=== PATIENT | male | born 1930 ===

== ENCOUNTER 2016-07-26 21:03 | Inpatient (IN) | payer MEDICARE, BC ==
--- NOTE | 2016-07-26 22:30 | ED PDOC ---
Syncope/Near Syncope/Dizzyness Time Seen by Provider: 07/26/16 21:14 Chief Complaint (Nursing): Syncope Chief Complaint (Provider): Syncope History Per: EMS, Family (son ) History/Exam Limitations: no limitations Onset/Duration Of Symptoms: Sudden Onset Current Symptoms Are (Timing): Still Present Activity At Onset Of Symptoms: Sitting (eating dinner ) Associated Symptoms Preceding Syncopal Episode: No Predromal Symptoms (Sudden Onset) Additional Complaint(s): Reinier Amaya is a 86 y/o male, with a past medical history of CAD, HTN, DM, dyslipidemia, and chronic renal insufficiency (but not on dialysis), brought in by EMS to the ER on 07/26/2016 after being witnessed of having syncope prior to arrival. Per patient's son, the patient initially became unresponsive at his dinner table earlier today after completing half of his meal. He stated that he felt full but no chest pain. However, his family stated that he became pale, unresponsive, and his eyes were open but his head slumped. EMS promptly arrived on scene and administered oxygen as well as sublingual nitroglycerin. Upon arrival, patient became alert and oriented x3 with no medical complaints. He denies any nausea, vomiting, diaphoresis, or shortness of breath. Family states he is currently baseline at present. Of note, the family reports the patient has been recently discharged from [facility] where he had a cardiac catheterization. Upon discharge from his visit, he was found to have severe coronary disease. But due to his renal insufficiency, there was no possibility of stenting or angioplasty. Patient will be accordingly treated conservatively with medication. Past Medical History Reviewed: Historical Data, Nursing Documentation, Vital Signs Vital Signs: Last Vital Signs Temp 98.2 F 07/26/16 21:04 Pulse 65 07/26/16 21:04 Resp 16 07/26/16 21:04 BP 141/66 07/26/16 21:04 Pulse Ox 98 07/26/16 21:04 - Medical History PMH: Benign Prostatic Hyperplasia, CAD (dyslipidemia ), Diabetes, HTN Other PMH: chronic renal insufficieny - Surgical History Surgical History: CABG - Family History Family History: States: Unknown Family Hx - Social History Current smoker - smoking cessation education provided: No Ex-Smoker (has not smoked in the last 12 months): No Alcohol: None Drugs: Denies - Home Medications Home Medications: Ambulatory Orders Medication Instructions Recorded Allopurinol [Zyloprim] 300 mg PO DAILY 07/26/16 Aspirin [Aspirin Chewable] 81 mg PO QOTHERDAY 07/26/16 Atorvastatin [Lipitor] 10 mg PO HS 07/26/16 Bimatoprost [Lumigan 2.5 ml] 1 drop BOTHEYES HS 07/26/16 Clopidogrel [Plavix] 75 mg PO DAILY 07/26/16 Ergocalciferol (Vitamin D2) 50,000 unit PO QWK 07/26/16 [Vitamin D2] Finasteride [Proscar] 5 mg PO DAILY 07/26/16 Isosorbide Mononitrate [Isosorbide 60 mg PO DAILY 07/26/16 Mononitrate ER] Lisinopril [Zestril] 2.5 mg PO QOTHERDAY 07/26/16 Nitroglycerin [Nitrostat] 0.4 mg SL Q5MIN PRN 07/26/16 Paricalcitol [Zemplar] 1 mcg PO DAILY 07/26/16 Ranolazine [Ranexa] 1,000 mg PO BID 07/26/16 SITagliptin [Januvia] 50 mg PO DAILY 07/26/16 Sevelamer Carbonate [Renvela] 2,400 mg PO DAILY 07/26/16 Sodium Bicarbonate 650 mg PO DAILY 07/26/16 - Allergies Allergies/Adverse Reactions: Allergies Allergy/AdvReac Type Severity Reaction Status Date / Time No Known Allergies Allergy Verified 07/26/16 21:04 Review of Systems ROS Statement: Except As Marked, All Systems Reviewed And Found Negative Cardiovascular: Negative for: Chest Pain Respiratory: Negative for: Shortness of Breath Gastrointestinal: Negative for: Nausea, Vomiting Physical Exam - Reviewed Nursing Documentation Reviewed: Yes Vital Signs Reviewed: Yes - Physical Exam Appears: Positive for: Non-toxic, No Acute Distress Head Exam: Positive for: ATRAUMATIC, NORMOCEPHALIC Skin: Positive for: Normal Color, Warm, Dry Eye Exam: Positive for: Normal appearance, EOMI, PERRL Neck: Positive for: Normal, Painless ROM, Supple Cardiovascular/Chest: Positive for: Regular Rate, Rhythm. Negative for: Murmur Respiratory: Positive for: Normal Breath Sounds. Negative for: Wheezing, Respiratory Distress Gastrointestinal/Abdominal: Positive for: Normal Exam, Soft. Negative for: Tenderness Male Genital Exam: Positive for: other ((-) right groin hematoma ) Extremity: Positive for: Normal ROM. Negative for: Deformity, Swelling Neurologic/Psych: Positive for: Alert, Oriented (x3). Negative for: Motor/ Sensory Deficits - Laboratory Results Result Diagrams: 07/26/16 22:01 07/26/16 22:01 - ECG O2 Sat by Pulse Oximetry: 98 (RA) Pulse Ox Interpretation: Normal - CT Scan/US CT Head w/o Contrast Other Rad Studies (CT/US): Interpreted By Me, Read By Radiologist, Radiology Report Reviewed Medical Decision Making Medical Decision Makin:14 Initial Impression- 86 y/o male with syncopal event in setting of known coronary insufficiency. Initial Plan- * CT Head w/o contrast * CMP * Troponin * CBC w/ differential * PTT * PT * CXR Portable * Accucheck * Urinalysis * Re-evaluate 22:33 CT Head w/o Contrast Results FINDINGS: Brain: Calcifications along the bilateral cerebellar folia. Mild to moderate brain volume loss. No hemorrhage. No significant white matter disease. No edema. Ventricles: Unremarkable. No ventriculomegaly. Bones/joints: Unremarkable. No acute fracture. Soft tissues: Unremarkable. Vasculature: Calcific atherosclerosis of the bilateral carotid siphon. Sinuses: Unremarkable as visualized. No acute sinusitis. Mastoid air cells: Unremarkable as visualized. No mastoid effusion. IMPRESSION: No acute findings. 23:15 Labs and results reviewed. No abnormalities present with exception of creatinine and elevation in patient's BUN, which is baseline for this patient. 23:15 Upon provider reevaluation patient is feeling better and in a fair condition. Patient was asymptomatic for the duration of his ED visit and will be placed in observation status. Counseling was provided and all questions were answered regarding diagnosis. Patient is in agreement with observation plan. Clinical Impression: Syncope Documented by Lizzie Bower and Marck Colon, acting as a scribe for Jong Gutierrez MD. All medical record entries made by the Scribe were at my direction and personally dictated by me. I have reviewed the chart and agree that the record accurately reflects my personal performance of the history, physical exam, medical decision making, and the department course for this patient. I have also personally directed, reviewed, and agree with the discharge instructions and disposition. Disposition - Clinical Impression Clinical Impression: Syncope - Patient ED Disposition Is Patient to be Admitted: Yes Discussed With : Mikey Barr Doctor Will See Patient In The: Hospital Counseled Patient/Family Regarding: Studies Performed, Diagnosis - Disposition Disposition Time: 23:15 Condition: FAIR - Pt Status Changed To: Hospital Disposition Of: Observation
[2016-07-26 22:39] LABS: BASO # 0.1 K/uL (0.0-0.2); BASO % 0.6 % (0.0-2.0); EOS # 0.9 K/uL (0.0-0.7); EOS % 6.9 % (0.0-4.0); HEMATOCRIT 25.8 % (35.0-51.0); LYMPH # 2.9 K/uL (1.0-4.3); LYMPH % 23.1 % (20.0-40.0); MEAN CELL VOLUME 103.1 fl (80.0-94.0); MEAN CORPUSCULAR HEMOGLOBIN 33.9 pg (27.0-31.0); MEAN CORPUSCULAR HGB CONC 32.9 g/dL (33.0-37.0); MEAN PLATELET VOLUME 8.2 fl (7.2-11.7); MONO # 0.4 K/uL (0.0-0.8); NEUT # 8.4 K/uL (1.8-7.0); NEUT % 66.4 % (50.0-75.0); RED CELL DISTRIBUTION WIDTH 19.4 % (11.5-14.5); WHITE BLOOD COUNT 12.7 K/uL (4.8-10.8)
[2016-07-26 22:45] LABS: ALKALINE PHOSPHATASE 63 U/L (38-126); ALT/SGPT 19 U/L (21-72); AST/SGOT 17 U/L (17-59); BILIRUBIN,TOTAL 0.4 mg/dl (0.2-1.3); BLOOD UREA NITROGEN 58 mg/dl (9-20); CALCIUM 9.8 mg/dL (8.4-10.2); CARBON DIOXIDE 26 mmol/L (22-30); CHLORIDE 102 mmol/L (98-107); GFR AFRICAN-AMERICAN 36; GLUCOSE,RANDOM 112 mg/dL (75-110); SODIUM 140 mmol/l (132-148); TOTAL PROTEIN 6.9 G/DL (6.3-8.2)
--- NOTE | 2016-07-27 01:14 | CP.PCM.HP ---
History of Present Illness - History of Present Illness History of Present Illness: CC: Syncope HPI: 86 y/o male with MHx significant for known CAD with CABG in the past and recent PCI at [place] which showed coronaries not amenable for intervention ( ?) who comes in today with syncope. Per the son who witnessed the event, patient had finished Easter dinner, and was noted to have slouched down with his eyes and mouth open. The family called EMS and a neighbor who worked for the [employer] brought O2; sons also gave patient a SLNG. Patient awoke but was still somewhat altered until he was brought to the ER, where he came back to baseline. Denies CP, SOB. Denies any other symptoms at this time. ROS: 14 systems reviewed, negative other than HPI MHx: CAD, DM2, HLD, HTN, CKD4 (?) SHx: CABG, multiple PCIs/stenting in the past, GB surgery Allergies: NKDA Medications: As per med rec Family Hx: Patient could not provide at this time Social Hx: Lives with family, no tobacco, no EtOH Surrogate: Sons, contact info in chart Present on Admission - Present on Admission Any Indicators Present on Admission: No Past Patient History - Past Social History Alcohol: None Drugs: Denies - CARDIAC Hx Cardiac Disorders: Yes - RENAL Hx Chronic Kidney Disease: Yes - ENDOCRINE/METABOLIC Hx Endocrine Disorders: Yes - PSYCHIATRIC Hx Substance Use: No - SURGICAL HISTORY Hx Coronary Artery Bypass Graft: Yes Meds Allergies/Adverse Reactions: Allergies Allergy/AdvReac Type Severity Reaction Status Date / Time No Known Allergies Allergy Verified 07/26/16 21:04 Physical Exam - Constitutional Appears: No Acute Distress - Head Exam Head Exam: ATRAUMATIC, NORMOCEPHALIC - Eye Exam Eye Exam: EOMI, PERRL Additional comments: Xanthema noted on eyelids - ENT Exam ENT Exam: Mucous Membranes Moist - Neck Exam Neck exam: Positive for: Full Rom - Respiratory Exam Respiratory Exam: Clear to Auscultation Bilateral, NORMAL BREATHING PATTERN - Cardiovascular Exam Cardiovascular Exam: REGULAR RHYTHM, +S1, +S2 - GI/Abdominal Exam GI & Abdominal Exam: Normal Bowel Sounds, Soft - Extremities Exam Extremities exam: Positive for: full ROM, normal inspection - Neurological Exam Neurological exam: Alert, CN II-XII Intact, Oriented x3 - Psychiatric Exam Psychiatric exam: Normal Affect, Normal Mood - Skin Skin Exam: Dry, Warm Results - Vital Signs Recent Vital Signs: Last Vital Signs Temp 98.2 F 07/26/16 21:04 Pulse 65 07/26/16 21:04 Resp 16 07/26/16 21:04 BP 141/66 07/26/16 21:04 Pulse Ox 98 07/27/16 00:19 - Labs Result Diagrams: 07/26/16 22:01 07/26/16 22:01 - EKG Data EKG Interpreted by: Myself EKG shows normal: Sinus rhythm - EKG Data EKG comments: ?L axis deviation - Imaging and Cardiology Chest x-ray Status: Image reviewed by me (no acute findings) CT scan - head Status: Image reviewed by me (No acute findings) Assessment & Plan (1) Syncope Assessment and Plan: 86 y/o with extensive CAD history who comes in with syncope. 1) CAD/HLD/HLD/Syncope -Admit tele -Serial troponins -Continue ASA, Plavix, SLNG, Statin -Continue other cardiac medications -Cardiology consult ([facility]) in AM 2) DM2 -DM2 diet -ACHS accucheck with SSI -If tolerating normal diet from AM, resume PO hypoglycemics 3) CKD -Dose medications renally -Renal diet -Continue renal medications -- phos lowering agents, bicarb, etc. 4) DVT PPx --SQ Heparin Status: Acute (2) CAD (coronary artery disease) Status: Acute (3) DM2 (diabetes mellitus, type 2) Status: Acute (4) CKD (chronic kidney disease) stage 4, GFR 15-29 ml/min Status: Acute (5) DVT prophylaxis Status: Acute
[2016-07-27] MEDS ORDERED: Ergocalciferol 50,000 Intl Units Cap PO SCH (01:15)
[2016-07-27 05:13] LABS: BASO # 0.1 K/uL (0.0-0.2); BASO % 0.6 % (0.0-2.0); EOS # 0.6 K/uL (0.0-0.7); EOS % 5.7 % (0.0-4.0); HEMATOCRIT 25.8 % (35.0-51.0); LYMPH # 3.7 K/uL (1.0-4.3); LYMPH % 32.8 % (20.0-40.0); MEAN CELL VOLUME 103.4 fl (80.0-94.0); MEAN CORPUSCULAR HEMOGLOBIN 34.8 pg (27.0-31.0); MEAN CORPUSCULAR HGB CONC 33.7 g/dL (33.0-37.0); MEAN PLATELET VOLUME 8.5 fl (7.2-11.7); MONO # 0.3 K/uL (0.0-0.8); MONO % 2.3 % (0.0-10.0); NEUT # 6.5 K/uL (1.8-7.0); NEUT % 58.6 % (50.0-75.0); RED CELL DISTRIBUTION WIDTH 19.6 % (11.5-14.5); WHITE BLOOD COUNT 11.2 K/uL (4.8-10.8)
[2016-07-27 05:17] LABS: TROPONIN I 0.012 ng/mL (0.00-0.120)
[2016-07-27 05:19] LABS: CALCIUM 9.5 mg/dL (8.4-10.2); POTASSIUM 4.2 MMOL/L (3.6-5.0)
[2016-07-27] MEDS: Insulin Lispro (humaLOG) 100 Units/ml Inj SC SCH ×4 (08:12→21:46)
[2016-07-27] MEDS ORDERED: Patient's Own Med (Lisinopril [Zestril] 2.5 MG) PO SCH (09:00)
[2016-07-27] MEDS ORDERED: SODIUM BICARBONATE 650 MG PO SCH (09:00)
[2016-07-27] MEDS ORDERED: SEVELAMER CARBONATE 2400 MG PO SCH (09:00)
[2016-07-27] MEDS ORDERED: ISOSORBIDE MONONITRATE 60 MG PO SCH (09:00)
--- NOTE | 2016-07-27 09:24 | CP.PCM.PN ---
Subjective - Date & Time of Evaluation Date of Evaluation: 07/27/16 Time of Evaluation: 09:22 - Subjective Subjective: patient denies headaches Has slight dizziness No SOB CT scan was negative Noted low platelet and Hgb Has no chest pain Objective - Vital Signs/Intake and Output Vital Signs (last 24 hours): Temp Pulse Resp BP Pulse Ox 97.9 F 60 18 109/54 L 98 07/27/16 05:00 07/27/16 05:00 07/27/16 05:00 07/27/16 05:00 07/27/16 05:00 - Medications Medications: Current Medications Allopurinol (Zyloprim) 300 mg PO DAILY [facility] Aspirin (Aspirin Chewable) 81 mg PO QOTHERDAY [facility] Atorvastatin Calcium (Lipitor) 10 mg PO HS [facility] Clopidogrel Bisulfate (Plavix) 75 mg PO DAILY [facility] Ergocalciferol (Drisdol 50,000 Intl Units Cap) 1 cap PO QWK [facility] Finasteride (Proscar) 5 mg PO DAILY [facility] Heparin Sodium (Porcine) (Heparin) 5,000 units SC Q8 [facility] PRN Reason: Protocol Home Med (Paricalcitol [Zemplar]) 1 mcg PO DAILY [facility] Home Med (Ranolazine [Ranexa]) 1,000 mg PO BID [facility] Insulin Human Lispro (Humalog) 0 units SC ACHS [facility] PRN Reason: Protocol Last Admin: 07/27/16 08:12 Dose: Not Given Isosorbide Mononitrate (Imdur) 60 mg PO DAILY [facility] Latanoprost (Xalatan Opht) 1 drop OU HS [facility] Lisinopril (Zestril) 2.5 mg PO QOD [facility] Nitroglycerin (Nitrostat Sl Tab) 0.4 mg SL Q5MIN PRN PRN Reason: Other Sevelamer HCl (Renagel) 2,400 mg PO DAILY [facility] Sodium Bicarbonate (Sodium Bicarbonate Tab) 650 mg PO DAILY [facility] - Labs Labs: 07/27/16 04:00 07/27/16 04:00 - Head Exam Head Exam: NORMAL INSPECTION - Eye Exam Eye Exam: Normal appearance - ENT Exam ENT Exam: Mucous Membranes Moist - Respiratory Exam Respiratory Exam: Clear to Ausculation Bilateral - Cardiovascular Exam Cardiovascular Exam: REGULAR RHYTHM - GI/Abdominal Exam GI & Abdominal Exam: Normal Bowel Sounds - Neurological Exam Neurological Exam: CN II-XII Intact, Oriented x3 Assessment and Plan (1) Syncope Status: Acute (2) CKD (chronic kidney disease) stage 3, GFR 30-59 ml/min Status: Acute (3) Diabetes mellitus Status: Acute (4) CAD (coronary atherosclerotic disease) Status: Acute (5) Acquired thrombocytopenia Status: Acute (6) Anemia Status: Acute - Assessment and Plan (Free Text) Plan: anemia work up Holter MRI of the brain carotid sono,
--- NOTE | 2016-07-27 10:46 | RAD ---
HISTORY: Admission. Portable study 01/2010. COMPARISON: No prior. FINDINGS: LUNGS: No active pulmonary disease. PLEURA: No significant pleural effusion identified, no pneumothorax apparent. CARDIOVASCULAR: No radiographic findings to suggest acute or significant cardiovascular disease. OSSEOUS STRUCTURES: No significant abnormalities. VISUALIZED UPPER ABDOMEN: Normal. OTHER FINDINGS: None. IMPRESSION: No active disease.
--- NOTE | 2016-07-27 11:01 | US ---
PROCEDURE: Carotid vertebral duplex sonography HISTORY: syncope COMPARISON: None. TECHNIQUE: Grayscale, color Doppler and spectral Doppler assessment of the carotid system bilaterally. This includes common carotid, internal carotid arteries Vertebral artery assessment with respect to direction of flow (antegrade or retrograde) FINDINGS: RIGHT carotid system: Assessment of plaque: Heterogeneous plaque formation. Extent of plaque including calcified plaque common carotid, bulb extending into the right internal carotid. Peak systolic ICA velocity: 100.3 cm/sec End-diastolic velocity: 23.4 cm/sec ICA/CCA ratio: 1.1 Vertebral artery flow: Antegrade LEFT carotid system: Assessment of plaque: Heterogeneous plaque formation. Partially calcified plaque common carotid mobile extending into the left internal carotid. Peak systolic ICA velocity: 129.8 cm/sec End-diastolic velocity: 37.2 cm/sec ICA/CCA ratio: 1.1 Vertebral artery flow: Antegrade IMPRESSION: 1. Right ICA degree of stenosis: Less than 50% 2. Left ICA degree of stenosis: 50- 69%. Peak systolic left ICA 80 in the proximal portion the vessel. Incidental finding(s): Incompletely characterized cystic thyroid nodule right lobe. This measures 6 by mm. Elective dedicated thyroid ultrasound advised. Reference Internal Carotid Artery (ICA) Peak Systolic Velocity (PSV) for above: 1. Less than 50% stenosis less than 125 cm/s peak systolic velocity 2. 50-69% stenosis 125-230cm/s peak systolic velocity 3. Greater than 70% but less than near occlusion greater than 230 cm/s peak systolic velocity
--- NOTE | 2016-07-27 11:46 | CP.PCM.PN ---
Subjective - Date & Time of Evaluation Date of Evaluation: 07/27/16 Time of Evaluation: 11:45 - Subjective Subjective: Pt seen , orders written.Full note to follow Objective - Vital Signs/Intake and Output Vital Signs (last 24 hours): Temp Pulse Resp BP Pulse Ox 97.9 F 60 18 109/54 L 98 07/27/16 05:00 07/27/16 05:00 07/27/16 05:00 07/27/16 05:00 07/27/16 05:00 - Medications Medications: Current Medications Allopurinol (Zyloprim) 300 mg PO DAILY [facility] Last Admin: 07/27/16 09:52 Dose: 300 mg Aspirin (Aspirin Chewable) 81 mg PO QOTHERDAY [facility] Last Admin: 07/27/16 09:51 Dose: 81 mg Atorvastatin Calcium (Lipitor) 10 mg PO HS [facility] Clopidogrel Bisulfate (Plavix) 75 mg PO DAILY [facility] Last Admin: 07/27/16 09:51 Dose: 75 mg Ergocalciferol (Drisdol 50,000 Intl Units Cap) 1 cap PO QWK [facility] Finasteride (Proscar) 5 mg PO DAILY [facility] Last Admin: 07/27/16 09:51 Dose: 5 mg Home Med (Paricalcitol [Zemplar]) 1 mcg PO DAILY [facility] Home Med (Ranolazine [Ranexa]) 1,000 mg PO BID [facility] Insulin Human Lispro (Humalog) 0 units SC ACHS [facility] PRN Reason: Protocol Last Admin: 07/27/16 08:12 Dose: Not Given Isosorbide Mononitrate (Imdur) 60 mg PO DAILY [facility] Last Admin: 07/27/16 09:51 Dose: 60 mg Latanoprost (Xalatan Opht) 1 drop OU HS [facility] Lisinopril (Zestril) 2.5 mg PO QOD [facility] Nitroglycerin (Nitrostat Sl Tab) 0.4 mg SL Q5MIN PRN PRN Reason: Other Sevelamer HCl (Renagel) 2,400 mg PO DAILY [facility] Last Admin: 07/27/16 09:51 Dose: 2,400 mg Sodium Bicarbonate (Sodium Bicarbonate Tab) 650 mg PO DAILY [facility] Last Admin: 07/27/16 09:51 Dose: 650 mg - Labs Labs: 07/27/16 04:00 07/27/16 04:00
[2016-07-27 12:45] LABS: IRON 70 ug/dL (49-181)
--- NOTE | 2016-07-27 13:27 | CON ---
DATE: 07/27/2016 NEUROLOGY CONSULTATION CHIEF COMPLAINT: Syncope. HISTORY OF PRESENT ILLNESS: An 86-year-old man with past medical history of coronary artery disease with CABG in the past and recent PCI at [facility], which showed coronaries not a menable for intervention, history of diabetes type 2, hyperlipidemia, chronic renal insufficiency, wh o came to the hospital because his son witnessed an event where the patient was finishing CHROMAom er, he was noted to have slouched down with his eyes and his mouth open. The patient was unresponsiv e at the dinner table, only after completing 1/2 of his meal. He said he felt full, but no chest su n. He became pale, unresponsive. His eyes were open, but head was slumped. He had poor sleep the n ight before. He is on aspirin and Plavix for stroke prevention as well as coronary artery disease. He is on Januvia for his underlying diabetes and Lipitor for his dyslipidemia. Currently, he has chr onic renal insufficiency. He has a low platelet count and his hemoglobin 8.4, which is low. A CT he ad showed no acute intracranial abnormalities. Carotid Doppler showed right ICA stenosis less than 5 0%, and left ICA stenosis of 50% to 69% . Currently, he is following commands without any difficulty , no focal weakness, no pronator drift seen. ALLERGIES: No known drug allergies. PAST MEDICAL HISTORY: History of dyslipidemia, hypertension, coronary artery disease status post CAB G, history of osteoporosis and history of chronic renal insufficiency. REVIEW OF SYSTEMS: A 14-point review of systems is negative except in the HPI. FAMILY HISTORY: Noncontributory. SOCIAL HISTORY: No illicit drug use, smoking, or ETOH abuse. CURRENT MEDICATIONS: Reviewed via nurse's reconciliation. PHYSICAL EXAMINATION: VITAL SIGNS: Temperature is 97.5, pulse rate 60, blood pressure of 109/54, respiratory rate of 18, o xygen saturation 98% on room air. GENERAL: The patient is sitting up in bed in no acute distress. HEENT: Atraumatic, normocephalic. PERRLA. Extraocular muscles intact. NECK: Supple, no JVD, no adenopathy noted. LUNGS: Clear to auscultation. No adventitious sounds. HEART: S1, S2, normal rate and rhythm. No murmurs, rubs, or gallops. ABDOMEN: Soft, nontender, nondistended. Bowel sounds are present. EXTREMITIES: No clubbing, no cyanosis. Peripheral pulses 2+ felt bilaterally. NEUROLOGIC: The patient is alert, oriented to person, place and year, hard of hearing. Recall after 5 minutes is 0/3, poor attention span. Slow thought process. Cranial nerves II through XII are int act. MOTOR EXAM: Moves all extremities equally. No pronator drift seen. SENSORY: Decreased light touch and pinprick up to calves bilaterally. DTRs are 2+ throughout and 1 at the ankles and knees. COORDINATION: [id number] intact. No tremors noted. Gait is deferred for now. LABORATORY DATA: Sodium 141, potassium 4.2, chloride 105, carbon dioxide 23, BUN of 55, creatinine 2 .1. Random glucose of 101. ASSESSMENT AND PLAN: This is an 86-year-old man with history of type 2 diabetes mellitus, history of dyslipidemia, history of coronary artery disease with history of coronary artery bypass graft, with a recent angioplasty showing coronary artery disease, not amenable to stents, history of chronic mary ellen l insufficiency, who was found to have a syncopal event where he was eating Easter dinner and had slu mped on top of his food, became pale and slightly unresponsive and was slightly altered when he came to the hospital. He said he had poor sleep the night before. Currently, denies any confusion episod es. He has baseline mild cognitive impairment which is seen on my examination, some underlying medic al problems. His blood pressure systolic is on the lower side today, he has anemia. At this time, I feel like his syncope is multifactorial, likely secondary to transient cerebral hypoperfusion to the brain from low blood pressure, superimposed underlying chronic renal insufficiency and symptomatic a nemia. At this time, recommend: 1. Aspirin 81 mg and Plavix 75 mg p.o. daily and Lipitor 20 mg p.o. daily for dyslipidemia, stroke p revention and coronary artery disease. 2. Get orthostatic vital signs. 3. Carotid Doppler reviewed. We will continue medical management for his underlying carotid disease . 4. Get physical therapy evaluation. 5. Hydrate the patient and monitor his electrolytes. Correct accordingly and get nephrology consult in regards to his chronic renal insufficiency. He is clinically stable from a neurological standpoi nt. Thank you for this consult. Simeon Moran MD cc: [id number] TT: 07/27/2016 13:27:11 Confirmation # [id number] Dictation # [id number]
[2016-07-27] MEDS: Patient's Own Med (Paricalcitol [Zemplar] 1 MCG) PO SCH (13:59)
--- NOTE | 2016-07-27 15:26 | CP.PCM.CON ---
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 Pt denies cp or sob and is comfortable at rest. Cardiac enzymes are normal and EKG reveals no acute changes. Bp is stable. Past Patient History - Past Social History Alcohol: None Drugs: Denies - CARDIAC Hx Cardiac Disorders: Yes - PULMONARY Other/Comment: previous smoker - NEUROLOGICAL Hx Neurological Disorder: No - HEENT Hx HEENT Problems: Yes Other/Comment: hard of hearing - RENAL Hx Chronic Kidney Disease: Yes - ENDOCRINE/METABOLIC Hx Endocrine Disorders: Yes - HEMATOLOGICAL/ONCOLOGICAL Hx Blood Disorders: No Hx AIDS: No Hx Human Immunodeficiency Virus (HIV): No - INTEGUMENTARY Hx Dermatological Problems: No - MUSCULOSKELETAL/RHEUMATOLOGICAL Hx Musculoskeletal Disorders: No Hx Falls: No - GASTROINTESTINAL Hx Gastrointestinal Disorders: No - GENITOURINARY/GYNECOLOGICAL Hx Genitourinary Disorders: Yes Hx Prostate Problems: Yes - PSYCHIATRIC Hx Substance Use: No - SURGICAL HISTORY Hx Coronary Artery Bypass Graft: Yes - ANESTHESIA Hx Anesthesia: Yes Hx Anesthesia Reactions: No Hx Malignant Hyperthermia: No Has any member of the family had a problem w/ anesthesia?: No Meds Allergies/Adverse Reactions: Allergies Allergy/AdvReac Type Severity Reaction Status Date / Time No Known Allergies Allergy Verified 07/26/16 21:04 - Medications Medications: Current Medications Allopurinol (Zyloprim) 300 mg PO DAILY [facility] Last Admin: 07/27/16 09:52 Dose: 300 mg Aspirin (Aspirin Chewable) 81 mg PO QOTHERDAY [facility] Last Admin: 07/27/16 09:51 Dose: 81 mg Atorvastatin Calcium (Lipitor) 10 mg PO HS [facility] Clopidogrel Bisulfate (Plavix) 75 mg PO DAILY [facility] Last Admin: 07/27/16 09:51 Dose: 75 mg Ergocalciferol (Drisdol 50,000 Intl Units Cap) 1 cap PO QWK [facility] Finasteride (Proscar) 5 mg PO DAILY [facility] Last Admin: 07/27/16 09:51 Dose: 5 mg Home Med (Paricalcitol [Zemplar]) 1 mcg PO DAILY [facility] Last Admin: 07/27/16 13:59 Dose: 1 mcg Home Med (Ranolazine [Ranexa]) 1,000 mg PO BID [facility] Last Admin: 07/27/16 13:59 Dose: 1,000 mg Insulin Human Lispro (Humalog) 0 units SC ACHS [facility] PRN Reason: Protocol Last Admin: 07/27/16 13:59 Dose: Not Given Isosorbide Mononitrate (Imdur) 60 mg PO DAILY [facility] Last Admin: 07/27/16 09:51 Dose: 60 mg Latanoprost (Xalatan Opht) 1 drop OU HS [facility] Lisinopril (Zestril) 2.5 mg PO QOD [facility] Nitroglycerin (Nitrostat Sl Tab) 0.4 mg SL Q5MIN PRN PRN Reason: Other Sevelamer HCl (Renagel) 2,400 mg PO DAILY [facility] Last Admin: 07/27/16 09:51 Dose: 2,400 mg Sodium Bicarbonate (Sodium Bicarbonate Tab) 650 mg PO DAILY [facility] Last Admin: 07/27/16 09:51 Dose: 650 mg Physical Exam - Head Exam Head Exam: NORMAL INSPECTION - Respiratory Exam Respiratory Exam: NORMAL BREATHING PATTERN - Cardiovascular Exam Cardiovascular Exam: REGULAR RHYTHM - GI/Abdominal Exam GI & Abdominal Exam: Normal Bowel Sounds - Extremities Exam Extremities exam: Positive for: normal inspection Results - Vital Signs Recent Vital Signs: Last Vital Signs Temp 98.3 F 07/27/16 09:00 Pulse 70 07/27/16 09:00 Resp 18 07/27/16 09:00 BP 123/72 07/27/16 09:00 Pulse Ox 98 07/27/16 09:00 - Labs Result Diagrams: 07/27/16 04:00 07/27/16 04:00 Labs: Laboratory Results - last 24 hr 07/27/16 07/27/16 07/27/16 12:23 12:34 13:55 Retic Count 0.8 POC Glucose (mg/dL) 141 H Iron 70 TIBC 234 L % Saturation 30 Troponin I < 0.0120 Assessment & Plan - Assessment and Plan (Free Text) Assessment: Concur with Neurologist Syncopal event probably multifactorial currently hemodynamically stable. Pt is stable from cardiac standpoint once he is ambulatory. Would Discontinue NANCY-I as he is taking qod
--- NOTE | 2016-07-27 16:02 | CARD ---
APPROVED REPORT EKG Measurement Heart [id number] ND [id number] <Conclusion> Normal sinus rhythm Left axis deviation Pulmonary disease pattern Nonspecific T wave abnormality Abnormal ECG
[2016-07-27 19:33] LABS: FOLATE 13.4 ng/mL
[2016-07-27] MEDS: Latanoprost 0.005% Opht SOUTION OU SCH (21:46)
[2016-07-27] MEDS ORDERED: Patient's Own Med (Bimatoprost [Lumigan] 1 DROP) BOTHEYES SCH (22:00)
[2016-07-28] MEDS: Insulin Lispro (humaLOG) 100 Units/ml Inj SC SCH ×4 (07:27→22:32)
[2016-07-28] MEDS ORDERED: Epoetin Alfa 40000 UNIT/ml Inj SC ONE (09:20)
[2016-07-28] MEDS: Patient's Own Med (Paricalcitol [Zemplar] 1 MCG) PO SCH (09:26)
--- NOTE | 2016-07-28 09:26 | CP.PCM.PN ---
<Marquita Cheng - Last Filed: 07/28/16 12:04> Subjective - Date & Time of Evaluation Date of Evaluation: 07/28/16 Time of Evaluation: 09:26 - Subjective Subjective: 86M seen and examined at bedside with attending. Patient denies SOB, chest pain, and denies any dizziness at this time. Objective - Vital Signs/Intake and Output Vital Signs (last 24 hours): Temp Pulse Resp BP Pulse Ox 36.5 C 62 18 122/68 95 07/28/16 07:56 07/28/16 07:56 07/28/16 07:56 07/28/16 07:56 07/28/16 07:56 - Medications Medications: Current Medications Allopurinol (Zyloprim) 300 mg PO DAILY [facility] Last Admin: 07/27/16 09:52 Dose: 300 mg Aspirin (Aspirin Chewable) 81 mg PO QOTHERDAY [facility] Last Admin: 07/27/16 09:51 Dose: 81 mg Atorvastatin Calcium (Lipitor) 10 mg PO HS [facility] Last Admin: 07/27/16 21:46 Dose: 10 mg Clopidogrel Bisulfate (Plavix) 75 mg PO DAILY [facility] Last Admin: 07/27/16 09:51 Dose: 75 mg Epoetin Joel (Procrit) 40,000 unit SC ONCE ONE Stop: 07/28/16 09:21 Ergocalciferol (Drisdol 50,000 Intl Units Cap) 1 cap PO QWK [facility] Finasteride (Proscar) 5 mg PO DAILY [facility] Last Admin: 07/27/16 09:51 Dose: 5 mg Home Med (Paricalcitol [Zemplar]) 1 mcg PO DAILY [facility] Last Admin: 07/27/16 13:59 Dose: 1 mcg Home Med (Ranolazine [Ranexa]) 1,000 mg PO BID [facility] Last Admin: 07/27/16 16:53 Dose: 1,000 mg Insulin Human Lispro (Humalog) 0 units SC ACHS [facility] PRN Reason: Protocol Last Admin: 07/28/16 07:27 Dose: Not Given Isosorbide Mononitrate (Imdur) 60 mg PO DAILY [facility] Last Admin: 07/27/16 09:51 Dose: 60 mg Latanoprost (Xalatan Opht) 1 drop OU HS [facility] Last Admin: 07/27/16 21:46 Dose: 1 drop Nitroglycerin (Nitrostat Sl Tab) 0.4 mg SL Q5MIN PRN PRN Reason: Other Sevelamer HCl (Renagel) 2,400 mg PO DAILY [facility] Last Admin: 07/27/16 09:51 Dose: 2,400 mg Sodium Bicarbonate (Sodium Bicarbonate Tab) 650 mg PO DAILY [facility] Last Admin: 07/27/16 09:51 Dose: 650 mg Assessment and Plan (1) Syncope Assessment & Plan: Syncopal event both neurology and cardiology evaluated patient and appears to be multifactorial (hypoperfusion/anemia/CRF). - Neurology Consult (Dr Moran) appreciated: multifactorial event (hypoperfusion /anemia, CRF) - Cardiology Consult (Dr Joshua) appreciated: Trops negative, EKG no acute changes , d/c ACEI, cardiac stable at present - Carotid duplex: LEFT ICA 50-69% and RIGHT ICA <50%; incidental thyroid nodule noted - Physical Therapy evaluation Status: Acute (2) DVT prophylaxis Assessment & Plan: Lovenox and Heparin contraindicated at this time due to Thrombocytopenia SCDs b/l, continuous Status: Acute (3) Thyroid incidentaloma Assessment & Plan: Noted on carotid duplex, clinically without symptoms. - TSH - Thyroid Ultrasound as indicated Status: Acute (4) CAD (coronary artery disease) Assessment & Plan: Patient with significant cardiac hx to include CABG. Troponins negative, EKG no acute changes. - Cardiology Consult (Dr Joshua) appreciated: Trops negative, EKG no acute changes , d/c ACEI, cardiac stable at present - c/w home medications Status: Chronic (5) CKD (chronic kidney disease) stage 3, GFR 30-59 ml/min Assessment & Plan: Followed by Dr Sosa as an outpatient and this admission no acute changes. - f/u outpatient with Dr Sosa Status: Chronic (6) Diabetes mellitus Assessment & Plan: Well-controlled. - c/w home medications Status: Chronic (7) Hypertension Assessment & Plan: Chronic, controlled, however after evaluation by cardiology ACEI discontinued. - c/w current home medications Status: Chronic (8) Hematologic abnormality Assessment & Plan: Patient has both anemia and thrombocytopenia likely chronic, iron studies and B12 are wnl. - Heme/Onc (Dr Trav Urban) consult appreciated: Procrit x1 - Will continue to monitor Status: Chronic <Arthur Mccain - Last Filed: 07/29/16 08:46> Objective - Vital Signs/Intake and Output Vital Signs (last 24 hours): Temp Pulse Resp BP Pulse Ox 98.0 F 69 20 105/66 97 07/29/16 08:23 07/29/16 08:23 07/29/16 08:23 07/29/16 08:23 07/29/16 08:23 - Medications Medications: Current Medications Allopurinol (Zyloprim) 300 mg PO DAILY [facility] Last Admin: 07/28/16 09:27 Dose: 300 mg Aspirin (Aspirin Chewable) 81 mg PO QOTHERDAY [facility] Last Admin: 07/27/16 09:51 Dose: 81 mg Atorvastatin Calcium (Lipitor) 10 mg PO HS [facility] Last Admin: 07/28/16 21:15 Dose: 10 mg Clopidogrel Bisulfate (Plavix) 75 mg PO DAILY [facility] Last Admin: 07/28/16 09:26 Dose: 75 mg Dextrose (Glutose 15) 0 gm PO ONCE PRN; Protocol PRN Reason: Hypoglycemia Protocol Dextrose (Dextrose 50% Inj) 0 ml IV STAT PRN; Protocol PRN Reason: Hyglycemia Protocol Ergocalciferol (Drisdol 50,000 Intl Units Cap) 1 cap PO QWK [facility] Finasteride (Proscar) 5 mg PO DAILY [facility] Last Admin: 07/28/16 09:26 Dose: 5 mg Glucagon (Glucagen Diagnostic Kit) 0 mg IM STAT PRN; Protocol PRN Reason: Hypoglycemia Protocol Home Med (Paricalcitol [Zemplar]) 1 mcg PO DAILY [facility] Last Admin: 07/28/16 09:26 Dose: 1 mcg Home Med (Ranolazine [Ranexa]) 1,000 mg PO BID [facility] Last Admin: 07/28/16 09:26 Dose: 1,000 mg Insulin Human Lispro (Humalog) 0 units SC ACHS [facility] PRN Reason: Protocol Last Admin: 07/29/16 07:04 Dose: Not Given Isosorbide Mononitrate (Imdur) 60 mg PO DAILY [facility] Last Admin: 07/28/16 09:25 Dose: 60 mg Latanoprost (Xalatan Opht) 1 drop OU HS [facility] Last Admin: 07/28/16 21:15 Dose: 1 drop Nitroglycerin (Nitrostat Sl Tab) 0.4 mg SL Q5MIN PRN PRN Reason: Other Sevelamer HCl (Renagel) 2,400 mg PO DAILY [facility] Last Admin: 07/28/16 09:27 Dose: 2,400 mg Sodium Bicarbonate (Sodium Bicarbonate Tab) 650 mg PO DAILY [facility] Last Admin: 07/28/16 09:27 Dose: 650 mg - Labs Labs: 07/28/16 10:48 07/29/16 04:45 Assessment and Plan (1) Syncope Status: Acute (2) CKD (chronic kidney disease) stage 3, GFR 30-59 ml/min Status: Chronic (3) Diabetes mellitus Status: Chronic (4) CAD (coronary atherosclerotic disease) Status: Acute (5) Acquired thrombocytopenia Status: Acute (6) Anemia Status: Acute - Assessment and Plan (Free Text) Plan: I personally evaluated patient. Discussed with IN STORE DEMONSTRATOR and with Dr Prosper remy plans of care. Arthur Mccain M.D.
[2016-07-28 11:00] LABS: HEMATOCRIT 27.5 % (35.0-51.0); MEAN CORPUSCULAR HEMOGLOBIN 35.1 pg (27.0-31.0); MEAN CORPUSCULAR HGB CONC 33.8 g/dL (33.0-37.0); RED CELL DISTRIBUTION WIDTH 19.4 % (11.5-14.5); WHITE BLOOD COUNT 9.1 K/uL (4.8-10.8)
[2016-07-28 11:11] LABS: CALCIUM 9.6 mg/dL (8.4-10.2); POTASSIUM 4.1 MMOL/L (3.6-5.0)
[2016-07-28 11:40] LABS: THYROID STIMULATING HORMONE 3.89 mIU/ML (0.46-4.68)
[2016-07-28] MEDS ORDERED: Glucagon Recombinant 1 mg Inj IM PRN (11:42)
[2016-07-28] MEDS ORDERED: Dextrose 50% SYRINGE Inj (50 ml) IV PRN (11:42)
--- NOTE | 2016-07-28 11:54 | CP.PCM.PN ---
Subjective - Date & Time of Evaluation Date of Evaluation: 07/28/16 Time of Evaluation: 11:53 - Subjective Subjective: Pt is fdeeling better. His b12 and iron studies are normal. Will start on procrit today. Objective - Vital Signs/Intake and Output Vital Signs (last 24 hours): Temp Pulse Resp BP Pulse Ox 97.7 F 62 18 122/68 95 07/28/16 07:56 07/28/16 07:56 07/28/16 07:56 07/28/16 07:56 07/28/16 07:56 - Medications Medications: Current Medications Allopurinol (Zyloprim) 300 mg PO DAILY [facility] Last Admin: 07/28/16 09:27 Dose: 300 mg Aspirin (Aspirin Chewable) 81 mg PO QOTHERDAY [facility] Last Admin: 07/27/16 09:51 Dose: 81 mg Atorvastatin Calcium (Lipitor) 10 mg PO HS [facility] Last Admin: 07/27/16 21:46 Dose: 10 mg Clopidogrel Bisulfate (Plavix) 75 mg PO DAILY [facility] Last Admin: 07/28/16 09:26 Dose: 75 mg Dextrose (Glutose 15) 0 gm PO ONCE PRN; Protocol PRN Reason: Hypoglycemia Protocol Dextrose (Dextrose 50% Inj) 0 ml IV STAT PRN; Protocol PRN Reason: Hyglycemia Protocol Epoetin Joel (Procrit) 40,000 unit SC ONCE ONE Stop: 07/28/16 09:21 Ergocalciferol (Drisdol 50,000 Intl Units Cap) 1 cap PO QWK [facility] Finasteride (Proscar) 5 mg PO DAILY [facility] Last Admin: 07/28/16 09:26 Dose: 5 mg Glucagon (Glucagen Diagnostic Kit) 0 mg IM STAT PRN; Protocol PRN Reason: Hypoglycemia Protocol Home Med (Paricalcitol [Zemplar]) 1 mcg PO DAILY [facility] Last Admin: 07/28/16 09:26 Dose: 1 mcg Home Med (Ranolazine [Ranexa]) 1,000 mg PO BID [facility] Last Admin: 07/28/16 09:26 Dose: 1,000 mg Insulin Human Lispro (Humalog) 0 units SC ACHS [facility] PRN Reason: Protocol Last Admin: 07/28/16 07:27 Dose: Not Given Isosorbide Mononitrate (Imdur) 60 mg PO DAILY [facility] Last Admin: 07/28/16 09:25 Dose: 60 mg Latanoprost (Xalatan Opht) 1 drop OU HS [facility] Last Admin: 07/27/16 21:46 Dose: 1 drop Nitroglycerin (Nitrostat Sl Tab) 0.4 mg SL Q5MIN PRN PRN Reason: Other Sevelamer HCl (Renagel) 2,400 mg PO DAILY [facility] Last Admin: 07/28/16 09:27 Dose: 2,400 mg Sodium Bicarbonate (Sodium Bicarbonate Tab) 650 mg PO DAILY [facility] Last Admin: 07/28/16 09:27 Dose: 650 mg - Labs Labs: 07/28/16 10:48 07/28/16 10:48
[2016-07-28 20:12] LABS: URINE BILIRUBIN NEGATIVE (NEGATIVE); URINE BLOOD NEGATIVE (NEGATIVE); URINE COLOR YELLOW (YELLOW); URINE GLUCOSE (UA) NEG (Normal); URINE KETONE NEGATIVE (NEGATIVE); URINE LEUKOCYTE ESTERASE NEG Leu/uL (Negative); URINE PROTEIN NEGATIVE (NEGATIVE); URINE UROBILINOGEN 0.2-1.0 mg/dL (0.2-1.0)
[2016-07-28] MEDS: Latanoprost 0.005% Opht SOUTION OU SCH (21:15)
[2016-07-29 06:59] LABS: CALCIUM 9.6 mg/dL (8.4-10.2); POTASSIUM 4.5 MMOL/L (3.6-5.0)
[2016-07-29] MEDS: Insulin Lispro (humaLOG) 100 Units/ml Inj SC SCH ×2 (07:04→12:15)
[2016-07-29 08:24] VITALS: RESP 20
--- NOTE | 2016-07-29 08:48 | CP.PCM.DIS ---
Provider - Provider Date of Admission: 07/27/16 11:50 Attending physician: Arthur Mccain MD Time Spent in preparation of Discharge (in minutes): 30 Diagnosis - Discharge Diagnosis (1) Syncope Status: Acute (2) CKD (chronic kidney disease) stage 3, GFR 30-59 ml/min Status: Chronic (3) Diabetes mellitus Status: Chronic (4) CAD (coronary atherosclerotic disease) Status: Acute (5) Acquired thrombocytopenia Status: Acute (6) Anemia Status: Acute Hospital Course - Lab Results Lab Results: Most Recent Lab Values WBC 9.1 K/uL (4.8-10.8) 07/28/16 10:48 RBC 2.65 Mil/uL (4.40-5.90) L 07/28/16 10:48 Hgb 9.3 g/dL (12.0-18.0) L 07/28/16 10:48 Hct 27.5 % (35.0-51.0) L 07/28/16 10:48 MCV 104.0 fl (80.0-94.0) H 07/28/16 10:48 MCH 35.1 pg (27.0-31.0) H 07/28/16 10:48 MCHC 33.8 g/dL (33.0-37.0) 07/28/16 10:48 RDW 19.4 % (11.5-14.5) H 07/28/16 10:48 Plt Count 63 K/uL (130-400) L 07/28/16 10:48 MPV 8.5 fl (7.2-11.7) 07/27/16 04:00 Neut % (Auto) 58.6 % (50.0-75.0) 07/27/16 04:00 Lymph % (Auto) 32.8 % (20.0-40.0) 07/27/16 04:00 Schuyler % (Auto) 2.3 % (0.0-10.0) 07/27/16 04:00 Eos % (Auto) 5.7 % (0.0-4.0) H 07/27/16 04:00 Baso % (Auto) 0.6 % (0.0-2.0) 07/27/16 04:00 Neut # 6.5 K/uL (1.8-7.0) 07/27/16 04:00 Lymph # 3.7 K/uL (1.0-4.3) 07/27/16 04:00 Schuyler # 0.3 K/uL (0.0-0.8) 07/27/16 04:00 Eos # 0.6 K/uL (0.0-0.7) 07/27/16 04:00 Baso # 0.1 K/uL (0.0-0.2) 07/27/16 04:00 Retic Count 0.8 % (0.5-1.5) 07/27/16 12:34 Sodium 138 mmol/l (132-148) 07/29/16 04:45 Potassium 4.5 MMOL/L (3.6-5.0) 07/29/16 04:45 Chloride 102 mmol/L (98-107) 07/29/16 04:45 Carbon Dioxide 25 mmol/L (22-30) 07/29/16 04:45 Anion Gap 16 (10-20) 07/29/16 04:45 BUN 40 mg/dl (9-20) H 07/29/16 04:45 Creatinine 1.8 mg/dL (0.8-1.5) H 07/29/16 04:45 Est GFR ( Amer) 43 07/29/16 04:45 Est GFR (Non-Af Amer) 36 07/29/16 04:45 POC Glucose (mg/dL) 103 mg/dL (65-110) 07/29/16 05:52 Random Glucose 88 mg/dL (75-110) 07/29/16 04:45 Calcium 9.6 mg/dL (8.4-10.2) 07/29/16 04:45 Iron 70 ug/dL (49-181) 07/27/16 12:23 TIBC 234 ug/dL (250-450) L 07/27/16 12:23 % Saturation 30 % (20-55) 07/27/16 12:23 Ferritin 197.0 ng/mL 07/27/16 12:23 Total Bilirubin 0.4 mg/dl (0.2-1.3) 07/26/16 22:01 AST 17 U/L (17-59) 07/26/16 22:01 ALT 19 U/L (21-72) L 07/26/16 22:01 Alkaline Phosphatase 63 U/L (38-126) 07/26/16 22:01 Troponin I < 0.0120 ng/mL (0.00-0.120) 07/27/16 12:23 Total Protein 6.9 G/DL (6.3-8.2) 07/26/16 22:01 Albumin 3.4 g/dL (3.5-5.0) L 07/26/16 22:01 Globulin 3.5 gm/dL (2.2-3.9) 07/26/16 22:01 Albumin/Globulin Ratio 1.0 (1.0-2.1) 07/26/16 22:01 Vitamin B12 > 1000 pg/mL (239-931) H 07/27/16 12:23 Folate 13.4 ng/mL 07/27/16 12:23 TSH 3rd Generation 3.89 mIU/ML (0.46-4.68) 07/28/16 10:48 Urine Color Yellow (YELLOW) 07/28/16 18:00 Urine Clarity Clear (Clear) 07/28/16 18:00 Urine pH 5.0 (5.0-8.0) 07/28/16 18:00 Ur Specific [place] 1.010 (1.003-1.030) 07/28/16 18:00 Urine Protein Negative mg/dL (NEGATIVE) 07/28/16 18:00 Urine Glucose (UA) Neg mg/dL (Normal) 07/28/16 18:00 Urine Ketones Negative mg/dL (NEGATIVE) 07/28/16 18:00 Urine Blood Negative (NEGATIVE) 07/28/16 18:00 Urine Nitrate Negative (NEGATIVE) 07/28/16 18:00 Urine Bilirubin Negative (NEGATIVE) 07/28/16 18:00 Urine Urobilinogen 0.2-1.0 mg/dL (0.2-1.0) 07/28/16 18:00 Ur Leukocyte Esterase Neg Arya/uL (Negative) 07/28/16 18:00 - Hospital Course Hospital Course: This is an 86 y/o male admitted for syncope while taking his meal. He was evaluated at ER and initial labs were all normal. He has a hx of CABG CAD HTN . Further work ups including CT brain and cardiac enzymes were all normal. Carotid doppler however shoed 59 to 80 % stenosis on the Left ICA Discussed with DR Paige patient and both opted for no further intervention patient was sent home in stable xondition and will follow up in office in 1 week. Abdulaziz -I will be discontinued due to low BP. Discharge Exam - Head Exam Head Exam: NORMAL INSPECTION - Eye Exam Eye Exam: Normal appearance - Respiratory Exam Respiratory Exam: NORMAL BREATHING PATTERN - GI/Abdominal Exam GI & Abdominal Exam: Normal Bowel Sounds - Neurological Exam Neurological exam: CN II-XII Intact, Oriented x3 Discharge Plan - Follow Up Plan Condition: GOOD Disposition: HOME/ ROUTINE Additional Instructions: discharge to home follow up in my office in 1 week.
--- NOTE | 2016-07-29 08:56 | CT ---
PROCEDURE: CT HEAD WITHOUT CONTRAST. HISTORY: headache COMPARISON: None available. TECHNIQUE: Axial computed tomography images were obtained through the head/brain without intravenous contrast. Radiation dose: Total exam DLP = 821.45 mGy-cm. This CT exam was performed using one or more of the following dose reduction techniques: Automated exposure control, adjustment of the mA and/or kV according to patient size, and/or use of iterative reconstruction technique. FINDINGS: HEMORRHAGE: No intracranial hemorrhage. BRAIN: No mass effect or edema. Age related senescent change VENTRICLES: Unremarkable. No hydrocephalus. CALVARIUM: Unremarkable. PARANASAL SINUSES: Unremarkable as visualized. No significant inflammatory changes. MASTOID AIR CELLS: Unremarkable as visualized. No inflammatory changes. OTHER FINDINGS: None. IMPRESSION: No acute intracranial abnormalities. No significant findings to account for the clinical presentation. Concordant results (preliminary interpretation) provided by [facility]. Procedure Completed: 23:03. Preliminary ([facility]) Report: Dictated and Authenticated: 23:26. Final Interpretation: 08:55. July 29, 2016.
[2016-07-29] MEDS: Patient's Own Med (Paricalcitol [Zemplar] 1 MCG) PO SCH (09:23)
[2016-07-29 13:07] VITALS: BP 100/61; PULSE 72; TEMP 97.9; O2SAT 96
[2016-08-04] MEDS ORDERED: Epoetin Alfa 40000 UNIT/ml Inj SC ONE (07:45)
== END 2016-07-29 14:30 | disposition home health service (06) | DRG 312 ==
LOC: H.ER 21:03 → H.ERHOLD 23:06 → H.TEL 07-27 01:13 → OBSVTOIN 07-27 11:50 → H.TEL 07-27 16:39
PROVIDERS: ADMIT Family Medicine; ATTEND Family Medicine
DX: R55 Syncope and collapse (principal); E11.22 Type 2 diabetes mellitus with diabetic chronic kidney disease; D69.59 Other secondary thrombocytopenia; N18.3 Chronic kidney disease, stage 3 (moderate); I12.9 Hypertensive chronic kidney disease with stage 1 through stage 4 chronic kidney disease, or unspecified chronic kidney disease; D64.89 Other specified anemias; I25.89 Other forms of chronic ischemic heart disease; I25.10 Atherosclerotic heart disease of native coronary artery without angina pectoris; Z95.1 Presence of aortocoronary bypass graft; E78.5 Hyperlipidemia, unspecified; E04.1 Nontoxic single thyroid nodule; M81.0 Age-related osteoporosis without current pathological fracture; N40.0 Benign prostatic hyperplasia without lower urinary tract symptoms; G31.84 Mild cognitive impairment of uncertain or unknown etiology; Z98.61 Coronary angioplasty status; H91.90 Unspecified hearing loss, unspecified ear; Z87.891 Personal history of nicotine dependence; Z79.82 Long term (current) use of aspirin; Z79.02 Long term (current) use of antithrombotics/antiplatelets

== ENCOUNTER 2016-09-29 16:16 | Inpatient (IN) | payer MEDICARE, BC ==
[2016-09-29 16:16] VITALS: BMI 30.4
--- NOTE | 2016-09-29 16:55 | ED PDOC ---
HPI: Chest Pain Time Seen by Provider: 09/29/16 16:26 Chief Complaint (Nursing): Chest Pain Chief Complaint (Provider): Chest Discomfort History Per: Patient History/Exam Limitations: no limitations Onset/Duration Of Symptoms: Hrs (5) Current Symptoms Are (Timing): Intermittent Episodes Severity: Moderate Quality: Other (shocking, electrical) Modifying Factors: None Exacerbating Factors: None Additional History Per: Patient Additional Complaint(s): 86 y/o male with PMHx CABG, CAD, HTN, DM, CKD not on hemodialysis, who is here complaining of short bursts of right sided anterior chest discomfort described as electrical shocks for the last 5 hours. The discomfort is not associated with shortness of breath, cough, leg pain, leg swelling, dizziness, or other complaint. He reports that he was concerned due to his previous cardiac history and wanted to be evaluated. 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 Past Medical History Vital Signs: Last Vital Signs Temp 97.6 F 09/29/16 16:55 Pulse 69 09/29/16 16:55 Resp 20 09/29/16 16:55 BP 156/72 H 09/29/16 16:55 Pulse Ox 98 09/29/16 16:55 - Medical History PMH: Anemia, Asthma, Benign Prostatic Hyperplasia, CAD (dyslipidemia ), Diabetes , Gall Bladder Disease, HTN (HTN medications d/c), Hypercholesterolemia, Chronic Kidney Disease Denies: HIV Other PMH: Thrombocytopenia, CKD, - Surgical History Surgical History: CABG (37 years ago), Cholecystectomy, Coronary Stent (1994) - Family History Family History: States: Unknown Family Hx - Social History Current smoker - smoking cessation education provided: No Alcohol: None - Home Medications Home Medications: Ambulatory Orders Medication Instructions Recorded Atorvastatin [Lipitor] 10 mg PO HS 07/26/16 Bimatoprost [Lumigan 2.5 ml] 1 drop BOTHEYES HS 07/26/16 Clopidogrel [Plavix] 75 mg PO DAILY 07/26/16 Ergocalciferol (Vitamin D2) 50,000 unit PO SUN 07/26/16 [Vitamin D2] Finasteride [Proscar] 5 mg PO DAILY 07/26/16 Isosorbide Mononitrate [Isosorbide 60 mg PO QPM 07/26/16 Mononitrate ER] Nitroglycerin [Nitrostat] 0.4 mg SL Q5MIN PRN 07/26/16 Paricalcitol [Zemplar] 1 mcg PO Q48H 07/26/16 Ranolazine [Ranexa] 1,000 mg PO BID 07/26/16 SITagliptin [Januvia] 50 mg PO DAILY 07/26/16 Sevelamer Carbonate [Renvela] 800 mg PO TID 07/26/16 Febuxostat [Uloric] 40 mg PO DAILY 08/11/16 Megestrol Acetate [Megace Es] 625 mg PO DAILY 08/11/16 Lisinopril [Zestril] 2.5 mg PO Q48H 09/29/16 Sodium Bicarbonate Tab [Sodium 650 mg PO BID 09/29/16 Bicarbonate Tab] - Allergies Allergies/Adverse Reactions: Allergies Allergy/AdvReac Type Severity Reaction Status Date / Time No Known Allergies Allergy Verified 08/11/16 11:40 Review of Systems ROS Statement: Except As Marked, All Systems Reviewed And Found Negative Cardiovascular: Positive for: Chest Pain Physical Exam - Reviewed Nursing Documentation Reviewed: Yes Vital Signs Reviewed: Yes - Physical Exam Appears: Positive for: Well, Non-toxic, No Acute Distress Head Exam: Positive for: ATRAUMATIC, NORMAL INSPECTION, NORMOCEPHALIC Skin: Positive for: Normal Color, Warm, DRY Eye Exam: Positive for: EOMI, PERRL ENT: Positive for: Normal ENT Inspection. Negative for: Pharyngeal Erythema, Tonsillar Exudate Neck: Positive for: Normal, Painless ROM Cardiovascular/Chest: Positive for: Regular Rate, Rhythm. Negative for: Gallop , Murmur, Friction Rub Respiratory: Positive for: Normal Breath Sounds. Negative for: Rhonchi, Stridor , Wheezing, Respiratory Distress Gastrointestinal/Abdominal: Positive for: Bowel Sounds, Soft, Tenderness (epig and ruq ttp, mild). Negative for: Mass, Distended, Guarding, Rebound Back: Positive for: Normal Inspection. Negative for: Vertebral Tenderness Extremity: Positive for: Normal ROM. Negative for: Deformity Lymphatic: Negative for: Adenopathy Neurologic/Psych: Positive for: Alert, Oriented. Negative for: Motor/Sensory Deficits - Laboratory Results Result Diagrams: 09/29/16 16:07 09/29/16 16:40 - ECG ECG: Positive for: Interpreted By Me ECG Rhythm: Positive for: Normal ST Segment, Sinus Rhythm, Nonspecific Changes Medical Decision Making Medical Decision Making: Initial Impression: Right sided anterior chest and abdominal discomfort Clinically pt's symptoms not c/w cardiac pathology DDx: Muscle spasm v. early neuropathy v. early Shingles v. gastritis v. pancreatitis Plan: - EKG - Labs - UA - CXR 1830 Lipase elevated on labs. Addn'l LDH and amylase ordered as well as US Pt will need hospitalization for pancreatitis pending ER workup. Accession No. : [id number] Patient Name / ID : CHRISTOPHER GARCIA / [id number] Exam Date : 09/29/2016 17:35:04 ( Approved ) Study Comment : Sex / Age : M / 86Y Creator : Geraldine Cohen MD Dictator : Geraldine Cohen MD Television Picture Tube Rebuilder : Media Services Specialist : Geraldine Cohen MD Approver2 : Report Date : 09/29/2016 18:09:17 My Comment : HISTORY: pancreatitis COMPARISON: None available TECHNIQUE: Sonographic evaluation of the right upper quadrant of the abdomen. FINDINGS: LIVER: Measures 14.8 cm in length and appears otherwise grossly unremarkable. No focal hepatic mass identified. The main portal vein appears patent with normal directional flow. No intrahepatic bile duct dilatation. GALLBLADDER: Cholecystectomy. COMMON BILE DUCT: Measures 5 mm. PANCREAS: Not well-visualized. Limited visualized portions appear prominent. RIGHT KIDNEY: Measures 9.4 x 3.8 x 3.6 cm in length. Cortical atrophy. No obstructing calculus or hydronephrosis identified. Multiple small probable renal cysts measuring up to 1.9 x 1.3 x 1.8 cm. AORTA: Limited visualization appears grossly unremarkable. IVC: Limited visualization appears grossly unremarkable. OTHER FINDINGS: None . IMPRESSION: The pancreas is not adequately visualized by ultrasound. Limited visualized portions of the pancreas appear prominent. Provided history indicates pancreatitis. Correlate with amylase and lipase. Right renal cysts. Right renal cortical atrophy. Correlate clinically for medical renal disease. Cholecystectomy. DW pt findings and plan of care. [place]'s initial criteria demonstrates low risk for poor prognosis, but still incomplete. Will need hospitalization for complete workup. DEAN Mccain PMD. DEAN Marte GI. Scribe Attestation: Documented by Irais Soto acting as a scribe for Shea Ambrose MD. MD Quinteros Attestation: All medical record entries made by the Scribe were at my direction and personally dictated by me. I have reviewed the chart and agree that the record accurately reflects my personal performance of the history, physical exam, medical decision making, and the department course for this patient. I have also personally directed, reviewed, and agree with the discharge instructions and disposition. Disposition - Clinical Impression Clinical Impression: Pancreatitis Counseled Patient/Family Regarding: Studies Performed, Diagnosis - Disposition Disposition Time: 18:30 Condition: FAIR - Pt Status Changed To: Hospital Disposition Of: Inpatient - Admit Certification Admit to Inpatient:: After my assessment, the patient will require hospitalization for at least two midnights. This is because of the severity of symptoms shown, intensity of services needed, and/or the medical risk in this patient being treated as an outpatient. - POA Present On Arrival: None
[2016-09-29 17:01] LABS: BASO # 0.1 K/uL (0.0-0.2); BASO % 1.4 % (0.0-2.0); EOS % 0.8 % (0.0-4.0); HEMATOCRIT 33.7 % (35.0-51.0); LYMPH # 2.6 K/uL (1.0-4.3); LYMPH % 46.6 % (20.0-40.0); MEAN CELL VOLUME 114.7 fl (80.0-94.0); MEAN CORPUSCULAR HEMOGLOBIN 38.1 pg (27.0-31.0); MEAN CORPUSCULAR HGB CONC 33.3 g/dL (33.0-37.0); MONO # 0.4 K/uL (0.0-0.8); MONO % 6.6 % (0.0-10.0); NEUT # 2.5 K/uL (1.8-7.0); NEUT % 44.6 % (50.0-75.0); NRBC % 0.1 % (0.0-0.0); RED CELL DISTRIBUTION WIDTH 20.6 % (11.5-14.5); WHITE BLOOD COUNT 5.5 K/uL (4.8-10.8)
[2016-09-29 17:13] LABS: BILIRUBIN,TOTAL 0.5 mg/dl (0.2-1.3); CALCIUM 9.9 mg/dL (8.4-10.2); PHOSPHOROUS 4.2 mg/dl (2.5-4.5); TOTAL PROTEIN 7.9 G/DL (6.3-8.2)
[2016-09-29 17:17] LABS: PARTIAL THROMBOPLASTIN TIME 29.4 Seconds (25.6-37.1)
[2016-09-29 17:19] LABS: POTASSIUM 5.1 MMOL/L (3.6-5.0)
[2016-09-29 17:25] LABS: TROPONIN I 0.033 ng/mL (0.00-0.120)
[2016-09-29] MEDS ORDERED: Alum-Mag Hydrox-Simethicone Susp (30 mL) PO STA (17:34)
--- NOTE | 2016-09-29 18:10 | US ---
HISTORY: pancreatitis COMPARISON: None available TECHNIQUE: Sonographic evaluation of the right upper quadrant of the abdomen. FINDINGS: LIVER: Measures 14.8 cm in length and appears otherwise grossly unremarkable. No focal hepatic mass identified. The main portal vein appears patent with normal directional flow. No intrahepatic bile duct dilatation. GALLBLADDER: Cholecystectomy. COMMON BILE DUCT: Measures 5 mm. PANCREAS: Not well-visualized. Limited visualized portions appear prominent. RIGHT KIDNEY: Measures 9.4 x 3.8 x 3.6 cm in length. Cortical atrophy. No obstructing calculus or hydronephrosis identified. Multiple small probable renal cysts measuring up to 1.9 x 1.3 x 1.8 cm. AORTA: Limited visualization appears grossly unremarkable. IVC: Limited visualization appears grossly unremarkable. OTHER FINDINGS: None . IMPRESSION: The pancreas is not adequately visualized by ultrasound. Limited visualized portions of the pancreas appear prominent. Provided history indicates pancreatitis. Correlate with amylase and lipase. Right renal cysts. Right renal cortical atrophy. Correlate clinically for medical renal disease. Cholecystectomy.
[2016-09-29 18:36] LABS: AMYLASE 329 U/L (30-110)
[2016-09-29] MEDS: Dextrose 5%/0.45% NS 1,000 ML IV SCH (22:34)
[2016-09-30 07:22] LABS: HEMATOCRIT 31.9 % (35.0-51.0); MEAN CORPUSCULAR HEMOGLOBIN 38.2 pg (27.0-31.0); MEAN CORPUSCULAR HGB CONC 33.3 g/dL (33.0-37.0); RED CELL DISTRIBUTION WIDTH 20.3 % (11.5-14.5); WHITE BLOOD COUNT 4.5 K/uL (4.8-10.8)
[2016-09-30 07:32] LABS: CALCIUM 9.5 mg/dL (8.4-10.2); POTASSIUM 4.6 MMOL/L (3.6-5.0)
[2016-09-30 08:00] LABS: RBC URINE < 1 /hpf (0-3); URINE BILIRUBIN NEGATIVE (NEGATIVE); URINE BLOOD NEGATIVE (NEGATIVE); URINE COLOR YELLOW (YELLOW); URINE GLUCOSE (UA) NEG (Normal); URINE KETONE NEGATIVE (NEGATIVE); URINE LEUKOCYTE ESTERASE NEG Leu/uL (Negative); URINE PROTEIN 100 mg/dL (NEGATIVE); URINE UROBILINOGEN 0.2-1.0 mg/dL (0.2-1.0); WBC URINE < 1 /hpf (0-5)
[2016-09-30] MEDS: Dextrose 5%/0.45% NS 1,000 ML IV SCH ×2 (09:17→20:00)
--- NOTE | 2016-09-30 09:21 | RAD ---
HISTORY: cp COMPARISON: 07/16/2016 TECHNIQUE: Chest PA and lateral FINDINGS: LUNGS: No active pulmonary disease. PLEURA: No significant pleural effusion identified. No pneumothorax apparent. CARDIOVASCULAR: Mild cardiomegaly. Atherosclerotic vascular calcifications. Midline sternotomy OSSEOUS STRUCTURES: Acromioclavicular joint arthrosis thoraco lumbar spondylosis VISUALIZED UPPER ABDOMEN: Normal. OTHER FINDINGS: None. IMPRESSION: No active disease.
--- NOTE | 2016-09-30 15:40 | CARD ---
APPROVED REPORT EKG Measurement Heart [id number] <Conclusion> Sinus rhythm with premature atrial complexes Left axis deviation possible old inferior infarct Abnormal ECG
--- NOTE | 2016-10-01 11:19 | CP.PCM.DIS ---
<ProsperMarquita - Last Filed: 10/01/16 13:03> Provider - Provider Date of Admission: 09/29/16 18:22 Attending physician: Arthur Mccain MD Primary care physician: Arthur Mccain MD Time Spent in preparation of Discharge (in minutes): 45 Diagnosis - Discharge Diagnosis (1) Acute pancreatitis Status: Acute Hospital Course - Lab Results Lab Results: Most Recent Lab Values WBC 4.5 K/uL (4.8-10.8) L 09/30/16 06:00 RBC 2.78 Mil/uL (4.40-5.90) L 09/30/16 06:00 Hgb 10.6 g/dL (12.0-18.0) L 09/30/16 06:00 Hct 31.9 % (35.0-51.0) L 09/30/16 06:00 MCV 115.0 fl (80.0-94.0) H 09/30/16 06:00 MCH 38.2 pg (27.0-31.0) H 09/30/16 06:00 MCHC 33.3 g/dL (33.0-37.0) 09/30/16 06:00 RDW 20.3 % (11.5-14.5) H 09/30/16 06:00 Plt Count 38 K/uL (130-400) L 09/30/16 06:00 MPV 9.0 fl (7.2-11.7) 09/29/16 16:07 Neut % (Auto) 44.6 % (50.0-75.0) L 09/29/16 16:07 Lymph % (Auto) 46.6 % (20.0-40.0) H 09/29/16 16:07 Dawes % (Auto) 6.6 % (0.0-10.0) 09/29/16 16:07 Eos % (Auto) 0.8 % (0.0-4.0) 09/29/16 16:07 Baso % (Auto) 1.4 % (0.0-2.0) 09/29/16 16:07 Neut # 2.5 K/uL (1.8-7.0) 09/29/16 16:07 Lymph # 2.6 K/uL (1.0-4.3) 09/29/16 16:07 Dawes # 0.4 K/uL (0.0-0.8) 09/29/16 16:07 Eos # 0.0 K/uL (0.0-0.7) 09/29/16 16:07 Baso # 0.1 K/uL (0.0-0.2) 09/29/16 16:07 PT 15.8 Seconds (9.8-13.1) H 09/29/16 16:07 INR 1.4 (0.9-1.2) H 09/29/16 16:07 APTT 29.4 Seconds (25.6-37.1) 09/29/16 16:07 Sodium 135 mmol/l (132-148) 09/30/16 06:00 Potassium 4.6 MMOL/L (3.6-5.0) 09/30/16 06:00 Chloride 104 mmol/L (98-107) 09/30/16 06:00 Carbon Dioxide 21 mmol/L (22-30) L 09/30/16 06:00 Anion Gap 15 (10-20) 09/30/16 06:00 BUN 39 mg/dl (9-20) H 09/30/16 06:00 Creatinine 1.7 mg/dL (0.8-1.5) H 09/30/16 06:00 Est GFR ( Amer) 46 09/30/16 06:00 Est GFR (Non-Af Amer) 38 09/30/16 06:00 POC Glucose (mg/dL) 130 mg/dL (65-110) H 10/01/16 04:18 Random Glucose 135 mg/dL (75-110) H 09/30/16 06:00 Calcium 9.5 mg/dL (8.4-10.2) 09/30/16 06:00 Phosphorus 4.2 mg/dl (2.5-4.5) 09/29/16 16:40 Magnesium 2.0 MG/DL (1.6-2.3) 09/29/16 16:40 Total Bilirubin 0.5 mg/dl (0.2-1.3) 09/29/16 16:40 AST 19 U/L (17-59) 09/29/16 16:40 ALT 20 U/L (21-72) L 09/29/16 16:40 Alkaline Phosphatase 46 U/L (38-126) 09/29/16 16:40 Lactate Dehydrogenase 618 U/L (313-618) 09/29/16 18:29 Total Creatine Kinase 24 U/L (55-170) L 09/29/16 16:40 Troponin I 0.0320 ng/mL (0.00-0.120) 09/30/16 08:50 NT-Pro-B Natriuret Pep 4760 pg/ml (0-900) H 09/29/16 16:40 Total Protein 7.9 G/DL (6.3-8.2) 09/29/16 16:40 Albumin 4.0 g/dL (3.5-5.0) 09/29/16 16:40 Globulin 3.9 gm/dL (2.2-3.9) 09/29/16 16:40 Albumin/Globulin Ratio 1.0 (1.0-2.1) 09/29/16 16:40 Amylase 143 U/L (30-110) H D 09/30/16 06:00 Lipase 102 U/L (23-300) 09/30/16 06:00 Urine Color Yellow (YELLOW) 09/30/16 07:45 Urine Clarity Clear (Clear) 09/30/16 07:45 Urine pH 7.0 (5.0-8.0) 09/30/16 07:45 Ur Specific Trimble 1.011 (1.003-1.030) 09/30/16 07:45 Urine Protein 100 mg/dL (NEGATIVE) 09/30/16 07:45 Urine Glucose (UA) Neg mg/dL (Normal) 09/30/16 07:45 Urine Ketones Negative mg/dL (NEGATIVE) 09/30/16 07:45 Urine Blood Negative (NEGATIVE) 09/30/16 07:45 Urine Nitrate Negative (NEGATIVE) 09/30/16 07:45 Urine Bilirubin Negative (NEGATIVE) 09/30/16 07:45 Urine Urobilinogen 0.2-1.0 mg/dL (0.2-1.0) 09/30/16 07:45 Ur Leukocyte Esterase Neg Arya/uL (Negative) 09/30/16 07:45 Urine RBC (Auto) < 1 /hpf (0-3) 09/30/16 07:45 Urine Microscopic WBC < 1 /hpf (0-5) 09/30/16 07:45 Ur Squamous Epith Cells < 1 /hpf (0-5) 09/30/16 07:45 Blood Type A POSITIVE 09/29/16 16:50 Blood Type Confirm A POSITIVE 09/29/16 17:48 Antibody Screen Negative 09/29/16 16:50 BBK History Checked No verified bt 09/29/16 16:50 - Hospital Course Hospital Course: Patient seen and examined at the bedside with attending. 86M admitted for acute pancreatitis and rule out ACS. Consultants Dr Joshua and Dr Marte were asked to evaluate. Currently he is asymptomatic, Troponins are stable at 0.0330, tolerating diet. As long as consultants are in agreement he is stable for discharge and should resume his home medications. Discharge Exam - Head Exam Head Exam: ATRAUMATIC, NORMAL INSPECTION, NORMOCEPHALIC - Eye Exam Eye Exam: EOMI, PERRL - ENT Exam ENT Exam: Mucous Membranes Moist, Normal Exam - Neck Exam Neck exam: Normal Inspection - Respiratory Exam Respiratory Exam: Clear to PA & Lateral, NORMAL BREATHING PATTERN. absent: Rales, Wheezes - Cardiovascular Exam Cardiovascular Exam: REGULAR RHYTHM. absent: JVD - GI/Abdominal Exam GI & Abdominal Exam: Normal Bowel Sounds, Soft. absent: Tenderness - Extremities Exam Extremities exam: normal capillary refill, pedal pulses present - Neurological Exam Neurological exam: Alert, Oriented x3 - Psychiatric Exam Psychiatric exam: Normal Affect, Normal Mood - Skin Skin Exam: Intact, Normal Color Discharge Plan - Follow Up Plan Condition: FAIR Disposition: HOME/ ROUTINE Patient education suggested?: Yes Instructions: Pancreatitis (DC), Diet for Ulcers and Gastritis (GEN) Additional Instructions: I was present during evaluation and discussed with Dr Cheng re plans of care Arthur Mccain M.D. Referrals: Arthur Mccain MD [Primary Care Provider] - <Arthur Mccain - Last Filed: 10/07/16 10:34> Provider - Provider Date of Admission: 09/29/16 18:22 Attending physician: Arthur Mccain MD Primary care physician: Arthur Mccain MD Diagnosis - Discharge Diagnosis (1) Acute pancreatitis Status: Acute (2) Acquired thrombocytopenia Status: Acute (3) CAD (coronary atherosclerotic disease) Status: Acute (4) CKD (chronic kidney disease) stage 4, GFR 15-29 ml/min Status: Acute (5) CAD (coronary artery disease) Status: Chronic (6) Diabetes mellitus Status: Chronic (7) Hypertension Status: Chronic Hospital Course - Lab Results Lab Results: Most Recent Lab Values WBC 4.5 K/uL (4.8-10.8) L 09/30/16 06:00 RBC 2.78 Mil/uL (4.40-5.90) L 09/30/16 06:00 Hgb 10.6 g/dL (12.0-18.0) L 09/30/16 06:00 Hct 31.9 % (35.0-51.0) L 09/30/16 06:00 MCV 115.0 fl (80.0-94.0) H 09/30/16 06:00 MCH 38.2 pg (27.0-31.0) H 09/30/16 06:00 MCHC 33.3 g/dL (33.0-37.0) 09/30/16 06:00 RDW 20.3 % (11.5-14.5) H 09/30/16 06:00 Plt Count 38 K/uL (130-400) L 09/30/16 06:00 MPV 9.0 fl (7.2-11.7) 09/29/16 16:07 Neut % (Auto) 44.6 % (50.0-75.0) L 09/29/16 16:07 Lymph % (Auto) 46.6 % (20.0-40.0) H 09/29/16 16:07 Dawes % (Auto) 6.6 % (0.0-10.0) 09/29/16 16:07 Eos % (Auto) 0.8 % (0.0-4.0) 09/29/16 16:07 Baso % (Auto) 1.4 % (0.0-2.0) 09/29/16 16:07 Neut # 2.5 K/uL (1.8-7.0) 09/29/16 16:07 Lymph # 2.6 K/uL (1.0-4.3) 09/29/16 16:07 Dawes # 0.4 K/uL (0.0-0.8) 09/29/16 16:07 Eos # 0.0 K/uL (0.0-0.7) 09/29/16 16:07 Baso # 0.1 K/uL (0.0-0.2) 09/29/16 16:07 PT 15.8 Seconds (9.8-13.1) H 09/29/16 16:07 INR 1.4 (0.9-1.2) H 09/29/16 16:07 APTT 29.4 Seconds (25.6-37.1) 09/29/16 16:07 Sodium 132 mmol/l (132-148) 10/02/16 07:10 Potassium 4.4 MMOL/L (3.6-5.0) 10/02/16 07:10 Chloride 107 mmol/L (98-107) 10/02/16 07:10 Carbon Dioxide 16 mmol/L (22-30) L 10/02/16 07:10 Anion Gap 13 (10-20) 10/02/16 07:10 BUN 37 mg/dl (9-20) H 10/02/16 07:10 Creatinine 1.8 mg/dL (0.8-1.5) H 10/02/16 07:10 Est GFR ( Amer) 43 10/02/16 07:10 Est GFR (Non-Af Amer) 36 10/02/16 07:10 POC Glucose (mg/dL) 369 mg/dL (65-110) H 10/02/16 10:35 Random Glucose 92 mg/dL (75-110) 10/02/16 07:10 Calcium 8.6 mg/dL (8.4-10.2) 10/02/16 07:10 Phosphorus 4.2 mg/dl (2.5-4.5) 09/29/16 16:40 Magnesium 2.0 MG/DL (1.6-2.3) 09/29/16 16:40 Total Bilirubin 0.5 mg/dl (0.2-1.3) 09/29/16 16:40 AST 19 U/L (17-59) 09/29/16 16:40 ALT 20 U/L (21-72) L 09/29/16 16:40 Alkaline Phosphatase 46 U/L (38-126) 09/29/16 16:40 Lactate Dehydrogenase 618 U/L (313-618) 09/29/16 18:29 Total Creatine Kinase 24 U/L (55-170) L 09/29/16 16:40 Troponin I 0.0320 ng/mL (0.00-0.120) 09/30/16 08:50 NT-Pro-B Natriuret Pep 4760 pg/ml (0-900) H 09/29/16 16:40 Total Protein 7.9 G/DL (6.3-8.2) 09/29/16 16:40 Albumin 4.0 g/dL (3.5-5.0) 09/29/16 16:40 Globulin 3.9 gm/dL (2.2-3.9) 09/29/16 16:40 Albumin/Globulin Ratio 1.0 (1.0-2.1) 09/29/16 16:40 Triglycerides 69 mg/DL (0-149) 10/02/16 07:10 Cholesterol 102 mg/dL (0-199) 10/02/16 07:10 LDL Cholesterol Direct 47 mg/dL (0-129) 10/02/16 07:10 HDL Cholesterol 33 MG/DL (30-70) 10/02/16 07:10 Amylase 143 U/L (30-110) H D 09/30/16 06:00 Lipase 102 U/L (23-300) 09/30/16 06:00 Urine Color Yellow (YELLOW) 09/30/16 07:45 Urine Clarity Clear (Clear) 09/30/16 07:45 Urine pH 7.0 (5.0-8.0) 09/30/16 07:45 Ur Specific Trimble 1.011 (1.003-1.030) 09/30/16 07:45 Urine Protein 100 mg/dL (NEGATIVE) 09/30/16 07:45 Urine Glucose (UA) Neg mg/dL (Normal) 09/30/16 07:45 Urine Ketones Negative mg/dL (NEGATIVE) 09/30/16 07:45 Urine Blood Negative (NEGATIVE) 09/30/16 07:45 Urine Nitrate Negative (NEGATIVE) 09/30/16 07:45 Urine Bilirubin Negative (NEGATIVE) 09/30/16 07:45 Urine Urobilinogen 0.2-1.0 mg/dL (0.2-1.0) 09/30/16 07:45 Ur Leukocyte Esterase Neg Arya/uL (Negative) 09/30/16 07:45 Urine RBC (Auto) < 1 /hpf (0-3) 09/30/16 07:45 Urine Microscopic WBC < 1 /hpf (0-5) 09/30/16 07:45 Ur Squamous Epith Cells < 1 /hpf (0-5) 09/30/16 07:45 Direct Plt-Bound IgG Ab Negative (NEGATIVE) 10/02/16 09:50 Indir Plt-Bound IgM Ab Negative (NEGATIVE) 10/02/16 09:50 Blood Type A POSITIVE 09/29/16 16:50 Blood Type Confirm A POSITIVE 09/29/16 17:48 Antibody Screen Negative 09/29/16 16:50 BBK History Checked No verified bt 09/29/16 16:50
--- NOTE | 2016-10-01 17:17 | CP.PCM.PN ---
Subjective - Date & Time of Evaluation Date of Evaluation: 10/01/16 Time of Evaluation: 10:40 - Subjective Subjective: doing well Objective - Vital Signs/Intake and Output Vital Signs (last 24 hours): Temp Pulse Resp BP Pulse Ox 97.9 F 72 18 105/62 96 10/01/16 15:43 10/01/16 15:43 10/01/16 15:43 10/01/16 15:43 10/01/16 15:43 - Medications Medications: Current Medications Atorvastatin Calcium (Lipitor) 10 mg PO HS [facility] Clopidogrel Bisulfate (Plavix) 75 mg PO DAILY [facility] Last Admin: 10/01/16 13:06 Dose: 75 mg Ergocalciferol (Drisdol 50,000 Intl Units Cap) 1 cap PO SUN [facility] Finasteride (Proscar) 5 mg PO DAILY [facility] Isosorbide Mononitrate (Imdur) 60 mg PO QPM [facility] Last Admin: 10/01/16 17:03 Dose: Not Given Pantoprazole Sodium (Protonix Inj) 40 mg IVP DAILY [facility] Last Admin: 10/01/16 09:03 Dose: 40 mg Sitagliptin Phosphate (Januvia) 50 mg PO DAILY [facility] Sodium Bicarbonate (Sodium Bicarbonate Tab) 650 mg PO BID [facility] Last Admin: 10/01/16 16:57 Dose: 650 mg - Labs Labs: 09/30/16 06:00 09/30/16 06:00 PT 15.8 Seconds (9.8-13.1) H 09/29/16 16:07 INR 1.4 (0.9-1.2) H 09/29/16 16:07 APTT 29.4 Seconds (25.6-37.1) 09/29/16 16:07 - GI/Abdominal Exam GI & Abdominal Exam: Soft, Normal Bowel Sounds Assessment and Plan - Assessment and Plan (Free Text) Assessment: 86 yo male with pancreatitis advance diet dc planning
--- NOTE | 2016-10-01 19:04 | CON ---
DATE: 09/30/2016 REFERRING PHYSICIAN: Dr. Mccain REASON FOR CONSULTATION: Abdominal pain. HISTORY OF PRESENT ILLNESS: This is an 86-year-old male with history of CABG, CAD, hypertension, natasha betes, CKD, not on dialysis, basically came in because of discomfort and pain, which he has had pancr eatitis for and is being treated. No nausea, no vomiting, no heartburn, no reflux. No problems eati ng or swallowing. Has had this pain before in the past, but otherwise at this point is improved. Ly ing in bed, comfortable, in no apparent distress. PAST MEDICAL HISTORY: As above. PAST SURGICAL HISTORY: As above. MEDICATIONS: Have been reviewed and it is a long list. REVIEW OF SYSTEMS: All other systems have been reviewed and negative apart from the HPI. PHYSICAL EXAMINATION: VITAL SIGNS: Here in the hospital are grossly unremarkable. GENERAL: This is a pleasant, elderly-appearing male lying in bed, comfortable, in no apparent distre ss. HEAD: Normocephalic, atraumatic. EYES: Pupils equally reactive to light bilaterally. No conjunctival pallor or icterus. NECK: Supple, normal range of motion, no lymphadenopathy appreciated. LUNGS: Coarse breath sounds bilaterally. HEART: S1, S2, regular rhythm, no murmurs appreciated. ABDOMEN: Soft, nontender. Bowel sounds present. No rebound or guarding. RECTAL: Deferred. EXTREMITIES: Pulses present bilaterally. SKIN: Warm, dry, and intact. NEUROLOGIC: Alert and oriented x 3. LABORATORY DATA: Labs reviewed. WBC is 4.5, hemoglobin is 10.6. Lipase was initially 1516, now it is 102. LFTs are essentially unremarkable. Ultrasound shows no gallbladder present and no dilated C BD. ASSESSMENT AND PLAN: This is an 86-year-old man with pancreatitis. Triglycerides are pending. From a gastrointestinal standpoint, advance diet as tolerated. Will follow up. Can be discharged once t olerating diet. Aggressive IV hydration. Thank you for the consult. Diego Marte MD, PhD cc:Arthur Mccain MD [id number] TT: 10/01/2016 19:03:17 Confirmation # [id number] Dictation # [id number]
[2016-10-02 07:52] VITALS: BP 95/54; PULSE 67; RESP 18; TEMP 97.7; O2SAT 98
[2016-10-02 07:52] LABS: CALCIUM 8.6 mg/dL (8.4-10.2); POTASSIUM 4.4 MMOL/L (3.6-5.0)
--- NOTE | 2016-10-02 10:30 | PQF RENAL ---
This form is a permanent part of the medical record 10/02/16 Dr. Mccain, Please clarify the stage of the chronic kidney disease. BUN 46-> 37, Creatinine 1.7- 1.8, GFR 36-38. Clarification of your documentation is requested to better reflect the severity of illness and intensity of treatment of your patient. Indicators present [] Oliguria/anuria [] Edema/weight gain [] Hyponatremia [] Confusion/mental status changes [] Increased Blood Urea Nitrogen/Creatinine [] Increased Potassium/Decreased potassium [] Anemia (male <13.5, female <12.0) [] Proteinuria [] Metabolic Acidosis OR Alkalosis [] Hypotension/shock [] Decreased GFR [] Other: [] Location in the medical record that reflects the above clinical findings: PHYSICIAN'S RESPONSE Based on your medical judgment of the clinical indicators outlined above, are you treating this patient for a known or suspected: [] Acute Renal Failure [] Acute Kidney Injury [] Azotemia/prerenal azotemia [] Chronic kidney disease Stage I [] Stage II [] Stage III [] Stage IV [] ESRD [] [] Other condition/diagnosis:[] [] If Unable to Determine, please check the box, sign and date. Present On Admission (POA) Indicator: [] Present at the time of admission [] Not present at the time of admission [] Clinically Undetermined In responding to this query, please exercise your independent professional judgment. The fact that a question is asked does not imply that any particular answer is desired or expected. Thank you for your clarification on this documentation. If you have any questions please call:[phone] Medical Records * Thank you, Lesia Bay RN CDMP Chronic Kidney Disease Stages *[employer]* Stage I GFR >90 Stage II GFR 60-89 Stage III GFR 30-59 Stage IV GFR 15-29 Stage V~~~~~~~~~~ GFR <15~~~~~~~~~~~~~ MTDD
--- NOTE | 2016-10-02 10:32 | PQF GENQUE ---
This form is a permanent part of the medical record 10/02/16 Dr. Mccain, Would you please clarify if there is an associated diagnosis or not to go along with the CBC findings: WBC 4.5 H&H 10.6/31.9 and platelets 38,000. Clarification of your documentation is requested to better reflect the severity of illness and intensity of treatment of your patient. PHYSICIAN'S RESPONSE Based on your medical judgment of the clinical indicators outlined above please clarify the following: [] Practitioner response [] If unable to determine, please check the box, sign and date. Present On Admission (POA) Indicator: [] Present at the time of admission [] Not present at the time of admission [] Clinically Undetermined In responding to this query, please exercise your independent professional judgment. The fact that a question is asked does not imply that any particular answer is desired or expected. Thank you for your clarification on this documentation. If you have any questions please call:extension [phone] * Thank you, Lesia Bay RN CDMP MTDD
--- NOTE | 2016-10-02 11:02 | CP.PCM.PN ---
Addendum entered and electronically signed by Marquita Cheng 10/03/16 19:46: CKD-Stage 3 stable, Acquired thrombocytopenia- stable and being followed by Dr Trav Urban. Original Note: <Marquita Cheng - Last Filed: 10/02/16 13:29> Subjective - Date & Time of Evaluation Date of Evaluation: 10/02/16 Time of Evaluation: 08:00 - Subjective Subjective: Patient seen and examined at bedside with attending. 86M no acute complaints this morning. He is tolerating his food well without N/ V and denies any pain at this time. Objective - Vital Signs/Intake and Output Vital Signs (last 24 hours): Temp Pulse Resp BP Pulse Ox 36.5 C 67 18 95/54 L 98 10/02/16 07:52 10/02/16 07:52 10/02/16 07:52 10/02/16 07:52 10/02/16 07:52 - Medications Medications: Current Medications Atorvastatin Calcium (Lipitor) 10 mg PO HS [facility] Last Admin: 10/01/16 22:00 Dose: 10 mg Clopidogrel Bisulfate (Plavix) 75 mg PO DAILY [facility] Last Admin: 10/02/16 09:05 Dose: 75 mg Ergocalciferol (Drisdol 50,000 Intl Units Cap) 1 cap PO SUN [facility] Finasteride (Proscar) 5 mg PO DAILY [facility] Last Admin: 10/02/16 09:05 Dose: 5 mg Isosorbide Mononitrate (Imdur) 60 mg PO QPM [facility] Last Admin: 10/01/16 17:03 Dose: Not Given Pantoprazole Sodium (Protonix Inj) 40 mg IVP DAILY [facility] Last Admin: 10/02/16 09:05 Dose: 40 mg Sitagliptin Phosphate (Januvia) 50 mg PO DAILY [facility] Last Admin: 10/02/16 09:04 Dose: 50 mg Sodium Bicarbonate (Sodium Bicarbonate Tab) 650 mg PO BID [facility] Last Admin: 10/02/16 09:05 Dose: 650 mg - Labs Labs: 09/30/16 06:00 10/02/16 07:10 PT 15.8 Seconds (9.8-13.1) H 09/29/16 16:07 INR 1.4 (0.9-1.2) H 09/29/16 16:07 APTT 29.4 Seconds (25.6-37.1) 09/29/16 16:07 - Constitutional Appears: Well, Non-toxic, No Acute Distress - Head Exam Head Exam: ATRAUMATIC, NORMAL INSPECTION - Eye Exam Eye Exam: EOMI, PERRL - ENT Exam ENT Exam: Mucous Membranes Moist, Normal Exam - Respiratory Exam Respiratory Exam: Clear to Ausculation Bilateral, NORMAL BREATHING PATTERN. absent: Rales, Wheezes - Cardiovascular Exam Cardiovascular Exam: REGULAR RHYTHM. absent: JVD - GI/Abdominal Exam GI & Abdominal Exam: Soft, Normal Bowel Sounds. absent: Tenderness - Extremities Exam Extremities Exam: Normal Capillary Refill. absent: Pedal Edema - Neurological Exam Neurological Exam: Alert, Awake, Oriented x3 - Psychiatric Exam Psychiatric exam: Normal Affect, Normal Mood - Skin Skin Exam: Normal Color, Warm Assessment and Plan (1) Acute pancreatitis Status: Acute - Assessment and Plan (Free Text) Assessment: 86M admitted for acute pancreatitis which resolved quickly. Patient safe for discharge at this time. - d/c to home and resume all home medications <Arthur Mccain - Last Filed: 10/07/16 10:35> Objective - Vital Signs/Intake and Output Vital Signs (last 24 hours): Temp Pulse Resp BP Pulse Ox 97.7 F 67 18 95/54 L 98 10/02/16 07:52 10/02/16 07:52 10/02/16 07:52 10/02/16 07:52 10/02/16 07:52 - Labs Labs: 09/30/16 06:00 10/02/16 07:10 PT 15.8 Seconds (9.8-13.1) H 09/29/16 16:07 INR 1.4 (0.9-1.2) H 09/29/16 16:07 APTT 29.4 Seconds (25.6-37.1) 09/29/16 16:07 Assessment and Plan (1) Acute pancreatitis Status: Acute (2) Acquired thrombocytopenia Status: Acute (3) CAD (coronary atherosclerotic disease) Status: Acute (4) CKD (chronic kidney disease) stage 4, GFR 15-29 ml/min Status: Acute (5) CAD (coronary artery disease) Status: Chronic (6) Diabetes mellitus Status: Chronic (7) Hypertension Status: Chronic - Assessment and Plan (Free Text) Plan: I was present during evaluation and discussed with Dr Brazille re plans of care and mgt patient was sent home in stable condition and advised follow up in my office in 1 week. Arthur Mccain M.d.
[2016-10-04] MEDS ORDERED: Ergocalciferol 50,000 Intl Units Cap PO SCH (09:00)
[2016-10-06 03:51] LABS: PLATELET AB INDIRECT (IGM) NEGATIVE (NEGATIVE)
--- NOTE | 2016-10-07 10:29 | CP.PCM.HP ---
History of Present Illness - History of Present Illness History of Present Illness: This is an 86 y/o male with hx of HTN LV dysfunction CAd post cabg CKD 3 to 4 mild depression admitted for episodic right sided chest wall pain. There was no SOB, There was also mild RUQ pain but no vomiting. Labs at the ER showed elevated lipase and amylase hence admittted for pancreatitis. Present on Admission - Present on Admission Any Indicators Present on Admission: No History of DVT/PE: No History of Uncontrolled Diabetes: No Urinary Catheter: No Decubitus Ulcer Present: No Review of Systems - Respiratory Respiratory: Dyspnea - Gastrointestinal Gastrointestinal: Abdominal Pain - Musculoskeletal Musculoskeletal: Abnormal Gait, Arthralgias Past Patient History - Past Medical History & Family History Past Medical History?: Yes - Past Social History Smoking Status: Never Smoked - CARDIAC Hx Hypercholesterolemia: Yes Hx Hypertension: Yes (HTN medications d/c) - PULMONARY Hx Asthma: Yes - NEUROLOGICAL Hx Neurological Disorder: No Hx Dizziness: No - HEENT Hx HEENT Problems: Yes Hx Cataracts: Yes Hx Glaucoma: Yes Other/Comment: hard of hearing - RENAL Hx Chronic Kidney Disease: Yes - ENDOCRINE/METABOLIC Hx Diabetes Mellitus Type 2: Yes (pt states he maybe borderline but monitors blood sugar at home q 2 days) - HEMATOLOGICAL/ONCOLOGICAL Hx AIDS: No Hx Anemia: Yes Hx Blood Transfusions: Yes (gets weekly Venofer infusion) Hx Blood Transfusion Reaction: No Hx Human Immunodeficiency Virus (HIV): No - INTEGUMENTARY Hx Dermatological Problems: No - MUSCULOSKELETAL/RHEUMATOLOGICAL Hx Falls: Yes - GASTROINTESTINAL Hx Gall Bladder Disease: Yes - GENITOURINARY/GYNECOLOGICAL Hx Genitourinary Disorders: Yes Hx Prostate Problems: Yes - PSYCHIATRIC Hx Psychophysiologic Disorder: No Hx Substance Use: No - SURGICAL HISTORY Hx Cholecystectomy: Yes 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) Hx Coronary Stent: Yes (1994) - ANESTHESIA Hx Anesthesia: Yes Hx Anesthesia Reactions: No Hx Malignant Hyperthermia: No Meds Allergies/Adverse Reactions: Allergies Allergy/AdvReac Type Severity Reaction Status Date / Time No Known Allergies Allergy Verified 08/11/16 11:40 Physical Exam - Head Exam Head Exam: NORMAL INSPECTION - Eye Exam Eye Exam: Normal appearance - ENT Exam ENT Exam: Mucous Membranes Moist - Respiratory Exam Respiratory Exam: Decreased Breath Sounds - Cardiovascular Exam Cardiovascular Exam: REGULAR RHYTHM - GI/Abdominal Exam GI & Abdominal Exam: Normal Bowel Sounds, Tenderness - Neurological Exam Neurological exam: CN II-XII Intact, Oriented x3 - Psychiatric Exam Psychiatric exam: Normal Mood Results - Vital Signs Recent Vital Signs: Last Vital Signs Temp 97.7 F 10/02/16 07:52 Pulse 67 10/02/16 07:52 Resp 18 10/02/16 07:52 BP 95/54 L 10/02/16 07:52 Pulse Ox 98 10/02/16 07:52 - Labs Result Diagrams: 09/30/16 06:00 10/02/16 07:10 Assessment & Plan (1) Acute pancreatitis Status: Acute (2) Acquired thrombocytopenia Status: Acute (3) CAD (coronary atherosclerotic disease) Status: Acute (4) CKD (chronic kidney disease) stage 4, GFR 15-29 ml/min Status: Acute (5) CAD (coronary artery disease) Status: Chronic (6) Diabetes mellitus Status: Chronic (7) Hypertension Status: Chronic - Assessment and Plan (Free Text) Plan: NPO IV fluids GI eval serial lipase check cbc lytes cont all other meds
== END 2016-10-02 11:55 | disposition home or self-care (01) | DRG 439 ==
LOC: H.ER 16:16 → H.ERHOLD 18:22 → H.TEL 22:01
PROVIDERS: ADMIT Family Medicine; ATTEND Family Medicine
DX: K85.90 Acute pancreatitis without necrosis or infection, unspecified (principal); N18.4 Chronic kidney disease, stage 4 (severe); E11.22 Type 2 diabetes mellitus with diabetic chronic kidney disease; D69.6 Thrombocytopenia, unspecified; D64.9 Anemia, unspecified; N28.1 Cyst of kidney, acquired; Z95.1 Presence of aortocoronary bypass graft; I12.9 Hypertensive chronic kidney disease with stage 1 through stage 4 chronic kidney disease, or unspecified chronic kidney disease; I25.10 Atherosclerotic heart disease of native coronary artery without angina pectoris; E78.00 Pure hypercholesterolemia, unspecified; E78.5 Hyperlipidemia, unspecified; J45.909 Unspecified asthma, uncomplicated; N40.0 Benign prostatic hyperplasia without lower urinary tract symptoms; K82.9 Disease of gallbladder, unspecified; Z79.02 Long term (current) use of antithrombotics/antiplatelets; Z95.5 Presence of coronary angioplasty implant and graft; Z79.84 Long term (current) use of oral hypoglycemic drugs; F32.9 Major depressive disorder, single episode, unspecified

== ENCOUNTER 2016-10-14 09:18 | Observation (INO) | payer MEDICARE, BC ==
[2016-10-14 09:18] VITALS: BMI 30.4
--- NOTE | 2016-10-14 10:09 | ED PDOC ---
HPI: General Adult Time Seen by Provider: 10/14/16 09:36 Chief Complaint (Nursing): Dizziness/Lightheaded Chief Complaint (Provider): Dizziness History Per: Patient History/Exam Limitations: no limitations Have you had recent travel within the past 21 days to any of the following countries: [place], [place], [place] or [place]?: No Additional Complaint(s): Ulisses Amaya, an 86 year old male, who reyez sa history of vertigo presents to the ED with complaints of dizziness. The patient reports that the pain is exacerbated when he sits up and when he turns his head. He states that because he has a history of vertigo this is nothing new to him. Denies chest pain, shortness of breath, headache, visual changes. Past Medical History Reviewed: Historical Data, Nursing Documentation, Vital Signs Vital Signs: Last Vital Signs Temp 98.3 F 10/14/16 09:21 Pulse 62 10/14/16 09:21 Resp 20 10/14/16 09:21 BP 119/62 10/14/16 09:21 Pulse Ox 96 10/14/16 15:04 - Medical History PMH: Anemia, Asthma, Benign Prostatic Hyperplasia, CAD (dyslipidemia ), Diabetes , Gall Bladder Disease, HTN (HTN medications d/c), Hypercholesterolemia, Chronic Kidney Disease Denies: HIV - Surgical History Surgical History: CABG (37 years ago), Cholecystectomy, Coronary Stent (1994) - Family History Family History: States: Unknown Family Hx - Home Medications Home Medications: Ambulatory Orders Medication Instructions Recorded Atorvastatin [Lipitor] 10 mg PO HS 07/26/16 Bimatoprost [Lumigan] 1 drop BOTHEYES HS 07/26/16 Clopidogrel [Plavix] 75 mg PO DAILY 07/26/16 Ergocalciferol (Vitamin D2) 50,000 unit PO SUN 07/26/16 [Vitamin D2] Finasteride [Proscar] 5 mg PO DAILY 07/26/16 Isosorbide Mononitrate [Isosorbide 60 mg PO QPM 07/26/16 Mononitrate ER] Nitroglycerin [Nitrostat] 0.4 mg SL Q5MIN PRN 07/26/16 Paricalcitol [Zemplar] 1 mcg PO Q48H 07/26/16 Ranolazine [Ranexa] 1,000 mg PO BID 07/26/16 SITagliptin [Januvia] 50 mg PO DAILY 07/26/16 Sevelamer Carbonate [Renvela] 800 mg PO TID 07/26/16 Febuxostat [Uloric] 40 mg PO DAILY 08/11/16 Megestrol Acetate [Megace Es] 625 mg PO DAILY 08/11/16 Lisinopril [Zestril] 2.5 mg PO Q48H 09/29/16 Sodium Bicarbonate Tab 650 mg PO BID 09/29/16 Meclizine [Meclizine*] 25 mg PO Q6 PRN #20 tab 10/14/16 - Allergies Allergies/Adverse Reactions: Allergies Allergy/AdvReac Type Severity Reaction Status Date / Time No Known Allergies Allergy Verified 10/14/16 09:26 Review of Systems ROS Statement: Except As Marked, All Systems Reviewed And Found Negative Eyes: Negative for: Vision Change Cardiovascular: Negative for: Chest Pain Respiratory: Negative for: Shortness of Breath Neurological: Positive for: Dizziness. Negative for: Headache Physical Exam - Reviewed Nursing Documentation Reviewed: Yes Vital Signs Reviewed: Yes - Physical Exam Appears: Positive for: Non-toxic, No Acute Distress Head Exam: Positive for: ATRAUMATIC, NORMAL INSPECTION, NORMOCEPHALIC Skin: Positive for: Normal Color, Warm, Dry Eye Exam: Positive for: Normal appearance, EOMI, PERRL Neck: Positive for: Normal, Painless ROM, Supple Cardiovascular/Chest: Positive for: Regular Rate, Rhythm, Chest Non Tender. Negative for: Tachycardia Respiratory: Positive for: Normal Breath Sounds. Negative for: Wheezing, Respiratory Distress Gastrointestinal/Abdominal: Positive for: Normal Exam, Bowel Sounds, Soft. Negative for: Tenderness, Guarding, Rebound Back: Positive for: Normal Inspection Extremity: Positive for: Normal ROM. Negative for: Tenderness, Pedal Edema, Deformity, Swelling Neurologic/Psych: Positive for: Alert, Oriented, Gait. Negative for: Motor/ Sensory Deficits - Laboratory Results Result Diagrams: 10/14/16 10:14 10/14/16 10:14 - ECG O2 Sat by Pulse Oximetry: 96 (RA) Pulse Ox Interpretation: Normal - Physician Consult Information Time Consulting Physican Contacted: 15:05 Physician Contacted: Gayle Urban Outcome Of Conversation: Recommends transfusion of 1U PRBC and 2U platelet, will have bone marrow biopsy on Wednesday, Dr. Perez covering until then. Medical Decision Making Medical Decision Makin Initial Plan: 86 year old male presenting with vertigo Initial Plan: * CT Head w/o contrast * EKG * Comp Metabolic Panel * Udip * CBC * PTT * Prothrombin time * CXR * Antivert 25mg PO * Esnfscw-Ofofe-HCA * Urinalysis * Reevaluation 1040 EKG performed: * Normal sinus rhythm at 61 * No ST changes [address] 1. No acute intracranial abnormality 2.Mild chronic microangiopathic changes and mild age related parenchymal volume loss. 3.Apparent abnormal soft tissue in the region of the left skullbase. Also noted is a small mastoid effusion. A dedicated MRI of the internal auditory canals without and with IV contrast would be helpful for further evaluation given patients history of vertigo 1349 MRI IAC w/o contrast Impression: 1.Limited MRI of IAC and cerobellopontine angles due to lack of gandolinium enhancement. no bulky mass or other abnormality identified. 2. Mild chronic microangiopathic changes and mild age related global parenchymal volume loss. Scribe Attestation Documented by Trang Villafana acting as a scribe for Charito Canseco MD. Provider Attestation All medical record entries made by the Scribe were at my direction and personally dictated by me. I have reviewed the chart and agree that the record accurately reflects my personal performance of the history, physical exam, medical decision making, and the department course for this patient. I have also personally directed, reviewed, and agree with the discharge instructions and disposition. ED OBSERVATION Date of observation admission: 10/14/16 Time of observation admission: 12:00 - Observation admission statement Patient is being placed in observation because:: Pending MRI. Disposition - Clinical Impression Clinical Impression: Vertigo, Pancytopenia - Patient ED Disposition Is Patient to be Admitted: Yes - Disposition Disposition Time: 15:07 Condition: STABLE - Pt Status Changed To: Hospital Disposition Of: Inpatient - Admit Certification Admit to Inpatient:: After my assessment, the patient will require hospitalization for at least two midnights. This is because of the severity of symptoms shown, intensity of services needed, and/or the medical risk in this patient being treated as an outpatient. - POA Present On Arrival: None
[2016-10-14 10:19] LABS: BASO % 1.4 % (0.0-2.0); HEMOGLOBIN 8.7 g/dL (12.0-18.0); LYMPH # 1.9 K/uL (1.0-4.3); LYMPH % 56.6 % (20.0-40.0); MEAN CELL VOLUME 114.5 fl (80.0-94.0); MEAN CORPUSCULAR HEMOGLOBIN 37.1 pg (27.0-31.0); MEAN CORPUSCULAR HGB CONC 32.4 g/dL (33.0-37.0); MONO # 0.2 K/uL (0.0-0.8); MONO % 4.8 % (0.0-10.0); NEUT # 1.2 K/uL (1.8-7.0); NEUT % 36.2 % (50.0-75.0); NRBC % 0.1 % (0.0-0.0); RBC 2.33 Mil/uL (4.40-5.90); WHITE BLOOD COUNT 3.3 K/uL (4.8-10.8)
[2016-10-14 10:35] LABS: ALB/GLOB RATIO 0.9 (1.0-2.1); ALBUMIN 3.3 g/dL (3.5-5.0); CALCIUM 9.4 mg/dL (8.4-10.2)
[2016-10-14 10:42] LABS: INR 1.5 (0.9-1.2); PARTIAL THROMBOPLASTIN TIME 28.2 Seconds (25.6-37.1); PROTHROMBIN TIME 17.4 Seconds (9.8-13.1)
--- NOTE | 2016-10-14 10:55 | RAD ---
HISTORY: Vertigo COMPARISON: 09/29/2016. FINDINGS: LUNGS: There is mild pulmonary venous congestion. PLEURA: No significant pleural effusion identified, no pneumothorax apparent. CARDIOVASCULAR: The heart is normal in size. Atherosclerotic aortic arch calcifications are present. Status post median sternotomy OSSEOUS STRUCTURES: No significant abnormalities. VISUALIZED UPPER ABDOMEN: Normal. OTHER FINDINGS: None. IMPRESSION: Mild pulmonary venous congestion.
--- NOTE | 2016-10-14 11:34 | CT ---
PROCEDURE: CT HEAD WITHOUT CONTRAST. HISTORY: Vertigo COMPARISON: None available. TECHNIQUE: Axial computed tomography images were obtained through the head/brain without intravenous contrast. Radiation dose: Total exam DLP = 838.75 mGy-cm. This CT exam was performed using one or more of the following dose reduction techniques: Automated exposure control, adjustment of the mA and/or kV according to patient size, and/or use of iterative reconstruction technique. FINDINGS: HEMORRHAGE: No intracranial hemorrhage. BRAIN: Epps-white matter differentiation is preserved. There are mild chronic microangiopathic changes. There is no mass, mass effect or abnormal extra-axial fluid collection. There is no territorial infarction.There are coarse atherosclerotic calcifications in the cavernous carotid arteries. VENTRICLES: There is mild age-related global parenchymal volume loss and proportionate enlargement of the ventricles and cortical sulci CALVARIUM: There is apparent abnormal soft-tissue medial to the left petrous cavernous carotid segment and lateral to the clivus in the region of the left skullbase. PARANASAL SINUSES: Predominantly clear. MASTOID AIR CELLS: There is a small left mastoid effusion. The right mastoid air cells are clear. OTHER FINDINGS: None. IMPRESSION: No acute intracranial abnormality. Mild chronic microangiopathic changes and mild age-related global parenchymal volume loss. Apparent abnormal soft tissue in the region of the left skullbase. Also noted is a small left mastoid effusion. A dedicated MRI of the internal auditory canals without and with intravenous contrast would be helpful for further evaluation given patient's history of vertigo.
--- NOTE | 2016-10-14 13:51 | MRI ---
PROCEDURE: MRI OF THE BRAIN AND INTERNAL AUDITORY CANALS WITHOUT CONTRAST. HISTORY: Vertigo, abnormal CT head COMPARISON: None. TECHNIQUE: Multiplanar, multisequence MR images of the brain and posterior fossa were obtained without gadolinium contrast. High-resolution posterior fossa and images through the cerebellopontine angle and internal auditory canals included: Axial 3-D fiesta, axial T1 and coronal T1 weighted sequences. FINDINGS: IAC/CP ANGLE: INTERNAL AUDITORY CANAL: There is no evidence of mass in the internal auditory canal. CEREBELLOPONTINE ANGLE: There is no evidence of mass in the skull base. INNER EAR STRUCTURES: Unremarkable. Normally formed cochlea and semicircular canals. No signal abnormality in the membranous labyrinth of the cochlea, vestibule or the semicircular canals. BRAINSTEM: Unremarkable. MASTOIDS: Clear BRAIN: HEMORRHAGE:: None DWI: No evidence of an acute or early subacute infarction. BRAIN (LIMITED): There are mild chronic microangiopathic changes. There is no mass, mass effect or abnormal extra-axial fluid collection. There is mild age-related global parenchymal volume loss and proportionate enlargement of the ventricles and cortical sulci. PARANASAL SINUSES: Clear OTHER FINDINGS: None . IMPRESSION: 1. Limited MRI of the IAC and cerebellopontine angles due to lack of gadolinium enhancement. No bulky mass or other abnormality identified. 2. Mild chronic microangiopathic changes and mild age-related global parenchymal volume loss.
--- NOTE | 2016-10-14 16:12 | CARD ---
APPROVED REPORT EKG Measurement Heart [id number] <Conclusion> Sinus rhythm with premature atrial complexes Otherwise normal ECG
[2016-10-14] MEDS ORDERED: Patient's Own Med (Paricalcitol [Zemplar] 1 MCG) PO SCH (21:00)
[2016-10-14] MEDS ORDERED: Patient's Own Med (Bimatoprost [Lumigan] 1 DROP) BOTHEYES SCH (22:00)
[2016-10-15 06:38] LABS: ALB/GLOB RATIO 0.9 (1.0-2.1); ALBUMIN 3.4 g/dL (3.5-5.0); CALCIUM 9.8 mg/dL (8.4-10.2)
[2016-10-15 06:54] LABS: BASO % 1.5 % (0.0-2.0); EOS % 1.6 % (0.0-4.0); HEMOGLOBIN 10.4 g/dL (12.0-18.0); LYMPH # 1.7 K/uL (1.0-4.3); MEAN CELL VOLUME 107.2 fl (80.0-94.0); MEAN CORPUSCULAR HEMOGLOBIN 36.6 pg (27.0-31.0); MEAN CORPUSCULAR HGB CONC 34.1 g/dL (33.0-37.0); MEAN PLATELET VOLUME 7.6 fl (7.2-11.7); MONO # 0.1 K/uL (0.0-0.8); NEUT % 33.9 % (50.0-75.0); NRBC % 0.3 % (0.0-0.0); RBC 2.85 Mil/uL (4.40-5.90); RED CELL DISTRIBUTION WIDTH 22.6 % (11.5-14.5); WHITE BLOOD COUNT 2.9 K/uL (4.8-10.8)
[2016-10-15 07:48] VITALS: RESP 20
[2016-10-15] MEDS ORDERED: MEGESTROL ACETATE 625 MG PO SCH (09:00)
[2016-10-15 10:45] LABS: IRON 108 ug/dL (49-181)
[2016-10-15 11:01] LABS: % IRON SATURATION 50 % (20-55); TOTAL IRON BINDING CAPACITY 215 ug/dL (250-450)
[2016-10-15 11:45] LABS: B-TYPE NATRIURETIC PEPTIDE 3000 pg/ml (0-900)
--- NOTE | 2016-10-15 11:51 | CP.PCM.PN ---
Subjective - Date & Time of Evaluation Date of Evaluation: 10/15/16 Time of Evaluation: 10:00 - Subjective Subjective: pt seen and examined at bedside this morning with attending and materials and corrosion engineer. No acute events overnight. pt lying in bed comfortably, NAD. Pt is s/p 2 units PRBCs and 1 unit platelets. Reports feeling better but is still weak. No other complaints. Denies fever/chills, headaches, changes in vision, CP/SOB/BARRON/ palpitations, N/V/D/C, epistaxis, new brusies, LE rash, hematuria, melena, hematochezia, urinary symptoms, numbness/tingling. Objective - Vital Signs/Intake and Output Vital Signs (last 24 hours): Temp Pulse Resp BP Pulse Ox 98.1 F 58 L 20 129/83 96 10/15/16 09:00 10/15/16 09:00 10/15/16 09:00 10/15/16 09:00 10/15/16 09:00 - Medications Medications: Current Medications Atorvastatin Calcium (Lipitor) 10 mg PO [facility] Last Admin: 10/14/16 22:00 Dose: 10 mg Clopidogrel Bisulfate (Plavix) 75 mg PO DAILY [facility] Docusate Sodium (Colace) 100 mg PO BID [facility] Last Admin: 10/15/16 09:12 Dose: 100 mg Ergocalciferol (Drisdol 50,000 Intl Units Cap) 1 cap PO SUN [facility] Finasteride (Proscar) 5 mg PO DAILY [facility] Last Admin: 10/15/16 09:11 Dose: 5 mg Home Med (Bimatoprost [Lumigan]) 1 drop BOTHEYES [facility] Home Med (Febuxostat [Uloric]) 40 mg PO DAILY [facility] Home Med (Megestrol Acetate [Megace Es]) 625 mg PO DAILY [facility] Home Med (Paricalcitol [Zemplar]) 1 mcg PO Q48H [facility] Isosorbide Mononitrate (Imdur) 60 mg PO QPM [facility] Lisinopril (Zestril) 2.5 mg PO Q48H [facility] Last Admin: 10/14/16 23:34 Dose: 2.5 mg Meclizine HCl (Antivert) 12.5 mg PO TID PRN PRN Reason: Dizziness Nitroglycerin (Nitrostat Sl Tab) 0.4 mg SL Q5MIN PRN PRN Reason: Other Sevelamer HCl (Renagel) 800 mg PO TID [facility] Last Admin: 10/15/16 09:09 Dose: 800 mg Sitagliptin Phosphate (Januvia) 50 mg PO DAILY [facility] Last Admin: 10/15/16 09:09 Dose: 50 mg Sodium Bicarbonate (Sodium Bicarbonate Tab) 650 mg PO BID [facility] Last Admin: 10/15/16 09:11 Dose: 650 mg - Labs Labs: 10/15/16 05:15 10/15/16 05:15 PT 17.4 Seconds (9.8-13.1) H 10/14/16 10:14 INR 1.5 (0.9-1.2) H 10/14/16 10:14 APTT 28.2 Seconds (25.6-37.1) 10/14/16 10:14 - Constitutional Appears: Non-toxic, No Acute Distress - Head Exam Head Exam: ATRAUMATIC, NORMOCEPHALIC - Eye Exam Eye Exam: EOMI Pupil Exam: PERRL - ENT Exam ENT Exam: Mucous Membranes Moist - Neck Exam Neck Exam: Full ROM. absent: Tenderness - Respiratory Exam Respiratory Exam: Rales, NORMAL BREATHING PATTERN. absent: Accessory Muscle Use , Rhonchi, Wheezes, Respiratory Distress Additional comments: bibasilar rales - Cardiovascular Exam Cardiovascular Exam: REGULAR RHYTHM, RRR, +S1, +S2. absent: Tachycardia, JVD, Rubs, Murmur - GI/Abdominal Exam GI & Abdominal Exam: Soft, Normal Bowel Sounds. absent: Firm, Guarding, Rigid, Tenderness - Extremities Exam Extremities Exam: Normal Inspection. absent: Calf Tenderness, Joint Swelling, Pedal Edema Additional comments: no petechie/bruising - Neurological Exam Neurological Exam: Alert, Awake, CN II-XII Intact, Oriented x3 - Skin Skin Exam: Dry, Intact, Pallor, Warm. absent: Cyanosis, Petechiae, Rash Assessment and Plan (1) Weakness generalized Assessment & Plan: CBC: 2.9>10.4/30.5<60 s/p transfusion, Retic count: 0.8 CMP: BUN: 45 Cr: 1.8, b12: 996 Ferritin: 807 Iron: 108 TIBC: 215, %Sat: 50 PBNP: 3000 PT/INR/APTT: 17.4/1.5/28.2 EKG: sinus rhythm with premature atrial beats, other ortiz normal EKG Head CT: no acute intracranial abnormality, possible left mastoid effusion, recommend MRI for further evaluation MRI:no mass or abnormality, chronic microangiopathic changes >2gm sodium diet Meclizine for vertigo symptoms Cardiology consult appreciated hem/onc consult appreciated Status: Acute (2) Myelofibrosis Assessment & Plan: hx of chronic pancytopenia s/p 2 units PRBCs and 1 unit platelets hem/onc consult with Dr. Perez appreciated. Status: Acute (3) Diabetes mellitus Assessment & Plan: c/w home meds Status: Chronic (4) Hypertension Assessment & Plan: c/w home meds Status: Chronic
[2016-10-15 16:26] VITALS: BP 149/78; PULSE 76; TEMP 99.5; O2SAT 96
[2016-10-15 16:57] LABS: CALCIUM 9.6 mg/dL (8.4-10.2)
[2016-10-15 17:35] LABS: FOLATE > 20.0 ng/mL
--- NOTE | 2016-10-16 13:43 | CARD ---
APPROVED REPORT EXAM: Two-dimensional and M-mode echocardiogram with Doppler and color Doppler. Other Information Quality : GoodRhythm : NSR INDICATION Dyspnea Surgery/Intervention CABD DIMENSIONS IVSd0.94 (0.7-1.1cm)LVDd5.00 (3.9-5.9cm) LVOT Diameter2.00 (1.8-2.4cm)PWd0.96 (0.7-1.1cm) IVSs1.07 (0.8-1.2cm)LVDs3.92 (2.5-4.0cm) FS (%) 21.6 %PWs1.15 (0.8-1.2cm) M-Mode DIMENSIONS Left Atrium (MM)3.44 (2.5-4.0cm)IVSd0.94 (0.7-1.1cm) Aortic Root3.18 (2.2-3.7cm)LVDd5.26 (4.0-5.6cm) Aortic Cusp Exc.1.76 (1.5-2.0cm)PWd0.94 (0.7-1.1cm) IVSs1.47 cmFS (%) 44 % LVDs2.94 (2.0-3.8cm)PWs1.29 cm Mitral Valve MV E Iwtbsgcr26.7cm/sMV DECEL [id number] A Wauwfack36.2cm/s MV [id number]/A ratio0.7MVA (PHT)2.95cm2 TDI Lateral E' Peak V9.37cm/sMedial E' Peak V4.56cm/sE/Lateral E'5.1 E/Medial E'10.5 LEFT VENTRICLE The left ventricle is normal size. There is normal left ventricular wall thickness. The left ventricular function is normal. The left ventricular ejection fraction is within the normal range. The Ejection Fraction is 45-50%. There is normal LV segmental wall motion. The left ventricular diastolic function is normal. No left ventricle thrombus noted on this study. There is no mass noted in the left ventricle. RIGHT VENTRICLE The right ventricle is normal size. There is normal right ventricular wall thickness. The right ventricular systolic function is normal. ATRIA The left atrium size is normal. The right atrium size is normal. The interatrial septum is intact with no evidence for an atrial septal defect. AORTIC VALVE The aortic valve is normal in structure and function. No aortic regurgitation is present. There is no aortic valvular stenosis. There is no aortic valvular vegetation. MITRAL VALVE The mitral valve is normal in structure and function. There is no evidence of mitral valve prolapse. There is no mitral valve stenosis. There is no mitral valve regurgitation noted. TRICUSPID VALVE The tricuspid valve is normal in structure and function. There is no tricuspid valve regurgitation noted. There is no tricuspid valve prolapse or vegetation. There is no tricuspid valve stenosis. PULMONIC VALVE The pulmonary valve is normal in structure and function. There is no pulmonic valvular regurgitation. There is no pulmonic valvular stenosis. GREAT VESSELS The aortic root is normal in size. The IVC is normal in size and collapses >50% with inspiration. PERICARDIAL EFFUSION The pericardium appears normal. There is no pleural effusion. <Conclusion> The left ventricle is normal size. The left ventricular function is normal. The left ventricular ejection fraction is within the normal range. The Ejection Fraction is 45-50%.
[2016-10-18] MEDS ORDERED: Ergocalciferol 50,000 Intl Units Cap PO SCH (09:00)
== END 2016-10-15 20:20 ==
LOC: H.ER 09:18 → H.EROBSV 12:00 → UNDODISOB 14:38 → OBSVTOIN 14:59 → INTOOBSV 14:59 → H.ERHOLD 16:20 → H.MEDSURG1 18:00
PROVIDERS: ADMIT Family Medicine; ATTEND Family Medicine
DX: R53.1 Weakness (principal); D61.818 Other pancytopenia; D75.81 Myelofibrosis; I25.10 Atherosclerotic heart disease of native coronary artery without angina pectoris; Z95.1 Presence of aortocoronary bypass graft; Z95.5 Presence of coronary angioplasty implant and graft; E11.22 Type 2 diabetes mellitus with diabetic chronic kidney disease; N18.9 Chronic kidney disease, unspecified; I12.9 Hypertensive chronic kidney disease with stage 1 through stage 4 chronic kidney disease, or unspecified chronic kidney disease; E78.00 Pure hypercholesterolemia, unspecified; N40.0 Benign prostatic hyperplasia without lower urinary tract symptoms; J45.909 Unspecified asthma, uncomplicated
CPT/HCPCS: 36415; 36430; 70450; 70551; 71010; 80053; 82607; 82728; 82746; 82948; 83540; 83550; 83880; 84443; 85025; 85044; 85610; 85730; 86850; 86900; 86920; 93005; 93306; 96374; 97162; 97166; 99285; G0328; G0378; G8979; G8981; G8987; G8988; J1940; P9035; P9051

== ENCOUNTER 2016-10-15 15:45 | Inpatient (IN) | payer OTHER, BC ==
[2016-10-14 09:18] VITALS: BMI 30.4
--- NOTE | 2016-10-16 03:27 | CP.PCM.CON ---
History of Present Illness - History of Present Illness History of Present Illness: Covering Dr. 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 The patient reports to feeling dizzy which was worsened with movement. His daughter notes he has been more tired and not himself. He received PRBC and plt transfusion and notes to feeling better immediately prost transfusion. He is due for a bone marrow biopsy on Wednesday to further evaluate his pancytopenia. Past medical history: CAD, HTN, DM, HL, pancytopenia Past surgical history: CABG Family history: Denies hematologic and oncologic problems Social history: Denies tobacco, alcohol, and illicit drug use. Allergies: NKA Review of systems: All remaining review of systems including HEENT, cardiovascular, respiratory, gastrointestinal, genitoruinary, musculoskeletal, dermatologic, neurologic, and psychiatric are negative unless mentioned in the HPI. Past Patient History - Past Medical History & Family History Past Medical History?: Yes - Past Social History Smoking Status: Never Smoked - CARDIAC Hx Cardiac Disorders: Yes Hx Hypercholesterolemia: Yes Hx Hypertension: Yes - PULMONARY Hx Respiratory Disorders: Yes Hx Asthma: Yes - NEUROLOGICAL Hx Neurological Disorder: No Hx Dizziness: No - HEENT Hx HEENT Problems: Yes Hx Cataracts: Yes Hx Glaucoma: Yes Other/Comment: hard of hearing - RENAL Hx Chronic Kidney Disease: Yes - ENDOCRINE/METABOLIC Hx Hypothyroidism: Yes - HEMATOLOGICAL/ONCOLOGICAL Hx Blood Disorders: Yes Hx Anemia: Yes Hx Human Immunodeficiency Virus (HIV): No - INTEGUMENTARY Hx Dermatological Problems: No - MUSCULOSKELETAL/RHEUMATOLOGICAL Hx Musculoskeletal Disorders: No Hx Falls: No - GASTROINTESTINAL Hx Gastrointestinal Disorders: Yes Hx Gall Bladder Disease: Yes - GENITOURINARY/GYNECOLOGICAL Hx Genitourinary Disorders: Yes Hx Prostate Problems: Yes - PSYCHIATRIC Hx Psychophysiologic Disorder: No Hx Substance Use: No - SURGICAL HISTORY Hx Surgeries: Yes Hx Cholecystectomy: Yes 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) Hx Coronary Stent: Yes (1994) - ANESTHESIA Hx Anesthesia: Yes Hx Anesthesia Reactions: No Hx Malignant Hyperthermia: No Meds Allergies/Adverse Reactions: Allergies Allergy/AdvReac Type Severity Reaction Status Date / Time No Known Allergies Allergy Verified 10/14/16 09:26 - Medications Medications: Current Medications Atorvastatin Calcium (Lipitor) 10 mg PO HS [facility] Clopidogrel Bisulfate (Plavix) 75 mg PO DAILY [facility] Docusate Sodium (Colace) 100 mg PO BID [facility] Ergocalciferol (Drisdol 50,000 Intl Units Cap) 1 cap PO SUN [facility] Finasteride (Proscar) 5 mg PO DAILY [facility] Isosorbide Mononitrate (Imdur) 60 mg PO QPM [facility] Meclizine HCl (Antivert) 12.5 mg PO TID PRN PRN Reason: Dizziness Nitroglycerin (Nitrostat Sl Tab) 0.4 mg SL Q5MIN PRN PRN Reason: Other Sevelamer HCl (Renagel) 800 mg PO TID [facility] Sitagliptin Phosphate (Januvia) 50 mg PO DAILY [facility] Sodium Bicarbonate (Sodium Bicarbonate Tab) 650 mg PO BID [facility] Physical Exam - Head Exam Head Exam: ATRAUMATIC - Eye Exam Eye Exam: Normal appearance - ENT Exam ENT Exam: Mucous Membranes Dry - Respiratory Exam Respiratory Exam: NORMAL BREATHING PATTERN - Cardiovascular Exam Cardiovascular Exam: +S1, +S2 - GI/Abdominal Exam GI & Abdominal Exam: Normal Bowel Sounds - Extremities Exam Extremities exam: Positive for: pedal edema - Neurological Exam Neurological exam: Oriented x3 - Psychiatric Exam Psychiatric exam: Normal Affect, Normal Mood - Skin Skin Exam: Warm Results - Labs Result Diagrams: 10/16/16 11:15 10/16/16 11:15 Assessment & Plan (1) Pancytopenia Assessment and Plan: s/p PRBC and plt transfusion with resolution of symptoms element of anemia of CKD; will give a dose of Procrit for bone marrow biopsy on Wednesday with Thank you for this interesting consult. Status: Chronic
[2016-10-16 07:58] VITALS: RESP 20
[2016-10-16] MEDS ORDERED: Epoetin Alfa 40000 UNIT/ml Inj SC ONE (10:00)
--- NOTE | 2016-10-16 10:41 | CP.PCM.HP ---
<MattgregoryNadir malone - Last Filed: 10/16/16 14:55> History of Present Illness - History of Present Illness History of Present Illness: 86 y/o male with a PMHx remarkable for CAD s/p CABG, HTN, NIDDM, HL, vertigo, and pancytopenia who has been admitted with symptomatic anemia. The patient reports having felt dizzy for the past few days. Reports the dizziness was exacebated with movement and allevaited with rest. He also reports increased fatigue and weakness. In the ED he was found to have panycytopenia. Pt was admitted to med/surg. He received 2 units of PRBCs and 1 unit of platelets, which improved his symptoms but reported still feeling weak. PMD: Dr. Mccain PMHx: HTN, HLD, NIDDM, chronic panycytopenia, CAD s/p CABG, vertigo, BPH MEDs: Antivert, Lipitor, Plavix, Finasteride, Nitroglycerin, Sevelamer, Sitagliptin ALL: NKDA SocialHx:denies ETOH, tobacco, illicit drug use Present on Admission - Present on Admission Any Indicators Present on Admission: No Past Patient History - Past Medical History & Family History Past Medical History?: Yes - Past Social History Smoking Status: Never Smoked Alcohol: None Drugs: Denies Home Situation {Lives}: With Family - CARDIAC Hx Cardiac Disorders: Yes Hx Hypercholesterolemia: Yes Hx Hypertension: Yes - PULMONARY Hx Respiratory Disorders: Yes Hx Asthma: Yes - NEUROLOGICAL Hx Neurological Disorder: No Hx Dizziness: No - HEENT Hx HEENT Problems: Yes Hx Cataracts: Yes Hx Glaucoma: Yes Other/Comment: hard of hearing - RENAL Hx Chronic Kidney Disease: Yes - ENDOCRINE/METABOLIC Hx Hypothyroidism: Yes - HEMATOLOGICAL/ONCOLOGICAL Hx Blood Disorders: Yes Hx Anemia: Yes Hx Human Immunodeficiency Virus (HIV): No - INTEGUMENTARY Hx Dermatological Problems: No - MUSCULOSKELETAL/RHEUMATOLOGICAL Hx Musculoskeletal Disorders: No Hx Falls: No - GASTROINTESTINAL Hx Gastrointestinal Disorders: Yes Hx Gall Bladder Disease: Yes - GENITOURINARY/GYNECOLOGICAL Hx Genitourinary Disorders: Yes Hx Prostate Problems: Yes - PSYCHIATRIC Hx Psychophysiologic Disorder: No Hx Substance Use: No - SURGICAL HISTORY Hx Surgeries: Yes Hx Cholecystectomy: Yes 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) Hx Coronary Stent: Yes (1994) - ANESTHESIA Hx Anesthesia: Yes Hx Anesthesia Reactions: No Hx Malignant Hyperthermia: No Meds Allergies/Adverse Reactions: Allergies Allergy/AdvReac Type Severity Reaction Status Date / Time No Known Allergies Allergy Verified 10/22/16 08:46 Physical Exam - Constitutional Appears: Non-toxic, No Acute Distress - Head Exam Head Exam: ATRAUMATIC, NORMOCEPHALIC - Eye Exam Eye Exam: EOMI. absent: Conjunctival injection Pupil Exam: PERRL - ENT Exam ENT Exam: Mucous Membranes Moist - Respiratory Exam Respiratory Exam: Rales, NORMAL BREATHING PATTERN. absent: Accessory Muscle Use , Rhonchi, Wheezes, Respiratory Distress - Cardiovascular Exam Cardiovascular Exam: REGULAR RHYTHM, RRR, +S1, +S2. absent: Gallop, JVD, Rubs, Systolic Murmur - GI/Abdominal Exam GI & Abdominal Exam: Normal Bowel Sounds, Soft. absent: Distended, Firm, Guarding, Organomegaly, Tenderness - Extremities Exam Extremities exam: Positive for: normal inspection - Neurological Exam Neurological exam: Alert, CN II-XII Intact, Oriented x3 - Skin Skin Exam: Dry, Intact, Pallor, Warm Results - Vital Signs Recent Vital Signs: Last Vital Signs Temp 97.9 F 10/16/16 07:58 Pulse 70 10/16/16 07:58 Resp 20 10/16/16 07:58 BP 108/56 L 10/16/16 07:58 Pulse Ox 98 10/16/16 07:58 - Labs Result Diagrams: 10/16/16 11:15 10/16/16 11:15 Assessment & Plan - Assessment and Plan (Free Text) Assessment: (1) Weakness generalized Assessment & Plan: CBC: 2.9>10.4/30.5<60 s/p transfusion, Retic count: 0.8 CMP: BUN: 45 Cr: 1.8, b12: 996 Ferritin: 807 Iron: 108 TIBC: 215, %Sat: 50 PBNP: 3000 PT/INR/APTT: 17.4/1.5/28.2 EKG: sinus rhythm with premature atrial beats, other ortiz normal EKG Head CT: no acute intracranial abnormality, possible left mastoid effusion, recommend MRI for further evaluation MRI:no mass or abnormality, chronic microangiopathic changes >2gm sodium diet Meclizine for vertigo symptoms Cardiology consult appreciated hem/onc consult appreciated (2) Myelofibrosis Assessment & Plan: hx of chronic pancytopenia s/p 2 units PRBCs and 1 unit platelets hem/onc consult with Dr. Ana navarrete. (3) Diabetes mellitus Assessment & Plan: c/w home meds (4) Hypertension Assessment & Plan: c/w home meds <Arthur Mccain Fabiana - Last Filed: 10/26/16 10:01> Results - Vital Signs Recent Vital Signs: Last Vital Signs Temp 98.1 F 10/26/16 08:16 Pulse 64 10/26/16 08:16 Resp 20 10/26/16 08:16 BP 105/46 L 10/26/16 08:16 Pulse Ox 95 10/26/16 08:16 - Labs Result Diagrams: 10/26/16 09:11 10/16/16 11:15 Labs: Laboratory Results - last 24 hr 10/26/16 09:11 WBC 3.3 L RBC 3.22 L Hgb 11.0 L D Hct 33.2 L MCV 103.1 H D MCH 34.1 H MCHC 33.1 RDW 23.4 H Plt Count 50 L D MPV 8.1 Neut % (Auto) 22.2 L Lymph % (Auto) 66.7 H [place] % (Auto) 4.3 Eos % (Auto) 3.8 Baso % (Auto) 3.0 H Neut # 0.7 L Lymph # 2.2 [place] # 0.1 Eos # 0.1 Baso # 0.1 Assessment & Plan - Assessment and Plan (Free Text) Plan: I was present during evaluation and discussed with Dr Jarrell re plans of care and mgt.
[2016-10-16 11:51] LABS: BASO % 1.4 % (0.0-2.0); EOS # 0.1 K/uL (0.0-0.7); EOS % 2.3 % (0.0-4.0); HEMOGLOBIN 10.5 g/dL (12.0-18.0); LYMPH # 1.6 K/uL (1.0-4.3); LYMPH % 54.4 % (20.0-40.0); MEAN CELL VOLUME 108.5 fl (80.0-94.0); MEAN CORPUSCULAR HEMOGLOBIN 37.2 pg (27.0-31.0); MEAN CORPUSCULAR HGB CONC 34.3 g/dL (33.0-37.0); MONO # 0.1 K/uL (0.0-0.8); MONO % 3.7 % (0.0-10.0); NEUT # 1.1 K/uL (1.8-7.0); NEUT % 38.2 % (50.0-75.0); NRBC % 0.1 % (0.0-0.0); RBC 2.82 Mil/uL (4.40-5.90); RED CELL DISTRIBUTION WIDTH 21.9 % (11.5-14.5); WHITE BLOOD COUNT 2.9 K/uL (4.8-10.8)
[2016-10-16 11:54] LABS: ALBUMIN 3.5 g/dL (3.5-5.0); CALCIUM 9.6 mg/dL (8.4-10.2)
--- NOTE | 2016-10-16 12:39 | CP.PCM.CON ---
History of Present Illness - History of Present Illness History of Present Illness: 86 yo old male with CAD s/p CABG , s/p cath with occluded SVGs s/p PTCA of svg graft admitted with anemia , pancytopenia, dizziness. Etiology of pancytopenia is undetermined. Plavix has been continued due to recent PTCA and possibility of restenosis. ASA had been stopped previously. Ranexa has also been held. Pt denies chest pain or shortness of breath at rest. Past Patient History - Past Medical History & Family History Past Medical History?: Yes - Past Social History Smoking Status: Never Smoked - CARDIAC Hx Cardiac Disorders: Yes Hx Hypercholesterolemia: Yes Hx Hypertension: Yes - PULMONARY Hx Respiratory Disorders: Yes Hx Asthma: Yes - NEUROLOGICAL Hx Neurological Disorder: No Hx Dizziness: No - HEENT Hx HEENT Problems: Yes Hx Cataracts: Yes Hx Glaucoma: Yes Other/Comment: hard of hearing - RENAL Hx Chronic Kidney Disease: Yes - ENDOCRINE/METABOLIC Hx Hypothyroidism: Yes - HEMATOLOGICAL/ONCOLOGICAL Hx Blood Disorders: Yes Hx Anemia: Yes Hx Human Immunodeficiency Virus (HIV): No - INTEGUMENTARY Hx Dermatological Problems: No - MUSCULOSKELETAL/RHEUMATOLOGICAL Hx Musculoskeletal Disorders: No Hx Falls: No - GASTROINTESTINAL Hx Gastrointestinal Disorders: Yes Hx Gall Bladder Disease: Yes - GENITOURINARY/GYNECOLOGICAL Hx Genitourinary Disorders: Yes Hx Prostate Problems: Yes - PSYCHIATRIC Hx Psychophysiologic Disorder: No Hx Substance Use: No - SURGICAL HISTORY Hx Surgeries: Yes Hx Cholecystectomy: Yes 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) Hx Coronary Stent: Yes (1994) - ANESTHESIA Hx Anesthesia: Yes Hx Anesthesia Reactions: No Hx Malignant Hyperthermia: No Meds Allergies/Adverse Reactions: Allergies Allergy/AdvReac Type Severity Reaction Status Date / Time No Known Allergies Allergy Verified 10/14/16 09:26 - Medications Medications: Current Medications Atorvastatin Calcium (Lipitor) 10 mg PO [facility] Clopidogrel Bisulfate (Plavix) 75 mg PO DAILY [facility] Last Admin: 10/16/16 09:11 Dose: 75 mg Docusate Sodium (Colace) 100 mg PO BID [facility] Last Admin: 10/16/16 09:10 Dose: 100 mg Ergocalciferol (Drisdol 50,000 Intl Units Cap) 1 cap PO [facility] Finasteride (Proscar) 5 mg PO DAILY [facility] Last Admin: 10/16/16 09:11 Dose: 5 mg Isosorbide Mononitrate (Imdur) 60 mg PO QPM [facility] Meclizine HCl (Antivert) 12.5 mg PO TID PRN PRN Reason: Dizziness Nitroglycerin (Nitrostat Sl Tab) 0.4 mg SL Q5MIN PRN PRN Reason: Other Sevelamer HCl (Renagel) 800 mg PO TID [facility] Last Admin: 10/16/16 12:22 Dose: 800 mg Sitagliptin Phosphate (Januvia) 50 mg PO DAILY [facility] Last Admin: 10/16/16 09:10 Dose: 50 mg Sodium Bicarbonate (Sodium Bicarbonate Tab) 650 mg PO BID [facility] Last Admin: 10/16/16 09:10 Dose: 650 mg Physical Exam - Constitutional Appears: No Acute Distress - Neck Exam Neck exam: Positive for: Normal Inspection (dry crackles @ bases) - Respiratory Exam Additional comments: Dry crackles @ base - Cardiovascular Exam Cardiovascular Exam: REGULAR RHYTHM - Extremities Exam Extremities exam: Positive for: normal inspection Results - Vital Signs Recent Vital Signs: Last Vital Signs Temp 97.9 F 10/16/16 07:58 Pulse 70 10/16/16 07:58 Resp 20 10/16/16 07:58 BP 108/56 L 10/16/16 07:58 Pulse Ox 95 10/16/16 10:25 - Labs Result Diagrams: 10/16/16 11:15 10/16/16 11:15 Labs: Laboratory Results - last 24 hr 10/16/16 10/16/16 11:15 11:15 WBC 2.9 L RBC 2.82 L Hgb 10.5 L Hct 30.6 L MCV 108.5 H MCH 37.2 H MCHC 34.3 RDW 21.9 H Plt Count 54 L MPV 8.0 Neut % (Auto) 38.2 L Lymph % (Auto) 54.4 H [place] % (Auto) 3.7 Eos % (Auto) 2.3 Baso % (Auto) 1.4 Neut # 1.1 L Lymph # 1.6 [place] # 0.1 Eos # 0.1 Baso # 0.0 Sodium 136 Potassium 4.0 Chloride 103 Carbon Dioxide 23 Anion Gap 14 BUN 41 H Creatinine 1.9 H Est GFR ( Amer) 41 Est GFR (Non-Af Amer) 34 Random Glucose 206 H Calcium 9.6 Total Bilirubin 0.4 AST 13 L D ALT 23 Alkaline Phosphatase 42 Total Protein 7.1 Albumin 3.5 Globulin 3.6 Albumin/Globulin Ratio 1.0 Assessment & Plan - Assessment and Plan (Free Text) Assessment: Await bone marrow for etiology of pancytopenia ? myelofibrosis, medication ? Plavix continued for now, can rarely cause pancytopenia await hematolgy input re : continuation Ranexa also held which can rarely cause pancytopenia and dizzyness? Pt feels better with transfusion Echo performed final report pending LVEF 50% Will follow , pt hemodynamically stable
[2016-10-16] MEDS: Latanoprost 0.005% Opht SOUTION OU SCH (22:15)
[2016-10-17] MEDS: Pantoprazole 40 mg EC Tab PO SCH (16:45)
[2016-10-17] MEDS: Tmp-Smz 800 mg-160 mg DS Tab PO SCH ×2 (16:46→21:42)
[2016-10-17 19:17] LABS: URINE BACTERIA RARE (<OCC); URINE BILIRUBIN NEGATIVE (NEGATIVE); URINE BLOOD NEGATIVE (NEGATIVE); URINE CLARITY CLEAR (Clear); URINE COLOR YELLOW (YELLOW); URINE GLUCOSE (UA) NEG (Normal); URINE LEUKOCYTE ESTERASE NEG Leu/uL (Negative); URINE NITRATE NEGATIVE (NEGATIVE); URINE PROTEIN 100 mg/dL (NEGATIVE); URINE UROBILINOGEN 0.2-1.0 mg/dL (0.2-1.0)
[2016-10-17] MEDS: Latanoprost 0.005% Opht SOUTION OU SCH (21:42)
[2016-10-18] MEDS: Ergocalciferol 50,000 Intl Units Cap PO SCH (09:03)
[2016-10-18] MEDS: Tmp-Smz 800 mg-160 mg DS Tab PO SCH ×2 (09:03→21:46)
[2016-10-18] MEDS: Pantoprazole 40 mg EC Tab PO SCH (09:03)
--- NOTE | 2016-10-18 11:01 | CP.PCM.PN ---
Subjective - Date & Time of Evaluation Date of Evaluation: 10/17/16 Time of Evaluation: 10:00 - Subjective Subjective: Patient is stable Has no chest pain Noted to have some chills earlier. Started on po antibiotics and Tyenol. Objective - Vital Signs/Intake and Output Vital Signs (last 24 hours): Temp Pulse Resp BP Pulse Ox 98.1 F 70 20 107/56 L 98 10/18/16 08:10 10/18/16 08:10 10/18/16 08:10 10/18/16 08:10 10/18/16 08:10 - Medications Medications: Current Medications Acetaminophen (Tylenol 325mg Tab) 650 mg PO Q4 PRN PRN Reason: Fever >100.4 F Last Admin: 10/17/16 14:54 Dose: 650 mg Atorvastatin Calcium (Lipitor) 10 mg PO HS [facility] Last Admin: 10/17/16 21:42 Dose: 10 mg Clopidogrel Bisulfate (Plavix) 75 mg PO DAILY [facility] Last Admin: 10/18/16 09:03 Dose: 75 mg Docusate Sodium (Colace) 100 mg PO BID [facility] Last Admin: 10/18/16 09:03 Dose: 100 mg Ergocalciferol (Drisdol 50,000 Intl Units Cap) 1 cap PO SUN [facility] Last Admin: 10/18/16 09:03 Dose: 1 cap Finasteride (Proscar) 5 mg PO DAILY [facility] Last Admin: 10/18/16 09:03 Dose: 5 mg Isosorbide Mononitrate (Imdur) 60 mg PO QPM [facility] Last Admin: 10/17/16 18:00 Dose: 60 mg Latanoprost (Xalatan Opht) 1 drop OU HS [facility] Last Admin: 10/17/16 21:42 Dose: 1 drop Meclizine HCl (Antivert) 12.5 mg PO TID PRN PRN Reason: Dizziness Last Admin: 10/17/16 09:30 Dose: 12.5 mg Nitroglycerin (Nitrostat Sl Tab) 0.4 mg SL Q5MIN PRN PRN Reason: Other Pantoprazole Sodium (Protonix Ec Tab) 40 mg PO DAILY [facility] Last Admin: 10/18/16 09:03 Dose: 40 mg Sevelamer HCl (Renagel) 800 mg PO TID [facility] Last Admin: 10/18/16 09:03 Dose: 800 mg Sitagliptin Phosphate (Januvia) 50 mg PO DAILY [facility] Last Admin: 10/18/16 09:03 Dose: 50 mg Sodium Bicarbonate (Sodium Bicarbonate Tab) 650 mg PO BID [facility] Last Admin: 10/18/16 09:03 Dose: 650 mg Trimethoprim/Sulfamethoxazole (Bactrim Ds Tab) 1 tab PO Q12 [facility] Last Admin: 10/18/16 09:03 Dose: 1 tab - Labs Labs: 10/16/16 11:15 10/16/16 11:15 - Head Exam Head Exam: NORMAL INSPECTION - Eye Exam Eye Exam: Normal appearance - ENT Exam ENT Exam: Mucous Membranes Moist - Respiratory Exam Respiratory Exam: Clear to Ausculation Bilateral - Cardiovascular Exam Cardiovascular Exam: REGULAR RHYTHM - GI/Abdominal Exam GI & Abdominal Exam: Normal Bowel Sounds - Neurological Exam Neurological Exam: Awake, Oriented x3 Assessment and Plan (1) Pancytopenia Status: Acute (2) Acquired thrombocytopenia Status: Acute (3) Myelofibrosis Status: Acute (4) CAD (coronary artery disease) Status: Chronic (5) CKD (chronic kidney disease) stage 3, GFR 30-59 ml/min Status: Chronic (6) Diabetes mellitus Status: Chronic (7) Hypertension Status: Chronic - Assessment and Plan (Free Text) Plan: Con tmeds Con ttx Cont PT follow up CBC cmp follow up with Dr Hernandez Urban.
--- NOTE | 2016-10-18 11:02 | CP.PCM.PN ---
Subjective - Date & Time of Evaluation Date of Evaluation: 10/18/16 Time of Evaluation: 11:01 - Subjective Subjective: feels a lot better now Has no fever Started on Bactrim yesterday No results for C and S yet Objective - Vital Signs/Intake and Output Vital Signs (last 24 hours): Temp Pulse Resp BP Pulse Ox 98.1 F 70 20 107/56 L 98 10/18/16 08:10 10/18/16 08:10 10/18/16 08:10 10/18/16 08:10 10/18/16 08:10 - Medications Medications: Current Medications Acetaminophen (Tylenol 325mg Tab) 650 mg PO Q4 PRN PRN Reason: Fever >100.4 F Last Admin: 10/17/16 14:54 Dose: 650 mg Atorvastatin Calcium (Lipitor) 10 mg PO HS [facility] Last Admin: 10/17/16 21:42 Dose: 10 mg Clopidogrel Bisulfate (Plavix) 75 mg PO DAILY [facility] Last Admin: 10/18/16 09:03 Dose: 75 mg Docusate Sodium (Colace) 100 mg PO BID [facility] Last Admin: 10/18/16 09:03 Dose: 100 mg Ergocalciferol (Drisdol 50,000 Intl Units Cap) 1 cap PO SUN [facility] Last Admin: 10/18/16 09:03 Dose: 1 cap Finasteride (Proscar) 5 mg PO DAILY [facility] Last Admin: 10/18/16 09:03 Dose: 5 mg Isosorbide Mononitrate (Imdur) 60 mg PO QPM [facility] Last Admin: 10/17/16 18:00 Dose: 60 mg Latanoprost (Xalatan Opht) 1 drop OU HS [facility] Last Admin: 10/17/16 21:42 Dose: 1 drop Meclizine HCl (Antivert) 12.5 mg PO TID PRN PRN Reason: Dizziness Last Admin: 10/17/16 09:30 Dose: 12.5 mg Nitroglycerin (Nitrostat Sl Tab) 0.4 mg SL Q5MIN PRN PRN Reason: Other Pantoprazole Sodium (Protonix Ec Tab) 40 mg PO DAILY [facility] Last Admin: 10/18/16 09:03 Dose: 40 mg Sevelamer HCl (Renagel) 800 mg PO TID [facility] Last Admin: 10/18/16 09:03 Dose: 800 mg Sitagliptin Phosphate (Januvia) 50 mg PO DAILY [facility] Last Admin: 10/18/16 09:03 Dose: 50 mg Sodium Bicarbonate (Sodium Bicarbonate Tab) 650 mg PO BID [facility] Last Admin: 10/18/16 09:03 Dose: 650 mg Trimethoprim/Sulfamethoxazole (Bactrim Ds Tab) 1 tab PO Q12 [facility] Last Admin: 10/18/16 09:03 Dose: 1 tab - Labs Labs: 10/16/16 11:15 10/16/16 11:15 - Head Exam Head Exam: NORMAL INSPECTION - Eye Exam Eye Exam: Normal appearance - ENT Exam ENT Exam: Mucous Membranes Moist - Respiratory Exam Respiratory Exam: NORMAL BREATHING PATTERN - Cardiovascular Exam Cardiovascular Exam: REGULAR RHYTHM - GI/Abdominal Exam GI & Abdominal Exam: Normal Bowel Sounds Assessment and Plan (1) Acquired thrombocytopenia Status: Acute (2) CAD (coronary atherosclerotic disease) Status: Acute (3) CKD (chronic kidney disease) stage 4, GFR 15-29 ml/min Status: Acute (4) Myelofibrosis Status: Acute - Assessment and Plan (Free Text) Plan: Cont meds Cont tx Cont PT Cont tx
[2016-10-18] MEDS: Latanoprost 0.005% Opht SOUTION OU SCH (21:46)
[2016-10-19] MEDS: Tmp-Smz 800 mg-160 mg DS Tab PO SCH ×2 (09:34→21:11)
[2016-10-19] MEDS: Pantoprazole 40 mg EC Tab PO SCH (09:37)
--- NOTE | 2016-10-19 16:45 | CP.PCM.PN ---
Subjective - Date & Time of Evaluation Date of Evaluation: 10/19/16 Time of Evaluation: 16:43 - Subjective Subjective: Pt is feeling well with the transfusions and is doing well in physical therapy. He had a bone marrow today and result to follow. Objective - Vital Signs/Intake and Output Vital Signs (last 24 hours): Temp Pulse Resp BP Pulse Ox 98.8 F 77 20 141/66 97 10/19/16 15:45 10/19/16 15:45 10/19/16 15:45 10/19/16 15:45 10/19/16 15:45 - Medications Medications: Current Medications Acetaminophen (Tylenol 325mg Tab) 650 mg PO Q4 PRN PRN Reason: Fever >100.4 F Last Admin: 10/17/16 14:54 Dose: 650 mg Atorvastatin Calcium (Lipitor) 10 mg PO HS [facility] Last Admin: 10/18/16 21:46 Dose: 10 mg Clopidogrel Bisulfate (Plavix) 75 mg PO DAILY [facility] Last Admin: 10/19/16 09:36 Dose: 75 mg Docusate Sodium (Colace) 100 mg PO BID [facility] Last Admin: 10/19/16 09:34 Dose: 100 mg Ergocalciferol (Drisdol 50,000 Intl Units Cap) 1 cap PO SUN [facility] Last Admin: 10/18/16 09:03 Dose: 1 cap Finasteride (Proscar) 5 mg PO DAILY [facility] Last Admin: 10/19/16 09:37 Dose: 5 mg Isosorbide Mononitrate (Imdur) 60 mg PO QPM [facility] Last Admin: 10/18/16 17:16 Dose: 60 mg Latanoprost (Xalatan Opht) 1 drop OU HS [facility] Last Admin: 10/18/16 21:46 Dose: 1 drop Meclizine HCl (Antivert) 12.5 mg PO TID PRN PRN Reason: Dizziness Last Admin: 10/19/16 09:31 Dose: 12.5 mg Nitroglycerin (Nitrostat Sl Tab) 0.4 mg SL Q5MIN PRN PRN Reason: Other Pantoprazole Sodium (Protonix Ec Tab) 40 mg PO DAILY [facility] Last Admin: 10/19/16 09:37 Dose: 40 mg Sevelamer HCl (Renagel) 800 mg PO TID [facility] Last Admin: 10/19/16 13:56 Dose: 800 mg Sitagliptin Phosphate (Januvia) 50 mg PO DAILY [facility] Last Admin: 10/19/16 09:36 Dose: 50 mg Sodium Bicarbonate (Sodium Bicarbonate Tab) 650 mg PO BID [facility] Last Admin: 10/19/16 09:37 Dose: 650 mg Trimethoprim/Sulfamethoxazole (Bactrim Ds Tab) 1 tab PO Q12 [facility] Last Admin: 10/19/16 09:34 Dose: 1 tab - Labs Labs: 10/16/16 11:15 10/16/16 11:15
[2016-10-19] MEDS: Latanoprost 0.005% Opht SOUTION OU SCH (21:11)
[2016-10-20] MEDS: Pantoprazole 40 mg EC Tab PO SCH (08:44)
[2016-10-20] MEDS: Tmp-Smz 800 mg-160 mg DS Tab PO SCH ×2 (08:44→21:26)
[2016-10-20] MEDS: MEGESTROL ACETATE 625 MG PO SCH (17:15)
[2016-10-20] MEDS: Latanoprost 0.005% Opht SOUTION OU SCH (21:26)
[2016-10-21] MEDS: MEGESTROL ACETATE 625 MG PO SCH (08:58)
[2016-10-21] MEDS: Pantoprazole 40 mg EC Tab PO SCH (09:00)
[2016-10-21] MEDS: Tmp-Smz 800 mg-160 mg DS Tab PO SCH ×2 (10:03→22:15)
--- NOTE | 2016-10-21 10:26 | CP.PCM.PN ---
Subjective - Date & Time of Evaluation Date of Evaluation: 10/21/16 Time of Evaluation: 10:18 - Subjective Subjective: Pt is feeling better and doing well with his PT. He has had occasional temps 99- 100.1, and c/s have all been negative. The flow cytometry showed about 3% blasts, and several markers are positive, but not acute leukemia. There are also abnormal looking cells, and MDS id suspected. Will await result of the bone marrow clot biopsy and cytogenetics. If he does have MDS. I do not think he will tolerate chemo well. I think he should get conservative management with transfusions as needed and growth factors as needed. Objective - Vital Signs/Intake and Output Vital Signs (last 24 hours): Temp Pulse Resp BP Pulse Ox 98.2 F 67 20 104/47 L 95 10/21/16 08:07 10/21/16 08:07 10/21/16 08:07 10/21/16 08:07 10/21/16 08:07 - Medications Medications: Current Medications Acetaminophen (Tylenol 325mg Tab) 650 mg PO Q4 PRN PRN Reason: Fever >100.4 F Last Admin: 10/20/16 14:49 Dose: 650 mg Atorvastatin Calcium (Lipitor) 10 mg PO HS [facility] Last Admin: 10/20/16 21:26 Dose: 10 mg Clopidogrel Bisulfate (Plavix) 75 mg PO DAILY [facility] Last Admin: 10/21/16 08:59 Dose: 75 mg Docusate Sodium (Colace) 100 mg PO BID [facility] Last Admin: 10/21/16 08:58 Dose: 100 mg Ergocalciferol (Drisdol 50,000 Intl Units Cap) 1 cap PO SUN [facility] Last Admin: 10/18/16 09:03 Dose: 1 cap Finasteride (Proscar) 5 mg PO DAILY [facility] Last Admin: 10/21/16 09:00 Dose: 5 mg Home Med (Megestrol Acetate [Megace Es]) 625 mg PO DAILY [facility] Last Admin: 10/21/16 08:58 Dose: 625 mg Home Med (Febuxostat [Uloric]) 40 mg PO DAILY [facility] Isosorbide Mononitrate (Imdur) 60 mg PO QPM [facility] Last Admin: 10/20/16 17:19 Dose: 60 mg Latanoprost (Xalatan Opht) 1 drop OU HS [facility] Last Admin: 10/20/16 21:26 Dose: 1 drop Meclizine HCl (Antivert) 12.5 mg PO TID PRN PRN Reason: Dizziness Last Admin: 10/19/16 09:31 Dose: 12.5 mg Meclizine HCl (Antivert) 25 mg PO Q6 PRN PRN Reason: Dizziness Nitroglycerin (Nitrostat Sl Tab) 0.4 mg SL Q5MIN PRN PRN Reason: Other Pantoprazole Sodium (Protonix Ec Tab) 40 mg PO DAILY [facility] Last Admin: 10/21/16 09:00 Dose: 40 mg Sevelamer HCl (Renagel) 800 mg PO TID [facility] Last Admin: 10/21/16 08:59 Dose: 800 mg Sitagliptin Phosphate (Januvia) 50 mg PO DAILY [facility] Last Admin: 10/21/16 08:59 Dose: 50 mg Sodium Bicarbonate (Sodium Bicarbonate Tab) 650 mg PO BID [facility] Last Admin: 10/21/16 08:59 Dose: 650 mg Trimethoprim/Sulfamethoxazole (Bactrim Ds Tab) 1 tab PO Q12 [facility] Last Admin: 10/21/16 10:03 Dose: 1 tab - Labs Labs: 10/16/16 11:15 10/16/16 11:15
[2016-10-21 18:05] LABS: BASO # 0.1 K/uL (0.0-0.2); BASO % 2.6 % (0.0-2.0); EOS # 0.1 K/uL (0.0-0.7); EOS % 3.1 % (0.0-4.0); HEMOGLOBIN 8.3 g/dL (12.0-18.0); LYMPH # 1.4 K/uL (1.0-4.3); LYMPH % 55.4 % (20.0-40.0); MEAN CELL VOLUME 109.4 fl (80.0-94.0); MEAN CORPUSCULAR HEMOGLOBIN 36.3 pg (27.0-31.0); MEAN CORPUSCULAR HGB CONC 33.2 g/dL (33.0-37.0); MEAN PLATELET VOLUME 9.3 fl (7.2-11.7); MONO # 0.1 K/uL (0.0-0.8); MONO % 3.6 % (0.0-10.0); NEUT # 0.9 K/uL (1.8-7.0); NEUT % 35.3 % (50.0-75.0); NRBC % 0.2 % (0.0-0.0); RBC 2.29 Mil/uL (4.40-5.90); RED CELL DISTRIBUTION WIDTH 21.1 % (11.5-14.5); WHITE BLOOD COUNT 2.4 K/uL (4.8-10.8)
[2016-10-21] MEDS: Latanoprost 0.005% Opht SOUTION OU SCH (22:15)
--- NOTE | 2016-10-22 08:15 | CP.PCM.PN ---
Subjective - Date & Time of Evaluation Date of Evaluation: 10/22/16 Time of Evaluation: 08:11 - Subjective Subjective: Pt has no complaints, but his hgb dropped to 8.3 and the platelets to 29K. Will give him 2 units of packed cells. today. Will ck cbc tomorrow. If the platelets are lower than 20K will transfuse platelets. Objective - Vital Signs/Intake and Output Vital Signs (last 24 hours): Temp Pulse Resp BP Pulse Ox 97.9 F 71 20 117/65 95 10/21/16 21:46 10/21/16 21:46 10/21/16 21:46 10/21/16 21:46 10/21/16 21:46 - Medications Medications: Current Medications Acetaminophen (Tylenol 325mg Tab) 650 mg PO Q4 PRN PRN Reason: Fever >100.4 F Last Admin: 10/20/16 14:49 Dose: 650 mg Atorvastatin Calcium (Lipitor) 10 mg PO HS [facility] Last Admin: 10/21/16 22:16 Dose: 10 mg Clopidogrel Bisulfate (Plavix) 75 mg PO DAILY [facility] Last Admin: 10/21/16 08:59 Dose: 75 mg Docusate Sodium (Colace) 100 mg PO BID [facility] Last Admin: 10/21/16 17:29 Dose: 100 mg Ergocalciferol (Drisdol 50,000 Intl Units Cap) 1 cap PO SUN [facility] Last Admin: 10/18/16 09:03 Dose: 1 cap Finasteride (Proscar) 5 mg PO DAILY [facility] Last Admin: 10/21/16 09:00 Dose: 5 mg Home Med (Megestrol Acetate [Megace Es]) 625 mg PO DAILY [facility] Last Admin: 10/21/16 08:58 Dose: 625 mg Home Med (Febuxostat [Uloric]) 40 mg PO DAILY [facility] Isosorbide Mononitrate (Imdur) 60 mg PO QPM [facility] Last Admin: 10/21/16 17:30 Dose: 60 mg Latanoprost (Xalatan Opht) 1 drop OU HS [facility] Last Admin: 10/21/16 22:15 Dose: 1 drop Meclizine HCl (Antivert) 12.5 mg PO TID PRN PRN Reason: Dizziness Last Admin: 10/19/16 09:31 Dose: 12.5 mg Meclizine HCl (Antivert) 25 mg PO Q6 PRN PRN Reason: Dizziness Nitroglycerin (Nitrostat Sl Tab) 0.4 mg SL Q5MIN PRN PRN Reason: Other Pantoprazole Sodium (Protonix Ec Tab) 40 mg PO DAILY [facility] Last Admin: 10/21/16 09:00 Dose: 40 mg Sevelamer HCl (Renagel) 800 mg PO TID [facility] Last Admin: 10/21/16 17:29 Dose: 800 mg Sitagliptin Phosphate (Januvia) 50 mg PO DAILY [facility] Last Admin: 10/21/16 08:59 Dose: 50 mg Sodium Bicarbonate (Sodium Bicarbonate Tab) 650 mg PO BID [facility] Last Admin: 10/21/16 17:30 Dose: 650 mg Trimethoprim/Sulfamethoxazole (Bactrim Ds Tab) 1 tab PO Q12 [facility] Last Admin: 10/21/16 22:15 Dose: 1 tab - Labs Labs: 10/21/16 17:55 10/16/16 11:15
[2016-10-22] MEDS: Tmp-Smz 800 mg-160 mg DS Tab PO SCH ×2 (08:18→21:06)
[2016-10-22] MEDS: MEGESTROL ACETATE 625 MG PO SCH (08:19)
[2016-10-22] MEDS: Pantoprazole 40 mg EC Tab PO SCH (08:20)
[2016-10-22] MEDS: Latanoprost 0.005% Opht SOUTION OU SCH (21:06)
--- NOTE | 2016-10-23 09:06 | CP.PCM.PN ---
Subjective - Date & Time of Evaluation Date of Evaluation: 10/23/16 Time of Evaluation: 09:04 - Subjective Subjective: Pt is feeling well. He is being transfused 2 units of platelets today. He will be discharged after that. He will return for procrit injections every wednesday.at infusion center. Objective - Vital Signs/Intake and Output Vital Signs (last 24 hours): Temp Pulse Resp BP Pulse Ox 97.7 F 69 20 117/64 96 10/22/16 21:29 10/22/16 21:29 10/22/16 21:29 10/22/16 21:29 10/22/16 21:29 - Medications Medications: Current Medications Acetaminophen (Tylenol 325mg Tab) 650 mg PO Q4 PRN PRN Reason: Fever >100.4 F Last Admin: 10/20/16 14:49 Dose: 650 mg Atorvastatin Calcium (Lipitor) 10 mg PO HS [facility] Last Admin: 10/22/16 21:05 Dose: 10 mg Clopidogrel Bisulfate (Plavix) 75 mg PO DAILY [facility] Last Admin: 10/22/16 08:19 Dose: 75 mg Docusate Sodium (Colace) 100 mg PO BID [facility] Last Admin: 10/22/16 17:19 Dose: 100 mg Ergocalciferol (Drisdol 50,000 Intl Units Cap) 1 cap PO SUN [facility] Last Admin: 10/18/16 09:03 Dose: 1 cap Finasteride (Proscar) 5 mg PO DAILY [facility] Last Admin: 10/22/16 08:20 Dose: 5 mg Home Med (Megestrol Acetate [Megace Es]) 625 mg PO DAILY [facility] Last Admin: 10/22/16 08:19 Dose: 625 mg Home Med (Febuxostat [Uloric]) 40 mg PO DAILY [facility] Last Admin: 10/22/16 08:19 Dose: 40 mg Isosorbide Mononitrate (Imdur) 60 mg PO QPM [facility] Last Admin: 10/22/16 17:19 Dose: 60 mg Latanoprost (Xalatan Opht) 1 drop OU HS [facility] Last Admin: 10/22/16 21:06 Dose: 1 drop Meclizine HCl (Antivert) 12.5 mg PO TID PRN PRN Reason: Dizziness Last Admin: 10/19/16 09:31 Dose: 12.5 mg Meclizine HCl (Antivert) 25 mg PO Q6 PRN PRN Reason: Dizziness Nitroglycerin (Nitrostat Sl Tab) 0.4 mg SL Q5MIN PRN PRN Reason: Other Pantoprazole Sodium (Protonix Ec Tab) 40 mg PO DAILY [facility] Last Admin: 10/22/16 08:20 Dose: 40 mg Sevelamer HCl (Renagel) 800 mg PO TID [facility] Last Admin: 10/22/16 17:17 Dose: 800 mg Sitagliptin Phosphate (Januvia) 50 mg PO DAILY [facility] Last Admin: 10/22/16 08:19 Dose: 50 mg Sodium Bicarbonate (Sodium Bicarbonate Tab) 650 mg PO BID [facility] Last Admin: 10/22/16 17:19 Dose: 650 mg Trimethoprim/Sulfamethoxazole (Bactrim Ds Tab) 1 tab PO Q12 [facility] Last Admin: 10/22/16 21:06 Dose: 1 tab - Labs Labs: 10/21/16 17:55 10/16/16 11:15
[2016-10-23] MEDS: Tmp-Smz 800 mg-160 mg DS Tab PO SCH (10:02)
[2016-10-23] MEDS: MEGESTROL ACETATE 625 MG PO SCH (10:04)
[2016-10-23] MEDS: Pantoprazole 40 mg EC Tab PO SCH (10:05)
[2016-10-23] MEDS: Latanoprost 0.005% Opht SOUTION OU SCH (21:02)
[2016-10-24] MEDS: Pantoprazole 40 mg EC Tab PO SCH (09:33)
[2016-10-24] MEDS: MEGESTROL ACETATE 625 MG PO SCH (09:34)
[2016-10-24] MEDS: Latanoprost 0.005% Opht SOUTION OU SCH (21:06)
[2016-10-25] MEDS: MEGESTROL ACETATE 625 MG PO SCH (08:24)
[2016-10-25] MEDS: Ergocalciferol 50,000 Intl Units Cap PO SCH (08:24)
[2016-10-25] MEDS: Pantoprazole 40 mg EC Tab PO SCH (08:24)
[2016-10-25] MEDS: Latanoprost 0.005% Opht SOUTION OU SCH (21:04)
[2016-10-26] MEDS: Pantoprazole 40 mg EC Tab PO SCH (08:05)
[2016-10-26] MEDS: MEGESTROL ACETATE 625 MG PO SCH (08:05)
[2016-10-26 08:17] VITALS: BP 105/46; PULSE 64; TEMP 98.1; O2SAT 95
[2016-10-26 09:36] LABS: BASO # 0.1 K/uL (0.0-0.2); EOS # 0.1 K/uL (0.0-0.7); EOS % 3.8 % (0.0-4.0); LYMPH # 2.2 K/uL (1.0-4.3); LYMPH % 66.7 % (20.0-40.0); MEAN CELL VOLUME 103.1 fl (80.0-94.0); MEAN CORPUSCULAR HEMOGLOBIN 34.1 pg (27.0-31.0); MEAN CORPUSCULAR HGB CONC 33.1 g/dL (33.0-37.0); MEAN PLATELET VOLUME 8.1 fl (7.2-11.7); MONO # 0.1 K/uL (0.0-0.8); MONO % 4.3 % (0.0-10.0); NEUT # 0.7 K/uL (1.8-7.0); NEUT % 22.2 % (50.0-75.0); NRBC % 0.2 % (0.0-0.0); RBC 3.22 Mil/uL (4.40-5.90); RED CELL DISTRIBUTION WIDTH 23.4 % (11.5-14.5); WHITE BLOOD COUNT 3.3 K/uL (4.8-10.8)
--- NOTE | 2016-10-26 10:04 | CP.PCM.PN ---
Subjective - Date & Time of Evaluation Date of Evaluation: 10/24/16 Time of Evaluation: 10:00 - Subjective Subjective: Patient is stable Has no chest pain Had transfusion yesterday Has no SOB No fever, Objective - Vital Signs/Intake and Output Vital Signs (last 24 hours): Temp Pulse Resp BP Pulse Ox 98.1 F 64 20 105/46 L 95 10/26/16 08:16 10/26/16 08:16 10/26/16 08:16 10/26/16 08:16 10/26/16 08:16 - Medications Medications: Current Medications Acetaminophen (Tylenol 325mg Tab) 650 mg PO Q4 PRN PRN Reason: Fever >100.4 F Last Admin: 10/20/16 14:49 Dose: 650 mg Atorvastatin Calcium (Lipitor) 10 mg PO HS [facility] Last Admin: 10/25/16 21:04 Dose: 10 mg Clopidogrel Bisulfate (Plavix) 75 mg PO DAILY [facility] Last Admin: 10/26/16 08:05 Dose: 75 mg Docusate Sodium (Colace) 100 mg PO BID [facility] Last Admin: 10/26/16 08:05 Dose: 100 mg Ergocalciferol (Drisdol 50,000 Intl Units Cap) 1 cap PO SUN [facility] Last Admin: 10/25/16 08:24 Dose: 1 cap Finasteride (Proscar) 5 mg PO DAILY [facility] Last Admin: 10/26/16 08:05 Dose: 5 mg Home Med (Megestrol Acetate [Megace Es]) 625 mg PO DAILY [facility] Last Admin: 10/26/16 08:05 Dose: 625 mg Home Med (Febuxostat [Uloric]) 40 mg PO DAILY [facility] Last Admin: 10/26/16 08:06 Dose: 40 mg Isosorbide Mononitrate (Imdur) 60 mg PO QPM [facility] Last Admin: 10/25/16 17:13 Dose: 60 mg Latanoprost (Xalatan Opht) 1 drop OU HS [facility] Last Admin: 10/25/16 21:04 Dose: 1 drop Meclizine HCl (Antivert) 12.5 mg PO TID PRN PRN Reason: Dizziness Last Admin: 10/19/16 09:31 Dose: 12.5 mg Meclizine HCl (Antivert) 25 mg PO Q6 PRN PRN Reason: Dizziness Nitroglycerin (Nitrostat Sl Tab) 0.4 mg SL Q5MIN PRN PRN Reason: Other Pantoprazole Sodium (Protonix Ec Tab) 40 mg PO DAILY [facility] Last Admin: 10/26/16 08:05 Dose: 40 mg Sevelamer HCl (Renagel) 800 mg PO TID [facility] Last Admin: 10/26/16 08:05 Dose: 800 mg Sitagliptin Phosphate (Januvia) 50 mg PO DAILY [facility] Last Admin: 10/26/16 08:05 Dose: 50 mg Sodium Bicarbonate (Sodium Bicarbonate Tab) 650 mg PO BID [facility] Last Admin: 10/26/16 08:05 Dose: 650 mg - Labs Labs: 10/26/16 09:11 10/16/16 11:15 - Head Exam Head Exam: NORMAL INSPECTION - Eye Exam Eye Exam: Normal appearance - ENT Exam ENT Exam: Mucous Membranes Moist - Respiratory Exam Respiratory Exam: Clear to Ausculation Bilateral - Cardiovascular Exam Cardiovascular Exam: REGULAR RHYTHM - GI/Abdominal Exam GI & Abdominal Exam: Normal Bowel Sounds Assessment and Plan (1) Pancytopenia Status: Acute (2) Acquired thrombocytopenia Status: Acute (3) Myelofibrosis Status: Acute (4) CAD (coronary artery disease) Status: Chronic (5) CKD (chronic kidney disease) stage 3, GFR 30-59 ml/min Status: Chronic (6) Diabetes mellitus Status: Chronic (7) Hypertension Status: Chronic - Assessment and Plan (Free Text) Plan: Con tmeds follow up pathology report on bonem biopsy cont PT
--- NOTE | 2016-10-26 10:06 | CP.PCM.PN ---
Subjective - Date & Time of Evaluation Date of Evaluation: 10/25/16 Time of Evaluation: 10:05 - Subjective Subjective: Patient is stable Has no chest pain or SOB Afebrile. No CBC today Has no fever Has no chest pain or SOB. Objective - Vital Signs/Intake and Output Vital Signs (last 24 hours): Temp Pulse Resp BP Pulse Ox 98.1 F 64 20 105/46 L 95 10/26/16 08:16 10/26/16 08:16 10/26/16 08:16 10/26/16 08:16 10/26/16 08:16 - Medications Medications: Current Medications Acetaminophen (Tylenol 325mg Tab) 650 mg PO Q4 PRN PRN Reason: Fever >100.4 F Last Admin: 10/20/16 14:49 Dose: 650 mg Atorvastatin Calcium (Lipitor) 10 mg PO HS [facility] Last Admin: 10/25/16 21:04 Dose: 10 mg Clopidogrel Bisulfate (Plavix) 75 mg PO DAILY [facility] Last Admin: 10/26/16 08:05 Dose: 75 mg Docusate Sodium (Colace) 100 mg PO BID [facility] Last Admin: 10/26/16 08:05 Dose: 100 mg Ergocalciferol (Drisdol 50,000 Intl Units Cap) 1 cap PO SUN [facility] Last Admin: 10/25/16 08:24 Dose: 1 cap Finasteride (Proscar) 5 mg PO DAILY [facility] Last Admin: 10/26/16 08:05 Dose: 5 mg Home Med (Megestrol Acetate [Megace Es]) 625 mg PO DAILY [facility] Last Admin: 10/26/16 08:05 Dose: 625 mg Home Med (Febuxostat [Uloric]) 40 mg PO DAILY [facility] Last Admin: 10/26/16 08:06 Dose: 40 mg Isosorbide Mononitrate (Imdur) 60 mg PO QPM [facility] Last Admin: 10/25/16 17:13 Dose: 60 mg Latanoprost (Xalatan Opht) 1 drop OU HS [facility] Last Admin: 10/25/16 21:04 Dose: 1 drop Meclizine HCl (Antivert) 12.5 mg PO TID PRN PRN Reason: Dizziness Last Admin: 10/19/16 09:31 Dose: 12.5 mg Meclizine HCl (Antivert) 25 mg PO Q6 PRN PRN Reason: Dizziness Nitroglycerin (Nitrostat Sl Tab) 0.4 mg SL Q5MIN PRN PRN Reason: Other Pantoprazole Sodium (Protonix Ec Tab) 40 mg PO DAILY [facility] Last Admin: 10/26/16 08:05 Dose: 40 mg Sevelamer HCl (Renagel) 800 mg PO TID [facility] Last Admin: 10/26/16 08:05 Dose: 800 mg Sitagliptin Phosphate (Januvia) 50 mg PO DAILY [facility] Last Admin: 10/26/16 08:05 Dose: 50 mg Sodium Bicarbonate (Sodium Bicarbonate Tab) 650 mg PO BID [facility] Last Admin: 10/26/16 08:05 Dose: 650 mg - Labs Labs: 10/26/16 09:11 10/16/16 11:15 - Head Exam Head Exam: NORMAL INSPECTION - Eye Exam Eye Exam: Normal appearance - ENT Exam ENT Exam: Mucous Membranes Moist - Respiratory Exam Respiratory Exam: Clear to Ausculation Bilateral - Cardiovascular Exam Cardiovascular Exam: REGULAR RHYTHM - GI/Abdominal Exam GI & Abdominal Exam: Normal Bowel Sounds - Neurological Exam Neurological Exam: Awake, Oriented x3 - Psychiatric Exam Psychiatric exam: Normal Mood Assessment and Plan (1) Pancytopenia Status: Acute (2) Acquired thrombocytopenia Status: Acute (3) Myelofibrosis Status: Acute (4) CAD (coronary artery disease) Status: Chronic (5) CKD (chronic kidney disease) stage 3, GFR 30-59 ml/min Status: Chronic (6) Diabetes mellitus Status: Chronic (7) Hypertension Status: Chronic - Assessment and Plan (Free Text) Plan: Cont meds Con ttx Cont PT Discharge planning.
--- NOTE | 2016-10-26 10:15 | CP.PCM.PN ---
Subjective - Date & Time of Evaluation Date of Evaluation: 10/19/16 Time of Evaluation: 09:15 - Subjective Subjective: Patient is stable Has no chest pain or SOB Noted low Hgb platelet. Objective - Vital Signs/Intake and Output Vital Signs (last 24 hours): Temp Pulse Resp BP Pulse Ox 98.1 F 64 20 105/46 L 95 10/26/16 08:16 10/26/16 08:16 10/26/16 08:16 10/26/16 08:16 10/26/16 08:16 - Medications Medications: Current Medications Acetaminophen (Tylenol 325mg Tab) 650 mg PO Q4 PRN PRN Reason: Fever >100.4 F Last Admin: 10/20/16 14:49 Dose: 650 mg Atorvastatin Calcium (Lipitor) 10 mg PO HS [facility] Last Admin: 10/25/16 21:04 Dose: 10 mg Clopidogrel Bisulfate (Plavix) 75 mg PO DAILY [facility] Last Admin: 10/26/16 08:05 Dose: 75 mg Docusate Sodium (Colace) 100 mg PO BID [facility] Last Admin: 10/26/16 08:05 Dose: 100 mg Ergocalciferol (Drisdol 50,000 Intl Units Cap) 1 cap PO SUN [facility] Last Admin: 10/25/16 08:24 Dose: 1 cap Finasteride (Proscar) 5 mg PO DAILY [facility] Last Admin: 10/26/16 08:05 Dose: 5 mg Home Med (Megestrol Acetate [Megace Es]) 625 mg PO DAILY [facility] Last Admin: 10/26/16 08:05 Dose: 625 mg Home Med (Febuxostat [Uloric]) 40 mg PO DAILY [facility] Last Admin: 10/26/16 08:06 Dose: 40 mg Isosorbide Mononitrate (Imdur) 60 mg PO QPM [facility] Last Admin: 10/25/16 17:13 Dose: 60 mg Latanoprost (Xalatan Opht) 1 drop OU HS [facility] Last Admin: 10/25/16 21:04 Dose: 1 drop Meclizine HCl (Antivert) 12.5 mg PO TID PRN PRN Reason: Dizziness Last Admin: 10/19/16 09:31 Dose: 12.5 mg Meclizine HCl (Antivert) 25 mg PO Q6 PRN PRN Reason: Dizziness Nitroglycerin (Nitrostat Sl Tab) 0.4 mg SL Q5MIN PRN PRN Reason: Other Pantoprazole Sodium (Protonix Ec Tab) 40 mg PO DAILY [facility] Last Admin: 10/26/16 08:05 Dose: 40 mg Sevelamer HCl (Renagel) 800 mg PO TID [facility] Last Admin: 10/26/16 08:05 Dose: 800 mg Sitagliptin Phosphate (Januvia) 50 mg PO DAILY [facility] Last Admin: 10/26/16 08:05 Dose: 50 mg Sodium Bicarbonate (Sodium Bicarbonate Tab) 650 mg PO BID [facility] Last Admin: 10/26/16 08:05 Dose: 650 mg - Labs Labs: 10/26/16 09:11 10/16/16 11:15 Assessment and Plan (1) Acquired thrombocytopenia Status: Acute (2) CAD (coronary atherosclerotic disease) Status: Acute (3) CKD (chronic kidney disease) stage 4, GFR 15-29 ml/min Status: Acute (4) Myelofibrosis Status: Acute
--- NOTE | 2016-10-26 10:16 | CP.PCM.PN ---
Subjective - Date & Time of Evaluation Date of Evaluation: 10/20/16 Time of Evaluation: 09:30 - Subjective Subjective: Patient continues to do well. Awaiting biopsy report. Objective - Vital Signs/Intake and Output Vital Signs (last 24 hours): Temp Pulse Resp BP Pulse Ox 98.1 F 64 20 105/46 L 95 10/26/16 08:16 10/26/16 08:16 10/26/16 08:16 10/26/16 08:16 10/26/16 08:16 - Medications Medications: Current Medications Acetaminophen (Tylenol 325mg Tab) 650 mg PO Q4 PRN PRN Reason: Fever >100.4 F Last Admin: 10/20/16 14:49 Dose: 650 mg Atorvastatin Calcium (Lipitor) 10 mg PO HS [facility] Last Admin: 10/25/16 21:04 Dose: 10 mg Clopidogrel Bisulfate (Plavix) 75 mg PO DAILY [facility] Last Admin: 10/26/16 08:05 Dose: 75 mg Docusate Sodium (Colace) 100 mg PO BID [facility] Last Admin: 10/26/16 08:05 Dose: 100 mg Ergocalciferol (Drisdol 50,000 Intl Units Cap) 1 cap PO SUN [facility] Last Admin: 10/25/16 08:24 Dose: 1 cap Finasteride (Proscar) 5 mg PO DAILY [facility] Last Admin: 10/26/16 08:05 Dose: 5 mg Home Med (Megestrol Acetate [Megace Es]) 625 mg PO DAILY [facility] Last Admin: 10/26/16 08:05 Dose: 625 mg Home Med (Febuxostat [Uloric]) 40 mg PO DAILY [facility] Last Admin: 10/26/16 08:06 Dose: 40 mg Isosorbide Mononitrate (Imdur) 60 mg PO QPM [facility] Last Admin: 10/25/16 17:13 Dose: 60 mg Latanoprost (Xalatan Opht) 1 drop OU HS [facility] Last Admin: 10/25/16 21:04 Dose: 1 drop Meclizine HCl (Antivert) 12.5 mg PO TID PRN PRN Reason: Dizziness Last Admin: 10/19/16 09:31 Dose: 12.5 mg Meclizine HCl (Antivert) 25 mg PO Q6 PRN PRN Reason: Dizziness Nitroglycerin (Nitrostat Sl Tab) 0.4 mg SL Q5MIN PRN PRN Reason: Other Pantoprazole Sodium (Protonix Ec Tab) 40 mg PO DAILY [facility] Last Admin: 10/26/16 08:05 Dose: 40 mg Sevelamer HCl (Renagel) 800 mg PO TID [facility] Last Admin: 10/26/16 08:05 Dose: 800 mg Sitagliptin Phosphate (Januvia) 50 mg PO DAILY [facility] Last Admin: 10/26/16 08:05 Dose: 50 mg Sodium Bicarbonate (Sodium Bicarbonate Tab) 650 mg PO BID [facility] Last Admin: 10/26/16 08:05 Dose: 650 mg - Labs Labs: 10/26/16 09:11 10/16/16 11:15 Assessment and Plan (1) Acquired thrombocytopenia Status: Acute (2) CAD (coronary atherosclerotic disease) Status: Acute (3) CKD (chronic kidney disease) stage 4, GFR 15-29 ml/min Status: Acute (4) Myelofibrosis Status: Acute
--- NOTE | 2016-10-26 10:18 | CP.PCM.PN ---
Subjective - Date & Time of Evaluation Date of Evaluation: 10/21/16 Time of Evaluation: 09:30 - Subjective Subjective: Patient is doing well with results. Noted results of biopsy. Discussed with Dr Hernandez Urban. Has no chest pain or SOB. Afebrile. Objective - Vital Signs/Intake and Output Vital Signs (last 24 hours): Temp Pulse Resp BP Pulse Ox 98.1 F 64 20 105/46 L 95 10/26/16 08:16 10/26/16 08:16 10/26/16 08:16 10/26/16 08:16 10/26/16 08:16 - Medications Medications: Current Medications Acetaminophen (Tylenol 325mg Tab) 650 mg PO Q4 PRN PRN Reason: Fever >100.4 F Last Admin: 10/20/16 14:49 Dose: 650 mg Atorvastatin Calcium (Lipitor) 10 mg PO HS [facility] Last Admin: 10/25/16 21:04 Dose: 10 mg Clopidogrel Bisulfate (Plavix) 75 mg PO DAILY [facility] Last Admin: 10/26/16 08:05 Dose: 75 mg Docusate Sodium (Colace) 100 mg PO BID [facility] Last Admin: 10/26/16 08:05 Dose: 100 mg Ergocalciferol (Drisdol 50,000 Intl Units Cap) 1 cap PO SUN [facility] Last Admin: 10/25/16 08:24 Dose: 1 cap Finasteride (Proscar) 5 mg PO DAILY [facility] Last Admin: 10/26/16 08:05 Dose: 5 mg Home Med (Megestrol Acetate [Megace Es]) 625 mg PO DAILY [facility] Last Admin: 10/26/16 08:05 Dose: 625 mg Home Med (Febuxostat [Uloric]) 40 mg PO DAILY [facility] Last Admin: 10/26/16 08:06 Dose: 40 mg Isosorbide Mononitrate (Imdur) 60 mg PO QPM [facility] Last Admin: 10/25/16 17:13 Dose: 60 mg Latanoprost (Xalatan Opht) 1 drop OU HS [facility] Last Admin: 10/25/16 21:04 Dose: 1 drop Meclizine HCl (Antivert) 12.5 mg PO TID PRN PRN Reason: Dizziness Last Admin: 10/19/16 09:31 Dose: 12.5 mg Meclizine HCl (Antivert) 25 mg PO Q6 PRN PRN Reason: Dizziness Nitroglycerin (Nitrostat Sl Tab) 0.4 mg SL Q5MIN PRN PRN Reason: Other Pantoprazole Sodium (Protonix Ec Tab) 40 mg PO DAILY [facility] Last Admin: 10/26/16 08:05 Dose: 40 mg Sevelamer HCl (Renagel) 800 mg PO TID [facility] Last Admin: 10/26/16 08:05 Dose: 800 mg Sitagliptin Phosphate (Januvia) 50 mg PO DAILY [facility] Last Admin: 10/26/16 08:05 Dose: 50 mg Sodium Bicarbonate (Sodium Bicarbonate Tab) 650 mg PO BID [facility] Last Admin: 10/26/16 08:05 Dose: 650 mg - Labs Labs: 10/26/16 09:11 10/16/16 11:15 Assessment and Plan (1) Acquired thrombocytopenia Status: Acute (2) CAD (coronary atherosclerotic disease) Status: Acute (3) CKD (chronic kidney disease) stage 4, GFR 15-29 ml/min Status: Acute (4) Myelofibrosis Status: Acute
--- NOTE | 2016-10-26 10:19 | CP.PCM.PN ---
Subjective - Date & Time of Evaluation Date of Evaluation: 10/22/16 Time of Evaluation: 10:18 - Subjective Subjective: Patient is doing well with PT Has no chest pain Noted frank consult notes. Objective - Vital Signs/Intake and Output Vital Signs (last 24 hours): Temp Pulse Resp BP Pulse Ox 98.1 F 64 20 105/46 L 95 10/26/16 08:16 10/26/16 08:16 10/26/16 08:16 10/26/16 08:16 10/26/16 08:16 - Medications Medications: Current Medications Acetaminophen (Tylenol 325mg Tab) 650 mg PO Q4 PRN PRN Reason: Fever >100.4 F Last Admin: 10/20/16 14:49 Dose: 650 mg Atorvastatin Calcium (Lipitor) 10 mg PO HS [facility] Last Admin: 10/25/16 21:04 Dose: 10 mg Clopidogrel Bisulfate (Plavix) 75 mg PO DAILY [facility] Last Admin: 10/26/16 08:05 Dose: 75 mg Docusate Sodium (Colace) 100 mg PO BID [facility] Last Admin: 10/26/16 08:05 Dose: 100 mg Ergocalciferol (Drisdol 50,000 Intl Units Cap) 1 cap PO SUN [facility] Last Admin: 10/25/16 08:24 Dose: 1 cap Finasteride (Proscar) 5 mg PO DAILY [facility] Last Admin: 10/26/16 08:05 Dose: 5 mg Home Med (Megestrol Acetate [Megace Es]) 625 mg PO DAILY [facility] Last Admin: 10/26/16 08:05 Dose: 625 mg Home Med (Febuxostat [Uloric]) 40 mg PO DAILY [facility] Last Admin: 10/26/16 08:06 Dose: 40 mg Isosorbide Mononitrate (Imdur) 60 mg PO QPM [facility] Last Admin: 10/25/16 17:13 Dose: 60 mg Latanoprost (Xalatan Opht) 1 drop OU HS [facility] Last Admin: 10/25/16 21:04 Dose: 1 drop Meclizine HCl (Antivert) 12.5 mg PO TID PRN PRN Reason: Dizziness Last Admin: 10/19/16 09:31 Dose: 12.5 mg Meclizine HCl (Antivert) 25 mg PO Q6 PRN PRN Reason: Dizziness Nitroglycerin (Nitrostat Sl Tab) 0.4 mg SL Q5MIN PRN PRN Reason: Other Pantoprazole Sodium (Protonix Ec Tab) 40 mg PO DAILY [facility] Last Admin: 10/26/16 08:05 Dose: 40 mg Sevelamer HCl (Renagel) 800 mg PO TID [facility] Last Admin: 10/26/16 08:05 Dose: 800 mg Sitagliptin Phosphate (Januvia) 50 mg PO DAILY [facility] Last Admin: 10/26/16 08:05 Dose: 50 mg Sodium Bicarbonate (Sodium Bicarbonate Tab) 650 mg PO BID [facility] Last Admin: 10/26/16 08:05 Dose: 650 mg - Labs Labs: 10/26/16 09:11 10/16/16 11:15 Assessment and Plan (1) Acquired thrombocytopenia Status: Acute (2) CAD (coronary atherosclerotic disease) Status: Acute (3) CKD (chronic kidney disease) stage 4, GFR 15-29 ml/min Status: Acute (4) Myelofibrosis Status: Acute
--- NOTE | 2016-10-26 10:20 | CP.PCM.PN ---
Subjective - Date & Time of Evaluation Date of Evaluation: 10/23/16 Time of Evaluation: 09:30 - Subjective Subjective: Currently on transfusion Noted progressive low Hgb and plaelet. Objective - Vital Signs/Intake and Output Vital Signs (last 24 hours): Temp Pulse Resp BP Pulse Ox 98.1 F 64 20 105/46 L 95 10/26/16 08:16 10/26/16 08:16 10/26/16 08:16 10/26/16 08:16 10/26/16 08:16 - Medications Medications: Current Medications Acetaminophen (Tylenol 325mg Tab) 650 mg PO Q4 PRN PRN Reason: Fever >100.4 F Last Admin: 10/20/16 14:49 Dose: 650 mg Atorvastatin Calcium (Lipitor) 10 mg PO HS [facility] Last Admin: 10/25/16 21:04 Dose: 10 mg Clopidogrel Bisulfate (Plavix) 75 mg PO DAILY [facility] Last Admin: 10/26/16 08:05 Dose: 75 mg Docusate Sodium (Colace) 100 mg PO BID [facility] Last Admin: 10/26/16 08:05 Dose: 100 mg Ergocalciferol (Drisdol 50,000 Intl Units Cap) 1 cap PO SUN [facility] Last Admin: 10/25/16 08:24 Dose: 1 cap Finasteride (Proscar) 5 mg PO DAILY [facility] Last Admin: 10/26/16 08:05 Dose: 5 mg Home Med (Megestrol Acetate [Megace Es]) 625 mg PO DAILY [facility] Last Admin: 10/26/16 08:05 Dose: 625 mg Home Med (Febuxostat [Uloric]) 40 mg PO DAILY [facility] Last Admin: 10/26/16 08:06 Dose: 40 mg Isosorbide Mononitrate (Imdur) 60 mg PO QPM [facility] Last Admin: 10/25/16 17:13 Dose: 60 mg Latanoprost (Xalatan Opht) 1 drop OU HS [facility] Last Admin: 10/25/16 21:04 Dose: 1 drop Meclizine HCl (Antivert) 12.5 mg PO TID PRN PRN Reason: Dizziness Last Admin: 10/19/16 09:31 Dose: 12.5 mg Meclizine HCl (Antivert) 25 mg PO Q6 PRN PRN Reason: Dizziness Nitroglycerin (Nitrostat Sl Tab) 0.4 mg SL Q5MIN PRN PRN Reason: Other Pantoprazole Sodium (Protonix Ec Tab) 40 mg PO DAILY [facility] Last Admin: 10/26/16 08:05 Dose: 40 mg Sevelamer HCl (Renagel) 800 mg PO TID [facility] Last Admin: 10/26/16 08:05 Dose: 800 mg Sitagliptin Phosphate (Januvia) 50 mg PO DAILY [facility] Last Admin: 10/26/16 08:05 Dose: 50 mg Sodium Bicarbonate (Sodium Bicarbonate Tab) 650 mg PO BID [facility] Last Admin: 10/26/16 08:05 Dose: 650 mg - Labs Labs: 10/26/16 09:11 10/16/16 11:15 Assessment and Plan (1) Acquired thrombocytopenia Status: Acute (2) CAD (coronary atherosclerotic disease) Status: Acute (3) CKD (chronic kidney disease) stage 4, GFR 15-29 ml/min Status: Acute (4) Myelofibrosis Status: Acute
--- NOTE | 2016-10-26 11:06 | CP.PCM.DIS ---
Provider - Provider Date of Admission: 10/15/16 20:58 Attending physician: Arthur Mccain MD Primary care physician: Gayle Urban MD Time Spent in preparation of Discharge (in minutes): 30 Diagnosis - Discharge Diagnosis (1) Acquired thrombocytopenia Status: Acute (2) CAD (coronary atherosclerotic disease) Status: Acute (3) CKD (chronic kidney disease) stage 4, GFR 15-29 ml/min Status: Acute (4) Myelofibrosis Status: Acute Hospital Course - Lab Results Lab Results: Micro Results 10/17/16 15:45 Blood Blood Culture - Final NO GROWTH AFTER 5 DAYS 10/17/16 15:45 Blood Gram Stain - Final TEST NOT PERFORMED 10/17/16 15:45 Blood Blood Culture - Final NO GROWTH AFTER 5 DAYS 10/17/16 15:45 Blood Gram Stain - Final TEST NOT PERFORMED 10/17/16 19:00 Urine,Clean Catch Urine Culture - Final No Growth (<1,000 CFU/ML) Most Recent Lab Values WBC 3.3 K/uL (4.8-10.8) L 10/26/16 09:11 RBC 3.22 Mil/uL (4.40-5.90) L 10/26/16 09:11 Hgb 11.0 g/dL (12.0-18.0) L D 10/26/16 09:11 Hct 33.2 % (35.0-51.0) L 10/26/16 09:11 MCV 103.1 fl (80.0-94.0) H D 10/26/16 09:11 MCH 34.1 pg (27.0-31.0) H 10/26/16 09:11 MCHC 33.1 g/dL (33.0-37.0) 10/26/16 09:11 RDW 23.4 % (11.5-14.5) H 10/26/16 09:11 Plt Count 50 K/uL (130-400) L D 10/26/16 09:11 MPV 8.1 fl (7.2-11.7) 10/26/16 09:11 Neut % (Auto) 22.2 % (50.0-75.0) L 10/26/16 09:11 Lymph % (Auto) 66.7 % (20.0-40.0) H 10/26/16 09:11 [place] % (Auto) 4.3 % (0.0-10.0) 10/26/16 09:11 Eos % (Auto) 3.8 % (0.0-4.0) 10/26/16 09:11 Baso % (Auto) 3.0 % (0.0-2.0) H 10/26/16 09:11 Neut # 0.7 K/uL (1.8-7.0) L 10/26/16 09:11 Lymph # 2.2 K/uL (1.0-4.3) 10/26/16 09:11 [place] # 0.1 K/uL (0.0-0.8) 10/26/16 09:11 Eos # 0.1 K/uL (0.0-0.7) 10/26/16 09:11 Baso # 0.1 K/uL (0.0-0.2) 10/26/16 09:11 Sodium 136 mmol/l (132-148) 10/16/16 11:15 Potassium 4.0 MMOL/L (3.6-5.0) 10/16/16 11:15 Chloride 103 mmol/L (98-107) 10/16/16 11:15 Carbon Dioxide 23 mmol/L (22-30) 10/16/16 11:15 Anion Gap 14 (10-20) 10/16/16 11:15 BUN 41 mg/dl (9-20) H 10/16/16 11:15 Creatinine 1.9 mg/dL (0.8-1.5) H 10/16/16 11:15 Est GFR ( Amer) 41 10/16/16 11:15 Est GFR (Non-Af Amer) 34 10/16/16 11:15 POC Glucose (mg/dL) 131 mg/dL (65-110) H 10/17/16 14:44 Random Glucose 206 mg/dL (75-110) H 10/16/16 11:15 Calcium 9.6 mg/dL (8.4-10.2) 10/16/16 11:15 Total Bilirubin 0.4 mg/dl (0.2-1.3) 10/16/16 11:15 AST 13 U/L (17-59) L D 10/16/16 11:15 ALT 23 U/L (21-72) 10/16/16 11:15 Alkaline Phosphatase 42 U/L (38-126) 10/16/16 11:15 Total Protein 7.1 G/DL (6.3-8.2) 10/16/16 11:15 Albumin 3.5 g/dL (3.5-5.0) 10/16/16 11:15 Globulin 3.6 gm/dL (2.2-3.9) 10/16/16 11:15 Albumin/Globulin Ratio 1.0 (1.0-2.1) 10/16/16 11:15 Urine Color Yellow (YELLOW) 10/17/16 19:00 Urine Clarity Clear (Clear) 10/17/16 19:00 Urine pH 6.0 (5.0-8.0) 10/17/16 19:00 Ur Specific [place] 1.016 (1.003-1.030) 10/17/16 19:00 Urine Protein 100 mg/dL (NEGATIVE) 10/17/16 19:00 Urine Glucose (UA) Neg mg/dL (Normal) 10/17/16 19:00 Urine Ketones Negative mg/dL (NEGATIVE) 10/17/16 19:00 Urine Blood Negative (NEGATIVE) 10/17/16 19:00 Urine Nitrate Negative (NEGATIVE) 10/17/16 19:00 Urine Bilirubin Negative (NEGATIVE) 10/17/16 19:00 Urine Urobilinogen 0.2-1.0 mg/dL (0.2-1.0) 10/17/16 19:00 Ur Leukocyte Esterase Neg Arya/uL (Negative) 10/17/16 19:00 Urine RBC (Auto) 2 /hpf (0-3) 10/17/16 19:00 Urine Microscopic WBC 1 /hpf (0-5) 10/17/16 19:00 Urine Bacteria Rare (<OCC) 10/17/16 19:00 Blood Type A POSITIVE 10/21/16 19:49 Antibody Screen Negative 10/21/16 19:49 Crossmatch See Detail 10/21/16 19:49 BBK History Checked Patient has bt 10/21/16 19:49 - Hospital Course Hospital Course: This is an 86 y/o male admitted for subacute rehab for gen debility, pancytopenia. He received transfusion for thrombocytopenia. Seen by Dr Hernandez Urban and had bone marrow biopsy which showed possible myelofibrosis and some blast. Had a discussion with family and opted for conservative measures . He received few PRBC and paletlet transfusions without complications. He was able to achieve all goals of phys therapy and was sent home in stable condition and stable CBC. Discharge Exam - Head Exam Head Exam: NORMAL INSPECTION - Eye Exam Eye Exam: Normal appearance - Respiratory Exam Respiratory Exam: NORMAL BREATHING PATTERN - Cardiovascular Exam Cardiovascular Exam: REGULAR RHYTHM - GI/Abdominal Exam GI & Abdominal Exam: Normal Bowel Sounds - Neurological Exam Neurological exam: CN II-XII Intact, Oriented x3 - Psychiatric Exam Psychiatric exam: Normal Mood Discharge Plan - Follow Up Plan Condition: GOOD Disposition: HOME/ ROUTINE Instructions: Vertigo (DC) Additional Instructions: folow up in 1 week' follow upwith Dr Hernandez Urban and chantale have weekly CBC. Referrals: Gayle Urban MD [Primary Care Provider] -
== END 2016-10-26 13:30 | disposition home or self-care (01) | DRG 809 ==
LOC: H.TCU 20:58
PROVIDERS: ADMIT Family Medicine; ATTEND Family Medicine
PROC: 07DR3ZX Extraction of Iliac Bone Marrow, Percutaneous Approach, Diagnostic (ICD-10-PCS; principal; 2016-10-19)
PROC: 30233N1 Transfusion of Nonautologous Red Blood Cells into Peripheral Vein, Percutaneous Approach (ICD-10-PCS; 2016-10-22)
PROC: 30233R1 Transfusion of Nonautologous Platelets into Peripheral Vein, Percutaneous Approach (ICD-10-PCS; 2016-10-23)
DX: D61.818 Other pancytopenia (principal); N18.4 Chronic kidney disease, stage 4 (severe); D69.6 Thrombocytopenia, unspecified; E11.22 Type 2 diabetes mellitus with diabetic chronic kidney disease; D75.81 Myelofibrosis; D63.1 Anemia in chronic kidney disease; E03.9 Hypothyroidism, unspecified; E78.00 Pure hypercholesterolemia, unspecified; E78.5 Hyperlipidemia, unspecified; N40.0 Benign prostatic hyperplasia without lower urinary tract symptoms; H40.9 Unspecified glaucoma; H91.90 Unspecified hearing loss, unspecified ear; I12.9 Hypertensive chronic kidney disease with stage 1 through stage 4 chronic kidney disease, or unspecified chronic kidney disease; I25.10 Atherosclerotic heart disease of native coronary artery without angina pectoris; J45.909 Unspecified asthma, uncomplicated; Z79.84 Long term (current) use of oral hypoglycemic drugs; Z95.1 Presence of aortocoronary bypass graft; Z95.5 Presence of coronary angioplasty implant and graft; H26.9 Unspecified cataract

== ENCOUNTER 2016-10-22 08:15 | Day surgery (SDC) | payer MEDICARE, BC ==
[2016-10-22 08:45] VITALS: BMI 27.4
[2016-10-22 14:37] VITALS: PULSE 66; RESP 20
[2016-10-22 16:30] VITALS: BP 137/64; TEMP 98.4; O2SAT 97
== END 2016-10-22 16:35 | disposition still patient (30) ==
LOC: H.SDS 08:15
PROVIDERS: ATTEND Specialist
DX: D46.9 Myelodysplastic syndrome, unspecified (principal)

== ENCOUNTER 2016-11-16 18:53 | Inpatient (IN) | payer BC, MEDICARE ==
[2016-11-16 18:53] VITALS: BMI 31.6
[2016-11-16 20:14] LABS: BASO # 0.1 K/uL (0.0-0.2); BASO % 1.5 % (0.0-2.0); EOS # 0.1 K/uL (0.0-0.7); EOS % 1.7 % (0.0-4.0); LYMPH # 4.1 K/uL (1.0-4.3); LYMPH % 66.2 % (20.0-40.0); MEAN CELL VOLUME 101.4 fl (80.0-94.0); MEAN CORPUSCULAR HEMOGLOBIN 33.8 pg (27.0-31.0); MEAN CORPUSCULAR HGB CONC 33.3 g/dL (33.0-37.0); MEAN PLATELET VOLUME 9.3 fl (7.2-11.7); MONO # 0.3 K/uL (0.0-0.8); MONO % 5.2 % (0.0-10.0); NEUT # 1.6 K/uL (1.8-7.0); NEUT % 25.4 % (50.0-75.0); NRBC % 0.2 % (0.0-0.0); RBC 3.25 Mil/uL (4.40-5.90); RED CELL DISTRIBUTION WIDTH 22.7 % (11.5-14.5); WHITE BLOOD COUNT 6.2 K/uL (4.8-10.8)
--- NOTE | 2016-11-16 20:33 | ED PDOC ---
HPI: Abdomen Time Seen by Provider: 11/16/16 19:22 Chief Complaint (Nursing): Abdominal Pain Chief Complaint (Provider): Abdominal Pain History Per: Patient, Family (Maia nd daughter) History/Exam Limitations: no limitations Onset/Duration Of Symptoms: Days (x1 day) Outside of [place] travel?: No Current Symptoms Are (Timing): Still Present Pain Scale Rating Of: 5 Location Of Pain/Discomfort: Epigastric Associated Symptoms: denies: Fever, Nausea, Vomiting, Diarrhea, Chest Pain, Constipation Additional Complaint(s): Ulisses Amaya, an 86 year old male, with a past medical history of diverticular disease, pancreatitis and kidney stones presents to the ED complaining of abdominal pain x1 day. The patient states that he is experiencing epigastric pain that radiates to his chest. He states that it is similar to pain he experienced 2 months ago when he was diagnosed with pancreatitis.Patient rates his pain as a 5/10 on the pain scale. Denies vomiting , fever, chest pain, shortness of breath, nausea, chills, diarrhea, constipation. PMD: Arthur Lord Past Medical History Reviewed: Historical Data, Nursing Documentation, Vital Signs Vital Signs: Last Vital Signs Temp 97.5 F L 11/17/16 23:39 Pulse 89 11/17/16 23:39 Resp 19 11/17/16 23:39 BP 111/77 11/17/16 23:39 Pulse Ox 95 11/17/16 23:39 - Medical History PMH: Anemia, Asthma, Benign Prostatic Hyperplasia, CAD (dyslipidemia ), Diabetes , Diverticulitis, Gall Bladder Disease, HTN, Hypercholesterolemia, Hypothyroidism, Kidney Stones, Pancreatitis (Myelodisplastic Syndrom), Chronic Kidney Disease Denies: HIV - Surgical History Surgical History: CABG (37 years ago), Cholecystectomy, Coronary Stent (1994) - Family History Family History: States: Unknown Family Hx - Home Medications Home Medications: Ambulatory Orders Medication Instructions Recorded Nitroglycerin [Nitrostat] 0.4 mg SL Q5MIN PRN 07/26/16 Atorvastatin [Lipitor] 10 mg PO HS tab 10/15/16 Bimatoprost [Lumigan] 1 drop BOTHEYES HS 10/15/16 Clopidogrel [Plavix] 75 mg PO DAILY tab 10/15/16 Ergocalciferol [Drisdol 50,000 1 cap PO SUN cap 10/15/16 Intl Units Cap] Febuxostat [Uloric] 40 mg PO DAILY 10/15/16 Finasteride [Proscar] 5 mg PO DAILY tab 10/15/16 Isosorbide Mononitrate [Imdur] 60 mg PO QPM tab 10/15/16 SITagliptin [Januvia] 50 mg PO DAILY tab 10/15/16 Sodium Bicarbonate Tab 650 mg PO BID tab 10/15/16 Lisinopril [Zestril] 2.5 mg PO QOTHERDAY 11/16/16 Megestrol Acetate [Megace Es] 125 mg PO DAILY 11/16/16 Pantoprazole Sodium [Protonix] 40 mg PO QOTHERDAY 11/16/16 Paricalcitol [Zemplar] 1 mcg PO QOTHERDAY 11/16/16 Ranolazine [Ranexa] 1,000 mg PO Q12 11/16/16 Sevelamer Carbonate [Renvela] 800 mg PO TID 11/16/16 - Allergies Allergies/Adverse Reactions: Allergies Allergy/AdvReac Type Severity Reaction Status Date / Time No Known Allergies Allergy Verified 11/11/16 09:51 Review of Systems ROS Statement: Except As Marked, All Systems Reviewed And Found Negative Constitutional: Negative for: Fever, Chills Cardiovascular: Negative for: Chest Pain Respiratory: Negative for: Shortness of Breath Gastrointestinal: Positive for: Abdominal Pain (Epigastric Pain). Negative for : Nausea, Vomiting, Diarrhea, Constipation Physical Exam - Reviewed Nursing Documentation Reviewed: Yes Vital Signs Reviewed: Yes - Physical Exam Appears: Positive for: Non-toxic, No Acute Distress Head Exam: Positive for: ATRAUMATIC, NORMAL INSPECTION, NORMOCEPHALIC Skin: Positive for: Normal Color, Warm, Dry Eye Exam: Positive for: Normal appearance, EOMI, PERRL ENT: Positive for: Normal ENT Inspection Neck: Positive for: Normal, Painless ROM, Supple Cardiovascular/Chest: Positive for: Regular Rate, Rhythm, Chest Non Tender. Negative for: Tachycardia Respiratory: Positive for: Normal Breath Sounds. Negative for: Wheezing, Respiratory Distress Gastrointestinal/Abdominal: Positive for: Bowel Sounds, Soft, Tenderness ( Epigastric tenderness). Negative for: Mass, Guarding, Rebound Back: Positive for: Normal Inspection. Negative for: L CVA Tenderness, R CVA Tenderness Extremity: Positive for: Normal ROM. Negative for: Tenderness, Pedal Edema, Deformity, Swelling Neurologic/Psych: Positive for: Alert, Oriented - Laboratory Results Result Diagrams: 11/16/16 20:16 11/16/16 19:27 - ECG O2 Sat by Pulse Oximetry: 99 (RA) Pulse Ox Interpretation: Normal Medical Decision Making Medical Decision Makin Initial Impression: 86 year old male presenting with abdominal pain in setting of known pancreatitis Initial Plan: * EKG * CMP * Lipase * Troponin I * Udip * CBC * Morphine 4mg IVP * Pepcid 20mg * Urinalysis * US abdomen Complete * Reevaluation. 2138 US Abdomen Complete CLINICAL HISTORY: 86 years old, male; Pain; Abdominal pain; Epigastric TECHNIQUE: Real-time ultrasound of the abdomen (complete) with image documentation. COMPARISON: No relevant prior studies available. FINDINGS: Liver: Normal echogenicity. No mass. No intrahepatic bile duct dilatation. Gallbladder: Cholecystectomy. Common bile duct: No dilatation. No stones. Pancreas: Unremarkable as visualized. Kidneys: Normal echogenicity. Few cysts, largest up to 3.6 cm in size. No hydronephrosis. Spleen: No splenomegaly. Aorta: Unremarkable. No aneurysm. Inferior vena cava: Unremarkable. Free fluid: No significant free fluid. IMPRESSION: 1. No acute findings. 2. Non-acute findings are described above 2200 Ultrasound and labs reviewed, no clinically significant abnormalities with exception of platelet count which is at baseline for this patient. Case was discussed with Dr. Mccain; patient to be placed on observation. Condition: Fair Scribe Attestation Documented by Trang Villafana acting as a scribe for Jong Gutierrez MD. Provider Attestation All medical record entries made by the Scribe were at my direction and personally dictated by me. I have reviewed the chart and agree that the record accurately reflects my personal performance of the history, physical exam, medical decision making, and the department course Disposition - Clinical Impression Clinical Impression: Chest pain - Patient ED Disposition Is Patient to be Admitted: Yes Discussed With : Arthur Mccain Doctor Will See Patient In The: ED Counseled Patient/Family Regarding: Studies Performed, Diagnosis - Disposition Disposition Time: 21:00 Condition: FAIR - Pt Status Changed To: Hospital Disposition Of: Observation
[2016-11-16 20:35] LABS: ALB/GLOB RATIO 0.9 (1.0-2.1); ALBUMIN 3.5 g/dL (3.5-5.0); CALCIUM 9.7 mg/dL (8.4-10.2)
[2016-11-16 21:12] LABS: TROPONIN I 0.031 ng/mL (0.00-0.120)
--- NOTE | 2016-11-16 21:39 | US ---
EXAM: US Abdomen Complete CLINICAL HISTORY: 86 years old, male; Pain; Abdominal pain; Epigastric TECHNIQUE: Real-time ultrasound of the abdomen (complete) with image documentation. COMPARISON: No relevant prior studies available. FINDINGS: Liver: Normal echogenicity. No mass. No intrahepatic bile duct dilatation. Gallbladder: Cholecystectomy. Common bile duct: No dilatation. No stones. Pancreas: Unremarkable as visualized. Kidneys: Normal echogenicity. Few cysts, largest up to 3.6 cm in size. No hydronephrosis. Spleen: No splenomegaly. Aorta: Unremarkable. No aneurysm. Inferior vena cava: Unremarkable. Free fluid: No significant free fluid. IMPRESSION: 1.No acute findings. 2.Non-acute findings are described above.
[2016-11-16] MEDS ORDERED: Nitroglycerin 2% 15 INCH/30 GM TUBE TOP STA (21:54)
[2016-11-16] MEDS ORDERED: Nitroglycerin 2% Ointment Foilpak UD TOP ONE (22:22)
[2016-11-16 23:15] LABS: SQUAMOUS EPITHIAL 1 /hpf (0-5); URINE BACTERIA RARE (<OCC); URINE BILIRUBIN NEGATIVE (NEGATIVE); URINE BLOOD NEGATIVE (NEGATIVE); URINE CLARITY SLIGHTY-CLOUDY (Clear); URINE COLOR YELLOW (YELLOW); URINE GLUCOSE (UA) NEG (Normal); URINE LEUKOCYTE ESTERASE NEG Leu/uL (Negative); URINE NITRATE NEGATIVE (NEGATIVE); URINE PROTEIN 100 mg/dL (NEGATIVE); URINE UROBILINOGEN 0.2-1.0 mg/dL (0.2-1.0)
[2016-11-17 06:29] LABS: TROPONIN I 0.674 ng/mL (0.00-0.120)
--- NOTE | 2016-11-17 08:01 | CARD ---
APPROVED REPORT EKG Measurement Heart [id number] <Conclusion> Sinus rhythm with premature atrial complexes Left axis deviation Abnormal ECG
--- NOTE | 2016-11-17 08:03 | CARD ---
APPROVED REPORT EKG Measurement Heart [id number] CT [id number] <Conclusion> Sinus rhythm with premature atrial complexes Left axis deviation Abnormal ECG
[2016-11-17] MEDS: Pantoprazole 40 mg EC Tab PO SCH (08:57)
[2016-11-17] MEDS ORDERED: Patient's Own Med (Sevelamer Carbonate [Renvela] 800 MG) PO SCH (09:00)
[2016-11-17] MEDS ORDERED: MEGESTROL ACETATE PO SCH (09:00)
[2016-11-17] MEDS ORDERED: Patient's Own Med (Ranolazine [Ranexa] 1,000 MG) PO SCH (09:00)
[2016-11-17] MEDS: Potassium Chloride 20 mEq ER Tab PO SCH (09:01)
[2016-11-17] MEDS: Megestrol Acetate 40 mg/ml Cup PO SCH (09:13)
--- NOTE | 2016-11-17 10:31 | RAD ---
HISTORY: chest pain COMPARISON: No prior. FINDINGS: LUNGS: No active pulmonary disease. PLEURA: No significant pleural effusion identified, no pneumothorax apparent. CARDIOVASCULAR: Cardiomegaly. No evidence of acute, significant cardiovascular disease. Incidental Finding(s): Postoperative changes related to sternotomy. OSSEOUS STRUCTURES: No significant abnormalities. VISUALIZED UPPER ABDOMEN: Normal. OTHER FINDINGS: None. IMPRESSION: No active disease. No significant interval change compared to the prior examination(s). No preliminary report provided by emergency department personnel.
--- NOTE | 2016-11-17 12:33 | CP.PCM.PN ---
Subjective - Date & Time of Evaluation Date of Evaluation: 11/17/16 Time of Evaluation: 12:28 - Subjective Subjective: This og 86 yrs old male well known to me because of MDS. He was on procrit to which he responded well. His platelet count is up to 48K and the hgb is 11.0 He is admitted for congestive heart failure. he is feeling a little bettr since admission. Pt was coherent, but in the hospital he is a little confused. He does not need any procrit at this time. Objective - Vital Signs/Intake and Output Vital Signs (last 24 hours): Temp Pulse Resp BP Pulse Ox 98.2 F 91 H 20 159/98 H 96 11/17/16 08:18 11/17/16 08:58 11/17/16 08:18 11/17/16 09:01 11/17/16 08:18 - Medications Medications: Current Medications Amlodipine Besylate (Norvasc) 5 mg PO DAILY [facility] [place] Last Admin: 11/17/16 08:58 Dose: 5 mg Atorvastatin Calcium (Lipitor) 10 mg PO HS [facility] [place] Clopidogrel Bisulfate (Plavix) 75 mg PO DAILY [facility] [place] Last Admin: 11/17/16 08:57 Dose: 75 mg Ergocalciferol (Drisdol 50,000 Intl Units Cap) 1 cap PO SUN [facility] [place] Finasteride (Proscar) 5 mg PO DAILY [facility] [place] Last Admin: 11/17/16 08:57 Dose: 5 mg Furosemide (Lasix) 40 mg IVP DAILY [facility] [place] Last Admin: 11/17/16 09:01 Dose: 40 mg Home Med (Febuxostat [Uloric]) 40 mg PO DAILY [facility] [place] Home Med (Paricalcitol [Zemplar]) 1 mcg PO QOTHERDAY [facility] [place] Home Med (Ranolazine [Ranexa]) 1,000 mg PO Q12 [facility] [place] Isosorbide Mononitrate (Imdur) 60 mg PO QPM [facility] [place] Latanoprost (Xalatan Opht) 1 drop OU HS [facility] [place] Lisinopril (Zestril) 2.5 mg PO QOTHERDAY [facility] [place] Last Admin: 11/17/16 08:56 Dose: 2.5 mg Megestrol Acetate (Megace) 125 mg PO DAILY [facility] [place] Last Admin: 11/17/16 09:13 Dose: 125 mg Morphine Sulfate (Morphine) 2 mg IVP Q6 PRN PRN Reason: Pain, severe (8-10) Last Admin: 11/17/16 01:45 Dose: 2 mg Nitroglycerin (Nitrostat Sl Tab) 0.4 mg SL Q5MIN PRN PRN Reason: Other Pantoprazole Sodium (Protonix Ec Tab) 40 mg PO QOTHERDAY [facility] [place] Last Admin: 11/17/16 08:57 Dose: 40 mg Potassium Chloride (K-Dur 20 Meq Er Tab) 20 meq PO DAILY [facility] [place] Last Admin: 11/17/16 09:01 Dose: 20 meq Sevelamer HCl (Renagel) 800 mg PO TID [facility] [place] Last Admin: 11/17/16 08:57 Dose: 800 mg Sitagliptin Phosphate (Januvia) 50 mg PO DAILY [facility] [place] Last Admin: 11/17/16 08:57 Dose: 50 mg Sodium Bicarbonate (Sodium Bicarbonate Tab) 650 mg PO BID [facility] [place] Last Admin: 11/17/16 08:57 Dose: 650 mg - Additional Findings Additional findings: Physical exam; Alert, well oriented , in no acute distress neck; Supple, no adenopathy Chest; Clear, no rales or rhonchi Heart; RSR, no murmur Abd; Soft, no mass. no h/s megaly Assessment and Plan - Assessment and Plan (Free Text) Assessment: Impression; Myelodysplastic syndrome Plan: Plan; Pt does not need anything at this time from a hematology point of view..He will return to the infusion center in 2 weeks for cbc and procrit injection.
--- NOTE | 2016-11-17 12:49 | CP.PCM.HP ---
<Coral Paredes - Last Filed: 11/17/16 12:46> History of Present Illness - History of Present Illness History of Present Illness: 86 year old male, with a past medical history of diverticular disease , pancreatitis and kidney stones presenting to the ED c/o abdominal pain x1 day. At ED patient stated that he was experiencing epigastric pain that radiates to his chest. Denies vomiting, fever, chest pain, shortness of breath , nausea, chills, diarrhea, constipation at this evaluation. Present on Admission - Present on Admission Any Indicators Present on Admission: No History of DVT/PE: No History of Uncontrolled Diabetes: No Urinary Catheter: No Decubitus Ulcer Present: No Review of Systems - Review of Systems All systems: reviewed and no additional remarkable complaints except (as per HPI ) Past Patient History - Past Medical History & Family History Past Medical History?: Yes - Past Social History Smoking Status: Never Smoked - CARDIAC Hx Cardiac Disorders: Yes Hx Hypercholesterolemia: Yes Hx Hypertension: Yes - PULMONARY Hx Respiratory Disorders: Yes Hx Asthma: Yes - NEUROLOGICAL Hx Neurological Disorder: No Hx Dizziness: No - HEENT Hx HEENT Problems: Yes Hx Cataracts: Yes Hx Glaucoma: Yes Other/Comment: hard of hearing - RENAL Hx Chronic Kidney Disease: Yes Hx Dialysis: No Hx Kidney Stones: Yes - ENDOCRINE/METABOLIC Hx Diabetes Mellitus Type 2: Yes Hx Hypothyroidism: Yes - HEMATOLOGICAL/ONCOLOGICAL Hx Blood Disorders: Yes Hx AIDS: No Hx Human Immunodeficiency Virus (HIV): No Other/Comment: Myelodisplastic syndrome - INTEGUMENTARY Hx Dermatological Problems: No - MUSCULOSKELETAL/RHEUMATOLOGICAL Hx Musculoskeletal Disorders: No Hx Falls: No - GASTROINTESTINAL Hx Diverticulitis: Yes Hx Gall Bladder Disease: Yes Hx Pancreatitis: Yes (Myelodisplastic Syndrom) - GENITOURINARY/GYNECOLOGICAL Hx Genitourinary Disorders: Yes Hx Prostate Problems: Yes - PSYCHIATRIC Hx Psychophysiologic Disorder: No Hx Substance Use: No - SURGICAL HISTORY Hx Cholecystectomy: Yes 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) Hx Coronary Stent: Yes (1994) - ANESTHESIA Hx Anesthesia: Yes Hx Anesthesia Reactions: No Hx Malignant Hyperthermia: No Has any member of the family had a problem w/ anesthesia?: No Meds Allergies/Adverse Reactions: Allergies Allergy/AdvReac Type Severity Reaction Status Date / Time No Known Allergies Allergy Verified 11/11/16 09:51 Physical Exam - Constitutional Appears: No Acute Distress - Eye Exam Eye Exam: Normal appearance - ENT Exam ENT Exam: Mucous Membranes Moist - Respiratory Exam Respiratory Exam: Rales (diffuse, fine rales to auscultation of right lower lung field. ), NORMAL BREATHING PATTERN - Cardiovascular Exam Cardiovascular Exam: REGULAR RHYTHM, +S1, +S2 - GI/Abdominal Exam GI & Abdominal Exam: Distended, Normal Bowel Sounds, Soft. absent: Guarding, Rigid, Tenderness - Extremities Exam Extremities exam: Positive for: normal inspection. Negative for: calf tenderness, pedal edema - Neurological Exam Neurological exam: Alert, Oriented x3 - Skin Skin Exam: Dry, Intact, Normal Color Results - Vital Signs Recent Vital Signs: Last Vital Signs Temp 97.0 F L 11/17/16 12:34 Pulse 100 H 11/17/16 12:34 Resp 20 11/17/16 12:34 BP 132/68 11/17/16 12:34 Pulse Ox 99 11/17/16 12:34 - Labs Result Diagrams: 11/16/16 20:16 11/16/16 19:27 Labs: Laboratory Results - last 24 hr 11/17/16 11:13 POC Glucose (mg/dL) 210 H Assessment & Plan (1) Thrombocythemia Status: Chronic Comment: Hematology consult appreciated. F/u recommendations (4) Congestive heart failure Status: Acute Comment: Por-BNP elevated. Troponin trending up. c/w Furosemide. f/u potassium levels. Cradiology consult appreciated. F/u recommendations (5) Diabetes mellitus type 2 in nonobese Status: Chronic Comment: c/w current management. c/w BSL monitor - Date & Time Date: 11/17/16 Time: 08:30 <Arthur Mccain - Last Filed: 11/23/16 09:52> Results - Vital Signs Recent Vital Signs: Last Vital Signs Temp 98.2 F 11/23/16 08:07 Pulse 71 11/23/16 08:07 Resp 20 11/23/16 08:07 BP 150/78 11/23/16 08:07 Pulse Ox 97 11/23/16 08:07 - Labs Result Diagrams: 11/23/16 07:40 11/21/16 06:00 Labs: Laboratory Results - last 24 hr 11/22/16 11/22/16 11/22/16 11:21 16:08 21:02 WBC RBC Hgb Hct MCV MCH MCHC RDW Plt Count POC Glucose (mg/dL) 209 H 127 H 149 H 11/23/16 11/23/16 05:42 07:40 WBC 4.3 L RBC 3.42 L Hgb 11.5 L Hct 34.2 L MCV 100.1 H MCH 33.6 H MCHC 33.5 RDW 22.8 H Plt Count 58 L POC Glucose (mg/dL) 118 H Assessment & Plan (1) Physical debility Status: Acute (2) Chronic kidney disease, stage 3 Status: Chronic (3) Congestive heart failure Status: Chronic (4) Thrombocythemia Status: Chronic (5) CKD (chronic kidney disease) stage 3, GFR 30-59 ml/min Status: Chronic (6) Diabetes mellitus Status: Chronic - Assessment and Plan (Free Text) Plan: I was present during evaluation and discussed with Dr Reggie remy plans of care and tx, arthur Mccain M.D.
--- NOTE | 2016-11-17 14:23 | CP.PCM.PCO ---
Assessment & Plan - Assessment and Plan (Free Text) Assessment: patient with positive Troponin x 2 Results discussed with 2nd to pt. Hx MDS, thrombocytopenia, cont. Plavix Starter coreg 3.125 po bid as per
--- NOTE | 2016-11-17 16:04 | CT ---
PROCEDURE: CT HEAD WITHOUT CONTRAST. HISTORY: lethargy, COMPARISON: Comparison is made to 10/14/2016 TECHNIQUE: Axial computed tomography images were obtained through the head/brain without intravenous contrast. Radiation dose: Total exam DLP = 1156.08 mGy-cm. This CT exam was performed using one or more of the following dose reduction techniques: Automated exposure control, adjustment of the mA and/or kV according to patient size, and/or use of iterative reconstruction technique. FINDINGS: HEMORRHAGE: No intracranial hemorrhage. BRAIN: No mass effect or edema. Mild atrophy is noted. VENTRICLES: [id number] chronic microvascular white matter ischemic disease is again noted. CALVARIUM: Unremarkable. PARANASAL SINUSES: Unremarkable as visualized. No significant inflammatory changes. MASTOID AIR CELLS: Unremarkable as visualized. No inflammatory changes. OTHER FINDINGS: None. IMPRESSION: No evidence of acute intracranial pathology. Mild atrophy and [id number] chronic microvascular ischemic disease. No significant interval change since the previous exam.
[2016-11-17] MEDS: Patient's Own Med (Paricalcitol [Zemplar] 1 MCG) PO SCH (21:15)
[2016-11-17] MEDS: Latanoprost 0.005% Opht SOUTION OU SCH (21:21)
[2016-11-17] MEDS ORDERED: Patient's Own Med (Bimatoprost [Lumigan] 1 DROP) BOTHEYES SCH (22:00)
[2016-11-18 07:42] LABS: CALCIUM 10.1 mg/dL (8.4-10.2)
[2016-11-18 07:53] LABS: TROPONIN I 1.06 ng/mL (0.00-0.120)
[2016-11-18 07:55] LABS: HEMOGLOBIN 12.9 g/dL (12.0-18.0); MEAN CELL VOLUME 100.5 fl (80.0-94.0); MEAN CORPUSCULAR HGB CONC 33.8 g/dL (33.0-37.0); RBC 3.81 Mil/uL (4.40-5.90); RED CELL DISTRIBUTION WIDTH 22.8 % (11.5-14.5); WHITE BLOOD COUNT 7.2 K/uL (4.8-10.8)
--- NOTE | 2016-11-18 08:37 | CP.PCM.PN ---
<Coral Dobbins - Last Filed: 11/18/16 08:34> Subjective - Date & Time of Evaluation Date of Evaluation: 11/18/16 Time of Evaluation: 07:55 - Subjective Subjective: Patient Oriented X 2 (person, place) this morning Alert, with less incoherent speech than yesterday Denies chest pain, SOB, N/V, abdominal pain No events overnight Objective - Vital Signs/Intake and Output Vital Signs (last 24 hours): Temp Pulse Resp BP Pulse Ox 97.4 F L 86 18 114/69 96 11/18/16 08:00 11/18/16 08:00 11/18/16 08:00 11/18/16 08:00 11/18/16 08:00 - Medications Medications: Current Medications Amlodipine Besylate (Norvasc) 5 mg PO DAILY [facility] Last Admin: 11/17/16 08:58 Dose: 5 mg Atorvastatin Calcium (Lipitor) 10 mg PO HS [facility] Last Admin: 11/17/16 21:17 Dose: 10 mg Carvedilol (Coreg) 3.125 mg PO Q12 [facility] Last Admin: 11/17/16 21:17 Dose: 3.125 mg Clopidogrel Bisulfate (Plavix) 75 mg PO DAILY [facility] Last Admin: 11/17/16 08:57 Dose: 75 mg Ergocalciferol (Drisdol 50,000 Intl Units Cap) 1 cap PO SUN [facility] Finasteride (Proscar) 5 mg PO DAILY [facility] Last Admin: 11/17/16 08:57 Dose: 5 mg Furosemide (Lasix) 40 mg IVP DAILY [facility] Last Admin: 11/17/16 09:01 Dose: 40 mg Home Med (Febuxostat [Uloric]) 40 mg PO DAILY [facility] Last Admin: 11/17/16 21:15 Dose: 40 mg Home Med (Paricalcitol [Zemplar]) 1 mcg PO QOTHERDAY@1800 [facility] Last Admin: 11/17/16 21:15 Dose: 1 mcg Isosorbide Mononitrate (Imdur) 60 mg PO QPM [facility] Last Admin: 11/17/16 17:13 Dose: 60 mg Latanoprost (Xalatan Opht) 1 drop OU HS [facility] Last Admin: 11/17/16 21:21 Dose: 1 drop Lisinopril (Zestril) 2.5 mg PO QOTHERDAY [facility] Last Admin: 11/17/16 08:56 Dose: 2.5 mg Megestrol Acetate (Megace) 125 mg PO DAILY [facility] Last Admin: 11/17/16 09:13 Dose: 125 mg Morphine Sulfate (Morphine) 2 mg IVP Q6 PRN PRN Reason: Pain, severe (8-10) Last Admin: 11/17/16 01:45 Dose: 2 mg Nitroglycerin (Nitrostat Sl Tab) 0.4 mg SL Q5MIN PRN PRN Reason: Other Pantoprazole Sodium (Protonix Ec Tab) 40 mg PO QOTHERDAY [facility] Last Admin: 11/17/16 08:57 Dose: 40 mg Potassium Chloride (K-Dur 20 Meq Er Tab) 20 meq PO DAILY [facility] Last Admin: 11/17/16 09:01 Dose: 20 meq Sevelamer HCl (Renagel) 800 mg PO TID [facility] Last Admin: 11/17/16 17:13 Dose: 800 mg Sitagliptin Phosphate (Januvia) 50 mg PO DAILY [facility] Last Admin: 11/17/16 08:57 Dose: 50 mg Sodium Bicarbonate (Sodium Bicarbonate Tab) 650 mg PO BID [facility] Last Admin: 11/17/16 17:13 Dose: 650 mg - Labs Labs: 11/18/16 06:30 11/18/16 06:30 - Constitutional Appears: No Acute Distress - ENT Exam ENT Exam: Mucous Membranes Moist - Respiratory Exam Respiratory Exam: Clear to Ausculation Bilateral, NORMAL BREATHING PATTERN. absent: Rales, Rhonchi, Wheezes, Respiratory Distress - Cardiovascular Exam Cardiovascular Exam: REGULAR RHYTHM, +S1, +S2 - GI/Abdominal Exam GI & Abdominal Exam: Soft, Normal Bowel Sounds. absent: Guarding, Rigid, Tenderness - Extremities Exam Extremities Exam: Normal Inspection. absent: Calf Tenderness, Pedal Edema - Neurological Exam Neurological Exam: Alert, Awake Additional comments: oriented in person, and place - Skin Skin Exam: Dry, Intact, Pallor Assessment and Plan (1) Thrombocythemia Assessment & Plan: most likely 2/2 Myelodysplastic syndrome f/u hematology recommendation: Dr. Trav Urban recommended: return to the infusion center in 2 weeks for cbc and procrit injection. Held anticoagulation, patient is not a good candidate for anticoagulants PLT count 51 today f/u morning labs Status: Chronic (2) Altered mental status, unspecified Assessment & Plan: as per family patient sometime is confused, but yesterday he was more confused and sleepy all day improving today, could be 2/2 morphine side effects electrolytes WNL Head CT showed no evidence of acute intracraneal patology c/w monitoring Status: Acute (3) Chronic kidney disease, stage 3 Status: Chronic (4) Congestive heart failure Assessment & Plan: improving clinically c/w current medical management Status: Acute (5) Diabetes mellitus type 2 in nonobese Assessment & Plan: elevated Pro-BNP f/u pro BNP tomorrow c/w current management Status: Chronic (6) Elevated troponin Assessment & Plan: Troponin trending down today could be 2/2 NSTEMI, but also CKD can cause elevated troponin Troponin I: 1.06 Patient's cardiology, Dr. Joshua Aware of elevated troponin, just recommended Coreg 3.125 mg BID, cont w/ plavix Status: Acute <Arthur Mccain - Last Filed: 11/23/16 09:53> Objective - Vital Signs/Intake and Output Vital Signs (last 24 hours): Temp Pulse Resp BP Pulse Ox 98.2 F 71 20 150/78 97 11/23/16 08:07 11/23/16 08:07 11/23/16 08:07 11/23/16 08:07 11/23/16 08:07 - Medications Medications: Current Medications Amlodipine Besylate (Norvasc) 5 mg PO DAILY [facility] Last Admin: 11/18/16 08:59 Dose: 5 mg Artificial Tears (Artificial Tears) 2 drop OU Q4 PRN PRN Reason: Dry eyes Last Admin: 11/20/16 15:12 Dose: 2 drop Atorvastatin Calcium (Lipitor) 10 mg PO HS [facility] Last Admin: 11/22/16 21:52 Dose: 10 mg Carvedilol (Coreg) 3.125 mg PO Q12 [facility] Last Admin: 11/18/16 08:53 Dose: 3.125 mg Docusate Sodium (Colace) 200 mg PO DAILY [facility] Last Admin: 11/23/16 08:37 Dose: 200 mg Ergocalciferol (Drisdol 50,000 Intl Units Cap) 1 cap PO SUN [facility] Last Admin: 11/22/16 09:19 Dose: 1 cap Finasteride (Proscar) 5 mg PO DAILY [facility] Last Admin: 11/23/16 08:37 Dose: 5 mg Furosemide (Lasix) 40 mg IVP DAILY [facility] Last Admin: 11/18/16 08:55 Dose: 40 mg Home Med (Febuxostat [Uloric]) 40 mg PO DAILY [facility] Last Admin: 11/23/16 08:37 Dose: 40 mg Home Med (Paricalcitol [Zemplar]) 1 mcg PO QOTHERDAY@1800 [facility] Last Admin: 11/21/16 17:12 Dose: 1 mcg Isosorbide Mononitrate (Imdur) 60 mg PO QPM [facility] Last Admin: 11/17/16 17:13 Dose: 60 mg Latanoprost (Xalatan Opht) 1 drop OU HS [facility] Last Admin: 11/22/16 21:52 Dose: 1 drop Lisinopril (Zestril) 2.5 mg PO QOTHERDAY [facility] Last Admin: 11/17/16 08:56 Dose: 2.5 mg Megestrol Acetate (Megace) 125 mg PO DAILY [facility] Last Admin: 11/22/16 09:20 Dose: 125 mg Morphine Sulfate (Morphine) 2 mg IVP Q6 PRN PRN Reason: Pain, severe (8-10) Last Admin: 11/17/16 01:45 Dose: 2 mg Nitroglycerin (Nitrostat Sl Tab) 0.4 mg SL Q5MIN PRN PRN Reason: Other Pantoprazole Sodium (Protonix Ec Tab) 40 mg PO QOTHERDAY [facility] Last Admin: 11/23/16 08:37 Dose: 40 mg Polyethylene Glycol (Miralax) 17 gm PO PRN PRN PRN Reason: Constipation Potassium Chloride (K-Dur 20 Meq Er Tab) 20 meq PO DAILY [facility] Last Admin: 11/23/16 08:36 Dose: 20 meq Sevelamer HCl (Renagel) 800 mg PO TID [facility] Last Admin: 11/23/16 08:36 Dose: 800 mg Sitagliptin Phosphate (Januvia) 50 mg PO DAILY [facility] Last Admin: 11/23/16 08:37 Dose: 50 mg Sodium Bicarbonate (Sodium Bicarbonate Tab) 650 mg PO BID [facility] Last Admin: 11/23/16 08:36 Dose: 650 mg - Labs Labs: 11/23/16 07:40 11/21/16 06:00 Assessment and Plan (1) Physical debility Status: Acute (2) Chronic kidney disease, stage 3 Status: Chronic (3) Congestive heart failure Status: Chronic (4) Thrombocythemia Status: Chronic (5) CKD (chronic kidney disease) stage 3, GFR 30-59 ml/min Status: Chronic (6) Diabetes mellitus Status: Chronic - Assessment and Plan (Free Text) Plan: I was present during evaluation and discussed with Dr dobbins re plans of care and tx. Arthur Mccain M.D.
[2016-11-18] MEDS: Potassium Chloride 20 mEq ER Tab PO SCH (08:55)
[2016-11-18] MEDS: Megestrol Acetate 40 mg/ml Cup PO SCH (08:56)
--- NOTE | 2016-11-18 10:52 | CP.PCM.CON ---
History of Present Illness - History of Present Illness History of Present Illness: 86 yo male admitted with lower abdominal pain with past medical history of CAD s /p CABG, ischemic cardiomyopathy, renal insufficiency, myelodysplastic syndrome. Called for + Troponin. No c/o of chest pain. Family reports pt disoriented yesterday, mildly improved today Past Patient History - Past Medical History & Family History Past Medical History?: Yes - Past Social History Smoking Status: Never Smoked - CARDIAC Hx Hypercholesterolemia: Yes Hx Hypertension: Yes - PULMONARY Hx Asthma: Yes - NEUROLOGICAL Hx Neurological Disorder: No Hx Dizziness: No - HEENT Hx HEENT Problems: Yes Hx Cataracts: Yes Hx Glaucoma: Yes Other/Comment: hard of hearing - RENAL Hx Chronic Kidney Disease: Yes Hx Kidney Stones: Yes - ENDOCRINE/METABOLIC Hx Hypothyroidism: Yes - HEMATOLOGICAL/ONCOLOGICAL Hx Anemia: Yes Hx Human Immunodeficiency Virus (HIV): No - INTEGUMENTARY Hx Dermatological Problems: No - MUSCULOSKELETAL/RHEUMATOLOGICAL Hx Musculoskeletal Disorders: No Hx Falls: No - GASTROINTESTINAL Hx Diverticulitis: Yes Hx Gall Bladder Disease: Yes Hx Pancreatitis: Yes (Myelodisplastic Syndrom) - GENITOURINARY/GYNECOLOGICAL Hx Genitourinary Disorders: Yes Hx Prostate Problems: Yes - PSYCHIATRIC Hx Psychophysiologic Disorder: No Hx Substance Use: No - SURGICAL HISTORY Hx Cholecystectomy: Yes 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) Hx Coronary Stent: Yes (1994) - ANESTHESIA Hx Anesthesia: Yes Hx Anesthesia Reactions: No Hx Malignant Hyperthermia: No Has any member of the family had a problem w/ anesthesia?: No Meds Allergies/Adverse Reactions: Allergies Allergy/AdvReac Type Severity Reaction Status Date / Time No Known Allergies Allergy Verified 11/11/16 09:51 - Medications Medications: Current Medications Amlodipine Besylate (Norvasc) 5 mg PO DAILY [facility] Last Admin: 11/18/16 08:59 Dose: 5 mg Atorvastatin Calcium (Lipitor) 10 mg PO HS [facility] Last Admin: 11/17/16 21:17 Dose: 10 mg Carvedilol (Coreg) 3.125 mg PO Q12 [facility] Last Admin: 11/18/16 08:53 Dose: 3.125 mg Clopidogrel Bisulfate (Plavix) 75 mg PO DAILY [facility] Last Admin: 11/18/16 08:59 Dose: 75 mg Ergocalciferol (Drisdol 50,000 Intl Units Cap) 1 cap PO SUN [facility] Finasteride (Proscar) 5 mg PO DAILY [facility] Last Admin: 11/18/16 09:00 Dose: 5 mg Furosemide (Lasix) 40 mg IVP DAILY [facility] Last Admin: 11/18/16 08:55 Dose: 40 mg Home Med (Febuxostat [Uloric]) 40 mg PO DAILY [facility] Last Admin: 11/18/16 08:54 Dose: 40 mg Home Med (Paricalcitol [Zemplar]) 1 mcg PO QOTHERDAY@1800 [facility] Last Admin: 11/17/16 21:15 Dose: 1 mcg Isosorbide Mononitrate (Imdur) 60 mg PO QPM [facility] Last Admin: 11/17/16 17:13 Dose: 60 mg Latanoprost (Xalatan Opht) 1 drop OU HS [facility] Last Admin: 11/17/16 21:21 Dose: 1 drop Lisinopril (Zestril) 2.5 mg PO QOTHERDAY [facility] Last Admin: 11/17/16 08:56 Dose: 2.5 mg Megestrol Acetate (Megace) 125 mg PO DAILY [facility] Last Admin: 11/18/16 08:56 Dose: 125 mg Morphine Sulfate (Morphine) 2 mg IVP Q6 PRN PRN Reason: Pain, severe (8-10) Last Admin: 11/17/16 01:45 Dose: 2 mg Nitroglycerin (Nitrostat Sl Tab) 0.4 mg SL Q5MIN PRN PRN Reason: Other Pantoprazole Sodium (Protonix Ec Tab) 40 mg PO QOTHERDAY [facility] Last Admin: 11/17/16 08:57 Dose: 40 mg Potassium Chloride (K-Dur 20 Meq Er Tab) 20 meq PO DAILY [facility] Last Admin: 11/18/16 08:55 Dose: 20 meq Sevelamer HCl (Renagel) 800 mg PO TID [facility] Last Admin: 11/18/16 09:00 Dose: 800 mg Sitagliptin Phosphate (Januvia) 50 mg PO DAILY [facility] Last Admin: 11/18/16 08:55 Dose: 50 mg Sodium Bicarbonate (Sodium Bicarbonate Tab) 650 mg PO BID [facility] Last Admin: 11/18/16 09:00 Dose: 650 mg Physical Exam - Constitutional Appears: Chronically Ill - Respiratory Exam Respiratory Exam: NORMAL BREATHING PATTERN - Cardiovascular Exam Cardiovascular Exam: Tachycardia, REGULAR RHYTHM - Extremities Exam Extremities exam: Positive for: normal inspection - Neurological Exam Neurological exam: Altered Results - Vital Signs Recent Vital Signs: Last Vital Signs Temp 97.4 F L 11/18/16 08:00 Pulse 86 11/18/16 08:59 Resp 18 11/18/16 08:00 BP 114/69 11/18/16 08:59 Pulse Ox 96 11/18/16 08:00 - Labs Result Diagrams: 11/18/16 06:30 11/18/16 06:30 Labs: Laboratory Results - last 24 hr 11/17/16 11/17/16 11/17/16 11:13 12:35 15:48 WBC RBC Hgb Hct MCV MCH MCHC RDW Plt Count Sodium Potassium Chloride Carbon Dioxide Anion Gap BUN Creatinine Est GFR ( Amer) Est GFR (Non-Af Amer) POC Glucose (mg/dL) 210 H 197 H Random Glucose Calcium Troponin I 1.7800 H* 11/17/16 11/18/16 11/18/16 21:01 05:08 06:30 WBC 7.2 RBC 3.81 L Hgb 12.9 Hct 38.2 MCV 100.5 H MCH 34.0 H MCHC 33.8 RDW 22.8 H Plt Count 51 L Sodium Potassium Chloride Carbon Dioxide Anion Gap BUN Creatinine Est GFR ( Amer) Est GFR (Non-Af Amer) POC Glucose (mg/dL) 126 H 158 H Random Glucose Calcium Troponin I 11/18/16 06:30 WBC RBC Hgb Hct MCV MCH MCHC RDW Plt Count Sodium 135 Potassium 4.8 Chloride 106 Carbon Dioxide 20 L Anion Gap 14 BUN 45 H Creatinine 2.0 H Est GFR ( Amer) 38 Est GFR (Non-Af Amer) 32 POC Glucose (mg/dL) Random Glucose 156 H Calcium 10.1 Troponin I 1.0600 H* Assessment & Plan - Assessment and Plan (Free Text) Assessment: #1 + Troponin: Troponin results trending downward , no acute st-t changes by ekg , etiology unclear: Renal insufficiency Advanced Age Demand Ischemia from pain Type 2 [place] Beta Blockers started #2 CHF : no clinical CHF , CXR unchanged from baseline #3 Abdominal pain: etiology? Lower abd on exam R/o diverticulitis( pt has history), pancreatitis ( pt has history) Check Amylase, Lipase Obtain GI consult
[2016-11-18 12:23] LABS: AMYLASE 196 U/L (30-110); LIPASE 395 U/L (23-300)
[2016-11-18] MEDS ORDERED: Sodium Chloride 0.9% 500 ML IV SCH (12:52)
[2016-11-18] MEDS ORDERED: Sodium Chloride 0.9% 1,000 ML IV SCH ×3 (13:04→14:45)
[2016-11-18] MEDS: Artificial Tears Opht Soln OU PRN (13:40)
--- NOTE | 2016-11-18 14:09 | PQF GENQUE ---
Dr. Mccain, Please specify the type of Acute heart failure in your progress notes: Combined systolic and diastolic Diastolic Systolic Other (please specify) Clinically unable to determine Unknown H and P: PE: Resp Exam: Rales (diffuse, fine rales to auscultation of right lower lung field. ), NORMAL BREATHING PATTERN Impression : CHF: Acute: Pro-BNP elev; Trop trending up. c/w Furosemide. f/u potassium levels. Cradiology consult appreciated. F/u recommendations Cardiology consult : :PMH: CAD s/p CABG, ischemic cardiomyopathy, renal insufficiency, myelodysplastic syndrome. Called for + Troponin 1.: + Trop: Trop results trending downward , no acute st-t changes by ekg, etio unclear: #2 CHF : no clinical CHF , CXR unchanged from baseline 11/17 CXR report: Impression: No active disease. No significant interval change compared to the prior examination(s). Pro BNP:5620 Lasix IV daily, coreg This form is a permanent part of the medical record Clarification of your documentation is requested to better reflect the severity of illness and intensity of treatment of your patient. Indicators present [] Specify: [] [] Specify: [] [] Specify: [] [] Specify: [] Location in the medical record that reflects the above clinical findings: [] Treatment Provided: [] PHYSICIAN'S RESPONSE Based on your medical judgment of the clinical indicators outlined above please clarify the following: [] Practitioner response [] If unable to determine, please check the box, sign and date. Present On Admission (POA) Indicator: [] Present at the time of admission [] Not present at the time of admission [] Clinically Undetermined In responding to this query, please exercise your independent professional judgment. The fact that a question is asked does not imply that any particular answer is desired or expected. Thank you for your clarification on this documentation. If you have any questions please call. * Thank you, Wendy Sorenson RN BSN ext. #[phone] MTDD
--- NOTE | 2016-11-18 14:31 | PQF GENQUE ---
Dr. Hernandez Urban, Type of Myelodysplastic Syndrome if known? i.e. with isolated del(5q) chromosomal abnormality etc. OR: Unable to determine Hematolgy consult: 86 yrs old male well known to me because of MDS. He was on procrit to which he responded well. His platelet count is up to 48K and the hgb is 11.0 Assessment: Impression; Myelodysplastic syndrome Plan; Pt does not need anything at this time from a hematology point of view..He will return to the infusion center in 2 weeks for cbc and procrit injection. This form is a permanent part of the medical record Clarification of your documentation is requested to better reflect the severity of illness and intensity of treatment of your patient. Indicators present [] Specify: [] [] Specify: [] [] Specify: [] [] Specify: [] Location in the medical record that reflects the above clinical findings: [] Treatment Provided: [] PHYSICIAN'S RESPONSE Based on your medical judgment of the clinical indicators outlined above please clarify the following: [] Practitioner response [] If unable to determine, please check the box, sign and date. Present On Admission (POA) Indicator: [] Present at the time of admission [] Not present at the time of admission [] Clinically Undetermined In responding to this query, please exercise your independent professional judgment. The fact that a question is asked does not imply that any particular answer is desired or expected. Thank you for your clarification on this documentation. If you have any questions please call. * Thank you, Wendy Sorenson RN BSN ext. [phone] MTDD
[2016-11-18] MEDS: Latanoprost 0.005% Opht SOUTION OU SCH (21:55)
[2016-11-19 06:21] LABS: HEMOGLOBIN 11.9 g/dL (12.0-18.0); MEAN CELL VOLUME 101.7 fl (80.0-94.0); MEAN CORPUSCULAR HEMOGLOBIN 33.2 pg (27.0-31.0); MEAN CORPUSCULAR HGB CONC 32.7 g/dL (33.0-37.0); RBC 3.58 Mil/uL (4.40-5.90); RED CELL DISTRIBUTION WIDTH 23.2 % (11.5-14.5); WHITE BLOOD COUNT 4.4 K/uL (4.8-10.8)
[2016-11-19 06:39] LABS: BLOOD UREA NITROGEN 56 mg/dl (9-20); CALCIUM 9.6 mg/dL (8.4-10.2); GFR AFRICAN-AMERICAN 33; GFR NON-AFRICAN AMERICAN 27
[2016-11-19 06:48] LABS: B-TYPE NATRIURETIC PEPTIDE 31900 pg/ml (0-900)
--- NOTE | 2016-11-19 09:29 | CP.PCM.PN ---
Subjective - Date & Time of Evaluation Date of Evaluation: 11/19/16 Time of Evaluation: 09:22 - Subjective Subjective: Pt had been doing well from a hematology point of view, but he had some cardiac problems yesterday with some chest pains, and a slight rise in the troponin level. She was placed on plavix. However today her platelets have dropped from 56k yesterday to 22k today. I have ordered manual platelet count , but I feel that the plavix should be stopped. If the platelets are truely low, he may need a platelet transfusion. Objective - Vital Signs/Intake and Output Vital Signs (last 24 hours): Temp Pulse Resp BP Pulse Ox 97.5 F L 82 20 117/65 99 11/19/16 08:00 11/19/16 08:00 11/19/16 08:00 11/19/16 08:00 11/19/16 08:00 Intake and Output: 11/19/16 11/19/16 06:59 18:59 Intake Total 720 Balance 720 - Medications Medications: Current Medications Amlodipine Besylate (Norvasc) 5 mg PO DAILY [facility] Last Admin: 11/18/16 08:59 Dose: 5 mg Artificial Tears (Artificial Tears) 2 drop OU Q4 PRN PRN Reason: Dry eyes Last Admin: 11/18/16 13:40 Dose: 1 drop Atorvastatin Calcium (Lipitor) 10 mg PO HS [facility] Last Admin: 11/18/16 21:50 Dose: 10 mg Carvedilol (Coreg) 3.125 mg PO Q12 [facility] Last Admin: 11/18/16 08:53 Dose: 3.125 mg Clopidogrel Bisulfate (Plavix) 75 mg PO DAILY [facility] Last Admin: 11/18/16 08:59 Dose: 75 mg Ergocalciferol (Drisdol 50,000 Intl Units Cap) 1 cap PO SUN [facility] Finasteride (Proscar) 5 mg PO DAILY [facility] Last Admin: 11/18/16 09:00 Dose: 5 mg Furosemide (Lasix) 40 mg IVP DAILY [facility] Last Admin: 11/18/16 08:55 Dose: 40 mg Home Med (Febuxostat [Uloric]) 40 mg PO DAILY [facility] Last Admin: 11/18/16 08:54 Dose: 40 mg Home Med (Paricalcitol [Zemplar]) 1 mcg PO QOTHERDAY@1800 [facility] Last Admin: 11/17/16 21:15 Dose: 1 mcg Sodium Chloride (Sodium Chloride 0.9%) 1,000 mls @ 80 mls/hr IV .[id number] [facility] Last Admin: 11/18/16 15:45 Dose: 80 mls/hr Isosorbide Mononitrate (Imdur) 60 mg PO QPM [facility] Last Admin: 11/17/16 17:13 Dose: 60 mg Latanoprost (Xalatan Opht) 1 drop OU HS [facility] Last Admin: 11/18/16 21:55 Dose: 1 drop Lisinopril (Zestril) 2.5 mg PO QOTHERDAY [facility] Last Admin: 11/17/16 08:56 Dose: 2.5 mg Megestrol Acetate (Megace) 125 mg PO DAILY [facility] Last Admin: 11/18/16 08:56 Dose: 125 mg Morphine Sulfate (Morphine) 2 mg IVP Q6 PRN PRN Reason: Pain, severe (8-10) Last Admin: 11/17/16 01:45 Dose: 2 mg Nitroglycerin (Nitrostat Sl Tab) 0.4 mg SL Q5MIN PRN PRN Reason: Other Pantoprazole Sodium (Protonix Ec Tab) 40 mg PO QOTHERDAY [facility] Last Admin: 11/17/16 08:57 Dose: 40 mg Potassium Chloride (K-Dur 20 Meq Er Tab) 20 meq PO DAILY [facility] Last Admin: 11/18/16 08:55 Dose: 20 meq Sevelamer HCl (Renagel) 800 mg PO TID [facility] Last Admin: 11/18/16 17:56 Dose: 800 mg Sitagliptin Phosphate (Januvia) 50 mg PO DAILY [facility] Last Admin: 11/18/16 08:55 Dose: 50 mg Sodium Bicarbonate (Sodium Bicarbonate Tab) 650 mg PO BID [facility] Last Admin: 11/18/16 17:57 Dose: 650 mg - Labs Labs: 11/19/16 05:45 11/19/16 05:45
[2016-11-19] MEDS: Pantoprazole 40 mg EC Tab PO SCH (09:59)
[2016-11-19] MEDS: Megestrol Acetate 40 mg/ml Cup PO SCH (10:00)
[2016-11-19] MEDS: Potassium Chloride 20 mEq ER Tab PO SCH (10:01)
[2016-11-19] MEDS ORDERED: DiphenhydrAMINE 12.5 mg/5 ml LIQ UD (5 ml) PO ONE (10:45)
[2016-11-19] MEDS ORDERED: methylPREDNISolone 20 MG in Sodium Chloride 0.9% 50 ML IVPB ONE (16:30)
--- NOTE | 2016-11-19 17:22 | CP.PCM.PN ---
Subjective - Date & Time of Evaluation Date of Evaluation: 11/19/16 Time of Evaluation: 09:30 - Subjective Subjective: patient seen and examined with attending patient Oriented x 3, alert and awake no events overnight, but yesterday patient was drowsy, no talking with family still with poor appetite denies Cp, SOB, N/V Objective - Vital Signs/Intake and Output Vital Signs (last 24 hours): Temp Pulse Resp BP Pulse Ox 97.4 F L 80 18 121/79 98 11/19/16 16:32 11/19/16 16:32 11/19/16 16:32 11/19/16 16:32 11/19/16 16:32 Intake and Output: 11/19/16 11/19/16 06:59 18:59 Intake Total 720 Balance 720 - Medications Medications: Current Medications Amlodipine Besylate (Norvasc) 5 mg PO DAILY [facility] Last Admin: 11/18/16 08:59 Dose: 5 mg Artificial Tears (Artificial Tears) 2 drop OU Q4 PRN PRN Reason: Dry eyes Last Admin: 11/18/16 13:40 Dose: 1 drop Atorvastatin Calcium (Lipitor) 10 mg PO HS [facility] Last Admin: 11/18/16 21:50 Dose: 10 mg Carvedilol (Coreg) 3.125 mg PO Q12 [facility] Last Admin: 11/18/16 08:53 Dose: 3.125 mg Clopidogrel Bisulfate (Plavix) 75 mg PO DAILY [facility] Last Admin: 11/18/16 08:59 Dose: 75 mg Docusate Sodium (Colace) 200 mg PO DAILY [facility] Ergocalciferol (Drisdol 50,000 Intl Units Cap) 1 cap PO SUN [facility] Finasteride (Proscar) 5 mg PO DAILY [facility] Last Admin: 11/19/16 09:59 Dose: 5 mg Furosemide (Lasix) 40 mg IVP DAILY [facility] Last Admin: 11/18/16 08:55 Dose: 40 mg Home Med (Febuxostat [Uloric]) 40 mg PO DAILY [facility] Last Admin: 11/19/16 10:01 Dose: 40 mg Home Med (Paricalcitol [Zemplar]) 1 mcg PO QOTHERDAY@1800 [facility] Last Admin: 11/17/16 21:15 Dose: 1 mcg Sodium Chloride (Sodium Chloride 0.9%) 1,000 mls @ 80 mls/hr IV .[id number] [facility] Last Admin: 11/18/16 15:45 Dose: 80 mls/hr Isosorbide Mononitrate (Imdur) 60 mg PO QPM [facility] Last Admin: 11/17/16 17:13 Dose: 60 mg Latanoprost (Xalatan Opht) 1 drop OU HS [facility] Last Admin: 11/18/16 21:55 Dose: 1 drop Lisinopril (Zestril) 2.5 mg PO QOTHERDAY [facility] Last Admin: 11/17/16 08:56 Dose: 2.5 mg Megestrol Acetate (Megace) 125 mg PO DAILY [facility] Last Admin: 11/19/16 10:00 Dose: 125 mg Morphine Sulfate (Morphine) 2 mg IVP Q6 PRN PRN Reason: Pain, severe (8-10) Last Admin: 11/17/16 01:45 Dose: 2 mg Nitroglycerin (Nitrostat Sl Tab) 0.4 mg SL Q5MIN PRN PRN Reason: Other Pantoprazole Sodium (Protonix Ec Tab) 40 mg PO QOTHERDAY [facility] Last Admin: 11/19/16 09:59 Dose: 40 mg Potassium Chloride (K-Dur 20 Meq Er Tab) 20 meq PO DAILY [facility] Last Admin: 11/19/16 10:01 Dose: 20 meq Sevelamer HCl (Renagel) 800 mg PO TID [facility] Last Admin: 11/19/16 12:39 Dose: 800 mg Sitagliptin Phosphate (Januvia) 50 mg PO DAILY [facility] Last Admin: 11/19/16 09:58 Dose: 50 mg Sodium Bicarbonate (Sodium Bicarbonate Tab) 650 mg PO BID [facility] Last Admin: 11/19/16 09:59 Dose: 650 mg - Labs Labs: 11/19/16 05:45 11/19/16 05:45 - Constitutional Appears: No Acute Distress - ENT Exam ENT Exam: Mucous Membranes Dry - Respiratory Exam Respiratory Exam: Clear to Ausculation Bilateral, NORMAL BREATHING PATTERN. absent: Rales, Rhonchi, Wheezes, Respiratory Distress - Cardiovascular Exam Cardiovascular Exam: REGULAR RHYTHM, +S1, +S2 - GI/Abdominal Exam GI & Abdominal Exam: Soft, Normal Bowel Sounds. absent: Distended, Guarding, Rigid, Tenderness (tender to palpation of hypogastrium and LLQ, no rebound tenderness) - Extremities Exam Extremities Exam: Normal Inspection. 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 Trav Urban aware, and recommended manual platelet count. Patient could benefit from platelet transfusion f/u manual plt count Hold Plavix for now, Cardiology, dr. Joshua aware Status: Chronic (2) Altered mental status, unspecified Assessment & Plan: Unclear etiology Status: Acute (3) Chronic kidney disease, stage 3 Status: Chronic (4) Congestive heart failure Assessment & Plan: improving clinically with current diuretic therapy As per Cardiology evaluation there is not clinical CHF at this time , I recommended Coreg PO BID f/u Cardiology recommendations Status: Acute (5) Diabetes mellitus type 2 in nonobese Assessment & Plan: c/w current monitoring and management Status: Chronic
[2016-11-19 17:49] LABS: FOLATE > 20.0 ng/mL
[2016-11-19] MEDS: Patient's Own Med (Paricalcitol [Zemplar] 1 MCG) PO SCH (17:59)
[2016-11-19] MEDS: Latanoprost 0.005% Opht SOUTION OU SCH (21:41)
[2016-11-20 06:31] LABS: HEMOGLOBIN 10.5 g/dL (12.0-18.0); MEAN CELL VOLUME 101.6 fl (80.0-94.0); MEAN CORPUSCULAR HEMOGLOBIN 33.2 pg (27.0-31.0); MEAN CORPUSCULAR HGB CONC 32.7 g/dL (33.0-37.0); RBC 3.16 Mil/uL (4.40-5.90); RED CELL DISTRIBUTION WIDTH 22.6 % (11.5-14.5); WHITE BLOOD COUNT 3.3 K/uL (4.8-10.8)
[2016-11-20 06:33] LABS: AMYLASE 88 U/L (30-110); LIPASE 38 U/L (23-300)
[2016-11-20 06:42] LABS: B-TYPE NATRIURETIC PEPTIDE 14300 pg/ml (0-900)
[2016-11-20] MEDS ORDERED: methylPREDNISolone 20 MG in Sodium Chloride 0.9% 50 ML IVPB SCH (09:00)
--- NOTE | 2016-11-20 09:09 | CP.PCM.PN ---
Subjective - Date & Time of Evaluation Date of Evaluation: 11/20/16 Time of Evaluation: 09:04 - Subjective Subjective: Post transfusion of platelets are 63K. No bleeding anywhere. At least for now he is stable from a hematoloy point of view I know his platelets will slowly trend down. Will ck with Dr Joshua if the plavix is absolutely necessary. Will monitor cbc Objective - Vital Signs/Intake and Output Vital Signs (last 24 hours): Temp Pulse Resp BP Pulse Ox 98.1 F 66 18 117/65 99 11/20/16 08:03 11/20/16 08:03 11/20/16 08:03 11/20/16 08:03 11/20/16 08:03 Intake and Output: 11/20/16 11/20/16 06:59 18:59 Intake Total 630 Output Total 340 Balance 290 - Medications Medications: Current Medications Amlodipine Besylate (Norvasc) 5 mg PO DAILY [facility] Last Admin: 11/18/16 08:59 Dose: 5 mg Artificial Tears (Artificial Tears) 2 drop OU Q4 PRN PRN Reason: Dry eyes Last Admin: 11/18/16 13:40 Dose: 1 drop Atorvastatin Calcium (Lipitor) 10 mg PO HS [facility] Last Admin: 11/19/16 21:41 Dose: 10 mg Carvedilol (Coreg) 3.125 mg PO Q12 [facility] Last Admin: 11/18/16 08:53 Dose: 3.125 mg Clopidogrel Bisulfate (Plavix) 75 mg PO DAILY [facility] Last Admin: 11/18/16 08:59 Dose: 75 mg Docusate Sodium (Colace) 200 mg PO DAILY [facility] Last Admin: 11/19/16 17:57 Dose: Not Given Ergocalciferol (Drisdol 50,000 Intl Units Cap) 1 cap PO SUN [facility] Finasteride (Proscar) 5 mg PO DAILY [facility] Last Admin: 11/19/16 09:59 Dose: 5 mg Furosemide (Lasix) 40 mg IVP DAILY [facility] Last Admin: 11/18/16 08:55 Dose: 40 mg Home Med (Febuxostat [Uloric]) 40 mg PO DAILY [facility] Last Admin: 11/19/16 10:01 Dose: 40 mg Home Med (Paricalcitol [Zemplar]) 1 mcg PO QOTHERDAY@1800 [facility] Last Admin: 11/19/16 17:59 Dose: Not Given Sodium Chloride (Sodium Chloride 0.9%) 1,000 mls @ 80 mls/hr IV .[id number] [facility] Last Admin: 11/18/16 15:45 Dose: 80 mls/hr Isosorbide Mononitrate (Imdur) 60 mg PO QPM [facility] Last Admin: 11/17/16 17:13 Dose: 60 mg Latanoprost (Xalatan Opht) 1 drop OU HS [facility] Last Admin: 11/19/16 21:41 Dose: 1 drop Lisinopril (Zestril) 2.5 mg PO QOTHERDAY [facility] Last Admin: 11/17/16 08:56 Dose: 2.5 mg Megestrol Acetate (Megace) 125 mg PO DAILY [facility] Last Admin: 11/19/16 10:00 Dose: 125 mg Morphine Sulfate (Morphine) 2 mg IVP Q6 PRN PRN Reason: Pain, severe (8-10) Last Admin: 11/17/16 01:45 Dose: 2 mg Nitroglycerin (Nitrostat Sl Tab) 0.4 mg SL Q5MIN PRN PRN Reason: Other Pantoprazole Sodium (Protonix Ec Tab) 40 mg PO QOTHERDAY [facility] Last Admin: 11/19/16 09:59 Dose: 40 mg Potassium Chloride (K-Dur 20 Meq Er Tab) 20 meq PO DAILY [facility] Last Admin: 11/19/16 10:01 Dose: 20 meq Sevelamer HCl (Renagel) 800 mg PO TID [facility] Last Admin: 11/19/16 17:57 Dose: Not Given Sitagliptin Phosphate (Januvia) 50 mg PO DAILY [facility] Last Admin: 11/19/16 09:58 Dose: 50 mg Sodium Bicarbonate (Sodium Bicarbonate Tab) 650 mg PO BID [facility] Last Admin: 11/19/16 17:58 Dose: Not Given - Labs Labs: 11/20/16 05:40 11/19/16 05:45
[2016-11-20] MEDS: Potassium Chloride 20 mEq ER Tab PO SCH (10:10)
--- NOTE | 2016-11-20 11:04 | CP.PCM.PN ---
Subjective - Date & Time of Evaluation Date of Evaluation: 11/20/16 Time of Evaluation: 11:06 - Subjective Subjective: more alert and verbal Objective - Vital Signs/Intake and Output Vital Signs (last 24 hours): Temp Pulse Resp BP Pulse Ox 98.1 F 66 18 117/65 99 11/20/16 08:03 11/20/16 08:03 11/20/16 08:03 11/20/16 08:03 11/20/16 08:03 Intake and Output: 11/20/16 11/20/16 06:59 18:59 Intake Total 630 Output Total 340 Balance 290 - Medications Medications: Current Medications Amlodipine Besylate (Norvasc) 5 mg PO DAILY [facility] Last Admin: 11/18/16 08:59 Dose: 5 mg Artificial Tears (Artificial Tears) 2 drop OU Q4 PRN PRN Reason: Dry eyes Last Admin: 11/18/16 13:40 Dose: 1 drop Atorvastatin Calcium (Lipitor) 10 mg PO HS [facility] Last Admin: 11/19/16 21:41 Dose: 10 mg Carvedilol (Coreg) 3.125 mg PO Q12 [facility] Last Admin: 11/18/16 08:53 Dose: 3.125 mg Clopidogrel Bisulfate (Plavix) 75 mg PO DAILY [facility] Last Admin: 11/18/16 08:59 Dose: 75 mg Docusate Sodium (Colace) 200 mg PO DAILY [facility] Last Admin: 11/19/16 17:57 Dose: Not Given Ergocalciferol (Drisdol 50,000 Intl Units Cap) 1 cap PO [facility] Finasteride (Proscar) 5 mg PO DAILY [facility] Last Admin: 11/19/16 09:59 Dose: 5 mg Furosemide (Lasix) 40 mg IVP DAILY [facility] Last Admin: 11/18/16 08:55 Dose: 40 mg Home Med (Febuxostat [Uloric]) 40 mg PO DAILY [facility] Last Admin: 11/19/16 10:01 Dose: 40 mg Home Med (Paricalcitol [Zemplar]) 1 mcg PO QOTHERDAY@1800 [facility] Last Admin: 11/19/16 17:59 Dose: Not Given Isosorbide Mononitrate (Imdur) 60 mg PO QPM [facility] Last Admin: 11/17/16 17:13 Dose: 60 mg Latanoprost (Xalatan Opht) 1 drop OU HS [facility] Last Admin: 11/19/16 21:41 Dose: 1 drop Lisinopril (Zestril) 2.5 mg PO QOTHERDAY [facility] Last Admin: 11/17/16 08:56 Dose: 2.5 mg Megestrol Acetate (Megace) 125 mg PO DAILY [facility] Last Admin: 11/19/16 10:00 Dose: 125 mg Morphine Sulfate (Morphine) 2 mg IVP Q6 PRN PRN Reason: Pain, severe (8-10) Last Admin: 11/17/16 01:45 Dose: 2 mg Nitroglycerin (Nitrostat Sl Tab) 0.4 mg SL Q5MIN PRN PRN Reason: Other Pantoprazole Sodium (Protonix Ec Tab) 40 mg PO QOTHERDAY [facility] Last Admin: 11/19/16 09:59 Dose: 40 mg Potassium Chloride (K-Dur 20 Meq Er Tab) 20 meq PO DAILY [facility] Last Admin: 11/19/16 10:01 Dose: 20 meq Sevelamer HCl (Renagel) 800 mg PO TID [facility] Last Admin: 11/19/16 17:57 Dose: Not Given Sitagliptin Phosphate (Januvia) 50 mg PO DAILY [facility] Last Admin: 11/19/16 09:58 Dose: 50 mg Sodium Bicarbonate (Sodium Bicarbonate Tab) 650 mg PO BID [facility] Last Admin: 11/19/16 17:58 Dose: Not Given - Labs Labs: 11/20/16 05:40 11/19/16 05:45 - Constitutional Appears: No Acute Distress - Respiratory Exam Respiratory Exam: Clear to Ausculation Bilateral - Cardiovascular Exam Cardiovascular Exam: REGULAR RHYTHM - GI/Abdominal Exam GI & Abdominal Exam: Normal Bowel Sounds - Extremities Exam Extremities Exam: Normal Inspection Assessment and Plan - Assessment and Plan (Free Text) Assessment: Medical therapy from cardiac standpoint is limited , low platelets with risk of sponataneous bleeding *( 22K) preclude the use of Plavix due to thombocytopenia Low Dose Beta Blockade induced hypotension , beta elsa is stopped Abd pain is likely from pancreatitis Would do bedside pt and continue supportive care Discussed with family @ bedside
--- NOTE | 2016-11-20 11:56 | CP.PCM.PN ---
Subjective - Date & Time of Evaluation Date of Evaluation: 11/20/16 Time of Evaluation: 11:55 - Subjective Subjective: tolerated diet Objective - Vital Signs/Intake and Output Vital Signs (last 24 hours): Temp Pulse Resp BP Pulse Ox 98.1 F 66 18 117/65 99 11/20/16 08:03 11/20/16 08:03 11/20/16 08:03 11/20/16 08:03 11/20/16 08:03 Intake and Output: 11/20/16 11/20/16 06:59 18:59 Intake Total 630 Output Total 340 Balance 290 - Medications Medications: Current Medications Amlodipine Besylate (Norvasc) 5 mg PO DAILY [facility] Last Admin: 11/18/16 08:59 Dose: 5 mg Artificial Tears (Artificial Tears) 2 drop OU Q4 PRN PRN Reason: Dry eyes Last Admin: 11/18/16 13:40 Dose: 1 drop Atorvastatin Calcium (Lipitor) 10 mg PO HS [facility] Last Admin: 11/19/16 21:41 Dose: 10 mg Carvedilol (Coreg) 3.125 mg PO Q12 [facility] Last Admin: 11/18/16 08:53 Dose: 3.125 mg Docusate Sodium (Colace) 200 mg PO DAILY [facility] Last Admin: 11/19/16 17:57 Dose: Not Given Ergocalciferol (Drisdol 50,000 Intl Units Cap) 1 cap PO SUN [facility] Finasteride (Proscar) 5 mg PO DAILY [facility] Last Admin: 11/19/16 09:59 Dose: 5 mg Furosemide (Lasix) 40 mg IVP DAILY [facility] Last Admin: 11/18/16 08:55 Dose: 40 mg Home Med (Febuxostat [Uloric]) 40 mg PO DAILY [facility] Last Admin: 11/19/16 10:01 Dose: 40 mg Home Med (Paricalcitol [Zemplar]) 1 mcg PO QOTHERDAY@1800 [facility] Last Admin: 11/19/16 17:59 Dose: Not Given Isosorbide Mononitrate (Imdur) 60 mg PO QPM [facility] Last Admin: 11/17/16 17:13 Dose: 60 mg Latanoprost (Xalatan Opht) 1 drop OU HS [facility] Last Admin: 11/19/16 21:41 Dose: 1 drop Lisinopril (Zestril) 2.5 mg PO QOTHERDAY [facility] Last Admin: 11/17/16 08:56 Dose: 2.5 mg Megestrol Acetate (Megace) 125 mg PO DAILY [facility] Last Admin: 11/19/16 10:00 Dose: 125 mg Morphine Sulfate (Morphine) 2 mg IVP Q6 PRN PRN Reason: Pain, severe (8-10) Last Admin: 11/17/16 01:45 Dose: 2 mg Nitroglycerin (Nitrostat Sl Tab) 0.4 mg SL Q5MIN PRN PRN Reason: Other Pantoprazole Sodium (Protonix Ec Tab) 40 mg PO QOTHERDAY [facility] Last Admin: 11/19/16 09:59 Dose: 40 mg Potassium Chloride (K-Dur 20 Meq Er Tab) 20 meq PO DAILY [facility] Last Admin: 11/19/16 10:01 Dose: 20 meq Sevelamer HCl (Renagel) 800 mg PO TID [facility] Last Admin: 11/19/16 17:57 Dose: Not Given Sitagliptin Phosphate (Januvia) 50 mg PO DAILY [facility] Last Admin: 11/19/16 09:58 Dose: 50 mg Sodium Bicarbonate (Sodium Bicarbonate Tab) 650 mg PO BID [facility] Last Admin: 11/19/16 17:58 Dose: Not Given - Labs Labs: 11/20/16 05:40 11/19/16 05:45 - GI/Abdominal Exam GI & Abdominal Exam: Soft, Normal Bowel Sounds Assessment and Plan - Assessment and Plan (Free Text) Assessment: 86 yo male with chest pain no clear evidence of pancreatitis pain resolved tolerated diet caridac work up thrombocytopenia secondary to plavix (likely); heme input appreciated
[2016-11-20] MEDS ORDERED: POLYETHYLENE GLYCOL 3350 17 GM/Dose PACKET PO PRN (12:26)
--- NOTE | 2016-11-20 13:14 | CON ---
DATE: 11/19/2016 REASON FOR CONSULTATION: Abdominal pain and discomfort. REFERRING DOCTOR: Dr. Mccain. HISTORY OF PRESENT ILLNESS: This is a pleasant 86-year-old man with past medical history of kidney stones, diverticular disease, who comes in especially with abdominal pain and discomfort in the epigastric region. No chest pain. At this point, the patient is a poor historian. History was obtained via the chart and staff. Currently, the patient is *------*, lying in bed comfortably, in no apparent distress. PAST MEDICAL HISTORY: As above. SURGICAL HISTORY: As above. MEDICATIONS: Have been reviewed. REVIEW OF SYSTEMS: Unable to obtain as the patient is a poor historian. PHYSICAL EXAMINATION: GENERAL: A pleasant elderly male, lying comfortably in bed, in no apparent distress. HEENT: Head normocephalic, atraumatic. Eyes, pupils are equal, round, and reactive to light bilaterally. No conjunctival pallor or icterus. NECK: Supple. Normal range of motion. No lymphadenopathy appreciated. LUNGS: Coarse breath sounds bilaterally. HEART: S1 and S2. Regular rate and rhythm. No murmurs appreciated. ABDOMEN: Soft, nontender, some discomfort in the epigastric region. No rebound. No guarding. RECTAL: Deferred. EXTREMITIES: Pulses felt bilaterally. SKIN: Warm, dry, and intact. NEUROLOGIC: A and O x3. Labs and radiology have been reviewed. WBC is 4.4, hemoglobin 11.9, hematocrit 36.4, platelet count is currently 22 down from 48. Creatinine is 2.3 and rising, BUN 56. Glucose of 123. Troponins are grossly positive. ProBNP is over 30,000. Lipase of 295. Abdominal ultrasound shows no acute findings. ASSESSMENT AND PLAN: This is an 86-year-old man who was having chest pains unlikely an myocardial infarction. From GI standpoint, unclear etiology. He cannot get IV contrast because of his creatinine. Lipase I would not give too much prudence to as I do not believe this is hepatitis. We will get the KUB, the patient is likely *------* constipation. Cardiology input appreciated. Thank you for the consult. Diego Marte MD/ PhD cc: Arthur Mccain MD
--- NOTE | 2016-11-20 14:46 | RAD ---
HISTORY: Abdominal pain. COMPARISON: No prior. FINDINGS: BOWEL: Normal. No obstruction. No free air. BONES: Evidence of mild fecal impaction without obstruction. OTHER FINDINGS: None. IMPRESSION: No acute findings related to/accounting for the clinical presentation.
--- NOTE | 2016-11-20 14:54 | CP.PCM.PN ---
Subjective - Date & Time of Evaluation Date of Evaluation: 11/20/16 Time of Evaluation: 09:00 - Subjective Subjective: patient seen and examined with attending patient alert, awake and oriented X 3 family at bedside Denies Cp, SOB, N/V, abdominal pain Patient reports that last BM was days ago Tolerating PO Objective - Vital Signs/Intake and Output Vital Signs (last 24 hours): Temp Pulse Resp BP Pulse Ox 97.8 F 63 18 105/64 98 11/20/16 12:28 11/20/16 12:28 11/20/16 12:28 11/20/16 12:28 11/20/16 12:28 Intake and Output: 11/20/16 11/20/16 06:59 18:59 Intake Total 630 Output Total 340 Balance 290 - Medications Medications: Current Medications Amlodipine Besylate (Norvasc) 5 mg PO DAILY [facility] Last Admin: 11/18/16 08:59 Dose: 5 mg Artificial Tears (Artificial Tears) 2 drop OU Q4 PRN PRN Reason: Dry eyes Last Admin: 11/18/16 13:40 Dose: 1 drop Atorvastatin Calcium (Lipitor) 10 mg PO HS [facility] Last Admin: 11/19/16 21:41 Dose: 10 mg Carvedilol (Coreg) 3.125 mg PO Q12 [facility] Last Admin: 11/18/16 08:53 Dose: 3.125 mg Docusate Sodium (Colace) 200 mg PO DAILY [facility] Last Admin: 11/19/16 17:57 Dose: Not Given Ergocalciferol (Drisdol 50,000 Intl Units Cap) 1 cap PO SUN [facility] Finasteride (Proscar) 5 mg PO DAILY [facility] Last Admin: 11/19/16 09:59 Dose: 5 mg Furosemide (Lasix) 40 mg IVP DAILY [facility] Last Admin: 11/18/16 08:55 Dose: 40 mg Home Med (Febuxostat [Uloric]) 40 mg PO DAILY [facility] Last Admin: 11/19/16 10:01 Dose: 40 mg Home Med (Paricalcitol [Zemplar]) 1 mcg PO QOTHERDAY@1800 [facility] Last Admin: 11/19/16 17:59 Dose: Not Given Isosorbide Mononitrate (Imdur) 60 mg PO QPM [facility] Last Admin: 11/17/16 17:13 Dose: 60 mg Latanoprost (Xalatan Opht) 1 drop OU HS [facility] Last Admin: 11/19/16 21:41 Dose: 1 drop Lisinopril (Zestril) 2.5 mg PO QOTHERDAY [facility] Last Admin: 11/17/16 08:56 Dose: 2.5 mg Megestrol Acetate (Megace) 125 mg PO DAILY [facility] Last Admin: 11/19/16 10:00 Dose: 125 mg Morphine Sulfate (Morphine) 2 mg IVP Q6 PRN PRN Reason: Pain, severe (8-10) Last Admin: 11/17/16 01:45 Dose: 2 mg Nitroglycerin (Nitrostat Sl Tab) 0.4 mg SL Q5MIN PRN PRN Reason: Other Pantoprazole Sodium (Protonix Ec Tab) 40 mg PO QOTHERDAY [facility] Last Admin: 11/19/16 09:59 Dose: 40 mg Polyethylene Glycol (Miralax) 17 gm PO PRN PRN PRN Reason: Constipation Potassium Chloride (K-Dur 20 Meq Er Tab) 20 meq PO DAILY [facility] Last Admin: 11/19/16 10:01 Dose: 20 meq Sevelamer HCl (Renagel) 800 mg PO TID [facility] Last Admin: 11/19/16 17:57 Dose: Not Given Sitagliptin Phosphate (Januvia) 50 mg PO DAILY [facility] Last Admin: 11/19/16 09:58 Dose: 50 mg Sodium Bicarbonate (Sodium Bicarbonate Tab) 650 mg PO BID [facility] Last Admin: 11/19/16 17:58 Dose: Not Given - Labs Labs: 11/20/16 05:40 11/19/16 05:45 - Constitutional Appears: No Acute Distress - ENT Exam ENT Exam: Mucous Membranes Moist - Respiratory Exam Respiratory Exam: Clear to Ausculation Bilateral, NORMAL BREATHING PATTERN - Cardiovascular Exam Cardiovascular Exam: REGULAR RHYTHM, +S1, +S2 - GI/Abdominal Exam GI & Abdominal Exam: Soft, Normal Bowel Sounds. absent: Guarding, Rigid, Tenderness - Extremities Exam Extremities Exam: Normal Inspection. 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 Joshua f/u Hemo recommendations Status: Chronic (2) Altered mental status, unspecified Assessment & Plan: improving patient more alert, awake, and oriented X3 BP medications held for now. I was discussed with Dr. Joshua,[employer], and he agrees to hold BP meds for now due to persistent low SBP f/u BMP F/u mental status Status: Acute (3) Chronic kidney disease, stage 3 Assessment & Plan: c/w BUN/Cr monitoring Status: Chronic (4) Congestive heart failure Assessment & Plan: improved clinically Furosemide held due to hypotension Status: Chronic (5) Diabetes mellitus type 2 in nonobese Status: Chronic
[2016-11-20] MEDS: Megestrol Acetate 40 mg/ml Cup PO SCH (15:11)
[2016-11-20] MEDS: Artificial Tears Opht Soln OU PRN (15:12)
[2016-11-20] MEDS: Latanoprost 0.005% Opht SOUTION OU SCH (21:49)
[2016-11-21 07:37] LABS: HEMOGLOBIN 10.5 g/dL (12.0-18.0); MEAN CELL VOLUME 100.5 fl (80.0-94.0); MEAN CORPUSCULAR HEMOGLOBIN 33.7 pg (27.0-31.0); MEAN CORPUSCULAR HGB CONC 33.5 g/dL (33.0-37.0); RBC 3.13 Mil/uL (4.40-5.90); RED CELL DISTRIBUTION WIDTH 22.5 % (11.5-14.5); WHITE BLOOD COUNT 3.9 K/uL (4.8-10.8)
[2016-11-21 07:45] LABS: CALCIUM 9.2 mg/dL (8.4-10.2)
[2016-11-21] MEDS: Pantoprazole 40 mg EC Tab PO SCH (08:42)
[2016-11-21] MEDS: Megestrol Acetate 40 mg/ml Cup PO SCH (08:42)
[2016-11-21] MEDS: Potassium Chloride 20 mEq ER Tab PO SCH (08:43)
[2016-11-21] MEDS: Patient's Own Med (Paricalcitol [Zemplar] 1 MCG) PO SCH (17:12)
[2016-11-21] MEDS: Latanoprost 0.005% Opht SOUTION OU SCH (21:34)
[2016-11-22] MEDS ORDERED: Ergocalciferol 50,000 Intl Units Cap PO SCH (09:00)
[2016-11-22] MEDS: Potassium Chloride 20 mEq ER Tab PO SCH (09:20)
[2016-11-22] MEDS: Megestrol Acetate 40 mg/ml Cup PO SCH (09:20)
[2016-11-22] MEDS: Latanoprost 0.005% Opht SOUTION OU SCH (21:52)
[2016-11-23 00:01] VITALS: RESP 20
[2016-11-23 07:47] LABS: HEMOGLOBIN 11.5 g/dL (12.0-18.0); MEAN CELL VOLUME 100.1 fl (80.0-94.0); MEAN CORPUSCULAR HEMOGLOBIN 33.6 pg (27.0-31.0); MEAN CORPUSCULAR HGB CONC 33.5 g/dL (33.0-37.0); RBC 3.42 Mil/uL (4.40-5.90); RED CELL DISTRIBUTION WIDTH 22.8 % (11.5-14.5); WHITE BLOOD COUNT 4.3 K/uL (4.8-10.8)
[2016-11-23 08:07] VITALS: PULSE 71; TEMP 98.2; O2SAT 97
[2016-11-23] MEDS: Potassium Chloride 20 mEq ER Tab PO SCH (08:36)
[2016-11-23] MEDS: Pantoprazole 40 mg EC Tab PO SCH (08:37)
--- NOTE | 2016-11-23 09:44 | CP.PCM.PN ---
Subjective - Date & Time of Evaluation Date of Evaluation: 11/23/16 Time of Evaluation: 09:42 - Subjective Subjective: Pt appears more comfortable. No pain, no nausea or vomiting. His CBC has been more or less stable.. He may be discharged from hemtology point of view.. Objective - Vital Signs/Intake and Output Vital Signs (last 24 hours): Temp Pulse Resp BP Pulse Ox 98.2 F 71 20 150/78 97 11/23/16 08:07 11/23/16 08:07 11/23/16 08:07 11/23/16 08:07 11/23/16 08:07 - Medications Medications: Current Medications Amlodipine Besylate (Norvasc) 5 mg PO DAILY [facility] Last Admin: 11/18/16 08:59 Dose: 5 mg Artificial Tears (Artificial Tears) 2 drop OU Q4 PRN PRN Reason: Dry eyes Last Admin: 11/20/16 15:12 Dose: 2 drop Atorvastatin Calcium (Lipitor) 10 mg PO HS [facility] Last Admin: 11/22/16 21:52 Dose: 10 mg Carvedilol (Coreg) 3.125 mg PO Q12 [facility] Last Admin: 11/18/16 08:53 Dose: 3.125 mg Docusate Sodium (Colace) 200 mg PO DAILY [facility] Last Admin: 11/23/16 08:37 Dose: 200 mg Ergocalciferol (Drisdol 50,000 Intl Units Cap) 1 cap PO SUN [facility] Last Admin: 11/22/16 09:19 Dose: 1 cap Finasteride (Proscar) 5 mg PO DAILY [facility] Last Admin: 11/23/16 08:37 Dose: 5 mg Furosemide (Lasix) 40 mg IVP DAILY [facility] Last Admin: 11/18/16 08:55 Dose: 40 mg Home Med (Febuxostat [Uloric]) 40 mg PO DAILY [facility] Last Admin: 11/23/16 08:37 Dose: 40 mg Home Med (Paricalcitol [Zemplar]) 1 mcg PO QOTHERDAY@1800 [facility] Last Admin: 11/21/16 17:12 Dose: 1 mcg Isosorbide Mononitrate (Imdur) 60 mg PO QPM [facility] Last Admin: 11/17/16 17:13 Dose: 60 mg Latanoprost (Xalatan Opht) 1 drop OU HS [facility] Last Admin: 11/22/16 21:52 Dose: 1 drop Lisinopril (Zestril) 2.5 mg PO QOTHERDAY [facility] Last Admin: 11/17/16 08:56 Dose: 2.5 mg Megestrol Acetate (Megace) 125 mg PO DAILY [facility] Last Admin: 11/22/16 09:20 Dose: 125 mg Morphine Sulfate (Morphine) 2 mg IVP Q6 PRN PRN Reason: Pain, severe (8-10) Last Admin: 11/17/16 01:45 Dose: 2 mg Nitroglycerin (Nitrostat Sl Tab) 0.4 mg SL Q5MIN PRN PRN Reason: Other Pantoprazole Sodium (Protonix Ec Tab) 40 mg PO QOTHERDAY [facility] Last Admin: 11/23/16 08:37 Dose: 40 mg Polyethylene Glycol (Miralax) 17 gm PO PRN PRN PRN Reason: Constipation Potassium Chloride (K-Dur 20 Meq Er Tab) 20 meq PO DAILY [facility] Last Admin: 11/23/16 08:36 Dose: 20 meq Sevelamer HCl (Renagel) 800 mg PO TID [facility] Last Admin: 11/23/16 08:36 Dose: 800 mg Sitagliptin Phosphate (Januvia) 50 mg PO DAILY [facility] Last Admin: 11/23/16 08:37 Dose: 50 mg Sodium Bicarbonate (Sodium Bicarbonate Tab) 650 mg PO BID [facility] Last Admin: 11/23/16 08:36 Dose: 650 mg - Labs Labs: 11/23/16 07:40 11/21/16 06:00
--- NOTE | 2016-11-23 09:49 | CP.PCM.PN ---
Subjective - Date & Time of Evaluation Date of Evaluation: 11/21/16 Time of Evaluation: 09:35 - Subjective Subjective: Patient remains stable. Is more conversational Sleeps most of the time Noted improvement of platelets. Now above 50. Has no chest pain or SOB. Objective - Vital Signs/Intake and Output Vital Signs (last 24 hours): Temp Pulse Resp BP Pulse Ox 98.2 F 71 20 150/78 97 11/23/16 08:07 11/23/16 08:07 11/23/16 08:07 11/23/16 08:07 11/23/16 08:07 - Medications Medications: Current Medications Amlodipine Besylate (Norvasc) 5 mg PO DAILY [facility] Last Admin: 11/18/16 08:59 Dose: 5 mg Artificial Tears (Artificial Tears) 2 drop OU Q4 PRN PRN Reason: Dry eyes Last Admin: 11/20/16 15:12 Dose: 2 drop Atorvastatin Calcium (Lipitor) 10 mg PO HS [facility] Last Admin: 11/22/16 21:52 Dose: 10 mg Carvedilol (Coreg) 3.125 mg PO Q12 [facility] Last Admin: 11/18/16 08:53 Dose: 3.125 mg Docusate Sodium (Colace) 200 mg PO DAILY [facility] Last Admin: 11/23/16 08:37 Dose: 200 mg Ergocalciferol (Drisdol 50,000 Intl Units Cap) 1 cap PO SUN [facility] Last Admin: 11/22/16 09:19 Dose: 1 cap Finasteride (Proscar) 5 mg PO DAILY [facility] Last Admin: 11/23/16 08:37 Dose: 5 mg Furosemide (Lasix) 40 mg IVP DAILY [facility] Last Admin: 11/18/16 08:55 Dose: 40 mg Home Med (Febuxostat [Uloric]) 40 mg PO DAILY [facility] Last Admin: 11/23/16 08:37 Dose: 40 mg Home Med (Paricalcitol [Zemplar]) 1 mcg PO QOTHERDAY@1800 [facility] Last Admin: 11/21/16 17:12 Dose: 1 mcg Isosorbide Mononitrate (Imdur) 60 mg PO QPM [facility] Last Admin: 11/17/16 17:13 Dose: 60 mg Latanoprost (Xalatan Opht) 1 drop OU HS [facility] Last Admin: 11/22/16 21:52 Dose: 1 drop Lisinopril (Zestril) 2.5 mg PO QOTHERDAY [facility] Last Admin: 11/17/16 08:56 Dose: 2.5 mg Megestrol Acetate (Megace) 125 mg PO DAILY [facility] Last Admin: 11/22/16 09:20 Dose: 125 mg Morphine Sulfate (Morphine) 2 mg IVP Q6 PRN PRN Reason: Pain, severe (8-10) Last Admin: 11/17/16 01:45 Dose: 2 mg Nitroglycerin (Nitrostat Sl Tab) 0.4 mg SL Q5MIN PRN PRN Reason: Other Pantoprazole Sodium (Protonix Ec Tab) 40 mg PO QOTHERDAY [facility] Last Admin: 11/23/16 08:37 Dose: 40 mg Polyethylene Glycol (Miralax) 17 gm PO PRN PRN PRN Reason: Constipation Potassium Chloride (K-Dur 20 Meq Er Tab) 20 meq PO DAILY [facility] Last Admin: 11/23/16 08:36 Dose: 20 meq Sevelamer HCl (Renagel) 800 mg PO TID [facility] Last Admin: 11/23/16 08:36 Dose: 800 mg Sitagliptin Phosphate (Januvia) 50 mg PO DAILY [facility] Last Admin: 11/23/16 08:37 Dose: 50 mg Sodium Bicarbonate (Sodium Bicarbonate Tab) 650 mg PO BID [facility] Last Admin: 11/23/16 08:36 Dose: 650 mg - Labs Labs: 11/23/16 07:40 11/21/16 06:00 - Head Exam Head Exam: NORMAL INSPECTION - Eye Exam Eye Exam: Normal appearance - ENT Exam ENT Exam: Mucous Membranes Moist - Respiratory Exam Respiratory Exam: Clear to Ausculation Bilateral - Cardiovascular Exam Cardiovascular Exam: REGULAR RHYTHM - GI/Abdominal Exam GI & Abdominal Exam: Normal Bowel Sounds - Neurological Exam Neurological Exam: Awake, CN II-XII Intact, Oriented x3 Assessment and Plan (1) Physical debility Status: Acute (2) Chronic kidney disease, stage 3 Status: Chronic (3) Congestive heart failure Status: Chronic (4) Thrombocythemia Status: Chronic (5) CKD (chronic kidney disease) stage 3, GFR 30-59 ml/min Status: Chronic (6) Diabetes mellitus Status: Chronic - Assessment and Plan (Free Text) Plan: Cont meds Cont txCont PT follow up cbc. subacute rehab
--- NOTE | 2016-11-23 09:51 | CP.PCM.PN ---
Subjective - Date & Time of Evaluation Date of Evaluation: 11/22/16 Time of Evaluation: 09:40 - Subjective Subjective: Patient remains stable Has no chest pain or SOB Afebrile. Objective - Vital Signs/Intake and Output Vital Signs (last 24 hours): Temp Pulse Resp BP Pulse Ox 98.2 F 71 20 150/78 97 11/23/16 08:07 11/23/16 08:07 11/23/16 08:07 11/23/16 08:07 11/23/16 08:07 - Medications Medications: Current Medications Amlodipine Besylate (Norvasc) 5 mg PO DAILY [facility] Last Admin: 11/18/16 08:59 Dose: 5 mg Artificial Tears (Artificial Tears) 2 drop OU Q4 PRN PRN Reason: Dry eyes Last Admin: 11/20/16 15:12 Dose: 2 drop Atorvastatin Calcium (Lipitor) 10 mg PO HS [facility] Last Admin: 11/22/16 21:52 Dose: 10 mg Carvedilol (Coreg) 3.125 mg PO Q12 [facility] Last Admin: 11/18/16 08:53 Dose: 3.125 mg Docusate Sodium (Colace) 200 mg PO DAILY [facility] Last Admin: 11/23/16 08:37 Dose: 200 mg Ergocalciferol (Drisdol 50,000 Intl Units Cap) 1 cap PO SUN [facility] Last Admin: 11/22/16 09:19 Dose: 1 cap Finasteride (Proscar) 5 mg PO DAILY [facility] Last Admin: 11/23/16 08:37 Dose: 5 mg Furosemide (Lasix) 40 mg IVP DAILY [facility] Last Admin: 11/18/16 08:55 Dose: 40 mg Home Med (Febuxostat [Uloric]) 40 mg PO DAILY [facility] Last Admin: 11/23/16 08:37 Dose: 40 mg Home Med (Paricalcitol [Zemplar]) 1 mcg PO QOTHERDAY@1800 [facility] Last Admin: 11/21/16 17:12 Dose: 1 mcg Isosorbide Mononitrate (Imdur) 60 mg PO QPM [facility] Last Admin: 11/17/16 17:13 Dose: 60 mg Latanoprost (Xalatan Opht) 1 drop OU HS [facility] Last Admin: 11/22/16 21:52 Dose: 1 drop Lisinopril (Zestril) 2.5 mg PO QOTHERDAY [facility] Last Admin: 11/17/16 08:56 Dose: 2.5 mg Megestrol Acetate (Megace) 125 mg PO DAILY [facility] Last Admin: 11/22/16 09:20 Dose: 125 mg Morphine Sulfate (Morphine) 2 mg IVP Q6 PRN PRN Reason: Pain, severe (8-10) Last Admin: 11/17/16 01:45 Dose: 2 mg Nitroglycerin (Nitrostat Sl Tab) 0.4 mg SL Q5MIN PRN PRN Reason: Other Pantoprazole Sodium (Protonix Ec Tab) 40 mg PO QOTHERDAY [facility] Last Admin: 11/23/16 08:37 Dose: 40 mg Polyethylene Glycol (Miralax) 17 gm PO PRN PRN PRN Reason: Constipation Potassium Chloride (K-Dur 20 Meq Er Tab) 20 meq PO DAILY [facility] Last Admin: 11/23/16 08:36 Dose: 20 meq Sevelamer HCl (Renagel) 800 mg PO TID [facility] Last Admin: 11/23/16 08:36 Dose: 800 mg Sitagliptin Phosphate (Januvia) 50 mg PO DAILY [facility] Last Admin: 11/23/16 08:37 Dose: 50 mg Sodium Bicarbonate (Sodium Bicarbonate Tab) 650 mg PO BID [facility] Last Admin: 11/23/16 08:36 Dose: 650 mg - Labs Labs: 11/23/16 07:40 11/21/16 06:00 - Head Exam Head Exam: NORMAL INSPECTION - Eye Exam Eye Exam: Normal appearance - ENT Exam ENT Exam: Mucous Membranes Moist - Respiratory Exam Respiratory Exam: Clear to Ausculation Bilateral - Cardiovascular Exam Cardiovascular Exam: REGULAR RHYTHM - GI/Abdominal Exam GI & Abdominal Exam: Normal Bowel Sounds - Neurological Exam Neurological Exam: Awake, CN II-XII Intact, Oriented x3 Assessment and Plan (1) Physical debility Status: Acute (2) Chronic kidney disease, stage 3 Status: Chronic (3) Congestive heart failure Status: Chronic (4) Thrombocythemia Status: Chronic (5) CKD (chronic kidney disease) stage 3, GFR 30-59 ml/min Status: Chronic (6) Diabetes mellitus Status: Chronic - Assessment and Plan (Free Text) Plan: Cont medsCon ttx Cont PT
[2016-11-23] MEDS ORDERED: Megestrol Acetate 40 mg/ml Cup PO SCH (11:45)
[2016-11-23 12:40] VITALS: BP 123/73
[2016-11-23] MEDS: Megestrol Acetate 40 mg/ml Cup PO SCH (14:56)
--- NOTE | 2016-11-25 10:22 | CP.PCM.DIS ---
Provider - Provider Date of Admission: 11/17/16 09:16 Attending physician: Arthur Mccain MD Diagnosis - Discharge Diagnosis (1) Physical debility Status: Acute (2) Chronic kidney disease, stage 3 Status: Chronic (3) Congestive heart failure Status: Chronic (4) Thrombocythemia Status: Chronic (5) CKD (chronic kidney disease) stage 3, GFR 30-59 ml/min Status: Chronic (6) Diabetes mellitus Status: Chronic Hospital Course - Lab Results Lab Results: Most Recent Lab Values WBC 4.3 K/uL (4.8-10.8) L 11/23/16 07:40 RBC 3.42 Mil/uL (4.40-5.90) L 11/23/16 07:40 Hgb 11.5 g/dL (12.0-18.0) L 11/23/16 07:40 Hct 34.2 % (35.0-51.0) L 11/23/16 07:40 MCV 100.1 fl (80.0-94.0) H 11/23/16 07:40 MCH 33.6 pg (27.0-31.0) H 11/23/16 07:40 MCHC 33.5 g/dL (33.0-37.0) 11/23/16 07:40 RDW 22.8 % (11.5-14.5) H 11/23/16 07:40 Plt Count 58 K/uL (130-400) L 11/23/16 07:40 Manual Plt Count 24 K/uL (130-400) L* 11/19/16 08:10 MPV 9.3 fl (7.2-11.7) 11/16/16 20:16 Neut % (Auto) 25.4 % (50.0-75.0) L 11/16/16 20:16 Lymph % (Auto) 66.2 % (20.0-40.0) H 11/16/16 20:16 [place] % (Auto) 5.2 % (0.0-10.0) 11/16/16 20:16 Eos % (Auto) 1.7 % (0.0-4.0) 11/16/16 20:16 Baso % (Auto) 1.5 % (0.0-2.0) 11/16/16 20:16 Neut # 1.6 K/uL (1.8-7.0) L 11/16/16 20:16 Lymph # 4.1 K/uL (1.0-4.3) 11/16/16 20:16 [place] # 0.3 K/uL (0.0-0.8) 11/16/16 20:16 Eos # 0.1 K/uL (0.0-0.7) 11/16/16 20:16 Baso # 0.1 K/uL (0.0-0.2) 11/16/16 20:16 Sodium 138 mmol/l (132-148) 11/21/16 06:00 Potassium 4.3 MMOL/L (3.6-5.0) 11/21/16 06:00 Chloride 107 mmol/L (98-107) 11/21/16 06:00 Carbon Dioxide 24 mmol/L (22-30) 11/21/16 06:00 Anion Gap 12 (10-20) 11/21/16 06:00 BUN 54 mg/dl (9-20) H 11/21/16 06:00 Creatinine 2.1 mg/dL (0.8-1.5) H 11/21/16 06:00 Est GFR ( Amer) 36 11/21/16 06:00 Est GFR (Non-Af Amer) 30 11/21/16 06:00 POC Glucose (mg/dL) 152 mg/dL (65-110) H 11/23/16 12:04 Random Glucose 95 mg/dL (75-110) 11/21/16 06:00 Calcium 9.2 mg/dL (8.4-10.2) 11/21/16 06:00 Total Bilirubin 0.4 mg/dl (0.2-1.3) 11/16/16 19:27 AST 18 U/L (17-59) 11/16/16 19:27 ALT 22 U/L (21-72) 11/16/16 19:27 Alkaline Phosphatase 60 U/L (38-126) 11/16/16 19:27 Troponin I 1.0600 ng/mL (0.00-0.120) H* 11/18/16 06:30 NT-Pro-B Natriuret Pep 06355 pg/ml (0-900) H 11/20/16 05:40 Total Protein 7.3 G/DL (6.3-8.2) 11/16/16 19:27 Albumin 3.5 g/dL (3.5-5.0) 11/16/16 19:27 Globulin 3.8 gm/dL (2.2-3.9) 11/16/16 19:27 Albumin/Globulin Ratio 0.9 (1.0-2.1) L 11/16/16 19:27 Amylase 88 U/L (30-110) 11/20/16 05:40 Lipase 38 U/L (23-300) 11/20/16 05:40 Vitamin B12 > 1000 pg/mL (239-931) H 11/19/16 05:45 Folate > 20.0 ng/mL 11/19/16 05:45 Urine Color Yellow (YELLOW) 11/16/16 22:39 Urine Clarity Slighty-cloudy (Clear) 11/16/16 22:39 Urine pH 5.0 (5.0-8.0) 11/16/16 22:39 Ur Specific [place] 1.011 (1.003-1.030) 11/16/16 22:39 Urine Protein 100 mg/dL (NEGATIVE) 11/16/16 22:39 Urine Glucose (UA) Neg mg/dL (Normal) 11/16/16 22:39 Urine Ketones Negative mg/dL (NEGATIVE) 11/16/16 22:39 Urine Blood Negative (NEGATIVE) 11/16/16 22:39 Urine Nitrate Negative (NEGATIVE) 11/16/16 22:39 Urine Bilirubin Negative (NEGATIVE) 11/16/16 22:39 Urine Urobilinogen 0.2-1.0 mg/dL (0.2-1.0) 11/16/16 22:39 Ur Leukocyte Esterase Neg [place]/uL (Negative) 11/16/16 22:39 Urine RBC (Auto) 1 /hpf (0-3) 11/16/16 22:39 Urine Microscopic WBC 1 /hpf (0-5) 11/16/16 22:39 Ur Squamous Epith Cells 1 /hpf (0-5) 11/16/16 22:39 Urine Bacteria Rare (<OCC) 11/16/16 22:39 - Hospital Course Hospital Course: This is an 86 y/o male admitted for gen debility. Noted to have severe thrombocytopenia and had exacerbation of COPD. Also noted pulm congestion on CXR. Discharge Exam - Head Exam Head Exam: NORMAL INSPECTION Discharge Plan - Follow Up Plan Condition: FAIR Disposition: TRANSF TO SNF Instructions: Heart Failure (DC), Chest Pain (DC) Additional Instructions: patient cleared for discharge to TCU today by f/u with , and Cardiac meds on hold due to hypotension , see reconciliation Referrals: Arthur Mccain MD [Staff Provider] - Jarred Joshua MD [Staff Provider] -
--- NOTE | 2016-11-25 10:24 | CP.PCM.HP ---
History of Present Illness - History of Present Illness History of Present Illness: This is an 86 y/o male admitted for TCU subacute rehab. He had severe thrombocytopenia and was very debilitated. while at the medical floor. He was also noted to have chest congestion and was given iv antibiotics and low dose Lasix. Past Patient History - Past Medical History & Family History Past Medical History?: Yes - Past Social History Smoking Status: Never Smoked - CARDIAC Hx Hypercholesterolemia: Yes Hx Hypertension: Yes - PULMONARY Hx Asthma: Yes - NEUROLOGICAL Hx Neurological Disorder: No Hx Dizziness: No - HEENT Hx HEENT Problems: Yes Hx Cataracts: Yes Hx Glaucoma: Yes Other/Comment: hard of hearing - RENAL Hx Chronic Kidney Disease: Yes Hx Kidney Stones: Yes - ENDOCRINE/METABOLIC Hx Hypothyroidism: Yes - HEMATOLOGICAL/ONCOLOGICAL Hx Anemia: Yes Hx Human Immunodeficiency Virus (HIV): No - INTEGUMENTARY Hx Dermatological Problems: No - MUSCULOSKELETAL/RHEUMATOLOGICAL Hx Musculoskeletal Disorders: No Hx Falls: No - GASTROINTESTINAL Hx Diverticulitis: Yes Hx Gall Bladder Disease: Yes Hx Pancreatitis: Yes (Myelodisplastic Syndrom) - GENITOURINARY/GYNECOLOGICAL Hx Genitourinary Disorders: Yes Hx Prostate Problems: Yes - PSYCHIATRIC Hx Psychophysiologic Disorder: No Hx Substance Use: No - SURGICAL HISTORY Hx Cholecystectomy: Yes 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) Hx Coronary Stent: Yes (1994) - ANESTHESIA Hx Anesthesia: Yes Hx Anesthesia Reactions: No Hx Malignant Hyperthermia: No Has any member of the family had a problem w/ anesthesia?: No Meds Home Medications: Home Medication List Medication Instructions Recorded Confirmed Type Atorvastatin [Lipitor] 10 mg PO HS tab 11/23/16 Rx Docusate [Colace] 200 mg PO DAILY cap 11/23/16 Rx Latanoprost 0.005% Opht [Xalatan 1 drop OU HS bottle 11/23/16 Rx Opht] Megestrol Acetate [Megace] 400 mg PO DAILY 11/23/16 Rx Polyethylene Glycol 3350 [Miralax] 17 gm PO PRN PRN packet 11/23/16 Rx Polyethylene Glycol/Polyvinyl 2 drop OU Q4 PRN bottle 11/23/16 Rx [Artificial Tears] Potassium Chloride [K-Dur 20 mEq 20 meq PO DAILY tab 11/23/16 Rx ER Tab] SITagliptin [Januvia] 50 mg PO DAILY tab 11/23/16 Rx Sevelamer [Renagel] 800 mg PO TID tab 11/23/16 Rx Sodium Bicarbonate Tab 650 mg PO BID tab 11/23/16 Rx Allergies/Adverse Reactions: Allergies Allergy/AdvReac Type Severity Reaction Status Date / Time No Known Allergies Allergy Verified 11/11/16 09:51 Results - Vital Signs Recent Vital Signs: Last Vital Signs Temp 98.2 F 11/23/16 12:00 Pulse 71 11/23/16 12:00 Resp 20 11/23/16 12:00 BP 123/73 11/23/16 12:00 Pulse Ox 97 11/23/16 12:00 - Labs Result Diagrams: 11/23/16 07:40 11/21/16 06:00 Assessment & Plan (1) Physical debility Status: Acute (2) Chronic kidney disease, stage 3 Status: Chronic (3) Congestive heart failure Status: Chronic (4) Thrombocythemia Status: Chronic (5) CKD (chronic kidney disease) stage 3, GFR 30-59 ml/min Status: Chronic (6) Diabetes mellitus Status: Chronic
--- NOTE | 2016-11-25 10:25 | CP.PCM.PN ---
Subjective - Date & Time of Evaluation Date of Evaluation: 11/25/16 Time of Evaluation: 10:24 - Subjective Subjective: Patient feels a lot better today Has no chest pain or SOB very oriented. Objective - Vital Signs/Intake and Output Vital Signs (last 24 hours): Temp Pulse Resp BP Pulse Ox 98.2 F 71 20 123/73 97 11/23/16 12:00 11/23/16 12:00 11/23/16 12:00 11/23/16 12:00 11/23/16 12:00 - Labs Labs: 11/23/16 07:40 11/21/16 06:00 Assessment and Plan (1) Physical debility Status: Acute (2) Chronic kidney disease, stage 3 Status: Chronic (3) Congestive heart failure Status: Chronic (4) Thrombocythemia Status: Chronic (5) CKD (chronic kidney disease) stage 3, GFR 30-59 ml/min Status: Chronic (6) Diabetes mellitus Status: Chronic
== END 2016-11-23 15:28 | DRG 291 ==
LOC: H.ER 18:53 → H.ERHOLD 21:08 → H.TEL 23:04 → OBSVTOIN 11-17 09:16
PROVIDERS: ADMIT Family Medicine; ATTEND Family Medicine
PROC: 30233R1 Transfusion of Nonautologous Platelets into Peripheral Vein, Percutaneous Approach (ICD-10-PCS; principal; 2016-11-19)
DX: I13.0 Hypertensive heart and chronic kidney disease with heart failure and stage 1 through stage 4 chronic kidney disease, or unspecified chronic kidney disease (principal); I50.23 Acute on chronic systolic (congestive) heart failure; D69.59 Other secondary thrombocytopenia; E11.22 Type 2 diabetes mellitus with diabetic chronic kidney disease; N18.3 Chronic kidney disease, stage 3 (moderate); R54 Age-related physical debility; D46.9 Myelodysplastic syndrome, unspecified; K59.00 Constipation, unspecified; D64.9 Anemia, unspecified; D47.3 Essential (hemorrhagic) thrombocythemia; I95.2 Hypotension due to drugs; Z95.1 Presence of aortocoronary bypass graft; E03.9 Hypothyroidism, unspecified; I25.5 Ischemic cardiomyopathy; I25.10 Atherosclerotic heart disease of native coronary artery without angina pectoris; E78.5 Hyperlipidemia, unspecified; E78.00 Pure hypercholesterolemia, unspecified; Z95.5 Presence of coronary angioplasty implant and graft; J45.909 Unspecified asthma, uncomplicated; N40.0 Benign prostatic hyperplasia without lower urinary tract symptoms; Z87.442 Personal history of urinary calculi; Z79.02 Long term (current) use of antithrombotics/antiplatelets

== ENCOUNTER 2016-11-23 14:49 | Inpatient (IN) | payer OTHER ==
[2016-11-23 15:39] VITALS: BMI 26.6
[2016-11-23] MEDS ORDERED: POLYETHYLENE GLYCOL 3350 17 GM/Dose PACKET PO PRN ×2 (16:17→18:02)
[2016-11-23] MEDS ORDERED: Artificial Tears Opht Soln OU PRN (16:17)
[2016-11-23 18:18] VITALS: RESP 20
[2016-11-23] MEDS: Latanoprost 0.005% Opht SOUTION OU SCH (21:28)
[2016-11-23] MEDS ORDERED: Patient's Own Med (Bimatoprost [Lumigan] 1 DROP) BOTHEYES SCH (22:00)
[2016-11-24] MEDS: Potassium Chloride 20 mEq ER Tab PO SCH (09:17)
[2016-11-24] MEDS: Megestrol Acetate 40 mg/ml Cup PO SCH (09:27)
[2016-11-24] MEDS: Latanoprost 0.005% Opht SOUTION OU SCH (21:13)
[2016-11-25] MEDS: Megestrol Acetate 40 mg/ml Cup PO SCH (08:48)
[2016-11-25] MEDS: Pantoprazole 40 mg EC Tab PO SCH (08:48)
[2016-11-25] MEDS: Potassium Chloride 20 mEq ER Tab PO SCH (08:49)
[2016-11-25] MEDS: Patient's Own Med (Paricalcitol [Zemplar] 1 MCG) PO SCH (08:50)
[2016-11-25] MEDS: Latanoprost 0.005% Opht SOUTION OU SCH (21:30)
[2016-11-26] MEDS: Megestrol Acetate 40 mg/ml Cup PO SCH (09:11)
[2016-11-26] MEDS: Potassium Chloride 20 mEq ER Tab PO SCH (09:11)
--- NOTE | 2016-11-26 09:11 | CP.PCM.PN ---
Subjective - Date & Time of Evaluation Date of Evaluation: 11/26/16 Time of Evaluation: 09:09 - Subjective Subjective: Pt is feeling very good. he has been sitting up quite a few hrs, is participating in the physical therappy wbc 4.3, hgb 11.5gms and platelets 58 3 days ago. I discusses with the temperature regulator Dr Joshua and Dr Mccain and we all agree that with a count of 58 (which will surely go down soon) there is a bleeding risk with the plavix. Will repeat the CBC today. If the platelet count is above 75K he is somewhat safe to get the Plavix. Objective - Vital Signs/Intake and Output Vital Signs (last 24 hours): Temp Pulse Resp BP Pulse Ox 98.2 F 72 20 105/55 L 99 11/26/16 08:02 11/26/16 08:02 11/26/16 08:02 11/26/16 08:02 11/26/16 08:02 - Medications Medications: Current Medications Artificial Tears (Artificial Tears) 2 drop OU Q4 PRN PRN Reason: Dry eyes Atorvastatin Calcium (Lipitor) 10 mg PO HS [facility] Last Admin: 11/25/16 21:30 Dose: 10 mg Docusate Sodium (Colace) 200 mg PO DAILY [facility] Last Admin: 11/25/16 08:47 Dose: 200 mg Ergocalciferol (Drisdol 50,000 Intl Units Cap) 1 cap PO SUN [facility] Finasteride (Proscar) 5 mg PO DAILY [facility] Last Admin: 11/25/16 08:49 Dose: 5 mg Home Med (Febuxostat [Uloric]) 40 mg PO DAILY [facility] Last Admin: 11/25/16 08:50 Dose: Not Given Home Med (Paricalcitol [Zemplar]) 1 mcg PO QOTHERDAY [facility] Last Admin: 11/25/16 08:50 Dose: 1 mcg Lactulose (Enulose) 20 gm PO BID PRN PRN Reason: Constipation Latanoprost (Xalatan Opht) 1 drop OU HS [facility] Last Admin: 11/25/16 21:30 Dose: 1 drop Megestrol Acetate (Megace) 400 mg PO DAILY [facility] Last Admin: 11/25/16 08:48 Dose: 400 mg Pantoprazole Sodium (Protonix Ec Tab) 40 mg PO QOTHERDAY [facility] Last Admin: 11/25/16 08:48 Dose: 40 mg Polyethylene Glycol (Miralax) 17 gm PO DAILY PRN PRN Reason: Constipation Last Admin: 11/24/16 09:19 Dose: 17 gm Potassium Chloride (K-Dur 20 Meq Er Tab) 20 meq PO DAILY [facility] Last Admin: 11/25/16 08:49 Dose: 20 meq Sevelamer HCl (Renagel) 800 mg PO TID [facility] Last Admin: 11/25/16 17:04 Dose: 800 mg Sitagliptin Phosphate (Januvia) 50 mg PO DAILY [facility] Last Admin: 11/25/16 08:49 Dose: 50 mg Sodium Bicarbonate (Sodium Bicarbonate Tab) 650 mg PO BID [facility] Last Admin: 11/25/16 17:04 Dose: 650 mg
[2016-11-26 10:43] LABS: BASO % 1.3 % (0.0-2.0); EOS # 0.1 K/uL (0.0-0.7); EOS % 2.4 % (0.0-4.0); HEMATOCRIT 30.5 % (35.0-51.0); LYMPH # 2.1 K/uL (1.0-4.3); LYMPH % 64.2 % (20.0-40.0); MEAN CELL VOLUME 100.8 fl (80.0-94.0); MEAN CORPUSCULAR HEMOGLOBIN 33.5 pg (27.0-31.0); MEAN CORPUSCULAR HGB CONC 33.2 g/dL (33.0-37.0); MEAN PLATELET VOLUME 9.7 fl (7.2-11.7); MONO # 0.2 K/uL (0.0-0.8); MONO % 4.7 % (0.0-10.0); NEUT # 0.9 K/uL (1.8-7.0); NEUT % 27.4 % (50.0-75.0); NRBC % 0.2 % (0.0-0.0); RED CELL DISTRIBUTION WIDTH 22.7 % (11.5-14.5); WHITE BLOOD COUNT 3.2 K/uL (4.8-10.8)
[2016-11-26 11:59] LABS: PLATELET COUNT 45 K/uL (130-400)
[2016-11-26 16:14] LABS: BASOPHIL 2 % (0-2); EOSINOPHIL 2 % (0-7); NEUTROPHIL 29 % (42-75); REACTIVE LYMPHOCYTES 1 % (0-0); TOTAL CELLS COUNTED 100
[2016-11-26] MEDS: Latanoprost 0.005% Opht SOUTION OU SCH (21:01)
[2016-11-27] MEDS: Potassium Chloride 20 mEq ER Tab PO SCH (08:42)
[2016-11-27] MEDS: Pantoprazole 40 mg EC Tab PO SCH (08:43)
[2016-11-27] MEDS: Patient's Own Med (Paricalcitol [Zemplar] 1 MCG) PO SCH (08:43)
[2016-11-27] MEDS: Megestrol Acetate 40 mg/ml Cup PO SCH (08:44)
--- NOTE | 2016-11-27 09:40 | CP.PCM.HP ---
History of Present Illness - History of Present Illness History of Present Illness: This is an 86 y/o male admitted for general debility. He was transferred from the medical floor after having mild congestion, worsening of thrombocytopenia and episodes of delirium and hypotension. He received platelet transfusion. He was started on phys therapy and tranefered for durther rehab. Present on Admission - Present on Admission Any Indicators Present on Admission: No History of DVT/PE: No History of Uncontrolled Diabetes: Yes Urinary Catheter: No Decubitus Ulcer Present: No Review of Systems - Review of Systems Systems not reviewed;Unavailable: Altered Mental Status Past Patient History - Past Medical History & Family History Past Medical History?: Yes - Past Social History Smoking Status: Never Smoked - CARDIAC Hx Hypercholesterolemia: Yes Hx Hypertension: Yes - PULMONARY Hx Asthma: Yes - NEUROLOGICAL Hx Neurological Disorder: No Hx Dizziness: No - HEENT Hx HEENT Problems: Yes Hx Cataracts: Yes Hx Glaucoma: Yes Other/Comment: hard of hearing - RENAL Hx Chronic Kidney Disease: Yes Hx Kidney Stones: Yes - ENDOCRINE/METABOLIC Hx Diabetes Mellitus Type 2: Yes Hx Hypothyroidism: Yes - HEMATOLOGICAL/ONCOLOGICAL Hx Anemia: Yes Hx Human Immunodeficiency Virus (HIV): No - INTEGUMENTARY Hx Dermatological Problems: No - MUSCULOSKELETAL/RHEUMATOLOGICAL Hx Musculoskeletal Disorders: No Hx Falls: No - GASTROINTESTINAL Hx Diverticulitis: Yes Hx Gall Bladder Disease: Yes Hx Pancreatitis: Yes (Myelodisplastic Syndrom) - GENITOURINARY/GYNECOLOGICAL Hx Genitourinary Disorders: Yes Hx Prostate Problems: Yes - PSYCHIATRIC Hx Psychophysiologic Disorder: No Hx Substance Use: No - SURGICAL HISTORY Hx Cholecystectomy: Yes 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) Hx Coronary Stent: Yes (1994) - ANESTHESIA Hx Anesthesia: Yes Hx Anesthesia Reactions: No Hx Malignant Hyperthermia: No Has any member of the family had a problem w/ anesthesia?: No Meds Allergies/Adverse Reactions: Allergies Allergy/AdvReac Type Severity Reaction Status Date / Time No Known Allergies Allergy Verified 11/11/16 09:51 Physical Exam - Head Exam Head Exam: NORMAL INSPECTION - Eye Exam Eye Exam: Normal appearance - ENT Exam ENT Exam: Mucous Membranes Moist - Respiratory Exam Respiratory Exam: Clear to Auscultation Bilateral - Cardiovascular Exam Cardiovascular Exam: REGULAR RHYTHM - GI/Abdominal Exam GI & Abdominal Exam: Normal Bowel Sounds - Neurological Exam Neurological exam: CN II-XII Intact, Oriented x3 - Psychiatric Exam Psychiatric exam: Normal Mood Results - Vital Signs Recent Vital Signs: Last Vital Signs Temp 97.9 F 11/27/16 07:59 Pulse 71 11/27/16 07:59 Resp 20 11/27/16 07:59 BP 109/54 L 11/27/16 07:59 Pulse Ox 97 11/27/16 07:59 - Labs Result Diagrams: 12/02/16 06:00 11/30/16 06:00 Labs: Laboratory Results - last 24 hr 11/26/16 11/26/16 11/26/16 10:20 10:58 16:32 WBC 3.2 L RBC 3.03 L Hgb 10.2 L Hct 30.5 L MCV 100.8 H MCH 33.5 H MCHC 33.2 RDW 22.7 H Plt Count 45 L MPV 9.7 Neut % (Auto) 27.4 L Lymph % (Auto) 64.2 H [place] % (Auto) 4.7 Eos % (Auto) 2.4 Baso % (Auto) 1.3 Neut # 0.9 L Lymph # 2.1 [place] # 0.2 Eos # 0.1 Baso # 0.0 Neutrophils % (Manual) 29 L Band Neutrophils % 2 Lymphocytes % (Manual) 59 H Reactive Lymphs % 1 H Monocytes % (Manual) 5 Eosinophils % (Manual) 2 Basophils % (Manual) 2 Platelet Estimate Markedly decreased L Poikilocytosis (manual Moderate Anisocytosis (manual) Moderate Tear Drop Cells Slight Ovalocytes Slight POC Glucose (mg/dL) 172 H 110 11/26/16 11/27/16 21:22 06:04 WBC RBC Hgb Hct MCV MCH MCHC RDW Plt Count MPV Neut % (Auto) Lymph % (Auto) [place] % (Auto) Eos % (Auto) Baso % (Auto) Neut # Lymph # [place] # Eos # Baso # Neutrophils % (Manual) Band Neutrophils % Lymphocytes % (Manual) Reactive Lymphs % Monocytes % (Manual) Eosinophils % (Manual) Basophils % (Manual) Platelet Estimate Poikilocytosis (manual Anisocytosis (manual) Tear Drop Cells Ovalocytes POC Glucose (mg/dL) 170 H 100 Assessment & Plan (1) Physical debility Status: Acute (2) Acquired thrombocytopenia Status: Acute (3) Altered mental status, unspecified Status: Acute (4) Anemia Status: Acute (5) CAD (coronary atherosclerotic disease) Status: Acute (6) CKD (chronic kidney disease) stage 4, GFR 15-29 ml/min Status: Acute (7) Diabetes mellitus type 2 in nonobese Status: Chronic (8) Hypertension Status: Chronic - Assessment and Plan (Free Text) Plan: Phys therapy monitor CBC\contmeds cont PT co ttx.
--- NOTE | 2016-11-27 09:41 | CP.PCM.PN ---
Subjective - Date & Time of Evaluation Date of Evaluation: 11/25/16 Time of Evaluation: 10:00 - Subjective Subjective: Patient remains stable Noted stable platelet Has no chest pain or SOB Doing well with phys therapy Objective - Vital Signs/Intake and Output Vital Signs (last 24 hours): Temp Pulse Resp BP Pulse Ox 97.9 F 71 20 109/54 L 97 11/27/16 07:59 11/27/16 07:59 11/27/16 07:59 11/27/16 07:59 11/27/16 07:59 - Medications Medications: Current Medications Artificial Tears (Artificial Tears) 2 drop OU Q4 PRN PRN Reason: Dry eyes Atorvastatin Calcium (Lipitor) 10 mg PO HS [facility] Last Admin: 11/26/16 21:01 Dose: 10 mg Docusate Sodium (Colace) 200 mg PO DAILY [facility] Last Admin: 11/27/16 08:39 Dose: 200 mg Ergocalciferol (Drisdol 50,000 Intl Units Cap) 1 cap PO SUN [facility] Finasteride (Proscar) 5 mg PO DAILY [facility] Last Admin: 11/27/16 08:43 Dose: 5 mg Home Med (Febuxostat [Uloric]) 40 mg PO DAILY [facility] Last Admin: 11/27/16 08:41 Dose: 40 mg Home Med (Paricalcitol [Zemplar]) 1 mcg PO QOTHERDAY [facility] Last Admin: 11/27/16 08:43 Dose: 1 mcg Lactulose (Enulose) 20 gm PO BID PRN PRN Reason: Constipation Latanoprost (Xalatan Opht) 1 drop OU HS [facility] Last Admin: 11/26/16 21:01 Dose: 1 drop Megestrol Acetate (Megace) 400 mg PO DAILY [facility] Last Admin: 11/27/16 08:44 Dose: 400 mg Pantoprazole Sodium (Protonix Ec Tab) 40 mg PO QOTHERDAY [facility] Last Admin: 11/27/16 08:43 Dose: 40 mg Polyethylene Glycol (Miralax) 17 gm PO DAILY PRN PRN Reason: Constipation Last Admin: 11/24/16 09:19 Dose: 17 gm Potassium Chloride (K-Dur 20 Meq Er Tab) 20 meq PO DAILY [facility] Last Admin: 11/27/16 08:42 Dose: 20 meq Sevelamer HCl (Renagel) 800 mg PO TID [facility] Last Admin: 11/27/16 08:43 Dose: 800 mg Sitagliptin Phosphate (Januvia) 50 mg PO DAILY [facility] Last Admin: 11/27/16 08:41 Dose: 50 mg Sodium Bicarbonate (Sodium Bicarbonate Tab) 650 mg PO BID [facility] Last Admin: 11/27/16 08:44 Dose: 650 mg - Labs Labs: 11/26/16 10:20 - Head Exam Head Exam: NORMAL INSPECTION - Eye Exam Eye Exam: Normal appearance - ENT Exam ENT Exam: Mucous Membranes Moist - Respiratory Exam Respiratory Exam: Clear to Ausculation Bilateral - Cardiovascular Exam Cardiovascular Exam: REGULAR RHYTHM - GI/Abdominal Exam GI & Abdominal Exam: Normal Bowel Sounds - Neurological Exam Neurological Exam: Awake, Oriented x3 - Psychiatric Exam Psychiatric exam: Normal Mood Assessment and Plan (1) Physical debility Status: Acute (2) CAD (coronary artery disease) Status: Acute (3) Acquired thrombocytopenia Status: Acute (4) CAD (coronary atherosclerotic disease) Status: Acute (5) CKD (chronic kidney disease) stage 4, GFR 15-29 ml/min Status: Acute (6) 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
--- NOTE | 2016-11-27 09:43 | CP.PCM.PN ---
Subjective - Date & Time of Evaluation Date of Evaluation: 11/26/16 Time of Evaluation: 10:30 - Subjective Subjective: Patient is much more awake an alert and fully oriented. Noted platelet to be 45 Has no sx of bleeding Objective - Vital Signs/Intake and Output Vital Signs (last 24 hours): Temp Pulse Resp BP Pulse Ox 97.9 F 71 20 109/54 L 97 11/27/16 07:59 11/27/16 07:59 11/27/16 07:59 11/27/16 07:59 11/27/16 07:59 - Medications Medications: Current Medications Artificial Tears (Artificial Tears) 2 drop OU Q4 PRN PRN Reason: Dry eyes Atorvastatin Calcium (Lipitor) 10 mg PO HS [facility] Last Admin: 11/26/16 21:01 Dose: 10 mg Docusate Sodium (Colace) 200 mg PO DAILY [facility] Last Admin: 11/27/16 08:39 Dose: 200 mg Ergocalciferol (Drisdol 50,000 Intl Units Cap) 1 cap PO SUN [facility] Finasteride (Proscar) 5 mg PO DAILY [facility] Last Admin: 11/27/16 08:43 Dose: 5 mg Home Med (Febuxostat [Uloric]) 40 mg PO DAILY [facility] Last Admin: 11/27/16 08:41 Dose: 40 mg Home Med (Paricalcitol [Zemplar]) 1 mcg PO QOTHERDAY [facility] Last Admin: 11/27/16 08:43 Dose: 1 mcg Lactulose (Enulose) 20 gm PO BID PRN PRN Reason: Constipation Latanoprost (Xalatan Opht) 1 drop OU HS [facility] Last Admin: 11/26/16 21:01 Dose: 1 drop Megestrol Acetate (Megace) 400 mg PO DAILY [facility] Last Admin: 11/27/16 08:44 Dose: 400 mg Pantoprazole Sodium (Protonix Ec Tab) 40 mg PO QOTHERDAY [facility] Last Admin: 11/27/16 08:43 Dose: 40 mg Polyethylene Glycol (Miralax) 17 gm PO DAILY PRN PRN Reason: Constipation Last Admin: 11/24/16 09:19 Dose: 17 gm Potassium Chloride (K-Dur 20 Meq Er Tab) 20 meq PO DAILY [facility] Last Admin: 11/27/16 08:42 Dose: 20 meq Sevelamer HCl (Renagel) 800 mg PO TID [facility] Last Admin: 11/27/16 08:43 Dose: 800 mg Sitagliptin Phosphate (Januvia) 50 mg PO DAILY [facility] Last Admin: 11/27/16 08:41 Dose: 50 mg Sodium Bicarbonate (Sodium Bicarbonate Tab) 650 mg PO BID [facility] Last Admin: 11/27/16 08:44 Dose: 650 mg - Labs Labs: 11/26/16 10:20 - Head Exam Head Exam: NORMAL INSPECTION - Eye Exam Eye Exam: Normal appearance - ENT Exam ENT Exam: Mucous Membranes Moist - Respiratory Exam Respiratory Exam: Clear to Ausculation Bilateral - Cardiovascular Exam Cardiovascular Exam: REGULAR RHYTHM - GI/Abdominal Exam GI & Abdominal Exam: Normal Bowel Sounds - Neurological Exam Neurological Exam: Awake, Oriented x3 - Psychiatric Exam Psychiatric exam: Normal Mood Assessment and Plan (1) Physical debility Status: Acute (2) Anemia Status: Acute (3) CAD (coronary atherosclerotic disease) Status: Acute (4) Chronic kidney disease, stage 3 Status: Chronic (5) Congestive heart failure Status: Chronic (6) Hypertension Status: Chronic (7) Thrombocythemia Status: Chronic - Assessment and Plan (Free Text) Plan: Cont meds Cont PT Cont monitor cbc cont meds.
--- NOTE | 2016-11-27 09:45 | CP.PCM.PN ---
Subjective - Date & Time of Evaluation Date of Evaluation: 11/27/16 Time of Evaluation: 09:43 - Subjective Subjective: Patient is doing a lot better with therapy Mood is up No episode of delirium Has no chest pain or SOB. Noted platelet to be 45 yesterday Hgb is stable. Objective - Vital Signs/Intake and Output Vital Signs (last 24 hours): Temp Pulse Resp BP Pulse Ox 97.9 F 71 20 109/54 L 97 11/27/16 07:59 11/27/16 07:59 11/27/16 07:59 11/27/16 07:59 11/27/16 07:59 - Medications Medications: Current Medications Artificial Tears (Artificial Tears) 2 drop OU Q4 PRN PRN Reason: Dry eyes Atorvastatin Calcium (Lipitor) 10 mg PO HS [facility] Last Admin: 11/26/16 21:01 Dose: 10 mg Docusate Sodium (Colace) 200 mg PO DAILY [facility] Last Admin: 11/27/16 08:39 Dose: 200 mg Ergocalciferol (Drisdol 50,000 Intl Units Cap) 1 cap PO SUN [facility] Finasteride (Proscar) 5 mg PO DAILY [facility] Last Admin: 11/27/16 08:43 Dose: 5 mg Home Med (Febuxostat [Uloric]) 40 mg PO DAILY [facility] Last Admin: 11/27/16 08:41 Dose: 40 mg Home Med (Paricalcitol [Zemplar]) 1 mcg PO QOTHERDAY [facility] Last Admin: 11/27/16 08:43 Dose: 1 mcg Lactulose (Enulose) 20 gm PO BID PRN PRN Reason: Constipation Latanoprost (Xalatan Opht) 1 drop OU HS [facility] Last Admin: 11/26/16 21:01 Dose: 1 drop Megestrol Acetate (Megace) 400 mg PO DAILY [facility] Last Admin: 11/27/16 08:44 Dose: 400 mg Pantoprazole Sodium (Protonix Ec Tab) 40 mg PO QOTHERDAY [facility] Last Admin: 11/27/16 08:43 Dose: 40 mg Polyethylene Glycol (Miralax) 17 gm PO DAILY PRN PRN Reason: Constipation Last Admin: 11/24/16 09:19 Dose: 17 gm Potassium Chloride (K-Dur 20 Meq Er Tab) 20 meq PO DAILY [facility] Last Admin: 11/27/16 08:42 Dose: 20 meq Sevelamer HCl (Renagel) 800 mg PO TID [facility] Last Admin: 11/27/16 08:43 Dose: 800 mg Sitagliptin Phosphate (Januvia) 50 mg PO DAILY [facility] Last Admin: 11/27/16 08:41 Dose: 50 mg Sodium Bicarbonate (Sodium Bicarbonate Tab) 650 mg PO BID [facility] Last Admin: 11/27/16 08:44 Dose: 650 mg - Labs Labs: 11/26/16 10:20 - Head Exam Head Exam: NORMAL INSPECTION - Eye Exam Eye Exam: Normal appearance - ENT Exam ENT Exam: Mucous Membranes Moist - Respiratory Exam Respiratory Exam: Clear to Ausculation Bilateral - Cardiovascular Exam Cardiovascular Exam: REGULAR RHYTHM - GI/Abdominal Exam GI & Abdominal Exam: Normal Bowel Sounds - Neurological Exam Neurological Exam: Alert, Awake, Normal Gait, Oriented x3 Assessment and Plan (1) Physical debility Status: Acute (2) CAD (coronary artery disease) Status: Chronic (3) CKD (chronic kidney disease) stage 3, GFR 30-59 ml/min Status: Chronic (4) 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
[2016-11-27] MEDS: Latanoprost 0.005% Opht SOUTION OU SCH (21:25)
[2016-11-28] MEDS: Potassium Chloride 20 mEq ER Tab PO SCH (09:08)
[2016-11-28] MEDS: Megestrol Acetate 40 mg/ml Cup PO SCH (09:10)
[2016-11-28] MEDS: Latanoprost 0.005% Opht SOUTION OU SCH (21:12)
[2016-11-29] MEDS: Pantoprazole 40 mg EC Tab PO SCH (08:30)
[2016-11-29] MEDS: Patient's Own Med (Paricalcitol [Zemplar] 1 MCG) PO SCH (08:30)
[2016-11-29] MEDS: Megestrol Acetate 40 mg/ml Cup PO SCH (08:31)
[2016-11-29] MEDS: Potassium Chloride 20 mEq ER Tab PO SCH (08:31)
[2016-11-29] MEDS ORDERED: Ergocalciferol 50,000 Intl Units Cap PO SCH (09:00)
[2016-11-29 09:25] LABS: HEMATOCRIT 28.6 % (35.0-51.0); MEAN CELL VOLUME 98.6 fl (80.0-94.0); MEAN CORPUSCULAR HEMOGLOBIN 33.8 pg (27.0-31.0); MEAN CORPUSCULAR HGB CONC 34.3 g/dL (33.0-37.0); RED CELL DISTRIBUTION WIDTH 22.4 % (11.5-14.5)
[2016-11-29 09:50] LABS: CALCIUM 9.5 mg/dL (8.4-10.2); POTASSIUM 4.8 MMOL/L (3.6-5.0)
--- NOTE | 2016-11-29 11:19 | CP.PCM.PN ---
Subjective - Date & Time of Evaluation Date of Evaluation: 11/28/16 Time of Evaluation: 10:30 - Subjective Subjective: patient is doing well Has no chest pain or SOB platelet is stable. Objective - Vital Signs/Intake and Output Vital Signs (last 24 hours): Temp Pulse Resp BP Pulse Ox 98.1 F 65 20 111/59 L 99 11/29/16 08:20 11/29/16 08:20 11/29/16 08:20 11/29/16 08:20 11/29/16 08:20 - Medications Medications: Current Medications Artificial Tears (Artificial Tears) 2 drop OU Q4 PRN PRN Reason: Dry eyes Atorvastatin Calcium (Lipitor) 10 mg PO HS [facility] Last Admin: 11/28/16 21:10 Dose: 10 mg Docusate Sodium (Colace) 200 mg PO DAILY [facility] Last Admin: 11/29/16 08:29 Dose: 200 mg Ergocalciferol (Drisdol 50,000 Intl Units Cap) 1 cap PO SUN [facility] Last Admin: 11/29/16 08:31 Dose: 1 cap Finasteride (Proscar) 5 mg PO DAILY [facility] Last Admin: 11/29/16 08:30 Dose: 5 mg Home Med (Febuxostat [Uloric]) 40 mg PO DAILY [facility] Last Admin: 11/29/16 08:30 Dose: 40 mg Home Med (Paricalcitol [Zemplar]) 1 mcg PO QOTHERDAY [facility] Last Admin: 11/29/16 08:30 Dose: 1 mcg Lactulose (Enulose) 20 gm PO BID PRN PRN Reason: Constipation Latanoprost (Xalatan Opht) 1 drop OU HS [facility] Last Admin: 11/28/16 21:12 Dose: 1 drop Megestrol Acetate (Megace) 400 mg PO DAILY [facility] Last Admin: 11/29/16 08:31 Dose: 400 mg Pantoprazole Sodium (Protonix Ec Tab) 40 mg PO QOTHERDAY [facility] Last Admin: 11/29/16 08:30 Dose: 40 mg Polyethylene Glycol (Miralax) 17 gm PO DAILY PRN PRN Reason: Constipation Last Admin: 11/24/16 09:19 Dose: 17 gm Potassium Chloride (K-Dur 20 Meq Er Tab) 20 meq PO DAILY [facility] Last Admin: 11/29/16 08:31 Dose: 20 meq Sevelamer HCl (Renagel) 800 mg PO TID [facility] Last Admin: 11/29/16 08:29 Dose: 800 mg Sitagliptin Phosphate (Januvia) 50 mg PO DAILY [facility] Last Admin: 11/29/16 08:30 Dose: 50 mg Sodium Bicarbonate (Sodium Bicarbonate Tab) 650 mg PO BID [facility] Last Admin: 11/29/16 08:31 Dose: 650 mg - Labs Labs: 11/29/16 08:30 11/29/16 08:30 - Head Exam Head Exam: NORMAL INSPECTION - Eye Exam Eye Exam: Normal appearance - ENT Exam ENT Exam: Mucous Membranes Moist - Respiratory Exam Respiratory Exam: Clear to Ausculation Bilateral - Cardiovascular Exam Cardiovascular Exam: REGULAR RHYTHM - GI/Abdominal Exam GI & Abdominal Exam: Normal Bowel Sounds - Neurological Exam Neurological Exam: CN II-XII Intact, Oriented x3 - Psychiatric Exam Psychiatric exam: Normal Mood Assessment and Plan - Assessment and Plan (Free Text) Plan: Cnt meds Cntiue PT check cbc transfuse if decrease in platelet
--- NOTE | 2016-11-29 11:32 | CP.PCM.PN ---
Subjective - Date & Time of Evaluation Date of Evaluation: 11/29/16 Time of Evaluation: 11:32 - Subjective Subjective: Noted decrease in platelet to 38 Has no chets pain or SOB No epeisode of bleed Will try to repeat cbc again and if low will transfuse Objective - Vital Signs/Intake and Output Vital Signs (last 24 hours): Temp Pulse Resp BP Pulse Ox 98.1 F 65 20 111/59 L 99 11/29/16 08:20 11/29/16 08:20 11/29/16 08:20 11/29/16 08:20 11/29/16 08:20 - Medications Medications: Current Medications Artificial Tears (Artificial Tears) 2 drop OU Q4 PRN PRN Reason: Dry eyes Atorvastatin Calcium (Lipitor) 10 mg PO HS [facility] Last Admin: 11/28/16 21:10 Dose: 10 mg Docusate Sodium (Colace) 200 mg PO DAILY [facility] Last Admin: 11/29/16 08:29 Dose: 200 mg Ergocalciferol (Drisdol 50,000 Intl Units Cap) 1 cap PO SUN [facility] Last Admin: 11/29/16 08:31 Dose: 1 cap Finasteride (Proscar) 5 mg PO DAILY [facility] Last Admin: 11/29/16 08:30 Dose: 5 mg Home Med (Febuxostat [Uloric]) 40 mg PO DAILY [facility] Last Admin: 11/29/16 08:30 Dose: 40 mg Home Med (Paricalcitol [Zemplar]) 1 mcg PO QOTHERDAY [facility] Last Admin: 11/29/16 08:30 Dose: 1 mcg Lactulose (Enulose) 20 gm PO BID PRN PRN Reason: Constipation Latanoprost (Xalatan Opht) 1 drop OU HS [facility] Last Admin: 11/28/16 21:12 Dose: 1 drop Megestrol Acetate (Megace) 400 mg PO DAILY [facility] Last Admin: 11/29/16 08:31 Dose: 400 mg Pantoprazole Sodium (Protonix Ec Tab) 40 mg PO QOTHERDAY [facility] Last Admin: 11/29/16 08:30 Dose: 40 mg Polyethylene Glycol (Miralax) 17 gm PO DAILY PRN PRN Reason: Constipation Last Admin: 11/24/16 09:19 Dose: 17 gm Potassium Chloride (K-Dur 20 Meq Er Tab) 20 meq PO DAILY [facility] Last Admin: 11/29/16 08:31 Dose: 20 meq Sevelamer HCl (Renagel) 800 mg PO TID [facility] Last Admin: 11/29/16 08:29 Dose: 800 mg Sitagliptin Phosphate (Januvia) 50 mg PO DAILY [facility] Last Admin: 11/29/16 08:30 Dose: 50 mg Sodium Bicarbonate (Sodium Bicarbonate Tab) 650 mg PO BID [facility] Last Admin: 11/29/16 08:31 Dose: 650 mg - Labs Labs: 11/29/16 08:30 11/29/16 08:30 - Head Exam Head Exam: NORMAL INSPECTION - Eye Exam Eye Exam: Normal appearance - ENT Exam ENT Exam: Mucous Membranes Moist - GI/Abdominal Exam GI & Abdominal Exam: Normal Bowel Sounds - Neurological Exam Neurological Exam: Awake, Oriented x3 - Psychiatric Exam Psychiatric exam: Normal Mood Assessment and Plan (1) Thrombocythemia Status: Chronic (2) CAD (coronary artery disease) Status: Acute (3) Physical debility Status: Acute (4) CAD (coronary atherosclerotic disease) Status: Acute (5) CKD (chronic kidney disease) stage 4, GFR 15-29 ml/min Status: Acute (6) 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
[2016-11-29] MEDS: Latanoprost 0.005% Opht SOUTION OU SCH (22:21)
[2016-11-30 07:38] LABS: ALB/GLOB RATIO 0.9 (1.0-2.1); BILIRUBIN,TOTAL 0.5 mg/dl (0.2-1.3); CALCIUM 9.5 mg/dL (8.4-10.2); POTASSIUM 4.5 MMOL/L (3.6-5.0); TOTAL PROTEIN 6.3 G/DL (6.3-8.2)
[2016-11-30 08:03] LABS: BASO # 0.1 K/uL (0.0-0.2); BASO % 1.4 % (0.0-2.0); EOS # 0.1 K/uL (0.0-0.7); EOS % 1.4 % (0.0-4.0); HEMATOCRIT 27.2 % (35.0-51.0); LYMPH # 2.6 K/uL (1.0-4.3); LYMPH % 67.2 % (20.0-40.0); MEAN CELL VOLUME 99.4 fl (80.0-94.0); MEAN CORPUSCULAR HEMOGLOBIN 32.8 pg (27.0-31.0); MEAN PLATELET VOLUME 10.2 fl (7.2-11.7); MONO # 0.2 K/uL (0.0-0.8); MONO % 5.2 % (0.0-10.0); NEUT % 24.8 % (50.0-75.0); NRBC % 0.1 % (0.0-0.0); RED CELL DISTRIBUTION WIDTH 22.7 % (11.5-14.5); WHITE BLOOD COUNT 3.9 K/uL (4.8-10.8)
[2016-11-30] MEDS: Potassium Chloride 20 mEq ER Tab PO SCH (08:50)
[2016-11-30] MEDS: Megestrol Acetate 40 mg/ml Cup PO SCH (08:52)
[2016-11-30] MEDS: Latanoprost 0.005% Opht SOUTION OU SCH (21:09)
[2016-12-01] MEDS: Megestrol Acetate 40 mg/ml Cup PO SCH (09:44)
[2016-12-01] MEDS: Potassium Chloride 20 mEq ER Tab PO SCH (09:44)
[2016-12-01] MEDS: Pantoprazole 40 mg EC Tab PO SCH (09:44)
[2016-12-01] MEDS: Patient's Own Med (Paricalcitol [Zemplar] 1 MCG) PO SCH (17:33)
[2016-12-01] MEDS: Latanoprost 0.005% Opht SOUTION OU SCH (21:20)
[2016-12-02 07:48] VITALS: BP 109/73; PULSE 66; TEMP 97.7; O2SAT 99
[2016-12-02 08:00] LABS: HEMATOCRIT 23.8 % (35.0-51.0); MEAN CELL VOLUME 98.7 fl (80.0-94.0); MEAN CORPUSCULAR HEMOGLOBIN 34.1 pg (27.0-31.0); MEAN CORPUSCULAR HGB CONC 34.5 g/dL (33.0-37.0); RED CELL DISTRIBUTION WIDTH 22.2 % (11.5-14.5); WHITE BLOOD COUNT 3.9 K/uL (4.8-10.8)
[2016-12-02] MEDS: Megestrol Acetate 40 mg/ml Cup PO SCH (08:44)
[2016-12-02] MEDS: Potassium Chloride 20 mEq ER Tab PO SCH (08:44)
--- NOTE | 2016-12-02 09:41 | CP.PCM.PN ---
Subjective - Date & Time of Evaluation Date of Evaluation: 11/30/16 Time of Evaluation: 09:39 - Subjective Subjective: Patient is clinicaly stable But repeat CBC showed further decrease in platelet and low hgb. Has no SOB or fatigue. Objective - Vital Signs/Intake and Output Vital Signs (last 24 hours): Temp Pulse Resp BP Pulse Ox 97.7 F 66 20 109/73 99 12/02/16 07:47 12/02/16 07:47 12/02/16 07:47 12/02/16 07:47 12/02/16 07:47 - Medications Medications: Current Medications Artificial Tears (Artificial Tears) 2 drop OU Q4 PRN PRN Reason: Dry eyes Atorvastatin Calcium (Lipitor) 10 mg PO HS [facility] Last Admin: 12/01/16 21:20 Dose: 10 mg Docusate Sodium (Colace) 200 mg PO DAILY [facility] Last Admin: 12/02/16 08:43 Dose: 200 mg Ergocalciferol (Drisdol 50,000 Intl Units Cap) 1 cap PO SUN [facility] Last Admin: 11/29/16 08:31 Dose: 1 cap Finasteride (Proscar) 5 mg PO DAILY [facility] Last Admin: 12/02/16 08:44 Dose: 5 mg Home Med (Febuxostat [Uloric]) 40 mg PO DAILY [facility] Last Admin: 12/02/16 08:44 Dose: 40 mg Home Med (Paricalcitol [Zemplar]) 1 mcg PO QOTHERDAY [facility] Last Admin: 12/01/16 17:33 Dose: 1 mcg Lactulose (Enulose) 20 gm PO BID PRN PRN Reason: Constipation Last Admin: 11/29/16 22:20 Dose: 20 gm Latanoprost (Xalatan Opht) 1 drop OU HS [facility] Last Admin: 12/01/16 21:20 Dose: 1 drop Megestrol Acetate (Megace) 400 mg PO DAILY [facility] Last Admin: 12/02/16 08:44 Dose: 400 mg Pantoprazole Sodium (Protonix Ec Tab) 40 mg PO QOTHERDAY [facility] Last Admin: 12/01/16 09:44 Dose: 40 mg Polyethylene Glycol (Miralax) 17 gm PO DAILY PRN PRN Reason: Constipation Last Admin: 11/24/16 09:19 Dose: 17 gm Potassium Chloride (K-Dur 20 Meq Er Tab) 20 meq PO DAILY [facility] Last Admin: 12/02/16 08:44 Dose: 20 meq Sevelamer HCl (Renagel) 800 mg PO TID [facility] Last Admin: 12/02/16 08:45 Dose: 800 mg Sitagliptin Phosphate (Januvia) 50 mg PO DAILY [facility] Last Admin: 12/02/16 08:44 Dose: 50 mg Sodium Bicarbonate (Sodium Bicarbonate Tab) 650 mg PO BID [facility] Last Admin: 12/02/16 08:44 Dose: 650 mg - Labs Labs: 12/02/16 06:00 11/30/16 06:00 - Head Exam Head Exam: NORMAL INSPECTION - Eye Exam Eye Exam: Normal appearance - ENT Exam ENT Exam: Mucous Membranes Moist - GI/Abdominal Exam GI & Abdominal Exam: Normal Bowel Sounds - Neurological Exam Neurological Exam: Awake, Oriented x3 - Psychiatric Exam Psychiatric exam: Normal Mood Assessment and Plan (1) Thrombocythemia Status: Chronic (2) CAD (coronary artery disease) Status: Acute (3) Physical debility Status: Acute (4) CAD (coronary atherosclerotic disease) Status: Acute (5) CKD (chronic kidney disease) stage 4, GFR 15-29 ml/min Status: Acute (6) 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
--- NOTE | 2016-12-02 09:44 | CP.PCM.PN ---
Subjective - Date & Time of Evaluation Date of Evaluation: 12/01/16 Time of Evaluation: 10:00 - Subjective Subjective: Has been doing well Has no chest pain or SOB Had platelet transfusion and did very well. Objective - Vital Signs/Intake and Output Vital Signs (last 24 hours): Temp Pulse Resp BP Pulse Ox 97.7 F 66 20 109/73 99 12/02/16 07:47 12/02/16 07:47 12/02/16 07:47 12/02/16 07:47 12/02/16 07:47 - Medications Medications: Current Medications Artificial Tears (Artificial Tears) 2 drop OU Q4 PRN PRN Reason: Dry eyes Atorvastatin Calcium (Lipitor) 10 mg PO HS [facility] Last Admin: 12/01/16 21:20 Dose: 10 mg Docusate Sodium (Colace) 200 mg PO DAILY [facility] Last Admin: 12/02/16 08:43 Dose: 200 mg Ergocalciferol (Drisdol 50,000 Intl Units Cap) 1 cap PO SUN [facility] Last Admin: 11/29/16 08:31 Dose: 1 cap Finasteride (Proscar) 5 mg PO DAILY [facility] Last Admin: 12/02/16 08:44 Dose: 5 mg Home Med (Febuxostat [Uloric]) 40 mg PO DAILY [facility] Last Admin: 12/02/16 08:44 Dose: 40 mg Home Med (Paricalcitol [Zemplar]) 1 mcg PO QOTHERDAY [facility] Last Admin: 12/01/16 17:33 Dose: 1 mcg Lactulose (Enulose) 20 gm PO BID PRN PRN Reason: Constipation Last Admin: 11/29/16 22:20 Dose: 20 gm Latanoprost (Xalatan Opht) 1 drop OU HS [facility] Last Admin: 12/01/16 21:20 Dose: 1 drop Megestrol Acetate (Megace) 400 mg PO DAILY [facility] Last Admin: 12/02/16 08:44 Dose: 400 mg Pantoprazole Sodium (Protonix Ec Tab) 40 mg PO QOTHERDAY [facility] Last Admin: 12/01/16 09:44 Dose: 40 mg Polyethylene Glycol (Miralax) 17 gm PO DAILY PRN PRN Reason: Constipation Last Admin: 11/24/16 09:19 Dose: 17 gm Potassium Chloride (K-Dur 20 Meq Er Tab) 20 meq PO DAILY [facility] Last Admin: 12/02/16 08:44 Dose: 20 meq Sevelamer HCl (Renagel) 800 mg PO TID [facility] Last Admin: 12/02/16 08:45 Dose: 800 mg Sitagliptin Phosphate (Januvia) 50 mg PO DAILY [facility] Last Admin: 12/02/16 08:44 Dose: 50 mg Sodium Bicarbonate (Sodium Bicarbonate Tab) 650 mg PO BID [facility] Last Admin: 12/02/16 08:44 Dose: 650 mg - Labs Labs: 12/02/16 06:00 11/30/16 06:00 - Head Exam Head Exam: NORMAL INSPECTION - Eye Exam Eye Exam: Normal appearance - ENT Exam ENT Exam: Mucous Membranes Moist - Respiratory Exam Respiratory Exam: Clear to Ausculation Bilateral - Cardiovascular Exam Cardiovascular Exam: Clicks, REGULAR RHYTHM - GI/Abdominal Exam GI & Abdominal Exam: Normal Bowel Sounds - Neurological Exam Neurological Exam: Awake, Oriented x3 - Psychiatric Exam Psychiatric exam: Normal Mood Assessment and Plan (1) Thrombocythemia Status: Chronic (2) CAD (coronary artery disease) Status: Acute (3) Physical debility Status: Acute (4) CAD (coronary atherosclerotic disease) Status: Acute (5) CKD (chronic kidney disease) stage 4, GFR 15-29 ml/min Status: Acute (6) 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
--- NOTE | 2016-12-02 09:47 | CP.PCM.DIS ---
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 (7) Hypertension Status: Chronic Hospital Course - Lab Results Lab Results: Most Recent Lab Values WBC 3.9 K/uL (4.8-10.8) L 12/02/16 06:00 RBC 2.41 Mil/uL (4.40-5.90) L 12/02/16 06:00 Hgb 8.2 g/dL (12.0-18.0) L 12/02/16 06:00 Hct 23.8 % (35.0-51.0) L 12/02/16 06:00 MCV 98.7 fl (80.0-94.0) H 12/02/16 06:00 MCH 34.1 pg (27.0-31.0) H 12/02/16 06:00 MCHC 34.5 g/dL (33.0-37.0) 12/02/16 06:00 RDW 22.2 % (11.5-14.5) H 12/02/16 06:00 Plt Count 131 K/uL (130-400) 12/02/16 06:00 MPV 10.2 fl (7.2-11.7) 11/30/16 06:00 Neut % (Auto) 24.8 % (50.0-75.0) L 11/30/16 06:00 Lymph % (Auto) 67.2 % (20.0-40.0) H 11/30/16 06:00 [place] % (Auto) 5.2 % (0.0-10.0) 11/30/16 06:00 Eos % (Auto) 1.4 % (0.0-4.0) 11/30/16 06:00 Baso % (Auto) 1.4 % (0.0-2.0) 11/30/16 06:00 Neut # 1.0 K/uL (1.8-7.0) L 11/30/16 06:00 Lymph # 2.6 K/uL (1.0-4.3) 11/30/16 06:00 [place] # 0.2 K/uL (0.0-0.8) 11/30/16 06:00 Eos # 0.1 K/uL (0.0-0.7) 11/30/16 06:00 Baso # 0.1 K/uL (0.0-0.2) 11/30/16 06:00 Neutrophils % (Manual) 29 % (42-75) L 11/26/16 10:20 Band Neutrophils % 2 % (0-2) 11/26/16 10:20 Lymphocytes % (Manual) 59 % (20-50) H 11/26/16 10:20 Reactive Lymphs % 1 % (0-0) H 11/26/16 10:20 Monocytes % (Manual) 5 % (0-10) 11/26/16 10:20 Eosinophils % (Manual) 2 % (0-7) 11/26/16 10:20 Basophils % (Manual) 2 % (0-2) 11/26/16 10:20 Platelet Estimate Markedly decreased (NORMAL) L 11/26/16 10:20 Poikilocytosis (manual Moderate 11/26/16 10:20 Anisocytosis (manual) Moderate 11/26/16 10:20 Tear Drop Cells Slight 11/26/16 10:20 Ovalocytes Slight 11/26/16 10:20 Sodium 139 mmol/l (132-148) 11/30/16 06:00 Potassium 4.5 MMOL/L (3.6-5.0) 11/30/16 06:00 Chloride 107 mmol/L (98-107) 11/30/16 06:00 Carbon Dioxide 23 mmol/L (22-30) 11/30/16 06:00 Anion Gap 14 (10-20) 11/30/16 06:00 BUN 47 mg/dl (9-20) H 11/30/16 06:00 Creatinine 1.7 mg/dL (0.8-1.5) H 11/30/16 06:00 Est GFR ( Amer) 46 11/30/16 06:00 Est GFR (Non-Af Amer) 38 11/30/16 06:00 POC Glucose (mg/dL) 110 mg/dL (65-110) 12/02/16 06:07 Random Glucose 96 mg/dL (75-110) 11/30/16 06:00 Calcium 9.5 mg/dL (8.4-10.2) 11/30/16 06:00 Total Bilirubin 0.5 mg/dl (0.2-1.3) 11/30/16 06:00 AST 14 U/L (17-59) L D 11/30/16 06:00 ALT 24 U/L (21-72) 11/30/16 06:00 Alkaline Phosphatase 47 U/L (38-126) 11/30/16 06:00 Total Protein 6.3 G/DL (6.3-8.2) 11/30/16 06:00 Albumin 3.0 g/dL (3.5-5.0) L 11/30/16 06:00 Globulin 3.3 gm/dL (2.2-3.9) 11/30/16 06:00 Albumin/Globulin Ratio 0.9 (1.0-2.1) L 11/30/16 06:00 Blood Type A POSITIVE 11/30/16 11:50 Antibody Screen Negative 11/30/16 11:50 Crossmatch See Detail 11/30/16 11:50 BBK History Checked Patient has bt 11/30/16 11:50 - Hospital Course Hospital Course: This is an 86 y/o male admitted for gen debility. Had abn episode of SOB and elevated proBNP 'also noted to have low pletelet and Hgb he came form medical floor where he was treated for CHF possible pneumonia and thrombocytopenia. he reponded well. At the TCU, he was noted t have further decrease in platelet and Hgb. He received two units of platelet and 1 unit of PRBC before discharge. he was discharged in stable condition and platelets were 130. Discharge Exam - Head Exam Head Exam: NORMAL INSPECTION - Eye Exam Eye Exam: Normal appearance - Respiratory Exam Respiratory Exam: NORMAL BREATHING PATTERN - Cardiovascular Exam Cardiovascular Exam: REGULAR RHYTHM - GI/Abdominal Exam GI & Abdominal Exam: Normal Bowel Sounds - Neurological Exam Neurological exam: CN II-XII Intact, Oriented x3 Discharge Plan - Follow Up Plan Condition: GOOD Disposition: HOME/ ROUTINE Additional Instructions: advised cbc cmp weekly discharge to home\ RX given
== END 2016-12-02 16:30 | disposition home or self-care (01) | DRG 945 ==
LOC: H.TCU 16:14
PROVIDERS: ADMIT Family Medicine; ATTEND Family Medicine
PROC: F07Z9FZ Gait Training/Functional Ambulation Treatment using Assistive, Adaptive, Supportive or Protective Equipment (ICD-10-PCS; principal; 2016-11-23)
PROC: F08Z4ZZ Home Management Treatment (ICD-10-PCS; 2016-11-23)
PROC: F07L6FZ Therapeutic Exercise Treatment of Musculoskeletal System - Lower Back / Lower Extremity using Assistive, Adaptive, Supportive or Protective Equipment (ICD-10-PCS; 2016-11-23)
PROC: F07K6FZ Therapeutic Exercise Treatment of Musculoskeletal System - Upper Back / Upper Extremity using Assistive, Adaptive, Supportive or Protective Equipment (ICD-10-PCS; 2016-11-23)
DX: R53.81 Other malaise (principal); N18.4 Chronic kidney disease, stage 4 (severe); E11.22 Type 2 diabetes mellitus with diabetic chronic kidney disease; D69.6 Thrombocytopenia, unspecified; I13.0 Hypertensive heart and chronic kidney disease with heart failure and stage 1 through stage 4 chronic kidney disease, or unspecified chronic kidney disease; D64.9 Anemia, unspecified; I50.9 Heart failure, unspecified; I25.10 Atherosclerotic heart disease of native coronary artery without angina pectoris; Z95.1 Presence of aortocoronary bypass graft; Z95.5 Presence of coronary angioplasty implant and graft

== ENCOUNTER 2016-12-21 10:38 | Observation (INO) | payer MEDICARE, BC ==
[2016-12-21 10:46] VITALS: BMI 29.0
--- NOTE | 2016-12-21 12:03 | ED PDOC ---
HPI: General Adult Time Seen by Provider: 12/21/16 11:05 Chief Complaint (Nursing): Abnormal Labs Chief Complaint (Provider): Abnormal labs History Per: Patient, Family ([id number]) History/Exam Limitations: no limitations Additional Complaint(s): Patient is an 86 y/o male with a past medical history of congestive heart failure, anemia, hypertension, and chronic kidney disease who was referred to the emergency department by an infusion center this morning for abnormal labs evaluation and need for platelet/blood transfusion. Per family, patient was diagnosed with myelodysplastic syndrome (MDS) 2-3 months ago and reports declining platelet levels over the past year. Also notes that on 12/18/16 , patient had an unwitnessed fall in which he reports sliding down from his recliner, denying trauma. However, family reports that upon finding him, they noted slurred speech and lethargy. Denies pain, fever, bleeding, taking anticoagulant medication, or other complaints. Dr. Arthur Mccain Past Medical History Reviewed: Historical Data, Nursing Documentation, Vital Signs Vital Signs: Last Vital Signs Temp 98.7 F 12/21/16 15:55 Pulse 77 12/21/16 15:55 Resp 16 12/21/16 15:55 BP 140/79 12/21/16 15:55 Pulse Ox 98 12/21/16 15:55 - Medical History PMH: Anemia, Asthma, Benign Prostatic Hyperplasia, CAD (dyslipidemia ), Diabetes , Diverticulitis, Gall Bladder Disease, HTN, Hypercholesterolemia, Hypothyroidism, Kidney Stones, Pancreatitis (Myelodisplastic Syndrom), Chronic Kidney Disease Denies: CHF, HIV - Surgical History Surgical History: CABG (37 years ago), Cholecystectomy, Coronary Stent (1994) - Family History Family History: States: Unknown Family Hx - Home Medications Home Medications: Ambulatory Orders Medication Instructions Recorded Finasteride [Proscar] 5 mg PO DAILY tab 10/15/16 Paricalcitol [Zemplar] 1 mcg PO QOTHERDAY #0 11/16/16 Atorvastatin [Lipitor] 10 mg PO HS tab 11/23/16 SITagliptin [Januvia] 50 mg PO DAILY tab 11/23/16 Sevelamer [Renagel] 800 mg PO TID tab 11/23/16 Sodium Bicarbonate Tab 650 mg PO BID tab 11/23/16 Bimatoprost [Lumigan] 1 drop EACHEYE HS 12/21/16 Docusate [Colace] 100 mg PO DAILY PRN 12/21/16 Ergocalciferol [Drisdol 50,000 50,000 unit PO SUN 12/21/16 Intl Units Cap] Febuxostat [Uloric] 40 mg PO DAILY 12/21/16 Lactulose [Generlac] 30 ml PO DAILY PRN 12/21/16 Linaclotide [Linzess] 72 mcg PO DAILY PRN 12/21/16 Megestrol Acetate [Megace Es] 20 ml PO DAILY PRN 12/21/16 - Allergies Allergies/Adverse Reactions: Allergies Allergy/AdvReac Type Severity Reaction Status Date / Time No Known Allergies Allergy Verified 12/21/16 10:54 Review of Systems ROS Statement: Except As Marked, All Systems Reviewed And Found Negative Constitutional: Negative for: Fever, Other (bleeding) Eyes: Negative for: Pain Physical Exam - Reviewed Nursing Documentation Reviewed: Yes Vital Signs Reviewed: Yes - Physical Exam Appears: Positive for: No Acute Distress (think elderly male in NAD) Head Exam: Positive for: ATRAUMATIC, NORMAL INSPECTION, NORMOCEPHALIC Skin: Positive for: Normal Color, Warm, Dry Eye Exam: Positive for: Normal appearance, PERRL ENT: Positive for: Normal ENT Inspection Neck: Positive for: Normal, Painless ROM, Supple Cardiovascular/Chest: Positive for: Regular Rate, Rhythm. Negative for: Murmur Respiratory: Positive for: Normal Breath Sounds. Negative for: Accessory Muscle Use, Respiratory Distress Gastrointestinal/Abdominal: Positive for: Normal Exam, Soft. Negative for: Tenderness Extremity: Positive for: Pedal Edema (trace bilateral pitting edema of lower extremities). Negative for: Tenderness Neurologic/Psych: Positive for: Alert, Oriented (x3) - Laboratory Results Result Diagrams: 12/21/16 12:20 12/21/16 12:20 - ECG O2 Sat by Pulse Oximetry: 100 (RA) Pulse Ox Interpretation: Normal Medical Decision Making Medical Decision Making: Time: 11:51 Initial impression: sent for Blood transfusion treatment due to thrombocytopenia Initial plan: Type and Screen Labs Blood transfusion Reevaluation 12:15 Patient was transfused with 1 unit of blood and and 2 units of platelets. 1400 pt resting in no distress [address] Moe pending completion of transfusion and for dc home Scribe Attestation: Documented by Zahira Magdaleno, acting as a scribe for Taina Stephen MD. Provider Scribe Attestation: All medical record entries made by the Scribe were at my direction and personally dictated by me. I have reviewed the chart and agree that the record accurately reflects my personal performance of the history, physical exam, medical decision making, and the department course for this patient. I have also personally directed, reviewed, and agree with the discharge instructions and disposition. Disposition - Clinical Impression Clinical Impression: Acquired thrombocytopenia - Patient ED Disposition Is Patient to be Admitted: Transfer of Care - Disposition Disposition: Transfer of Care Disposition Time: 16:42 Condition: STABLE Patient Signed Over To: Diego Moe III
[2016-12-21 12:44] LABS: BASO % 1.4 % (0.0-2.0); EOS # 0.1 K/uL (0.0-0.7); EOS % 2.1 % (0.0-4.0); HEMATOCRIT 24.9 % (35.0-51.0); LYMPH # 2.2 K/uL (1.0-4.3); LYMPH % 74.9 % (20.0-40.0); MEAN CELL VOLUME 98.3 fl (80.0-94.0); MEAN CORPUSCULAR HEMOGLOBIN 31.9 pg (27.0-31.0); MEAN CORPUSCULAR HGB CONC 32.4 g/dL (33.0-37.0); MEAN PLATELET VOLUME 9.3 fl (7.2-11.7); MONO # 0.2 K/uL (0.0-0.8); MONO % 5.5 % (0.0-10.0); NEUT # 0.5 K/uL (1.8-7.0); NEUT % 16.1 % (50.0-75.0); NRBC % 0.1 % (0.0-0.0); RED CELL DISTRIBUTION WIDTH 22.5 % (11.5-14.5); WHITE BLOOD COUNT 2.9 K/uL (4.8-10.8)
[2016-12-21 12:46] LABS: ALB/GLOB RATIO 0.9 (1.0-2.1); BILIRUBIN,TOTAL 0.5 mg/dl (0.2-1.3); CALCIUM 9.4 mg/dL (8.4-10.2); POTASSIUM 3.8 MMOL/L (3.6-5.0); TOTAL PROTEIN 6.7 G/DL (6.3-8.2)
[2016-12-22] MEDS ORDERED: MEGESTROL ACETATE PO PRN (02:05)
[2016-12-22] MEDS ORDERED: Megestrol Acetate 40 mg/ml Cup PO PRN (02:39)
[2016-12-22 07:27] LABS: BASO % 0.6 % (0.0-2.0); EOS # 0.1 K/uL (0.0-0.7); EOS % 1.7 % (0.0-4.0); HEMATOCRIT 29.8 % (35.0-51.0); LYMPH # 2.7 K/uL (1.0-4.3); LYMPH % 77.3 % (20.0-40.0); MEAN CELL VOLUME 93.7 fl (80.0-94.0); MEAN CORPUSCULAR HEMOGLOBIN 31.4 pg (27.0-31.0); MEAN CORPUSCULAR HGB CONC 33.5 g/dL (33.0-37.0); MEAN PLATELET VOLUME 8.6 fl (7.2-11.7); MONO # 0.2 K/uL (0.0-0.8); MONO % 5.8 % (0.0-10.0); NEUT # 0.5 K/uL (1.8-7.0); NEUT % 14.6 % (50.0-75.0); NRBC % 0.3 % (0.0-0.0); RED CELL DISTRIBUTION WIDTH 20.3 % (11.5-14.5); WHITE BLOOD COUNT 3.5 K/uL (4.8-10.8)
[2016-12-22 08:21] VITALS: BP 163/76; RESP 20; TEMP 97.5; O2SAT 96
[2016-12-22 08:36] LABS: HEMATOCRIT 29.4 % (35.0-51.0); MEAN CELL VOLUME 93.6 fl (80.0-94.0); MEAN CORPUSCULAR HEMOGLOBIN 31.5 pg (27.0-31.0); MEAN CORPUSCULAR HGB CONC 33.7 g/dL (33.0-37.0); RED CELL DISTRIBUTION WIDTH 20.8 % (11.5-14.5); WHITE BLOOD COUNT 3.3 K/uL (4.8-10.8)
--- NOTE | 2016-12-22 08:42 | CARD ---
APPROVED REPORT EKG Measurement Heart [id number] <Conclusion> Normal sinus rhythm with sinus arrhythmia Left axis deviation T wave abnormality, consider inferior ischemia T wave abnormality, consider anterolateral ischemia Abnormal ECG
[2016-12-22 08:54] LABS: CALCIUM 9.8 mg/dL (8.4-10.2); POTASSIUM 3.9 MMOL/L (3.6-5.0)
[2016-12-22] MEDS ORDERED: Patient's Own Med (Paricalcitol [Zemplar] 1 MCG) PO SCH (09:00)
[2016-12-22 10:37] VITALS: PULSE 70
[2016-12-22] MEDS ORDERED: Epoetin Alfa 20000 UNIT/ML Inj SC ONE (11:00)
--- NOTE | 2016-12-22 11:28 | CP.PCM.HP ---
History of Present Illness - History of Present Illness History of Present Illness: 86 year old male with hx of MDS , pancytopenia admitted for severe thrombocytopenia. He was at infusion center receiving procrit, labs were drawn and found to have thrombocytopenia of 18. He was sent to ER for platelet and PRBC transfusion. He is well today. No complaints offered. His son is bedside. 12 point review of systems negative except for as above. PMH: congestive heart failure, anemia, hypertension, and chronic kidney disease , MDS medications reviewed allergies: NKDA Present on Admission - Present on Admission Any Indicators Present on Admission: No Past Patient History - Past Medical History & Family History Past Medical History?: Yes - Past Social History Smoking Status: Never Smoked - CARDIAC Hx Cardiac Disorders: Yes Hx Congestive Heart Failure: Yes Hx Hypertension: Yes - PULMONARY Hx Respiratory Disorders: Yes Hx Asthma: Yes - NEUROLOGICAL Hx Neurological Disorder: No Hx Dizziness: No - HEENT Hx HEENT Problems: Yes Hx Cataracts: Yes Hx Glaucoma: Yes Other/Comment: hard of hearing - RENAL Hx Chronic Kidney Disease: Yes Hx Dialysis: No - ENDOCRINE/METABOLIC Hx Endocrine Disorders: Yes Hx Diabetes Mellitus Type 2: Yes Hx Hypothyroidism: Yes - HEMATOLOGICAL/ONCOLOGICAL Hx Blood Disorders: Yes Hx Anemia: Yes - INTEGUMENTARY Hx Dermatological Problems: No - MUSCULOSKELETAL/RHEUMATOLOGICAL Hx Musculoskeletal Disorders: Yes Hx Falls: Yes - GASTROINTESTINAL Hx Gastrointestinal Disorders: Yes Hx Diverticulitis: Yes Hx Gall Bladder Disease: Yes Hx Pancreatitis: Yes (Myelodisplastic Syndrom) - GENITOURINARY/GYNECOLOGICAL Hx Genitourinary Disorders: Yes Hx Prostate Problems: Yes - PSYCHIATRIC Hx Psychophysiologic Disorder: No Hx Substance Use: No - SURGICAL HISTORY Hx Surgeries: Yes Hx Cholecystectomy: Yes 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) Hx Coronary Stent: Yes (1994) - ANESTHESIA Hx Anesthesia: Yes Hx Anesthesia Reactions: No Hx Malignant Hyperthermia: No Meds Allergies/Adverse Reactions: Allergies Allergy/AdvReac Type Severity Reaction Status Date / Time No Known Allergies Allergy Verified 12/21/16 10:54 Physical Exam - Constitutional Appears: Non-toxic, No Acute Distress - Head Exam Head Exam: ATRAUMATIC, NORMAL INSPECTION, NORMOCEPHALIC - Eye Exam Eye Exam: EOMI, Normal appearance, PERRL - ENT Exam ENT Exam: Mucous Membranes Moist, Normal Exam - Respiratory Exam Respiratory Exam: Clear to Auscultation Bilateral, NORMAL BREATHING PATTERN - Cardiovascular Exam Cardiovascular Exam: REGULAR RHYTHM - GI/Abdominal Exam GI & Abdominal Exam: Normal Bowel Sounds, Soft. absent: Tenderness - Rectal Exam Rectal Exam: Deferred - Neurological Exam Neurological exam: Alert, CN II-XII Intact, Reflexes Normal - Psychiatric Exam Psychiatric exam: Normal Affect, Normal Mood - Skin Skin Exam: Dry, Intact, Pallor, Warm Results - Vital Signs Recent Vital Signs: Last Vital Signs Temp 97.5 F L 12/22/16 08:20 Pulse 70 12/22/16 09:00 Resp 20 12/22/16 08:20 BP 163/76 H 12/22/16 08:20 Pulse Ox 96 12/22/16 08:20 - Labs Result Diagrams: 12/22/16 08:15 12/22/16 08:15 Labs: Laboratory Results - last 24 hr 12/22/16 12/22/16 12/22/16 05:32 05:50 08:15 WBC 3.5 L 3.3 L RBC 3.18 L 3.14 L Hgb 10.0 L 9.9 L Hct 29.8 L 29.4 L MCV 93.7 D 93.6 MCH 31.4 H 31.5 H MCHC 33.5 33.7 RDW 20.3 H 20.8 H Plt Count 136 D 129 L MPV 8.6 Neut % (Auto) 14.6 L Lymph % (Auto) 77.3 H Town[place] % (Auto) 5.8 Eos % (Auto) 1.7 Baso % (Auto) 0.6 Neut # 0.5 L Lymph # 2.7 Towns # 0.2 Eos # 0.1 Baso # 0.0 PT INR Sodium Potassium Chloride Carbon Dioxide Anion Gap BUN Creatinine Est GFR ( Amer) Est GFR (Non-Af Amer) POC Glucose (mg/dL) 112 H Random Glucose Calcium 12/22/16 12/22/16 12/22/16 08:15 08:15 10:42 WBC RBC Hgb Hct MCV MCH MCHC RDW Plt Count MPV Neut % (Auto) Lymph % (Auto) [place] % (Auto) Eos % (Auto) Baso % (Auto) Neut # Lymph # Towns # Eos # Baso # PT 15.7 H INR 1.5 H Sodium 139 Potassium 3.9 Chloride 106 Carbon Dioxide 25 Anion Gap 13 BUN 28 H Creatinine 1.4 Est GFR ( Amer) 58 Est GFR (Non-Af Amer) 48 POC Glucose (mg/dL) 295 H Random Glucose 100 Calcium 9.8 Assessment & Plan - Assessment and Plan (Free Text) Assessment: 86 year old male with history of pancytopenia, admitted for severe thrombocytopenia, likely 2' to his myelodysplastic syndrome #Pancytopenia, with severe thrombocytopenia Patient received s/p transfusion with PRBCs and FFP. Platelets have improved significantly, plts 129 now up from 18 Anemia also improved hg was 8, is now 9 Patient to get procrit this morning. Patient seen and examined with attending.
--- NOTE | 2016-12-22 14:41 | CP.PCM.DIS ---
Provider - Provider Date of Admission: 12/21/16 13:32 Attending physician: Arthur Mccain MD Time Spent in preparation of Discharge (in minutes): 35 Diagnosis - Discharge Diagnosis (1) Thrombocytopenia Status: Resolved Hospital Course - Lab Results Lab Results: Most Recent Lab Values WBC 3.3 K/uL (4.8-10.8) L 12/22/16 08:15 RBC 3.14 Mil/uL (4.40-5.90) L 12/22/16 08:15 Hgb 9.9 g/dL (12.0-18.0) L 12/22/16 08:15 Hct 29.4 % (35.0-51.0) L 12/22/16 08:15 MCV 93.6 fl (80.0-94.0) 12/22/16 08:15 MCH 31.5 pg (27.0-31.0) H 12/22/16 08:15 MCHC 33.7 g/dL (33.0-37.0) 12/22/16 08:15 RDW 20.8 % (11.5-14.5) H 12/22/16 08:15 Plt Count 129 K/uL (130-400) L 12/22/16 08:15 MPV 8.6 fl (7.2-11.7) 12/22/16 05:50 Neut % (Auto) 14.6 % (50.0-75.0) L 12/22/16 05:50 Lymph % (Auto) 77.3 % (20.0-40.0) H 12/22/16 05:50 [place] % (Auto) 5.8 % (0.0-10.0) 12/22/16 05:50 Eos % (Auto) 1.7 % (0.0-4.0) 12/22/16 05:50 Baso % (Auto) 0.6 % (0.0-2.0) 12/22/16 05:50 Neut # 0.5 K/uL (1.8-7.0) L 12/22/16 05:50 Lymph # 2.7 K/uL (1.0-4.3) 12/22/16 05:50 [place] # 0.2 K/uL (0.0-0.8) 12/22/16 05:50 Eos # 0.1 K/uL (0.0-0.7) 12/22/16 05:50 Baso # 0.0 K/uL (0.0-0.2) 12/22/16 05:50 PT 15.7 Seconds (9.8-13.1) H 12/22/16 08:15 INR 1.5 (0.9-1.2) H 12/22/16 08:15 Sodium 139 mmol/l (132-148) 12/22/16 08:15 Potassium 3.9 MMOL/L (3.6-5.0) 12/22/16 08:15 Chloride 106 mmol/L (98-107) 12/22/16 08:15 Carbon Dioxide 25 mmol/L (22-30) 12/22/16 08:15 Anion Gap 13 (10-20) 12/22/16 08:15 BUN 28 mg/dl (9-20) H 12/22/16 08:15 Creatinine 1.4 mg/dL (0.8-1.5) 12/22/16 08:15 Est GFR ( Amer) 58 12/22/16 08:15 Est GFR (Non-Af Amer) 48 12/22/16 08:15 POC Glucose (mg/dL) 295 mg/dL (65-110) H 12/22/16 10:42 Random Glucose 100 mg/dL (75-110) 12/22/16 08:15 Calcium 9.8 mg/dL (8.4-10.2) 12/22/16 08:15 Total Bilirubin 0.5 mg/dl (0.2-1.3) 12/21/16 12:20 AST 13 U/L (17-59) L 12/21/16 12:20 ALT 18 U/L (21-72) L 12/21/16 12:20 Alkaline Phosphatase 54 U/L (38-126) 12/21/16 12:20 Total Protein 6.7 G/DL (6.3-8.2) 12/21/16 12:20 Albumin 3.2 g/dL (3.5-5.0) L 12/21/16 12:20 Globulin 3.5 gm/dL (2.2-3.9) 12/21/16 12:20 Albumin/Globulin Ratio 0.9 (1.0-2.1) L 12/21/16 12:20 Blood Type A POSITIVE 12/21/16 12:20 Antibody Screen Negative 12/21/16 12:20 Crossmatch See Detail 12/21/16 12:20 BBK History Checked Patient has bt 12/21/16 12:20 - Hospital Course Hospital Course: 86 year old male with hx of MDS , pancytopenia admitted for severe thrombocytopenia. Patient treated with platelet transfusion x 2 and 1 unit of PRBCs. Platelets significantly improved, as well as anemia. Procrit given today. - Date & Time of H&P Date of H&P: 12/22/16 Time of H&P: 11:25 Discharge Plan - Follow Up Plan Condition: STABLE Disposition: HOME/ ROUTINE Patient education suggested?: Yes Instructions: Blood Transfusion (DC), Thrombocytopenia (DC)
[2016-12-22] MEDS ORDERED: Patient's Own Med (Bimatoprost [Lumigan] 1 DROP) EACHEYE SCH (22:00)
[2016-12-22] MEDS ORDERED: Latanoprost 0.005% Opht SOUTION OU SCH (22:00)
[2016-12-27] MEDS ORDERED: Ergocalciferol 50,000 Intl Units Cap PO SCH (09:00)
== END 2016-12-22 12:15 | disposition home or self-care (01) ==
LOC: H.ER 10:38 → H.EROBSV 13:32 → H.ERHOLD 20:54 → H.TEL 22:28
PROVIDERS: ADMIT Family Medicine; ATTEND Family Medicine
DX: D69.6 Thrombocytopenia, unspecified (principal); D46.9 Myelodysplastic syndrome, unspecified; D61.818 Other pancytopenia; E03.9 Hypothyroidism, unspecified; E11.22 Type 2 diabetes mellitus with diabetic chronic kidney disease; E78.00 Pure hypercholesterolemia, unspecified; E78.5 Hyperlipidemia, unspecified; I25.10 Atherosclerotic heart disease of native coronary artery without angina pectoris; N40.0 Benign prostatic hyperplasia without lower urinary tract symptoms; Z87.442 Personal history of urinary calculi; H40.9 Unspecified glaucoma; H91.90 Unspecified hearing loss, unspecified ear; I13.0 Hypertensive heart and chronic kidney disease with heart failure and stage 1 through stage 4 chronic kidney disease, or unspecified chronic kidney disease; I50.9 Heart failure, unspecified; J45.909 Unspecified asthma, uncomplicated; N18.9 Chronic kidney disease, unspecified; Z91.81 History of falling; Z79.899 Other long term (current) drug therapy; Z90.49 Acquired absence of other specified parts of digestive tract; Z95.1 Presence of aortocoronary bypass graft; Z95.5 Presence of coronary angioplasty implant and graft; H26.9 Unspecified cataract; K82.9 Disease of gallbladder, unspecified; Z79.84 Long term (current) use of oral hypoglycemic drugs; R47.81 Slurred speech
CPT/HCPCS: 36415; 36430; 80048; 80053; 82948; 85025; 85027; 85610; 86850; 86900; 86920; 93005; 99282; G0378; P9035; P9051; Q4081

== ENCOUNTER 2016-12-31 18:27 | Observation (INO) | payer MEDICARE, BC ==
[2016-12-31 18:27] VITALS: BMI 29.0
[2016-12-31 19:51] LABS: BASO % 1.1 % (0.0-2.0); EOS % 0.4 % (0.0-4.0); HEMATOCRIT 26.7 % (35.0-51.0); LYMPH # 1.8 K/uL (1.0-4.3); LYMPH % 73.1 % (20.0-40.0); MEAN CELL VOLUME 93.8 fl (80.0-94.0); MEAN CORPUSCULAR HEMOGLOBIN 30.8 pg (27.0-31.0); MEAN CORPUSCULAR HGB CONC 32.8 g/dL (33.0-37.0); MEAN PLATELET VOLUME 8.3 fl (7.2-11.7); MONO # 0.3 K/uL (0.0-0.8); MONO % 12.1 % (0.0-10.0); NEUT # 0.3 K/uL (1.8-7.0); NEUT % 13.3 % (50.0-75.0); NRBC % 0.2 % (0.0-0.0); RED CELL DISTRIBUTION WIDTH 20.1 % (11.5-14.5); WHITE BLOOD COUNT 2.5 K/uL (4.8-10.8)
[2016-12-31 19:59] LABS: ALB/GLOB RATIO 0.9 (1.0-2.1); BILIRUBIN,TOTAL 0.5 mg/dl (0.2-1.3); CALCIUM 10.2 mg/dL (8.4-10.2); POTASSIUM 3.9 MMOL/L (3.6-5.0); TOTAL PROTEIN 6.9 G/DL (6.3-8.2)
[2016-12-31 20:09] LABS: PARTIAL THROMBOPLASTIN TIME 25.9 Seconds (25.6-37.1)
[2016-12-31 20:11] LABS: TROPONIN I 0.033 ng/mL (0.00-0.120)
--- NOTE | 2016-12-31 20:35 | ED PDOC ---
HPI: Fever Symptoms Associated With Fever: denies: Vomiting, Diarrhea, Cough Additional Comments: Reinier Amaya is a 86 year old male, with a past medical history of anemia, CAD, CHF, HTN, myelodysplastic syndrome and pancreatitis, who presents to the emergency department with his son complaining of fever associated with weakness, and poor appetite onset for 1 day. The son state the patient was given platelet transfusion yesterday of 19,000, he tolerated it well and went home after a 3 hr same day visit. They state this morning he ate breakfast but became weak and appeared somewhat confused. They became concerned that he may be developing anemia which prompted the visit. Patient denies any chest pain, cough, shortness of breath, vomit or diarrhea. Past Medical History Reviewed: Historical Data, Nursing Documentation, Vital Signs Vital Signs: Last Vital Signs Temp 98.7 F 12/31/16 20:53 Pulse 84 12/31/16 20:53 Resp 18 12/31/16 20:53 BP 123/70 12/31/16 18:35 Pulse Ox 100 12/31/16 21:21 - Medical History PMH: Anemia, Asthma, Benign Prostatic Hyperplasia, CAD (dyslipidemia ), CHF, Diabetes, Diverticulitis, Gall Bladder Disease, HTN, Hypercholesterolemia, Hypothyroidism, Kidney Stones, Pancreatitis (Myelodisplastic Syndrom), Chronic Kidney Disease Denies: HIV - Surgical History Surgical History: CABG (37 years ago), Cholecystectomy, Coronary Stent (1994) Other surgeries: Coronary bypass surgery - Family History Family History: States: Unknown Family Hx - Social History Current smoker - smoking cessation education provided: No Alcohol: None Drugs: Denies - Home Medications Home Medications: Ambulatory Orders Medication Instructions Recorded Finasteride [Proscar] 5 mg PO DAILY tab 10/15/16 Paricalcitol [Zemplar] 1 mcg PO QOTHERDAY #0 11/16/16 Atorvastatin [Lipitor] 10 mg PO HS tab 11/23/16 SITagliptin [Januvia] 50 mg PO DAILY tab 11/23/16 Sevelamer [Renagel] 800 mg PO TID tab 11/23/16 Sodium Bicarbonate Tab 650 mg PO BID tab 11/23/16 Bimatoprost [Lumigan] 1 drop EACHEYE HS 12/21/16 Docusate [Colace] 100 mg PO DAILY PRN 12/21/16 Ergocalciferol [Drisdol 50,000 50,000 unit PO SUN 12/21/16 Intl Units Cap] Febuxostat [Uloric] 40 mg PO DAILY 12/21/16 Megestrol Acetate [Megace Es] 20 ml PO DAILY PRN 12/21/16 Acetaminophen [Tylenol 325mg tab] 325 mg PO Q4 PRN tab 01/01/17 - Allergies Allergies/Adverse Reactions: Allergies Allergy/AdvReac Type Severity Reaction Status Date / Time No Known Allergies Allergy Verified 12/21/16 10:54 Review of Systems ROS Statement: Except As Marked, All Systems Reviewed And Found Negative Constitutional: Positive for: Fever, Weakness (generalized) Cardiovascular: Negative for: Chest Pain Respiratory: Negative for: Cough, Shortness of Breath Gastrointestinal: Negative for: Vomiting, Diarrhea Physical Exam - Reviewed Nursing Documentation Reviewed: Yes Vital Signs Reviewed: Yes - Physical Exam Appears: Positive for: Well (febrile rest), Non-toxic Head Exam: Positive for: ATRAUMATIC, NORMAL INSPECTION, NORMOCEPHALIC Skin: Positive for: Normal Color, Warm, Dry. Negative for: Rash Eye Exam: Positive for: EOMI, Normal appearance, PERRL ENT: Positive for: Normal ENT Inspection Neck: Positive for: Normal, Painless ROM, Supple Cardiovascular/Chest: Positive for: Regular Rate, Rhythm. Negative for: Murmur Respiratory: Positive for: Normal Breath Sounds. Negative for: Respiratory Distress Gastrointestinal/Abdominal: Positive for: Normal Exam, Bowel Sounds, Soft. Negative for: Tenderness Back: Positive for: Normal Inspection Extremity: Positive for: Normal ROM. Negative for: Pedal Edema, Deformity Neurologic/Psych: Positive for: Alert, Oriented. Negative for: Motor/Sensory Deficits - Laboratory Results Result Diagrams: 01/01/17 05:45 01/01/17 05:45 - ECG O2 Sat by Pulse Oximetry: 100 (RA) Pulse Ox Interpretation: Normal Medical Decision Making Medical Decision Making: Initial Impression: 86 y/o male with Febrile illness at setting of platelet transfusion Initial Plan: Type and screen EKG Urine dipstick Chest portable [RAD] Tylenol 975 mg PO Blood culture Urinalysis Influenza A B -Staff Midwife, Dr. Hernandez Urban, informed provider she doesn't feel that fever is likely related to transfusion -Chest X-ray show no acute disease -Labs reviewed, show no clinical abnormalities. Patient count is appropiate given transfusion and does have chronic anemia and leukopenia. Patient will be placed in observation for further monitoring. Diagnosis is post transfusion febrile illness and myelodisplastic syndrome. Scribe Attestation: Documented by Rosendo Urena, acting as a scribe for Jong Gutierrez MD Provider Scribe Attestation: All medical record entries made by the Scribe were at my direction and personally dictated by me. I have reviewed the chart and agree that the record accurately reflects my personal performance of the history, physical exam, medical decision making, and the department course for this patient. I have also personally directed, reviewed, and agree with the discharge instructions and disposition. Disposition - Clinical Impression Clinical Impression: Fever - Patient ED Disposition Is Patient to be Admitted: Yes - Disposition Disposition Time: 20:30 Condition: STABLE - Pt Status Changed To: Hospital Disposition Of: Observation
[2016-12-31 21:11] LABS: URINE BILIRUBIN NEGATIVE (NEGATIVE); URINE BLOOD NEGATIVE (NEGATIVE); URINE COLOR STRAW (YELLOW); URINE GLUCOSE (UA) NEG (Normal); URINE KETONE NEGATIVE (NEGATIVE); URINE LEUKOCYTE ESTERASE NEG Leu/uL (Negative); URINE PROTEIN 100 mg/dL (NEGATIVE); URINE UROBILINOGEN 0.2-1.0 mg/dL (0.2-1.0)
[2016-12-31 21:22] LABS: RBC URINE 1 /hpf (0-3); WBC URINE 1 /hpf (0-5)
[2017-01-01] MEDS ORDERED: Megestrol Acetate 40 mg/ml Cup PO PRN (00:08)
[2017-01-01 00:48] VITALS: RESP 18
[2017-01-01] MEDS ORDERED: Latanoprost 0.005% Opht SOUTION OU SCH (01:00)
[2017-01-01 06:29] LABS: HEMATOCRIT 27.5 % (35.0-51.0); MEAN CELL VOLUME 94.8 fl (80.0-94.0); MEAN CORPUSCULAR HEMOGLOBIN 31.2 pg (27.0-31.0); MEAN CORPUSCULAR HGB CONC 32.9 g/dL (33.0-37.0); RED CELL DISTRIBUTION WIDTH 19.9 % (11.5-14.5); WHITE BLOOD COUNT 3.8 K/uL (4.8-10.8)
[2017-01-01 06:37] LABS: CALCIUM 10.3 mg/dL (8.4-10.2); POTASSIUM 4.3 MMOL/L (3.6-5.0)
[2017-01-01 07:52] VITALS: BP 129/80; PULSE 62; TEMP 97.8
--- NOTE | 2017-01-01 08:45 | CARD ---
APPROVED REPORT EKG Measurement Heart [id number] VA [id number] <Conclusion> Sinus rhythm with premature atrial complexes Left axis deviation Nonspecific T wave abnormality Abnormal ECG
[2017-01-01] MEDS ORDERED: Patient's Own Med (Paricalcitol [Zemplar] 1 MCG) PO SCH (09:00)
--- NOTE | 2017-01-01 10:20 | RAD ---
HISTORY: chest pain COMPARISON: Comparison chest dated 11/16/2016 FINDINGS: LUNGS: Direct PLEURA: As above. No pneumothorax apparent. CARDIOVASCULAR: Re- demonstrated are sternotomy wires well with metallic surgical clips overlying the right hilar/suprahilar region. . Cardiomegaly. Calcification of the aortic knob. OSSEOUS STRUCTURES: Note made of small calcification along the distribution of the right cortical clavicular ligament VISUALIZED UPPER ABDOMEN: Normal. OTHER FINDINGS: None. IMPRESSION: Mild bibasilar atelectasis. . The possibility of tiny effusions cannot be completely excluded
[2017-01-01] MEDS ORDERED: Patient's Own Med (Bimatoprost [Lumigan] 1 DROP) EACHEYE SCH (22:00)
[2017-01-02 01:27] VITALS: O2SAT 100
[2017-01-03] MEDS ORDERED: Ergocalciferol 50,000 Intl Units Cap PO SCH (09:00)
== END 2017-01-01 14:08 | disposition home or self-care (01) ==
LOC: H.ER 18:27 → H.ERHOLD 20:14 → H.MEDSURG1 22:00
PROVIDERS: ADMIT Family Medicine; ATTEND Family Medicine
DX: R50.9 Fever, unspecified (principal); E03.9 Hypothyroidism, unspecified; E11.22 Type 2 diabetes mellitus with diabetic chronic kidney disease; E78.00 Pure hypercholesterolemia, unspecified; E78.5 Hyperlipidemia, unspecified; I25.10 Atherosclerotic heart disease of native coronary artery without angina pectoris; I50.9 Heart failure, unspecified; J45.909 Unspecified asthma, uncomplicated; N18.9 Chronic kidney disease, unspecified; N40.0 Benign prostatic hyperplasia without lower urinary tract symptoms; Z87.442 Personal history of urinary calculi; I13.0 Hypertensive heart and chronic kidney disease with heart failure and stage 1 through stage 4 chronic kidney disease, or unspecified chronic kidney disease; D64.9 Anemia, unspecified; K82.9 Disease of gallbladder, unspecified; Z79.899 Other long term (current) drug therapy; Z95.1 Presence of aortocoronary bypass graft; Z95.5 Presence of coronary angioplasty implant and graft; Z79.84 Long term (current) use of oral hypoglycemic drugs
CPT/HCPCS: 36415; 71010; 80048; 80053; 81003; 82948; 83605; 83880; 84484; 85025; 85027; 85610; 85730; 86850; 86900; 87040; 87804; 93005; 99283; G0378

== ENCOUNTER 2017-01-13 07:13 | Day surgery (SDC) | payer MEDICARE, BC ==
[2017-01-13 07:36] VITALS: BMI 27.2
[2017-01-13] MEDS ORDERED: Sodium Chloride 0.9% 500 ML IV SCH (07:45)
[2017-01-13] MEDS ORDERED: DiphenhydrAMINE 12.5 mg/5 ml LIQ UD (5 ml) PO ONE (08:00)
--- NOTE | 2017-01-13 08:03 | CP.SDSHP ---
Same Day Surgery H & P - History Proposed Procedure: life port placement Pre-Op Diagnosis: myelodysplastic syndrome,thrombocytopenia,admitted for lifeport placement - Previous Medical/Surgical History Cardiac: ASHD/CAD, Hx of CHF, Arrhythmia Misc: Bleeding Disorder Comments: pt has pancytopenia secondary to MDS - Allergies Allergies: Allergies No Known Allergies Allergy (Verified 01/12/17 17:00) - Current Medications Current Medications: Physical exam; Pt is alert, awake well oriented in no acute distress neck; Supple, no adenopathy Chest; Clear, no rales or rhonchi Heart; RSR, no murmur Abd; Soft, no mass no h/s megaly - Physical Exam Vital Signs: Vital Signs 01/13/17 01/13/17 07:36 07:39 Temperature 98 F Pulse Rate 63 63 Respiratory 20 Rate Blood Pressure 157/78 H O2 Sat by Pulse 98 Oximetry Short Stay Discharge - Short Stay Discharge Admitting Diagnosis/Reason for Visit: N18.3/D64.9 Disposition: HOME/ ROUTINE Referrals: Arthur Mccain MD [Primary Care Provider] -
[2017-01-13] MEDS ORDERED: methylPREDNISolone 40 MG in Sodium Chloride 0.9% 50 ML IVPB ONE (08:30)
[2017-01-13] MEDS: DiphenhydrAMINE 12.5 mg/5 ml LIQ UD (5 ml) PO ONE (08:52)
[2017-01-13] MEDS: Sodium Chloride 0.9% 1,000 ML IV ONE (09:15)
[2017-01-13 14:55] LABS: MEAN CELL VOLUME 93.6 fl (80.0-94.0); MEAN CORPUSCULAR HGB CONC 34.2 g/dL (33.0-37.0); RED CELL DISTRIBUTION WIDTH 17.9 % (11.5-14.5)
[2017-01-13] MEDS ORDERED: ceFAZolin 1 GM in Sodium Chloride 0.9% 100 ML IVPB ONE (15:11)
[2017-01-13] MEDS ORDERED: Midazolam 2 MG/2 ML VIAL ONE (15:22)
[2017-01-13] MEDS ORDERED: Lidocaine 1% w Epi 1:100,000 Inj ONE (15:36)
[2017-01-13] MEDS ORDERED: Lidocaine 1% Inj (20ml) ONE (15:36)
--- NOTE | 2017-01-13 16:05 | CP.SDSHP ---
Same Day Surgery H & P - History Proposed Procedure: Port placement right IJV Pre-Op Diagnosis: Thrombocytopenia - Allergies Allergies: Allergies No Known Allergies Allergy (Verified 01/12/17 17:00) - Physical Exam Vital Signs: Vital Signs 01/13/17 01/13/17 01/13/17 09:20 09:50 10:37 Temperature 98.7 F 98.6 F 98 F Pulse Rate 61 62 64 Respiratory 18 18 18 Rate Blood Pressure 138/66 134/68 139/66 O2 Sat by Pulse 98 98 98 Oximetry 01/13/17 01/13/17 01/13/17 11:19 12:25 13:20 Temperature 98 F 98 F 98.9 F Pulse Rate 61 62 59 L Respiratory 18 18 18 Rate Blood Pressure 133/69 143/73 140/72 O2 Sat by Pulse 98 97 97 Oximetry 01/13/17 01/13/17 01/13/17 13:45 13:53 14:00 Temperature 98 F 98 F 98 F Pulse Rate 62 63 63 Respiratory 18 20 20 Rate Blood Pressure 130/68 146/80 146/80 O2 Sat by Pulse 98 98 98 Oximetry 01/13/17 01/13/17 01/13/17 14:05 14:21 14:36 Temperature 98 F 98.4 F 98 F Pulse Rate 65 68 68 Respiratory 20 20 20 Rate Blood Pressure 143/75 143/75 140/75 O2 Sat by Pulse 97 97 98 Oximetry Mental Status: Alert & Oriented x3 Neuro: WNL Heart: WNL Lungs: WNL - Impression Pt. Evaluated Today:Candidate for Anesthesia & Procedure: Yes (ASA 3 Malampati 3) - Date & Time Date: 01/13/17 Time: 15:15 Short Stay Discharge - Short Stay Discharge Admitting Diagnosis/Reason for Visit: N18.3/D64.9 Referrals: Arthur Mccain MD [Primary Care Provider] -
--- NOTE | 2017-01-13 16:06 | PCM.SURG1 ---
Surgeon's Initial Post Op Note - Surgeon's Notes Surgeon: Husam Graff MD Ordnance Artificer Helper: NONE Type of Anesthesia: IV Sedation Pre-Operative Diagnosis: Thrombocytopenia Operative Findings: US showed a patent and compressible right IJV Post-Operative Diagnosis: Thrombocytopenia Operation Performed: Right IJ port placement. Specimen/Specimens Removed: NONE Estimated Blood Loss: EBL {In ML}: 2 Blood Products Given: N/A Drains Used: No Drains Post-Op Condition: Good Date of Surgery/Procedure: 01/13/17 Time of Surgery/Procedure: 16:00
[2017-01-13] MEDS: Sodium Chloride 0.9% 250 ML IV ONE (16:30)
[2017-01-13 17:24] VITALS: RESP 18
[2017-01-13 17:29] VITALS: O2SAT 97
[2017-01-13 18:17] VITALS: BP 142/77; PULSE 75; TEMP 97.2
== END 2017-01-13 18:42 | disposition home or self-care (01) ==
LOC: H.OPSURG 07:13
PROVIDERS: ATTEND Specialist
DX: D61.818 Other pancytopenia (principal); N18.3 Chronic kidney disease, stage 3 (moderate); D64.9 Anemia, unspecified; I25.10 Atherosclerotic heart disease of native coronary artery without angina pectoris; D46.9 Myelodysplastic syndrome, unspecified
CPT/HCPCS: 36415; 36561; 76937; 77001; 82948; 85027; A4310; C1751; J0690; J1940; J2250; J2920; J3010; J7040

== ENCOUNTER 2017-02-19 10:52 | Inpatient (IN) | payer MEDICARE, BC ==
[2017-02-19 10:52] VITALS: BMI 27.2
--- NOTE | 2017-02-19 11:41 | ED PDOC ---
Syncope/Near Syncope/Dizziness Time Seen by Provider: 02/19/17 11:14 Chief Complaint (Nursing): Dizziness/Lightheaded Chief Complaint (Provider): Low Blood Count History Per: Patient History/Exam Limitations: no limitations Onset/Duration Of Symptoms: Hrs (prior to arrival ) Current Symptoms Are (Timing): Still Present Additional Complaint(s): Ulisses Amaya is an 86 year old male with a past medical history of MDS, hypertension, CAD, and chronic kidney disease and a past surgical history of open heart surgery, stent placements, cholecystectomy, and cataract surgery accompanied by his son presenting for an evaluation of low blood count. The patients son reports the patients platelet levels have dropped from 60 to 30 last night prompting their ED visit today. He states the patient also had an infection a couple of days ago and was treated with antibiotics in this ED. The patient does not undergo chemotherapy but receives blood transfusions regularly. The patients son states the patient seems pale in skin color, he has had a subjective fever coming and going, and an associated headache which also come and goes. He denies experiencing any pain, vomiting, hematemesis, nosebleed , hematochezia, or experiencing any fall. Of note, the patient was last admitted on 02/14 for neutropenia and thrombocytopenia. PMD: MD Adán Oncologist: Gayle Urban MD Past Medical History Reviewed: Historical Data, Nursing Documentation, Vital Signs Vital Signs: Last Vital Signs Temp 98.6 F 02/19/17 10:56 Pulse 93 H 02/19/17 10:56 Resp 22 02/19/17 10:56 BP 168/103 H 02/19/17 10:56 Pulse Ox 98 02/19/17 11:01 - Medical History PMH: Anemia, Asthma, Benign Prostatic Hyperplasia, CAD (dyslipidemia ), CHF, Diabetes, Diverticulitis, Gall Bladder Disease, HTN, Hypercholesterolemia, Hypothyroidism, Kidney Stones, Pancreatitis (Myelodisplastic Syndrom), Chronic Kidney Disease Denies: HIV - Surgical History Surgical History: CABG (37 years ago), Cholecystectomy, Coronary Stent (1994) - Family History Family History: States: Unknown Family Hx - Home Medications Home Medications: Ambulatory Orders Medication Instructions Recorded Finasteride [Proscar] 5 mg PO DAILY tab 10/15/16 Atorvastatin [Lipitor] 10 mg PO HS tab 11/23/16 SITagliptin [Januvia] 50 mg PO DAILY tab 11/23/16 Sevelamer [Renagel] 800 mg PO TID tab 11/23/16 Sodium Bicarbonate Tab 650 mg PO BID tab 11/23/16 Bimatoprost [Lumigan] 1 drop EACHEYE HS 12/21/16 Docusate [Colace] 100 mg PO DAILY PRN 12/21/16 Ergocalciferol [Drisdol 50,000 50,000 unit PO SUN 12/21/16 Intl Units Cap] Febuxostat [Uloric] 40 mg PO DAILY 12/21/16 Megestrol Acetate [Megace Es] 20 ml PO DAILY PRN 12/21/16 Acetaminophen [Tylenol 325mg tab] 325 mg PO Q4 PRN tab 01/01/17 Moxifloxacin [Avelox] 400 mg PO DAILY #5 tab 02/16/17 - Allergies Allergies/Adverse Reactions: Allergies Allergy/AdvReac Type Severity Reaction Status Date / Time No Known Allergies Allergy Verified 02/19/17 11:00 Review of Systems ROS Statement: Except As Marked, All Systems Reviewed And Found Negative Constitutional: Positive for: Fever, Weakness, Other (pale skin color; low blood count) ENT: Negative for: Other (no nose bleeds) Gastrointestinal: Negative for: Vomiting, Hematochezia, Hematemesis Neurological: Positive for: Headache Physical Exam - Reviewed Nursing Documentation Reviewed: Yes Vital Signs Reviewed: Yes - Physical Exam Appears: Positive for: Non-toxic, No Acute Distress Head Exam: Positive for: ATRAUMATIC, NORMOCEPHALIC Skin: Positive for: Warm, Dry, Pallor Eye Exam: Positive for: Normal appearance, EOMI, PERRL ENT: Positive for: Normal ENT Inspection, Other (dry mucous membranes) Neck: Positive for: Normal, Painless ROM, Supple Cardiovascular/Chest: Positive for: Regular Rate, Rhythm, Chest Non Tender. Negative for: Edema, Murmur Respiratory: Positive for: Normal Breath Sounds. Negative for: Respiratory Distress Gastrointestinal/Abdominal: Positive for: Normal Exam, Soft. Negative for: Tenderness Back: Positive for: Normal Inspection Extremity: Positive for: Normal ROM. Negative for: Deformity Neurologic/Psych: Positive for: Alert, Oriented (x3). Negative for: Motor/ Sensory Deficits - Laboratory Results Result Diagrams: 02/21/17 05:30 02/21/17 05:30 - ECG O2 Sat by Pulse Oximetry: 98 (RA) Pulse Ox Interpretation: Normal - Radiology X-Ray: Interpreted by Me, Viewed By Me X-Ray Interpretation: No Acute Disease Medical Decision Making Medical Decision Making: Time: 11:14 Impression: Weakness and Fever. Differential includes neutropenia, cytopenia, neutropenic fever Plan: * VBG * ED EKG * CMP * Troponin I * CBC (with differential) * Partial Thromboplastin * Prothrombin Time * Blood Culture * Influenza A B * CT head w/o contrast * [RAD] Chest Portable * Reevaluation CT Head: FINDINGS: HEMORRHAGE: No intracranial hemorrhage. BRAIN: No mass effect or edema. Age related senescent change VENTRICLES: Unremarkable. No hydrocephalus. CALVARIUM: Unremarkable. PARANASAL SINUSES: Unremarkable as visualized. No significant inflammatory changes. MASTOID AIR CELLS: Unremarkable as visualized. No inflammatory changes. OTHER FINDINGS: None. IMPRESSION: No acute intracranial abnormalities. No significant findings to account for the clinical presentation. No significant interval change compared to the prior examination(s). Chest X-Ray: no acute findings. Discussed with Dr Urban who recommends admission, platelet transfusion 1 unit and empiric antibiotics with isolation for neutropenic fever. Scribe Attestation: Documented by Sulema Venegas, acting as a scribe for Elina Cohn MD. Provider Scribe Attestation: All medical record entries made by the Scribe were at my direction and personally dictated by me. I have reviewed the chart and agree that the record accurately reflects my personal performance of the history, physical exam, medical decision making, and the department course for this patient. I have also personally directed, reviewed, and agree with the discharge instructions and disposition. Disposition - Clinical Impression Clinical Impression: Weakness generalized, Neutropenia, Thrombocytopenia, MDS (myelodysplastic syndrome) - Patient ED Disposition Is Patient to be Admitted: Yes Discussed With DrMahsa: Arthur L Mccain Doctor Will See Patient In The: Hospital Counseled Patient/Family Regarding: Studies Performed, Diagnosis - Disposition Disposition Time: 14:10 Condition: FAIR - Pt Status Changed To: Hospital Disposition Of: Inpatient - Admit Certification Admit to Inpatient:: After my assessment, the patient will require hospitalization for at least two midnights. This is because of the severity of symptoms shown, intensity of services needed, and/or the medical risk in this patient being treated as an outpatient. - POA Present On Arrival: Poor Glycemic Control
--- NOTE | 2017-02-19 12:34 | CT ---
PROCEDURE: CT HEAD WITHOUT CONTRAST. HISTORY: headache COMPARISON: 02/16/2017 TECHNIQUE: Axial computed tomography images were obtained through the head/brain without intravenous contrast. Coronal and sagittal reconstructed images. Radiation dose: Total exam DLP = 770.05 mGy-cm. This CT exam was performed using one or more of the following dose reduction techniques: Automated exposure control, adjustment of the mA and/or kV according to patient size, and/or use of iterative reconstruction technique. FINDINGS: HEMORRHAGE: No intracranial hemorrhage. BRAIN: No mass effect or edema. Age related senescent change VENTRICLES: Unremarkable. No hydrocephalus. CALVARIUM: Unremarkable. PARANASAL SINUSES: Unremarkable as visualized. No significant inflammatory changes. MASTOID AIR CELLS: Unremarkable as visualized. No inflammatory changes. OTHER FINDINGS: None. IMPRESSION: No acute intracranial abnormalities. No significant findings to account for the clinical presentation. No significant interval change compared to the prior examination(s).
[2017-02-19 12:35] LABS: VENOUS BLOOD GAS BASE EXCESS 3.8 mmol/L (0.0-2.0); VENOUS BLOOD GAS PCO2 33 mmHg (40-60); VENOUS BLOOD PH 7.52 (7.32-7.43)
[2017-02-19 12:42] LABS: ALB/GLOB RATIO 0.8 (1.0-2.1); BILIRUBIN,TOTAL 0.4 mg/dl (0.2-1.3); CALCIUM 9.8 mg/dL (8.4-10.2); POTASSIUM 3.4 MMOL/L (3.6-5.0); TOTAL PROTEIN 6.2 G/DL (6.3-8.2)
[2017-02-19 12:54] LABS: TROPONIN I 0.029 ng/mL (0.00-0.120)
[2017-02-19] MEDS ORDERED: Potassium Chloride 20 mEq ER Tab PO ONE (14:07)
[2017-02-19] MEDS ORDERED: Meropenem 1 GM in Sodium Chloride 0.9% 100 ML IVPB ONE (14:15)
--- NOTE | 2017-02-19 14:43 | RAD ---
HISTORY: fever COMPARISON: No prior. FINDINGS: No interval change right IJ MediPort with tip in the SVC. LUNGS: No active pulmonary disease. PLEURA: No significant pleural effusion identified, no pneumothorax apparent. CARDIOVASCULAR: Sternotomy wires and surgical clips are again noted overlying the cardiac silhouette. Heart size upper limits of normal. OSSEOUS STRUCTURES: No significant abnormalities. VISUALIZED UPPER ABDOMEN: Normal. OTHER FINDINGS: None. IMPRESSION: No acute infiltrates.
[2017-02-19 14:51] LABS: BASO % 1.9 % (0.0-2.0); HEMATOCRIT 29.6 % (35.0-51.0); LYMPH # 1.6 K/uL (1.0-4.3); LYMPH % 86.3 % (20.0-40.0); MEAN CORPUSCULAR HEMOGLOBIN 29.8 pg (27.0-31.0); MONO # 0.1 K/uL (0.0-0.8); MONO % 4.7 % (0.0-10.0); NEUT # 0.1 K/uL (1.8-7.0); NEUT % 5.1 % (50.0-75.0); NRBC % 0.1 % (0.0-0.0); RED CELL DISTRIBUTION WIDTH 15.4 % (11.5-14.5)
[2017-02-19 15:10] LABS: PLATELET COUNT 13 K/uL (130-400); WHITE BLOOD COUNT 1.8 K/uL (4.8-10.8)
[2017-02-19] MEDS ORDERED: Megestrol Acetate 40 mg/ml Cup PO PRN (16:36)
[2017-02-19 16:51] LABS: BASOPHIL 1 % (0-2); NEUTROPHIL 4 % (42-75); TOTAL CELLS COUNTED 100
--- NOTE | 2017-02-19 19:07 | CP.PCM.HP ---
<Radames Harrisonmadi - Last Filed: 02/19/17 19:08> History of Present Illness - History of Present Illness History of Present Illness: 86 y/o male presented to ED after blood draw revealed very low platelet count. He has hx of MDS, with severe pancytopenia, recently admitted for same. He is followed by Dr. Trav Urban. Patient was having 'fever' yesterday with TMAX of 100.1. The family is concerned about his mental status, however they report his memory and orientation waxes and wanes. Last admission was having similar episodes of change in mental status without cause. Patient was d/c on avalox, given dose of merrem in ED. Present on Admission - Present on Admission Any Indicators Present on Admission: No Past Patient History - Infectious Disease Hx of Infectious Diseases: None - Past Medical History & Family History Past Medical History?: Yes - Past Social History Smoking Status: Never Smoked - CARDIAC Hx Cardiac Disorders: Yes Hx Hypertension: Yes - PULMONARY Hx Respiratory Disorders: Yes Hx Asthma: Yes Hx Lung Cancer: Yes - NEUROLOGICAL Hx Neurological Disorder: Yes - HEENT Hx HEENT Problems: Yes Other/Comment: Hard of Hearing - RENAL Hx Chronic Kidney Disease: Yes Hx Kidney Stones: Yes Other/Comment: CKD - ENDOCRINE/METABOLIC Hx Hypothyroidism: Yes - HEMATOLOGICAL/ONCOLOGICAL Hx Blood Disorders: Yes Hx Cancer: Yes Other/Comment: MDS - INTEGUMENTARY Hx Dermatological Problems: No - MUSCULOSKELETAL/RHEUMATOLOGICAL Hx Musculoskeletal Disorders: Yes Hx Falls: Yes Hx Gout: Yes - GASTROINTESTINAL Hx Diverticulitis: Yes Hx Gall Bladder Disease: Yes Hx Pancreatitis: Yes (Myelodisplastic Syndrom) - GENITOURINARY/GYNECOLOGICAL Hx Genitourinary Disorders: Yes Hx Prostate Problems: Yes - PSYCHIATRIC Hx Psychophysiologic Disorder: No Hx Emotional Abuse: No Hx Physical Abuse: No Hx Substance Use: No - SURGICAL HISTORY Hx Cholecystectomy: Yes 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) Hx Coronary Stent: Yes (1994) - ANESTHESIA Hx Anesthesia: Yes Hx Anesthesia Reactions: No Hx Malignant Hyperthermia: No Meds Allergies/Adverse Reactions: Allergies Allergy/AdvReac Type Severity Reaction Status Date / Time No Known Allergies Allergy Verified 02/19/17 11:00 Physical Exam - Constitutional Appears: Confused - Head Exam Head Exam: ATRAUMATIC, NORMAL INSPECTION, NORMOCEPHALIC - Eye Exam Eye Exam: Normal appearance - ENT Exam ENT Exam: Mucous Membranes Moist - Respiratory Exam Respiratory Exam: Clear to Auscultation Bilateral, NORMAL BREATHING PATTERN - Cardiovascular Exam Cardiovascular Exam: REGULAR RHYTHM, +S1, +S2 - GI/Abdominal Exam GI & Abdominal Exam: Normal Bowel Sounds, Soft. absent: Distended, Tenderness - Extremities Exam Extremities exam: Positive for: pedal edema (trace ) - Neurological Exam Neurological exam: Altered - Skin Skin Exam: Dry, Intact, Pallor, Warm Additional comments: no petechiae, no rash Results - Vital Signs Recent Vital Signs: Last Vital Signs Temp 98.2 F 02/19/17 16:52 Pulse 98 H 02/19/17 16:52 Resp 20 02/19/17 16:52 BP 165/85 H 02/19/17 16:52 Pulse Ox 100 02/19/17 16:52 - Labs Result Diagrams: 02/19/17 14:38 02/19/17 12:15 Labs: Laboratory Results - last 24 hr 02/19/17 02/19/17 02/19/17 11:56 12:15 12:15 WBC Cancelled RBC Cancelled Hgb Cancelled Hct Cancelled MCV Cancelled MCH Cancelled MCHC Cancelled RDW Cancelled Plt Count Cancelled MPV Cancelled Neut % (Auto) Cancelled Lymph % (Auto) Cancelled [place] % (Auto) Cancelled Eos % (Auto) Cancelled Baso % (Auto) Cancelled Neut # Cancelled Lymph # Cancelled [place] # Cancelled Eos # Cancelled Baso # Cancelled Neutrophils % (Manual) Cancelled Band Neutrophils % Cancelled Lymphocytes % (Manual) Cancelled Reactive Lymphs % Cancelled Monocytes % (Manual) Cancelled Eosinophils % (Manual) Cancelled Basophils % (Manual) Cancelled Metamyelocytes % Cancelled Myelocytes % Cancelled Promyelocytes % Cancelled Blast Cells % Cancelled Plasma Cell % (Manual) Cancelled Nucleated RBC % Cancelled Hypersegmented Polys Cancelled Smudge Cells Cancelled Toxic Granulation Cancelled Dohle Bodies Cancelled Suellen Rods Cancelled Platelet Estimate Cancelled Plt Clumps, EDTA Cancelled Large Platelets Cancelled Giant Platelets Cancelled RBC Morphology Cancelled Polychromasia Cancelled Hypochromasia (manual) Cancelled Poikilocytosis (manual Cancelled Basophilic Stippling Cancelled Anisocytosis (manual) Cancelled Microcytosis (manual) Cancelled Macrocytosis (manual) Cancelled Spherocytes Cancelled Sickle Cells Cancelled Target Cells Cancelled Tear Drop Cells Cancelled Ovalocytes Cancelled Stomatocytes Cancelled Helmet Cells Cancelled [place] Bodies Cancelled Michael Cells Cancelled Acanthocytes (Spur) Cancelled Rouleaux Cancelled Schistocytes Cancelled PT INR APTT pO2 32 VBG pH 7.52 H VBG pCO2 33 L VBG HCO3 27.7 VBG Total CO2 27.9 VBG O2 Sat (Calc) 88.2 H VBG Base Excess 3.8 H Sodium > 200.0 H* 142 Chloride 134.0 H 107 Glucose 127 H Lactate 0.8 FiO2 21.0 Blood Gas Comments Vbg Crit Value Called To Joleen cabrera r.n. Crit Value Called By Wendy Criag Value Read Back Y Blood Gas Notified Time 1234 Potassium 3.4 L Carbon Dioxide 26 Anion Gap 12 BUN 24 H Creatinine 1.5 Est GFR ( Amer) 53 Est GFR (Non-Af Amer) 44 Random Glucose 131 H Calcium 9.8 Total Bilirubin 0.4 AST 7 L D ALT 21 Alkaline Phosphatase 66 Troponin I 0.0290 Total Protein 6.2 L Albumin 2.8 L Globulin 3.4 Albumin/Globulin Ratio 0.8 L Influenza Typ A,B (EIA) Blood Type Antibody Screen BBK History Checked 02/19/17 02/19/17 02/19/17 12:15 12:15 14:00 WBC RBC Hgb Hct MCV MCH MCHC RDW Plt Count MPV Neut % (Auto) Lymph % (Auto) [place] % (Auto) Eos % (Auto) Baso % (Auto) Neut # Lymph # [place] # Eos # Baso # Neutrophils % (Manual) Band Neutrophils % Lymphocytes % (Manual) Reactive Lymphs % Monocytes % (Manual) Eosinophils % (Manual) Basophils % (Manual) Metamyelocytes % Myelocytes % Promyelocytes % Blast Cells % Plasma Cell % (Manual) Nucleated RBC % Hypersegmented Polys Smudge Cells Toxic Granulation Dohle Bodies Suellen Rods Platelet Estimate Plt Clumps, EDTA Large Platelets Giant Platelets RBC Morphology Polychromasia Hypochromasia (manual) Poikilocytosis (manual Basophilic Stippling Anisocytosis (manual) Microcytosis (manual) Macrocytosis (manual) Spherocytes Sickle Cells Target Cells Tear Drop Cells Ovalocytes Stomatocytes Helmet Cells [place] Bodies Michael Cells Acanthocytes (Spur) Rouleaux Schistocytes PT Cancelled INR Cancelled APTT Cancelled pO2 VBG pH VBG pCO2 VBG HCO3 VBG Total CO2 VBG O2 Sat (Calc) VBG Base Excess Sodium Chloride Glucose Lactate FiO2 Blood Gas Comments Crit Value Called To Crit Value Called By Crit Value Read Back Blood Gas Notified Time Potassium Carbon Dioxide Anion Gap BUN Creatinine Est GFR ( Amer) Est GFR (Non-Af Amer) Random Glucose Calcium Total Bilirubin AST ALT Alkaline Phosphatase Troponin I Total Protein Albumin Globulin Albumin/Globulin Ratio Influenza Typ A,B (EIA) Negative for flu a/b Blood Type A POSITIVE Antibody Screen Negative BBK History Checked Patient has bt 02/19/17 02/19/17 14:35 14:38 WBC 1.8 L* RBC 3.29 L Hgb 9.8 L Hct 29.6 L MCV 90.0 MCH 29.8 MCHC 33.0 RDW 15.4 H Plt Count 13 L* D MPV 9.0 Neut % (Auto) 5.1 L Lymph % (Auto) 86.3 H [place] % (Auto) 4.7 Eos % (Auto) 2.0 Baso % (Auto) 1.9 Neut # 0.1 L Lymph # 1.6 [place] # 0.1 Eos # 0.0 Baso # 0.0 Neutrophils % (Manual) 4 L Band Neutrophils % Lymphocytes % (Manual) 91 H Reactive Lymphs % Monocytes % (Manual) 4 Eosinophils % (Manual) Basophils % (Manual) 1 Metamyelocytes % Myelocytes % Promyelocytes % Blast Cells % Plasma Cell % (Manual) Nucleated RBC % Hypersegmented Polys Smudge Cells Toxic Granulation Dohle Bodies Suellen Rods Platelet Estimate Markedly decreased L Plt Clumps, EDTA Large Platelets Giant Platelets RBC Morphology Polychromasia Hypochromasia (manual) Slight Poikilocytosis (manual Basophilic Stippling Anisocytosis (manual) Slight Microcytosis (manual) Macrocytosis (manual) Spherocytes Sickle Cells Target Cells Tear Drop Cells Ovalocytes Stomatocytes Helmet Cells [place] Bodies [place] Cells Acanthocytes (Spur) Rouleaux Schistocytes PT 18.9 H INR 1.7 H APTT 32.0 pO2 VBG pH VBG pCO2 VBG HCO3 VBG Total CO2 VBG O2 Sat (Calc) VBG Base Excess Sodium Chloride Glucose Lactate FiO2 Blood Gas Comments Crit Value Called To Crit Value Called By Crit Value Read Back Blood Gas Notified Time Potassium Carbon Dioxide Anion Gap BUN Creatinine Est GFR ( Amer) Est GFR (Non-Af Amer) Random Glucose Calcium Total Bilirubin AST ALT Alkaline Phosphatase Troponin I Total Protein Albumin Globulin Albumin/Globulin Ratio Influenza Typ A,B (EIA) Blood Type Antibody Screen BBK History Checked Assessment & Plan - Assessment and Plan (Free Text) Assessment: 86 year old male with MDS admitted with pancytopenia with severe thrombocytopenia, confused. Patient was on abx outpatient, unlikely to have bacterial infection. Got one does of merrem in the ED Will hold off on further abx for now. #MDS with pancytopenia #Altered mental status #Diabetes type 2, non insulin dependent #DVT ppx -patient received dose of merrem, will hold off on abx for now -patients mental status waxes/wanes, is chronic, etiology unclear -resume home medications for diabetes -diabetic/heart healthy diet -will get one unit of platelet as per heme/onc -SCDS for dvt ppx case d/w Dr. hayes. <Arthur Hayes - Last Filed: 02/21/17 15:05> Results - Vital Signs Recent Vital Signs: Last Vital Signs Temp 98.9 F 02/21/17 09:48 Pulse 100 H 02/21/17 09:48 Resp 20 02/21/17 07:30 BP 147/84 02/21/17 07:30 Pulse Ox 96 02/21/17 09:48 - Labs Result Diagrams: 02/21/17 05:30 02/21/17 05:30 Labs: Laboratory Results - last 24 hr 02/19/17 02/20/17 02/20/17 14:00 16:04 21:13 WBC RBC Hgb Hct MCV MCH MCHC RDW Plt Count MPV Neut % (Auto) Lymph % (Auto) [place] % (Auto) Eos % (Auto) Baso % (Auto) Neut # Lymph # [place] # Eos # Baso # Sodium Potassium Chloride Carbon Dioxide Anion Gap BUN Creatinine Est GFR ( Amer) Est GFR (Non-Af Amer) POC Glucose (mg/dL) 139 H 138 H Random Glucose Calcium Total Bilirubin AST ALT Alkaline Phosphatase Total Protein Albumin Globulin Albumin/Globulin Ratio Blood Type A POSITIVE Antibody Screen Negative Crossmatch See Detail BBK History Checked Patient has bt 02/21/17 02/21/17 02/21/17 05:22 05:30 05:30 WBC 1.4 L* RBC 4.03 L Hgb 12.4 D Hct 36.4 MCV 90.3 MCH 30.9 MCHC 34.2 RDW 14.6 H Plt Count 31 L MPV 8.5 Neut % (Auto) 4.2 L Lymph % (Auto) 85.3 H [place] % (Auto) 7.1 Eos % (Auto) 1.3 Baso % (Auto) 2.1 H Neut # 0.1 L Lymph # 1.2 [place] # 0.1 Eos # 0.0 Baso # 0.0 Sodium 143 Potassium 3.5 L Chloride 108 H Carbon Dioxide 26 Anion Gap 13 BUN 27 H Creatinine 1.3 Est GFR ( Amer) > 60 Est GFR (Non-Af Amer) 52 POC Glucose (mg/dL) 135 H Random Glucose 146 H Calcium 10.3 H Total Bilirubin 0.4 AST 10 L D ALT 25 Alkaline Phosphatase 76 Total Protein 6.5 Albumin 3.0 L Globulin 3.5 Albumin/Globulin Ratio 0.9 L Blood Type Antibody Screen Crossmatch BBK History Checked 02/21/17 10:37 WBC RBC Hgb Hct MCV MCH MCHC RDW Plt Count MPV Neut % (Auto) Lymph % (Auto) [place] % (Auto) Eos % (Auto) Baso % (Auto) Neut # Lymph # [place] # Eos # Baso # Sodium Potassium Chloride Carbon Dioxide Anion Gap BUN Creatinine Est GFR ( Amer) Est GFR (Non-Af Amer) POC Glucose (mg/dL) 240 H Random Glucose Calcium Total Bilirubin AST ALT Alkaline Phosphatase Total Protein Albumin Globulin Albumin/Globulin Ratio Blood Type Antibody Screen Crossmatch BBK History Checked Assessment & Plan (1) MDS (myelodysplastic syndrome) Status: Chronic (2) Pancytopenia Status: Chronic (3) Fever Status: Resolved (4) Physical debility Status: Acute - Assessment and Plan (Free Text) Plan: I was present during evaluation and discussed with Dr Hunter remy plans of care and treatment. Arthur Hayes M.D.
[2017-02-19] MEDS: Latanoprost 0.005% Opht SOUTION OU SCH (21:39)
--- NOTE | 2017-02-19 22:36 | CARD ---
APPROVED REPORT EKG Measurement Heart [id number] <Conclusion> Sinus rhythm with premature atrial complexes in a pattern of bigeminy Left axis deviation Nonspecific T wave abnormality Abnormal ECG
[2017-02-20 02:57] LABS: HEMATOCRIT 24.5 % (35.0-51.0); MEAN CELL VOLUME 90.1 fl (80.0-94.0); MEAN CORPUSCULAR HEMOGLOBIN 30.3 pg (27.0-31.0); MEAN CORPUSCULAR HGB CONC 33.6 g/dL (33.0-37.0); RED CELL DISTRIBUTION WIDTH 15.6 % (11.5-14.5)
[2017-02-20 03:04] LABS: WHITE BLOOD COUNT 1.4 K/uL (4.8-10.8)
--- NOTE | 2017-02-20 09:59 | CP.PCM.PN ---
Subjective - Date & Time of Evaluation Date of Evaluation: 02/20/17 Time of Evaluation: 09:59 - Subjective Subjective: Patient still has a lot of confusion. No fever Able to take some food. Stillwith low WBC and platelet. Objective - Vital Signs/Intake and Output Vital Signs (last 24 hours): Temp Pulse Resp BP Pulse Ox 97.8 F 73 21 151/81 H 98 02/20/17 07:28 02/20/17 07:28 02/20/17 07:28 02/20/17 07:28 02/20/17 07:28 - Medications Medications: Current Medications Acetaminophen (Tylenol 325mg Tab) 650 mg PO Q6 PRN PRN Reason: Fever >100.4 F Atorvastatin Calcium (Lipitor) 10 mg PO HS [facility] Last Admin: 02/19/17 22:30 Dose: 10 mg Docusate Sodium (Colace) 100 mg PO DAILY PRN PRN Reason: Constipation Ergocalciferol (Drisdol 50,000 Intl Units Cap) 1 cap PO SUN [facility] Finasteride (Proscar) 5 mg PO DAILY [facility] Home Med (Febuxostat [Uloric]) 40 mg PO DAILY [facility] Latanoprost (Xalatan Opht) 1 drop OU HS [facility] Last Admin: 02/19/17 21:39 Dose: 1 drop Megestrol Acetate (Megace) 800 mg PO DAILY PRN PRN Reason: Appetite stimulant Sevelamer HCl (Renagel) 800 mg PO TID [facility] Sitagliptin Phosphate (Januvia) 50 mg PO DAILY [facility] Sodium Bicarbonate (Sodium Bicarbonate Tab) 650 mg PO BID [facility] - Labs Labs: 02/20/17 02:46 02/19/17 12:15 PT 18.9 Seconds (9.8-13.1) H 02/19/17 14:35 INR 1.7 (0.9-1.2) H 02/19/17 14:35 APTT 32.0 Seconds (25.6-37.1) 02/19/17 14:35 - Head Exam Head Exam: NORMAL INSPECTION - Eye Exam Eye Exam: Normal appearance - ENT Exam ENT Exam: Mucous Membranes Moist - Respiratory Exam Respiratory Exam: NORMAL BREATHING PATTERN - Cardiovascular Exam Cardiovascular Exam: REGULAR RHYTHM - GI/Abdominal Exam GI & Abdominal Exam: Normal Bowel Sounds - Neurological Exam Neurological Exam: Awake, Oriented x3 Assessment and Plan (1) MDS (myelodysplastic syndrome) Status: Chronic (2) Pancytopenia Status: Chronic (3) Fever Status: Resolved (4) Physical debility Status: Acute - Assessment and Plan (Free Text) Plan: Cont meds Cont tx Cont pT check labs
--- NOTE | 2017-02-20 13:51 | RAD ---
PROCEDURE: CHEST RADIOGRAPH, 1 VIEW HISTORY: sob COMPARISON: Comparison made with chest radiograph 02/19/2017 FINDINGS: No change right IJ MediPort tip in the SVC. LUNGS: Hazy appearance right lung base could represent some combination of atelectasis and or developing infiltrate as well as left-sided effusion. Minor right basilar atelectasis. . PLEURA: No pneumothorax or pleural fluid seen. CARDIOVASCULAR: Cardiomegaly. Sternotomy wires stable. Two metallic surgical clips in the mid aspect right parasagittal mediastinum also unchanged. OSSEOUS STRUCTURES: No significant abnormalities. VISUALIZED UPPER ABDOMEN: Normal. OTHER FINDINGS: None. IMPRESSION: Hazy appearance right lung base could represent some combination of atelectasis and or developing infiltrate as well as left-sided effusion. Minor right basilar atelectasis. .
[2017-02-20] MEDS: Latanoprost 0.005% Opht SOUTION OU SCH (21:04)
[2017-02-21 07:02] LABS: BASO % 2.1 % (0.0-2.0); EOS % 1.3 % (0.0-4.0); HEMATOCRIT 36.4 % (35.0-51.0); LYMPH # 1.2 K/uL (1.0-4.3); LYMPH % 85.3 % (20.0-40.0); MEAN CELL VOLUME 90.3 fl (80.0-94.0); MEAN CORPUSCULAR HEMOGLOBIN 30.9 pg (27.0-31.0); MEAN CORPUSCULAR HGB CONC 34.2 g/dL (33.0-37.0); MEAN PLATELET VOLUME 8.5 fl (7.2-11.7); MONO # 0.1 K/uL (0.0-0.8); MONO % 7.1 % (0.0-10.0); NEUT # 0.1 K/uL (1.8-7.0); NEUT % 4.2 % (50.0-75.0); NRBC % 0.8 % (0.0-0.0); RED CELL DISTRIBUTION WIDTH 14.6 % (11.5-14.5)
[2017-02-21 07:11] LABS: ALKALINE PHOSPHATASE 76 U/L (38-126); ALT/SGPT 25 U/L (21-72); AST/SGOT 10 U/L (17-59); BILIRUBIN,TOTAL 0.4 mg/dl (0.2-1.3); BLOOD UREA NITROGEN 27 mg/dl (9-20); CALCIUM 10.3 mg/dL (8.4-10.2); CARBON DIOXIDE 26 mmol/L (22-30); CHLORIDE 108 mmol/L (98-107); GFR AFRICAN-AMERICAN > 60; GLUCOSE,RANDOM 146 mg/dL (75-110); POTASSIUM 3.5 MMOL/L (3.6-5.0); SODIUM 143 mmol/l (132-148); TOTAL PROTEIN 6.5 G/DL (6.3-8.2)
[2017-02-21 07:14] LABS: ALB/GLOB RATIO 0.9 (1.0-2.1); WHITE BLOOD COUNT 1.4 K/uL (4.8-10.8)
[2017-02-21] MEDS ORDERED: Ergocalciferol 50,000 Intl Units Cap PO SCH (09:00)
--- NOTE | 2017-02-21 11:03 | CP.PCM.PN ---
Subjective - Date & Time of Evaluation Date of Evaluation: 02/21/17 Time of Evaluation: 10:56 - Subjective Subjective: Pt looks very weak , Very different from 4 days ago. He is gradually deteriorating, and the marrow does not seem to responding to anything. He is surviving only on transfusions. As long as he was alert and feeling well it was ok , but now he is barely responsive and is very weak. I conveyed this to his son and he agrees that it is futile to continue transfusing him when the count barely lasts for a day or 2. he has agreed to a DNR and DNI, and will speak to his brother re hospice care. Objective - Vital Signs/Intake and Output Vital Signs (last 24 hours): Temp Pulse Resp BP Pulse Ox 98.9 F 100 H 20 147/84 96 02/21/17 09:48 02/21/17 09:48 02/21/17 07:30 02/21/17 07:30 02/21/17 09:48 - Medications Medications: Current Medications Acetaminophen (Tylenol 325mg Tab) 650 mg PO Q6 PRN PRN Reason: Fever >100.4 F Atorvastatin Calcium (Lipitor) 10 mg PO HS [facility] Last Admin: 02/20/17 21:04 Dose: 10 mg Docusate Sodium (Colace) 100 mg PO DAILY PRN PRN Reason: Constipation Last Admin: 02/20/17 09:36 Dose: 100 mg Ergocalciferol (Drisdol 50,000 Intl Units Cap) 1 cap PO SUN [facility] Last Admin: 02/21/17 09:51 Dose: 1 cap Finasteride (Proscar) 5 mg PO DAILY [facility] Last Admin: 02/21/17 09:49 Dose: 5 mg Home Med (Febuxostat [Uloric]) 40 mg PO DAILY [facility] Sodium Chloride (Sodium Chloride 0.9%) 500 mls @ 50 mls/hr IV .Q10H [facility] Latanoprost (Xalatan Opht) 1 drop OU HS [facility] Last Admin: 02/20/17 21:04 Dose: 1 drop Megestrol Acetate (Megace) 800 mg PO DAILY PRN PRN Reason: Appetite stimulant Last Admin: 02/21/17 09:50 Dose: 800 mg Sevelamer HCl (Renagel) 800 mg PO TID [facility] Last Admin: 11/12/17 09:49 Dose: 800 mg Sitagliptin Phosphate (Januvia) 50 mg PO DAILY [facility] Last Admin: 02/21/17 09:51 Dose: 50 mg Sodium Bicarbonate (Sodium Bicarbonate Tab) 650 mg PO BID [facility] Last Admin: 02/21/17 09:49 Dose: 650 mg - Labs Labs: 02/21/17 05:30 02/21/17 05:30 PT 18.9 Seconds (9.8-13.1) H 02/19/17 14:35 INR 1.7 (0.9-1.2) H 02/19/17 14:35 APTT 32.0 Seconds (25.6-37.1) 02/19/17 14:35
[2017-02-21] MEDS: Sodium Chloride 0.9% 500 ML IV SCH ×2 (11:47→21:43)
--- NOTE | 2017-02-21 15:08 | CP.PCM.PN ---
Subjective - Date & Time of Evaluation Date of Evaluation: 02/21/17 Time of Evaluation: 15:05 - Subjective Subjective: Patient is not doing well. Noted significant change in mental status. Not responding well. Noted very poor intake Noted distended abdomen. Objective - Vital Signs/Intake and Output Vital Signs (last 24 hours): Temp Pulse Resp BP Pulse Ox 98.9 F 100 H 20 147/84 96 02/21/17 09:48 02/21/17 09:48 02/21/17 07:30 02/21/17 07:30 02/21/17 09:48 - Medications Medications: Current Medications Acetaminophen (Tylenol 325mg Tab) 650 mg PO Q6 PRN PRN Reason: Fever >100.4 F Atorvastatin Calcium (Lipitor) 10 mg PO HS [facility] Last Admin: 02/20/17 21:04 Dose: 10 mg Docusate Sodium (Colace) 100 mg PO DAILY PRN PRN Reason: Constipation Last Admin: 02/21/17 11:47 Dose: 100 mg Ergocalciferol (Drisdol 50,000 Intl Units Cap) 1 cap PO SUN [facility] Last Admin: 02/21/17 09:51 Dose: 1 cap Finasteride (Proscar) 5 mg PO DAILY [facility] Last Admin: 02/21/17 09:49 Dose: 5 mg Home Med (Febuxostat [Uloric]) 40 mg PO DAILY [facility] Sodium Chloride (Sodium Chloride 0.9%) 500 mls @ 50 mls/hr IV .Q10H [facility] Last Admin: 02/21/17 11:47 Dose: 50 mls/hr Latanoprost (Xalatan Opht) 1 drop OU HS [facility] Last Admin: 02/20/17 21:04 Dose: 1 drop Megestrol Acetate (Megace) 800 mg PO DAILY PRN PRN Reason: Appetite stimulant Last Admin: 02/21/17 09:50 Dose: 800 mg Sevelamer HCl (Renagel) 800 mg PO TID [facility] Last Admin: 02/21/17 09:49 Dose: 800 mg Sitagliptin Phosphate (Januvia) 50 mg PO DAILY [facility] Last Admin: 02/21/17 09:51 Dose: 50 mg Sodium Bicarbonate (Sodium Bicarbonate Tab) 650 mg PO BID [facility] Last Admin: 02/21/17 09:49 Dose: 650 mg - Labs Labs: 02/21/17 05:30 02/21/17 05:30 PT 18.9 Seconds (9.8-13.1) H 02/19/17 14:35 INR 1.7 (0.9-1.2) H 02/19/17 14:35 APTT 32.0 Seconds (25.6-37.1) 02/19/17 14:35 - Head Exam Head Exam: NORMAL INSPECTION - Eye Exam Eye Exam: Normal appearance - ENT Exam ENT Exam: Mucous Membranes Moist - Respiratory Exam Respiratory Exam: Prolonged Expiratory Phase - Cardiovascular Exam Cardiovascular Exam: REGULAR RHYTHM - GI/Abdominal Exam GI & Abdominal Exam: Distended, Normal Bowel Sounds - Neurological Exam Neurological Exam: Altered Assessment and Plan (1) MDS (myelodysplastic syndrome) Status: Chronic (2) Pancytopenia Status: Chronic (3) Fever Status: Resolved (4) Physical debility Status: Acute - Assessment and Plan (Free Text) Plan: Cont meds Discussed with family and agreed to have patient on DNR and DNI will arrange for hospice care in AM. fleet enema
[2017-02-21] MEDS: Latanoprost 0.005% Opht SOUTION OU SCH (21:42)
[2017-02-22] MEDS: Sodium Chloride 0.9% 500 ML IV SCH ×2 (06:46→09:19)
--- NOTE | 2017-02-22 10:42 | CP.PCM.PN ---
Subjective - Date & Time of Evaluation Date of Evaluation: 02/22/17 Time of Evaluation: 10:42 - Subjective Subjective: patient c remains the same Much more awake today and had some breakfast. Still with distended Objective - Vital Signs/Intake and Output Vital Signs (last 24 hours): Temp Pulse Resp BP Pulse Ox 97.6 F 84 20 122/93 H 100 02/22/17 08:49 02/22/17 08:49 02/22/17 08:49 02/22/17 08:49 02/22/17 08:49 - Medications Medications: Current Medications Acetaminophen (Tylenol 325mg Tab) 650 mg PO Q6 PRN PRN Reason: Fever >100.4 F Atorvastatin Calcium (Lipitor) 10 mg PO HS [facility] Last Admin: 02/21/17 21:42 Dose: 10 mg Docusate Sodium (Colace) 100 mg PO DAILY PRN PRN Reason: Constipation Last Admin: 02/21/17 11:47 Dose: 100 mg Ergocalciferol (Drisdol 50,000 Intl Units Cap) 1 cap PO SUN [facility] Last Admin: 02/21/17 09:51 Dose: 1 cap Finasteride (Proscar) 5 mg PO DAILY [facility] Last Admin: 02/22/17 09:19 Dose: 5 mg Home Med (Febuxostat [Uloric]) 40 mg PO DAILY [facility] Sodium Chloride (Sodium Chloride 0.9%) 500 mls @ 50 mls/hr IV .Q10H [facility] Last Admin: 02/22/17 09:19 Dose: 50 mls/hr Latanoprost (Xalatan Opht) 1 drop OU HS [facility] Last Admin: 02/21/17 21:42 Dose: 1 drop Megestrol Acetate (Megace) 800 mg PO DAILY PRN PRN Reason: Appetite stimulant Last Admin: 02/21/17 09:50 Dose: 800 mg Sevelamer HCl (Renagel) 800 mg PO TID [facility] Last Admin: 02/22/17 09:21 Dose: 800 mg Sitagliptin Phosphate (Januvia) 50 mg PO DAILY [facility] Last Admin: 02/22/17 09:18 Dose: 50 mg Sodium Bicarbonate (Sodium Bicarbonate Tab) 650 mg PO BID [facility] Last Admin: 02/22/17 09:18 Dose: 650 mg - Labs Labs: 02/21/17 05:30 02/21/17 05:30 PT 18.9 Seconds (9.8-13.1) H 02/19/17 14:35 INR 1.7 (0.9-1.2) H 02/19/17 14:35 APTT 32.0 Seconds (25.6-37.1) 02/19/17 14:35 - Constitutional Appears: Confused - Head Exam Head Exam: NORMAL INSPECTION - Eye Exam Eye Exam: Normal appearance - ENT Exam ENT Exam: Mucous Membranes Moist - Respiratory Exam Respiratory Exam: Decreased Breath Sounds - Cardiovascular Exam Cardiovascular Exam: REGULAR RHYTHM - Neurological Exam Neurological Exam: Altered Assessment and Plan (1) MDS (myelodysplastic syndrome) Status: Chronic (2) Pancytopenia Status: Chronic (3) Physical debility Status: Acute - Assessment and Plan (Free Text) Plan: Cont meds for hospice care cont hydration nutrition.
[2017-02-22 16:43] VITALS: BP 146/80; PULSE 116; RESP 19; TEMP 100.6; O2SAT 96
== END 2017-02-22 16:48 | disposition hospice, inpatient (51) | DRG 809 ==
LOC: H.ER 10:52 → H.ERHOLD 14:17 → H.MEDSURG1 15:30
PROVIDERS: ADMIT Family Medicine; ATTEND Family Medicine
PROC: 6A550Z2 Pheresis of Platelets, Single (ICD-10-PCS; 2017-02-19)
PROC: 30233N1 Transfusion of Nonautologous Red Blood Cells into Peripheral Vein, Percutaneous Approach (ICD-10-PCS; principal; 2017-02-20)
DX: D61.818 Other pancytopenia (principal); I13.0 Hypertensive heart and chronic kidney disease with heart failure and stage 1 through stage 4 chronic kidney disease, or unspecified chronic kidney disease; E11.22 Type 2 diabetes mellitus with diabetic chronic kidney disease; I50.9 Heart failure, unspecified; D46.9 Myelodysplastic syndrome, unspecified; E03.9 Hypothyroidism, unspecified; N18.9 Chronic kidney disease, unspecified; I25.10 Atherosclerotic heart disease of native coronary artery without angina pectoris; Z95.1 Presence of aortocoronary bypass graft; Z95.5 Presence of coronary angioplasty implant and graft; E78.00 Pure hypercholesterolemia, unspecified; E78.5 Hyperlipidemia, unspecified; Z66 Do not resuscitate; N40.0 Benign prostatic hyperplasia without lower urinary tract symptoms; J45.909 Unspecified asthma, uncomplicated; R53.81 Other malaise; R41.0 Disorientation, unspecified

== ENCOUNTER 2017-02-22 14:06 | Inpatient (IN) | payer BC, OTHER ==
[2017-02-22 15:58] VITALS: BMI 29.2
[2017-02-22] MEDS ORDERED: HYDROmorphone 0.5 mg/0.5 ml ISec IVP PRN (22:07)
--- NOTE | 2017-02-23 13:01 | CP.PCM.HP ---
History of Present Illness - History of Present Illness History of Present Illness: 86 year old male with hx of MDS admitted for inpatient hospice. Patient has had multiple admission for severe pancytopenia, that was being treated with transfusions of PRBCs and platelets. His bone marrow was no longer responding to treatment. Patients mental status is waxing/waning. Comfort measures initiated. PMH: myelodysplastic syndrome Medications: as per orders, pain control Allergies: NKDA Present on Admission - Present on Admission Any Indicators Present on Admission: No Review of Systems - Review of Systems Systems not reviewed;Unavailable: Altered Mental Status Past Patient History - Infectious Disease Hx of Infectious Diseases: None - Past Medical History & Family History Past Medical History?: Yes - Past Social History Smoking Status: Never Smoked - CARDIAC Hx Cardiac Disorders: Yes Hx Hypertension: Yes - PULMONARY Hx Respiratory Disorders: Yes Hx Asthma: Yes Hx Lung Cancer: Yes - NEUROLOGICAL Hx Neurological Disorder: Yes - HEENT Hx HEENT Problems: Yes Other/Comment: Hard of Hearing - RENAL Hx Chronic Kidney Disease: Yes Hx Kidney Stones: Yes Other/Comment: CKD - ENDOCRINE/METABOLIC Hx Hypothyroidism: Yes - HEMATOLOGICAL/ONCOLOGICAL Hx Blood Disorders: Yes Hx Cancer: Yes Other/Comment: MDS - INTEGUMENTARY Hx Dermatological Problems: No - MUSCULOSKELETAL/RHEUMATOLOGICAL Hx Musculoskeletal Disorders: Yes Hx Falls: Yes Hx Gout: Yes - GASTROINTESTINAL Hx Diverticulitis: Yes Hx Gall Bladder Disease: Yes Hx Pancreatitis: Yes (Myelodisplastic Syndrom) - GENITOURINARY/GYNECOLOGICAL Hx Genitourinary Disorders: Yes Hx Prostate Problems: Yes - PSYCHIATRIC Hx Psychophysiologic Disorder: No Hx Emotional Abuse: No Hx Physical Abuse: No Hx Substance Use: No - SURGICAL HISTORY Hx Cholecystectomy: Yes 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) Hx Coronary Stent: Yes (1994) - ANESTHESIA Hx Anesthesia: Yes Hx Anesthesia Reactions: No Hx Malignant Hyperthermia: No Meds Allergies/Adverse Reactions: Allergies Allergy/AdvReac Type Severity Reaction Status Date / Time No Known Allergies Allergy Verified 02/19/17 11:00 Physical Exam - Constitutional Appears: No Acute Distress, Confused - Head Exam Head Exam: NORMAL INSPECTION - Respiratory Exam Respiratory Exam: Decreased Breath Sounds, NORMAL BREATHING PATTERN - Cardiovascular Exam Cardiovascular Exam: REGULAR RHYTHM, +S1, +S2 - Extremities Exam Extremities exam: Negative for: pedal edema - Skin Skin Exam: Dry, Intact, Pallor Results - Vital Signs Recent Vital Signs: Last Vital Signs Temp 98.5 F 02/23/17 07:57 Pulse 85 02/23/17 07:57 Resp 20 02/23/17 07:57 BP 119/69 02/23/17 07:57 Pulse Ox 97 02/23/17 07:57 - Labs Labs: Laboratory Results - last 24 hr 02/22/17 22:07 POC Glucose (mg/dL) 152 H Assessment & Plan (1) Hospice care Status: Acute (2) MDS (myelodysplastic syndrome) Status: Chronic - Assessment and Plan (Free Text) Assessment: 86 year old male with MDS admitted for inpatient hospice. Comfort care. Pain control as ordered. regular diet modified consistency/dysphagia as tolerated
[2017-02-25 07:31] VITALS: BP 105/67; PULSE 134; RESP 30; TEMP 101; O2SAT 93
--- NOTE | 2017-02-25 10:39 | CP.PCM.PRO ---
Pronouncement of Note - Clinical Findings Physical Exam: No Response Verbal/Painful Stimuli, Absent Peripheral Pulses{ Carotid & Femoral}, Absent Heart & Breath Sounds, No Pupillary Light Reflex, No Corneal Reflex, Pupils Fixed & Dilated, Absence of Vital Signs - Pronouncement Time Time of Pronouncement of : 10:00 - Notifications Pronouncement Notifications: Family Notified, Atending Notified Cooler Supervisor Notified: No - Autopsy Autopsy Requested: No - [place] [id number]
== END 2017-02-25 11:00 | DRG 812 ==
LOC: H.MEDSURG1 15:58
PROVIDERS: ADMIT Family Medicine; ATTEND Family Medicine
DX: D46.9 Myelodysplastic syndrome, unspecified (principal); Z51.5 Encounter for palliative care; I12.9 Hypertensive chronic kidney disease with stage 1 through stage 4 chronic kidney disease, or unspecified chronic kidney disease; N18.9 Chronic kidney disease, unspecified; E03.9 Hypothyroidism, unspecified; R13.10 Dysphagia, unspecified; Z95.1 Presence of aortocoronary bypass graft; Z85.118 Personal history of other malignant neoplasm of bronchus and lung; M10.9 Gout, unspecified; H91.90 Unspecified hearing loss, unspecified ear; J45.909 Unspecified asthma, uncomplicated; Z95.5 Presence of coronary angioplasty implant and graft; Z87.442 Personal history of urinary calculi